=== PATIENT | male | born 1970 | race Caucasian/White ===

== ENCOUNTER 2023-12-23 14:07 | Inpatient (IN) | payer MEDICAID, SELFPAY ==
--- NOTE | ~2023-12-23 | XR_ITS ---
EXAMINATION: XR CHEST CLINICAL INFORMATION: hypothermic COMPARISON: None available. TECHNIQUE: Frontal portable view of the chest was obtained. 2:52 PM FINDINGS: No significant abnormality is noted involving the heart, lungs, mediastinum, bony thorax or soft tissues. XR/XR chest 1V IMPRESSION: Unremarkable examination. Electronically signed by: Esequiel Feng MD 12/23/2023 04:06 PM EDT RP
--- NOTE | ~2023-12-23 | MR_ITS ---
EXAMINATION: MR BRAIN WITHOUT CONTRAST CLINICAL INFORMATION: ? CVA COMPARISON: CTA head and neck on [id number] TECHNIQUE: MRI of the brain was obtained using routine sequences without contrast. FINDINGS: No acute intracranial hemorrhage or infarct. Encephalomalacic changes in the right frontoparietal lobes. Mild confluent periventricular and deep white matter T2/FLAIR hyperintensities, nonspecific however commonly seen with small vessel ischemic disease. Diffuse prominence of the ventricles out of proportion to sulci widening. No midline shift or hydrocephalus. No acute extra-axial fluid collections. The osseous structures are unremarkable. Hyperostosis frontalis internus. The pituitary gland, pineal gland and remaining midline structures are unremarkable. No orbital pathology. The paranasal sinuses are clear. Bilateral mastoid effusions.. MR/MR head/brain wo con IMPRESSION: 1. No acute intracranial intracranial abnormality. 2. Diffuse prominence of the ventricles out of portion to sulci widening, nonspecific however can be seen with normal pressure hydrocephalus in the appropriate clinical setting. 3. Chronic microangiopathy. 4. Bilateral mastoid effusions. Electronically signed by: Kingsley Kilgore MD 12/24/2023 04:39 PM EDT
--- NOTE | ~2023-12-23 | CT_ITS ---
EXAMINATION: CTA head and neck with and without contrast CLINICAL INFORMATION: Altered mental status, slurred speech COMPARISON: None available. TECHNIQUE: Test bolus sequences followed by intravenous administration of 70 mL of Omnipaque 350 contrast. Helical imaging was performed in the axial plane from the skull vertex to the thoracic inlet. Delayed postcontrast imaging of the head was also performed. The data was processed at the electroencephalographic technologist workstation for generation of MIP sequences. Angled MIPs and volume rendered reformatted images were also generated at an offline 3D workstation. Stenoses are assessed in accordance with NASCET criteria unless otherwise indicated. This CT examination was performed using dose optimization techniques as appropriate, variously including the following: *Automated exposure control *Adjustment of mA and/or kV according to patient size (this includes techniques or standardized protocols for targeted exams where dose is matched to indication/reason for exam; i.e. extremities or head) *Use of iterative reconstruction technique DLP: 2757 mGy-cm FINDINGS: Motion artifact is present. BRAIN: No acute intracranial hemorrhage or infarct. Encephalomalacic changes in the right frontal lobe. The morales-white matter differentiation is otherwise preserved. Prominence of the ventricles out of proportion to sulci widening. No midline shift or hydrocephalus. No acute process or fluid collection. The osseous structures are unremarkable. No orbital pathology. The paranasal sinuses and mastoid air cells are clear. Atherosclerotic ossifications of the bilateral carotid siphons. CTA NECK: Three-vessel aortic arch. The innominate and bilateral subclavian arteries are patent. The origins and cervical segments of the common carotid arteries as well as the common carotid artery bifurcations are patent. The cervical segments of the internal carotid arteries are also patent bilaterally. Nondominant left vertebral artery. The origins of the vertebral arteries are patent bilaterally. Suboptimal evaluation of the left cervical vertebral artery secondary to hypoplasia and scanning technique. The cervical segments of the right vertebral artery are patent. No definite evidence of hemodynamically significant stenosis, dissection, or aneurysm. The visualized branches of the external carotid arteries are unremarkable. CTA HEAD: Anterior circulation: The petrous, cavernous, and supraclinoid segments of the internal carotid arteries are present bilaterally. The major branches of the anterior and middle cerebral arteries as well as anterior communicating artery complex are patent. No large vessel occlusion, saccular aneurysm, or dissection. Posterior circulation: There is severe focal stenosis of the mid left V3. The right intracranial vertebral artery is patent. The basilar artery is normal in course and caliber. The posterior cerebral and superior cerebellar arteries arise normally from the basilar summit. Left posterior cerebral artery. No aneurysm. On delayed imaging, the venous structures demonstrate normal contrast opacification. No filling defect. No abnormal intraparenchymal enhancement. Soft tissues: No suspicious neck mass or cervical adenopathy. Lungs: Mosaic attenuation bilaterally. Bones: No acute osseous abnormality. No lytic or blastic osseous lesions. Multilevel degenerative changes of the visualized spine. CT/CT angio head neck IMPRESSION: Within the limitations of this study, -CT head demonstrates no acute intracranial hemorrhage or edematous infarct. Ventricular prominence out of proportion to sulci widening may represent normal pressure hydrocephalus in the appropriate clinical setting. Encephalomalacic changes in the right frontal lobe. -CTA head demonstrates no large vessel occlusion, saccular aneurysm, or dissection. There is severe focal stenosis of the mid left V3. -CTA neck demonstrates no hemodynamically significant stenosis, dissection, or aneurysm. Electronically signed by: Kingsley Kilgore MD 12/23/2023 06:01 PM EDT
[2023-12-23 14:13] VITALS: BP 107/85; BP 110/72; PULSE 50; PULSE 59; RESP 12; O2SAT 97; O2SAT 98; BMI 38.9
--- NOTE | 2023-12-23 14:23 | ECG_ITS ---
Test Reason : WEAKNESS Blood Pressure : / mmHG Vent. Rate : 050 BPM Atrial Rate : 050 BPM P-R Int : 202 ms QRS Dur : 082 ms QT Int : 468 ms P-R-T Axes : 100 008 034 degrees QTc Int : 426 ms Sinus bradycardia Nonspecific T wave abnormality Abnormal ECG No previous ECGs available Referred By: Rebecca Carpenter Electronically Signed By:FAUSTINO BERMAN
--- NOTE | 2023-12-23 14:34 | ED_ITS ---
HPI - General Adult General Chief complaint: Altered Mental Status Stated complaint: AMS LETHARGIC Source: EMS Mode of arrival: EMS Limitations: altered mental status History of Present Illness ED Provider: Dr. Rebecca Carpenter HPI narrative: Patient comes to the emergency room via ambulance from a halfway facility, [facility]. According to patient's health caretakers, at 08:30, they noticed that the patient was in his usual health, alert, at baseline, talking to the staff. just prior to arrival, approximately 14:00, patient was found by his caretakers with altered mental status, not answering questions, slurring his words. They took his temperature rectally and it was 94 F. patient is very confused and unable to answer any questions. Related Data Allergies Allergy/AdvReac Type Severity Reaction Status Date / Time chlorpromazine Allergy Unknown Verified 12/23/23 14:16 [From Thorazine] haloperidol [From Haldol] Allergy Unknown Verified 12/23/23 14:16 Review of Systems 2 Review of Systems: Yes Unobtainable due to mental status PMFSH Past Medical History Medical History (Updated 12/23/23 @ 21:44 by Rebecca Carpenter MD) Malignant neuroleptic syndrome Cocaine abuse Bipolar disorder Traumatic brain injury Left hemiplegia CVA (cerebral vascular accident) Hepatitis C Anxiety COPD (chronic obstructive pulmonary disease) Social History Social History Smoked in Last 30 Days: No Use of substances other than those prescribed or required for medical reasons: No Advance Directives: No Advance Directives Information Provided: No Do you have a plan to hurt others: No Plan Physical Exam ED Vital Signs: Vital Signs - 24 hr 12/23/23 14:13 12/23/23 15:58 12/23/23 18:31 Temperature 93.7 F L 94.1 F L Pulse Rate 59 52 54 Respiratory Rate 12 10 L 19 Blood Pressure 107/85 98/57 L 120/86 Pulse Oximetry 97 94 95 Oxygen Delivery Method Room Air Room Air Room Air BMI result Body Mass Index 38.9 Const Other: Appearance: Alert. No acute distress. hypothermic 94.3 Eyes: Pupils equal, round and reactive to light. ENT: Pharynx normal. heavy slurred speech Neck: Normal inspection. Neck supple. No lymph nodes noted. No crepitus CVS: Normal heart rate and rhythm. Pulses normal. Normal S1 and S2 Respiratory: No respiratory distress. Breath sounds normal. No Wheezing. No rales Abdomen: Soft and nontender. No rigidity. No distention. Skin: Skin warm and dry. Normal skin color. Normal skin turgor. Extremities: No lower extremity edema. No Lacerations. No Rash Neuro: chronic left hemiparesis, very slurred heavy speech Psych: calm, cooperative Course Course Course Narrative: - patient is hypothermic, normal blood pressure, not answering questions appropriately, Last known well time 08:30, more than 6 hours ago - per patient's nurse, his rectal temperature is 93.4. Medications Administered Discontinued Medications Generic Name Dose Route Start Last Admin Trade Name Freq PRN Reason Stop Dose Admin Sodium Chloride 2,000 mls @ 999 mls/hr 12/23/23 17:02 12/23/23 17:24 Ns IVCONT 12/23/23 19:02 999 mls/hr .Q2H1M ONE Administration Iohexol 100 ml 12/23/23 17:03 12/23/23 17:03 Iohexol 350 Mg/Ml 100 Ml Infus..Btl IV 12/23/23 17:04 70 ml ONCE ONE Administration Medical Decision Making Medical Decision Making [facility] Narrative: My interpretation of labs: Patient's white blood cell count 4.0, no significant abnormality in the hematology, coagulation or chemistry, negative troponin, negative BNP, normal lipase, normal TSH, urine negative for UTI, serology negative for COVID, influenza - There is no obvious source of infection, chest x-ray normal, serology negative, urine cleaned. Unclear why patient is hypothermic. - No episodes of hypotension, no tachycardic, lactic acid 1.9, sepsis is not suspected. - I discussed the patient with our hospitalist Dr. Edwards. this time, there is no obvious source of infection, unclear why patient is hypothermic. At this time we will not start antibiotics. - CT scans of the head and CTA of the head and neck does not show any obvious abnormality, unclear if patient had a stroke? - We keep getting different reports from the assisted whether the patient has slurred speech is new versus not. Seems that patient has a chronic left- sided deficits from previous stroke - patient being admitted Differential Diagnosis Differential Diagnoses: The differential diagnosis associated with the presentation includes ( UTI, pneumonia, encephalopathy, viral illness, TIA, CVA) Admission/Observation Consideration of admission/observation: Escalation of care including admission/observation considered Consult Healthcare Provider Management of the patient was discussed with: Hospitalist Lab Data MDM Lab Attestation statement: I reviewed the patient's lab results. 12/23/23 14:41 12/23/23 14:41 Labs: Lab Results 12/23/23 12/23/23 Range/Units 14:41 14:45 WBC 4.0 L (4.8-10.8) X10*3/uL RBC 4.68 (4.60-5.80) X10*6/uL Hgb 14.4 (14.0-18.0) g/dl Hct 42.3 (42.0-52.0) % MCV 90.4 (80.0-98.0) fL MCH 30.8 (27.0-33.0) pg MCHC 34.0 (31.0-36.0) g/dl RDW 14.0 (11.0-16.0) % Plt Count 150 L (160-400) X10*3/uL MPV 12.1 (9.4-12.4) fL Immature Gran % (Auto) 0.3 (0.0-0.4) % Neut % (Auto) 37.4 L (45-73) % Lymph % (Auto) 53.0 H (20-40) % [place] % (Auto) 6.3 (2-11) % Eos % (Auto) 2.5 (0-4) % Baso % (Auto) 0.5 (0-2) % Lymph # (Auto) 2.1 (1.2-4.9) X10*3/uL [place] # (Auto) 0.3 (0.1-1.2) X10*3/uL Eos # (Auto) 0.1 (0.0-0.4) X10*3/uL Baso # (Auto) 0.0 (0.0-0.2) X10*3/uL Abs Immat Gran (auto) 0.01 (0.00-0.03) X10*3/uL Absolute Neuts (auto) 1.5 L (2.0-8.3) x10*3/uL Absolute Nucleated RBC 0.000 (0.0-0.012) X10*3/uL Nucleated RBC % (auto) 0.0 (0.0-0.2) /100WBC PT 10.2 L (11.1-13.3) SEC INR 0.8 L (0.9-1.1) Sodium 144 (135-145) mmol/L Potassium 3.6 (3.3-5.1) mmol/L Chloride 105 (96-108) mmol/L Carbon Dioxide 31 H (22-29) mmol/L Anion Gap 12 (12-20) BUN 20 H (9-16) mg/dL Creatinine 0.81 (0.5-1.4) mg/dL Estim Creat Clear Calc 136.0 Estimated GFR > 60 Random Glucose 100 (60-115) mg/dL Lactic Acid 1.9 (0.5-2.0) mmol/L Calcium 9.7 (8.4-10.2) mg/dL Magnesium 2.4 (1.6-2.6) mg/dL Total Bilirubin 0.4 (0.0-1.0) mg/dL Direct Bilirubin 0.1 (0.0-0.5) mg/dL AST 9 (5-37) U/L ALT 13 (0-40) U/L Alkaline Phosphatase 67 (39-117) U/L Troponin I High Sens < 2.7 (<3.5-35.0) ng/L B-Natriuretic Peptide 14 (<100) pg/mL Total Protein 7.6 (6.5-8.0) g/dL Albumin 4.4 (3.5-5.0) g/dL Lipase 19 (8-78) U/L TSH 2.00 (0.32-4.0) uIU/mL Urine Color Yellow Urine Appearance Clear Urine pH 6.0 (5.0-9.0) Ur Specific [place] 1.025 (1.005-1.025) Urine Protein Negative (Neg-Trace) mg/dL Urine Glucose (UA) Negative (Negative) mg/dL Urine Ketones Trace (Negative) mg/dL Urine Blood Negative (Negative) Urine Nitrite Negative (Negative) Ur Leukocyte Esterase Negative (Negative) COVID-19 (CASSY) Negative (Negative) COVID-19 Clin Com See Note Influenza Type A (KIRAN) Negative (Negative) Influenza Type B (KIRAN) Negative (Negative) Influenza A & B Note See Note Independent Interpretation I performed an independent interpretation of an: CT Scan Radiology Impression Discussion of test interpretation with radiology: I have reviewed the radiologist's reading. Radiologist Impression: BRAIN: No acute intracranial hemorrhage or infarct. Encephalomalacic changes in the right frontal lobe. The morales-white matter differentiation is otherwise preserved. Prominence of the ventricles out of proportion to sulci widening. No midline shift or hydrocephalus. No acute process or fluid collection. The osseous structures are unremarkable. No orbital pathology. The paranasal sinuses and mastoid air cells are clear. Atherosclerotic ossifications of the bilateral carotid siphons. CTA NECK: Three-vessel aortic arch. The innominate and bilateral subclavian arteries are patent. The origins and cervical segments of the common carotid arteries as well as the common carotid artery bifurcations are patent. The cervical segments of the internal carotid arteries are also patent bilaterally. Nondominant left vertebral artery. The origins of the vertebral arteries are patent bilaterally. Suboptimal evaluation of the left cervical vertebral artery secondary to hypoplasia and scanning technique. The cervical segments of the right vertebral artery are patent. No definite evidence of hemodynamically significant stenosis, dissection, or aneurysm. The visualized branches of the external carotid arteries are unremarkable. CTA HEAD: Anterior circulation: The petrous, cavernous, and supraclinoid segments of the internal carotid arteries are present bilaterally. The major branches of the anterior and middle cerebral arteries as well as anterior communicating artery complex are patent. No large vessel occlusion, saccular aneurysm, or dissection. Posterior circulation: There is severe focal stenosis of the mid left V3. The right intracranial vertebral artery is patent. The basilar artery is normal in course and caliber. The posterior cerebral and superior cerebellar arteries arise normally from the basilar summit. Left posterior cerebral artery. No aneurysm. On delayed imaging, the venous structures demonstrate normal contrast opacification. No filling defect. No abnormal intraparenchymal enhancement. Soft tissues: No suspicious neck mass or cervical adenopathy. Lungs: Mosaic attenuation bilaterally. Bones: No acute osseous abnormality. No lytic or blastic osseous lesions. Multilevel degenerative changes of the visualized spine. CT/CT angio head neck IMPRESSION: Within the limitations of this study, -CT head demonstrates no acute intracranial hemorrhage or edematous infarct. Ventricular prominence out of proportion to sulci widening may represent normal pressure hydrocephalus in the appropriate clinical setting. Encephalomalacic changes in the right frontal lobe. -CTA head demonstrates no large vessel occlusion, saccular aneurysm, or dissection. There is severe focal stenosis of the mid left V3. -CTA neck demonstrates no hemodynamically significant stenosis, dissection, or aneurysm. Independent Historian Clinical information obtained from an independent historian. History obtained from or confirmed by: EMS Critical Care Time Critical Care Time Critical Care Time: Yes Total Critical Care Time: 75 Attestation: I have personally provided critical care time. Time includes review of lab data, radiology results, discussion with consultants, and monitoring for potential decompensation. Intervention performed as documented. Discharge Plan Discharge Clinical Impression: Altered mental status, Hypothermia Patient Disposition: Admitted As Inpatient Print Language: Comoran
[2023-12-23 14:46] LABS: MANUAL DIFF FLAG NO
[2023-12-23 14:49] LABS: Basophils Percent Auto 0.5 % (0-2); Eosinophils Absolute Auto 0.1 X10*3/uL (0.0-0.4); Eosinophils Percent Auto 2.5 % (0-4); Hematocrit 42.3 % (42.0-52.0); Hemoglobin 14.4 g/dl (14.0-18.0); Imm Gran Abs Auto 0.01 X10*3/uL (0.00-0.03); Imm Gran Pct Auto 0.3 % (0.0-0.4); Lymphocytes Absolute Auto 2.1 X10*3/uL (1.2-4.9); Mean Corpuscular Hemoglobin 30.8 pg (27.0-33.0); Mean Corpuscular Volume 90.4 fL (80.0-98.0); Mean Platelet Volume 12.1 fL (9.4-12.4); Monocytes Absolute Auto 0.3 X10*3/uL (0.1-1.2); Monocytes Percent Auto 6.3 % (2-11); Neutrophils Absolute Auto 1.5 x10*3/uL (2.0-8.3); Neutrophils Percent Auto 37.4 % (45-73); Platelet Count 150 X10*3/uL (160-400); Red Blood Count 4.68 X10*6/uL (4.60-5.80)
[2023-12-23 14:54] LABS: INTERNATIONAL NORM RATIO 0.8 (0.9-1.1); Prothrombin Time 10.2 SEC (11.1-13.3)
[2023-12-23 14:56] LABS: Appearance Urine Clear; Color Urine Yellow; Glucose Urine UA Negative (Negative); Leukocyte Esterase Urine Negative (Negative); Nitrite Urine Negative (Negative); Specific Gravity - Urine 1.025 (1.005-1.025); Urine Blood Negative (Negative); Urine Ketones Trace mg/dL (Negative); Urine Protein Negative (Neg-Trace)
[2023-12-23 14:58] LABS: Lactic Acid 1.9 mmol/L (0.5-2.0)
[2023-12-23 15:04] LABS: Alanine Aminotransferase 13 U/L (0-40); Albumin Level 4.4 g/dL (3.5-5.0); Alkaline Phosphatase 67 U/L (39-117); Anion Gap 12 (12-20); Aspartate Amino Transferase 9 U/L (5-37); Bilirubin Direct 0.1 mg/dL (0.0-0.5); Bilirubin Total 0.4 mg/dL (0.0-1.0); Blood Urea Nitrogen 20 mg/dL (9-16); Calcium 9.7 mg/dL (8.4-10.2); Carbon Dioxide 31 mmol/L (22-29); Chloride 105 mmol/L (96-108); Estimated Glomerular Filt Rate > 60; Glucose Random 100 mg/dL (60-115); Lipase 19 U/L (8-78); Magnesium 2.4 mg/dL (1.6-2.6); Potassium 3.6 mmol/L (3.3-5.1); Sodium 144 mmol/L (135-145); Total Protein 7.6 g/dL (6.5-8.0)
--- NOTE | 2023-12-23 15:06 | PC.NURSE ---
Patient DAMIAN from [facility], staff concerned for increased lethargy/AMS, last known well time 0830 confirmed by staff there, hypothermic at facility. Upon arrival to the ED patient able to verbalize that he needed to urinate, able to w/ assistance in urinal. Rectal temp 93.2, rectal temp probe placed to monitor temp more closely. Labs drawn and sent per orders. Patient placed on warming blanket. VS stable SB 50's on monitor.
[2023-12-23 15:08] LABS: B Type Natriuretic Peptide 14 pg/mL (<100); COVID-19 Test Negative (Negative); IDNOW Serial# 152EDE1D
[2023-12-23 15:13] LABS: Troponin-I High Sensitivity < 2.7 ng/L (<3.5-35.0)
[2023-12-23 15:20] LABS: IDNOW Serial# 58CA691E; Influenza A Negative (Negative); Influenza B2 Negative (Negative)
[2023-12-23 15:58] VITALS: BP 98/57; PULSE 52; RESP 10; TEMP 34.3; O2SAT 94
[2023-12-23] MEDS: iohexoL 350 MG/ML 100 ML INFUS..BTL IV (17:03)
[2023-12-23] MEDS: 0.9 % Sodium Chloride 2,000 ML 999 ML IVCONT (17:24)
--- NOTE | 2023-12-23 17:44 | PC.NURSE ---
Spoke to patient's mom, Tiffanie, , updated on plan of care, all questions answered, request from Tiffanie to get phone call once work up is complete.
[2023-12-23 18:31] VITALS: BP 120/86; PULSE 54; RESP 19; TEMP 34.5; O2SAT 95
--- NOTE | 2023-12-23 19:07 | PC.NURSE ---
Patient self removed IV. IV replaced, 2L of fluids hung. Patient requesting food.
--- NOTE | 2023-12-23 21:22 | P.HPHOSP_ITS ---
History of Present Illness Date of Service: 12/23/23 Attending physician on admission: Racheal Edwards Chief Complaint: AMS, hypothermia Pt is a 53-year-old male with a PMH significant for?CVA with residual left hemiparesis and dysarthria, TBI, HTN, malignant neuroleptic syndrome, polysubstance use disorder, COPD, GERD, nonambulatory and full Aman lift at facility, anxiety, and bipolar disorder who presents to the ED from [facility] for evaluation of altered mental status and hypothermia. Patient is alert and oriented x2, unaware of his situation or what brought him to the hospital, and with slurred speech unclear if at baseline but very difficult to understand. HPI is thus obtained from chart and provider review, and call placed to SNF. According to staff, patient was in his normal state of health at 08:30 this morning: Alert, interacting, speaking to staff. At approximately 14:00 patient was found at facility to be altered, lethargic, not answering questions appropriately, and slurring his words above baseline. Vital signs were taken then and temperature was noted to be 94.0 F rectally. Upon arrival at the ED patient's temperature was noted to be 93.7 and he was placed in a Julianne Hugger where his temperature was slowly raised to 95 F. In the ED pt was hypothermic as low as 93.7, bradypneic as low as 10, and hypotensive at 98/57. Labs were significant for leukopenia 4.0, otherwise grossly unremarkable. Stable H& H. No significant electrolyte abnormalities. Renal function baseline. Lactic acid WNL at 1.9. Hepatic function WNL. Troponin negative. BNP WNL. UA negative for UTI. Tested negative for COVID, and flu. CXR showed no acute cardiopulmonary disease. CT?of head negative for acute intracranial hemorrhage or edematous territorial infarct. Question of normal pressure hydrocephalus. Encephalomalacic changes in right frontal lobe. CTA of head showed no large vessel occlusion, saccular aneurysm, or dissection. CTA of neck negative for hemodynamically significant stenosis, dissection, or aneurysm. EKG demonstrated sinus bradycardia of 50 with no evidence of significant ST elevations or depressions. Pt was placed on a Julianne Hugger and treated with 2L IVF. Pt will be admitted to the hospital for treatment and further evaluation of acute metabolic encephalopathy and hypothermia of unclear etiology. Review of Systems 2 Review of Systems: Unable to obtain due to patient's mentation [facility] Medical History Malignant neuroleptic syndrome Cocaine abuse Bipolar disorder Traumatic brain injury Left hemiplegia CVA (cerebral vascular accident) Hepatitis C Anxiety COPD (chronic obstructive pulmonary disease) Social History Smoked in Last 30 Days: No Use of substances other than those prescribed or required for medical reasons: No Advance Directives: No Advance Directives Information Provided: No Do you have a plan to hurt others: No Plan Meds Allergies Allergy/AdvReac Type Severity Reaction Status Date / Time chlorpromazine Allergy Unknown Verified 12/23/23 14:16 [From Thorazine] haloperidol [From Haldol] Allergy Unknown Verified 12/23/23 14:16 Active Medications: Current Medications Acetaminophen (Acetaminophen 325 Mg Tablet) 650 mg PO Q6H PRN PRN Reason: Pain, Mild (Pain Scale 1-3), fever or headache Calcium Carbonate (Calcium Carbonate 750 Mg Tab.Chew) 750 mg PO Q4H PRN PRN Reason: Heartburn Magnesium Hydroxide (Milk Of Magnesia 30 Ml Oral.Susp) 30 ml PO DAILY PRN PRN Reason: Constipation Melatonin (Melatonin 3 Mg Tablet) 6 mg PO BEDTIME PRN PRN Reason: Insomnia Ondansetron HCl (Ondansetron Hcl 4 Mg/2 Ml Vial) 4 mg IVPUSH Q8H PRN PRN Reason: Nausea and Vomiting Sodium Chloride (0.9 % Sodium Chloride Flush 3 Ml Syringe) 3 ml IVFLUSH QSHIFT [facility] Physical Exam 2 Vital Signs and Narrative: Vital Signs: Last Vital Signs Temp 94.1 F L 12/23/23 18:31 Pulse 54 12/23/23 18:31 Resp 19 12/23/23 18:31 BP 120/86 12/23/23 18:31 Pulse Ox 95 12/23/23 18:31 O2 Del Method Room Air 12/23/23 18:31 BMI result Body Mass Index 38.9 Constitutional: Somnolent but arousable, in no acute distress. Mental Status: Oriented to person and time, but not to place or situation. Eyes: Pupils are equal, round, and reactive to light. Ear, Nose, and Throat: Oropharynx clear, mucous membranes moist. Ears and nose without deformities. Trachea midline. Respiratory: Clear to auscultation bilaterally. No wheezing, rales, or rhonchi. Cardiovascular: S1, S2 regular. No murmurs, rubs, or gallops. Gastrointestinal: Abdomen soft, non-tender, non-distended. Normal bowel sounds. Neurologic: Following commands, but EOM unable to fully track. Significant dysarthria. Left-sided hemiparesis with 1/5 strength of LUE and 0/5 strength of LLE. Cellophane Wrapping Examiner intact bilaterally. Skin: Warm, dry. Extremities: No edema. Results Labs 12/23/23 14:41 12/23/23 14:41 Labs: Laboratory Results - last 24 hr 12/23/23 12/23/23 14:41 14:45 MCV 90.4 MCH 30.8 MCHC 34.0 RDW 14.0 Plt Count 150 L MPV 12.1 Immature Gran % (Auto) 0.3 Neut % (Auto) 37.4 L Lymph % (Auto) 53.0 H [place] % (Auto) 6.3 Eos % (Auto) 2.5 Baso % (Auto) 0.5 Lymph # (Auto) 2.1 [place] # (Auto) 0.3 Eos # (Auto) 0.1 Baso # (Auto) 0.0 Abs Immat Gran (auto) 0.01 Absolute Neuts (auto) 1.5 L Absolute Nucleated RBC 0.000 Nucleated RBC % (auto) 0.0 PT 10.2 L INR 0.8 L Anion Gap 12 Estim Creat Clear Calc 136.0 Estimated GFR > 60 Random Glucose 100 Lactic Acid 1.9 Calcium 9.7 Magnesium 2.4 Total Bilirubin 0.4 Direct Bilirubin 0.1 AST 9 ALT 13 Alkaline Phosphatase 67 Troponin I High Sens < 2.7 B-Natriuretic Peptide 14 Total Protein 7.6 Albumin 4.4 Lipase 19 TSH 2.00 Urine Color Yellow Urine Appearance Clear Urine pH 6.0 Ur Specific [place] 1.025 Urine Protein Negative Urine Glucose (UA) Negative Urine Ketones Trace Urine Blood Negative Urine Nitrite Negative Ur Leukocyte Esterase Negative COVID-19 (CASSY) Negative COVID-19 Clin Com See Note Influenza Type A (KIRAN) Negative Influenza Type B (KIRAN) Negative Influenza A & B Note See Note Imaging Radiologist's Impressions: Impressions Chest X-Ray 12/23/23 14:48 IMPRESSION: Unremarkable examination. Electronically signed by: Esequiel Feng MD 12/23/2023 04:06 PM EDT RP Head CT 12/23/23 16:35 IMPRESSION: Within the limitations of this study, -CT head demonstrates no acute intracranial hemorrhage or edematous infarct. Ventricular prominence out of proportion to sulci widening may represent normal pressure hydrocephalus in the appropriate clinical setting. Encephalomalacic changes in the right frontal lobe. -CTA head demonstrates no large vessel occlusion, saccular aneurysm, or dissection. There is severe focal stenosis of the mid left V3. -CTA neck demonstrates no hemodynamically significant stenosis, dissection, or aneurysm. Electronically signed by: Kingsley Kilgore MD 12/23/2023 06:01 PM EDT RP Head/Neck CTA 12/23/23 16:35 IMPRESSION: Within the limitations of this study, -CT head demonstrates no acute intracranial hemorrhage or edematous infarct. Ventricular prominence out of proportion to sulci widening may represent normal pressure hydrocephalus in the appropriate clinical setting. Encephalomalacic changes in the right frontal lobe. -CTA head demonstrates no large vessel occlusion, saccular aneurysm, or dissection. There is severe focal stenosis of the mid left V3. -CTA neck demonstrates no hemodynamically significant stenosis, dissection, or aneurysm. Electronically signed by: Kingsley Kilgore MD 12/23/2023 06:01 PM EDT RP Assessment and Plan (1) Hypothermia: Status: Acute (2) Acute metabolic encephalopathy: Status: Acute Plan Pt is a 53-year-old male with a PMH significant for?CVA with residual left hemiparesis and dysarthria, TBI, HTN, malignant neuroleptic syndrome, polysubstance use disorder, COPD, GERD, nonambulatory and full Aman lift at facility, anxiety, and bipolar disorder who presents to the ED from [facility] for evaluation of altered mental status and hypothermia. Pt will be admitted to the hospital for treatment and further evaluation of acute metabolic encephalopathy and hypothermia of unclear etiology. Acute metabolic encephalopathy with hypothermia Patient with AMS, slurred speech with question above baseline, 93.7 F Last known well time 08:30, found altered at 1400 Unclear etiology: CVA versus meningitis/encephalitis UA negative, CXR negative Patient does not meet sepsis criteria: Hypothermia, but no tachycardia, tachypnea, or leukocytosis/leukopenia Will empirically treat with dexamethasone 10mg q6h, ceftriaxone 2g q12h, vancomycin, ampicillin 2g q4h, and acyclovir 10 mg/kg q8h Will get MRI of brain Will get LP with CSF analysis Neurology consult Hx of CVA Continue aspirin, statin COPD Not in acute exacerbation Continue home inhalers HTN Hold antihypertensives for now due to soft BP GERD Continue PPI Mood disorder Continue home meds Bowel regimen Continue home meds Full Code Attending:?Dr. Edwards DVT Prophylaxis: Pneumatic compression Pt will require a hospitalization of at least two nights for treatment and further evaluation of acute metabolic encephalopathy with hypothermia of unclear etiology with treatment that will include additional workup including LP and MRI, as well as empiric antibiotic, antiviral, and steroid administration. Quality Stroke Does the patient have a stroke diagnosis?: No Reason for No Anti-thrombotic by Day Two: Contraindicated (Outside of tNK therapeutic window) VTE Prior VTE?: No VTE Risk Level:: Medical - moderate - high VTE Device Contraindication: N/A - Device Ordered VTE Drug Contraindication: Treatment Not Indicated
[2023-12-24] VITALS (10 sets, daily range): BP systolic 122–154; BP diastolic 65–94; PULSE 61–114; RESP 16–22; TEMP 36.3–37.4; O2SAT 95–98
[2023-12-24] MEDS: dexAMETHasone sod phosphate 10 MG/ML VIAL IVPUSH ×5 (00:03→20:46)
[2023-12-24] MEDS: cefTRIAXone sodium 2 GM in 0.9 % Sodium Chloride 50 ML IV ×2 (00:03→12:09)
[2023-12-24] MEDS: vancomycin/NS 2,000 MG/500 ML PLAST..BAG 250 MG IV (00:49)
[2023-12-24] MEDS: Ampicillin Sodium 2 GM in 0.9 % Sodium Chloride 100 ML IV ×3 (01:27→12:59)
[2023-12-24 05:11] LABS: MANUAL DIFF FLAG NO
--- NOTE | 2023-12-24 05:13 | MHC.EDTECH ---
pt repeatedly trying to get out of bed, Charge Nurse aware and Pt RN aware.
[2023-12-24 05:19] LABS: Basophils Percent Auto 0.2 % (0-2); Eosinophils Percent Auto 0.2 % (0-4); Hematocrit 40.3 % (42.0-52.0); Hemoglobin 13.1 g/dl (14.0-18.0); Imm Gran Abs Auto 0.03 X10*3/uL (0.00-0.03); Imm Gran Pct Auto 0.5 % (0.0-0.4); Lymphocytes Absolute Auto 0.7 X10*3/uL (1.2-4.9); Lymphocytes Percent Auto 11.4 % (20-40); Mean Corpuscular HGB Conc 32.5 g/dl (31.0-36.0); Mean Corpuscular Hemoglobin 29.9 pg (27.0-33.0); Mean Platelet Volume 12.1 fL (9.4-12.4); Monocytes Absolute Auto 0.1 X10*3/uL (0.1-1.2); Neutrophils Absolute Auto 5.2 x10*3/uL (2.0-8.3); Neutrophils Percent Auto 86.7 % (45-73); Platelet Count 148 X10*3/uL (160-400); Red Blood Count 4.38 X10*6/uL (4.60-5.80); Red Cell Distribution Width 14.1 % (11.0-16.0)
[2023-12-24 05:37] LABS: Anion Gap 13 (12-20); Blood Urea Nitrogen 17 mg/dL (9-16); Calcium 9.3 mg/dL (8.4-10.2); Carbon Dioxide 30 mmol/L (22-29); Chloride 107 mmol/L (96-108); Creatinine Clr Calc Pharmacy 141.3; Estimated Glomerular Filt Rate > 60; Glucose Random 108 mg/dL (60-115); Potassium 3.6 mmol/L (3.3-5.1); Sodium 146 mmol/L (135-145)
--- NOTE | 2023-12-24 06:04 | PC.NURSE ---
pt ripped out both of his IVs; when this RN went to place another one he refused. attempting to swing at this RN. states get off my fucking ass. aware that pt is refusing another IV. unable to administer abx at this time.
--- NOTE | 2023-12-24 08:12 | PHA.MEDREC ---
Pharmacy Consult ? Medication Reconciliation Pharmacy has completed the medication reconciliation. List received from [facility].
[2023-12-24] MEDS: LORazepam 2 MG/ML VIAL 1 MG IVPUSH ×2 (08:25→14:47)
[2023-12-24] MEDS: OLANZapine 10 MG VIAL IM (08:30)
[2023-12-24] MEDS: 0.9 % Sodium Chloride Flush 3 ML SYRINGE IVFLUSH ×3 (08:33→20:48)
--- NOTE | 2023-12-24 08:33 | PC.NURSE ---
Care of Pt assumed at beginning of shift. Pt presents with yelling and use of foul language, sitter present. 22g placed in L hand, VSS. Pt behavior progresses to combative with attempting to kick and spit at staff, as well as throwing urinal at staff. Soft restraints placed to bilat upper extremities and Pt medicated per MAR. VS remain stable.
[2023-12-24 08:35] LABS: C Reactive Protein 0.23 mg/dL (< or = 0.50)
[2023-12-24 08:48] LABS: Procalcitonin 0.02 ng/mL
--- NOTE | 2023-12-24 09:00 | PC.NURSE ---
Pharmacy aware of med rec needed
[2023-12-24] MEDS: DULoxetine HCl 30 MG CAPSULE.DR 90 MG PO (10:01)
[2023-12-24] MEDS: Propranolol HCL 20 MG TABLET PO ×3 (10:01→20:44)
[2023-12-24] MEDS: Furosemide 20 MG TABLET 10 MG PO (10:02)
[2023-12-24] MEDS: Gabapentin 300 MG CAPSULE 900 MG PO ×3 (10:02→20:46)
[2023-12-24] MEDS: Potassium Chloride ER 10 MEQ TABLET.ER PO (10:03)
[2023-12-24] MEDS: Omeprazole 20 MG CAPSULE.DR PO (10:03)
[2023-12-24] MEDS: clonazePAM 1 MG TABLET PO ×2 (10:03→20:45)
[2023-12-24] MEDS: Docusate Sodium 100 MG CAPSULE PO ×2 (10:03→20:45)
--- NOTE | 2023-12-24 10:15 | PC.NURSE ---
Soft limb restraints removed, pt awake but agreeable to safety, AM meds given, refused some as reflected in EMAR
[2023-12-24] MEDS: vancomycin HCL 1,000 MG in 0.9 % Sodium Chloride 250 ML 270 MG IV (10:19)
--- NOTE | 2023-12-24 10:20 | PC.NURSE ---
Mother and family friend at bedside, pt in better spirits, occasionally laughing and smiling
[2023-12-24 10:37] LABS: Amphetamine Screen Urine Not Detected (Not Detect); Barbiturates, Urine Not Detected (Not Detect); Benzodiazepines Screen Urine Not Detected (Not Detect); Buprenorphine Scr Not Detected (Not Detect); Cannabinoid Screen Urine Not Detected (Not Detect); Cocaine Screen Urine Not Detected (Not Detect); Fentanyl, urine Not Detected (Not Detect); Methadone Screen, Urine Not Detected (Not Detect); Opiate Screen Urine Not Detected (Not Detect); Oxycodone Screen Urine Not Detected (Not Detect); Phencyclidine Screen Urine Not Detected (Not Detect)
[2023-12-24] MEDS: ARIPiprazole 5 MG TABLET PO ×2 (13:05→13:06)
[2023-12-24] MEDS: ARIPiprazole 2 MG TABLET PO (13:06)
--- NOTE | 2023-12-24 13:46 | P.CNNE_ITS ---
History of Present Illness Data of Consult Service Date: 12/24/23 Primary Care Provider: [facility] Reason for consult: Change in mental status 53 years old man with underlying left hemiparesis from a stroke and history of drug abuse resident of a longterm was brought to hospital after change in mental status and dysarthria. He was evaluated in emergency room and my impression was that it was difficult to confirm that he was having a stroke and treatment like TNK was not considered. He was hypothermic and was evaluated for infection but so far no definite infection has been found. Review of Systems 2 Review of Systems: No recent cold or flu-like illness fever or chills or trauma or headache PMFSH Past Medical History Medical History Malignant neuroleptic syndrome Cocaine abuse Bipolar disorder Traumatic brain injury Left hemiplegia CVA (cerebral vascular accident) Hepatitis C Anxiety COPD (chronic obstructive pulmonary disease) Social History Social History Household Members: Other Housing: Other Housing Other:: [facility] Patient Tobacco Use Status: Former Tobacco user Cigarette Packs Per Day: 1 Cigarettes Per Day: 20.0 Meds Allergies Allergy/AdvReac Type Severity Reaction Status Date / Time chlorpromazine Allergy Unknown Verified 12/23/23 14:16 [From Thorazine] haloperidol [From Haldol] Allergy Unknown Verified 12/23/23 14:16 Active Medications: Current Medications Acetaminophen (Acetaminophen 325 Mg Tablet) 650 mg PO Q6H PRN PRN Reason: Pain, Mild (Pain Scale 1-3), fever or headache Albuterol Sulfate (Albuterol Sulfate (0.083%) 2.5 Mg/3 Ml Vial.Neb) 2.5 mg INHALE Q4H PRN PRN Reason: Wheezing Aripiprazole (Aripiprazole 5 Mg Tablet) 5 mg PO DAILY [facility] Last Admin: 12/24/23 13:06 Dose: 5 mg Aripiprazole (Aripiprazole 2 Mg Tablet) 2 mg PO DAILY [facility] Last Admin: 12/24/23 13:06 Dose: 2 mg Bisacodyl (Bisacodyl 10 Mg Supp.Rect) 10 mg [place] DAILY PRN PRN Reason: Constipation Calcium Carbonate (Calcium Carbonate 750 Mg Tab.Chew) 750 mg PO Q4H PRN PRN Reason: Heartburn Clonazepam (Clonazepam 1 Mg Tablet) 1 mg PO Q8H PRN PRN Reason: Anxiety Clonazepam (Clonazepam 1 Mg Tablet) 1 mg PO BID [facility] Last Admin: 12/24/23 10:03 Dose: 1 mg Dexamethasone Sodium Phosphate (Dexamethasone Sod Phosphate 10 Mg/Ml Vial) 10 mg IVPUSH Q6H [facility] Last Admin: 12/24/23 11:33 Dose: 10 mg Docusate Sodium (Docusate Sodium 100 Mg Capsule) 100 mg PO BID [facility] Last Admin: 12/24/23 10:03 Dose: 100 mg Duloxetine HCl (Duloxetine Hcl 30 Mg Capsule.Dr) 90 mg PO DAILY [facility] Last Admin: 12/24/23 10:01 Dose: 90 mg Furosemide (Furosemide 20 Mg Tablet) 10 mg PO DAILY [facility]; Protocol Last Admin: 12/24/23 10:02 Dose: 10 mg Gabapentin (Gabapentin 300 Mg Capsule) 900 mg PO TID [facility] Last Admin: 12/24/23 10:02 Dose: 900 mg Guaifenesin (Guaifenesin 100 Mg/5 Ml Liquid) 10 ml PO Q4H PRN PRN Reason: Cough Guaifenesin (Guaifenesin 200 Mg/10 Ml 10 Ml Liquid) 20 ml PO BID@0900,1800 [facility] Last Admin: 12/24/23 10:30 Dose: Not Given Vancomycin HCl 1,000 mg/ (Sodium Chloride) 270 mls @ 270 mls/hr IV Q8H [facility] Last Infusion: 12/24/23 11:35 Dose: Infused Acyclovir Sodium 900 mg/ (Sodium Chloride) 268 mls @ 268 mls/hr IV Q8H [facility] Last Infusion: 12/24/23 10:14 Dose: Infused Ceftriaxone Sodium 2 gm/ (Sodium Chloride) 50 mls @ 100 mls/hr IV Q12H [facility] Last Infusion: 12/24/23 12:42 Dose: Infused Ampicillin Sodium 2 gm/ Sodium (Chloride) 100 mls @ 200 mls/hr IV Q4H [facility] Last Infusion: 12/24/23 13:31 Dose: Infused Lactulose (Lactulose 20 Gm/30 Ml Solution) 30 gm PO TID [facility] Last Admin: 12/24/23 10:30 Dose: Not Given Magnesium Hydroxide (Milk Of Magnesia 30 Ml Oral.Susp) 30 ml PO DAILY PRN PRN Reason: Constipation Melatonin (Melatonin 3 Mg Tablet) 9 mg PO BEDTIME [facility] Olanzapine (Olanzapine 7.5 Mg Tablet) 15 mg PO BEDTIME [facility] Omeprazole (Omeprazole 20 Mg Capsule.Dr) 20 mg PO DAILY@0630 [facility] Last Admin: 12/24/23 10:03 Dose: 20 mg Ondansetron HCl (Ondansetron Hcl 4 Mg/2 Ml Vial) 4 mg IVPUSH Q8H PRN PRN Reason: Nausea and Vomiting Oxycodone HCl (Oxycodone Hcl Immed Release 5 Mg Tablet) 5 mg PO Q8H PRN PRN Reason: Pain (Scale Score 4-6) Pharmacy Consult (Consult Rx Vancomycin Dosing) 1 each MISCELLANE DAILY PRN PRN Reason: Consult order Potassium Chloride (Potassium Chloride Er 10 Meq Tablet.Er) 10 meq PO DAILY [facility] Last Admin: 12/24/23 10:03 Dose: 10 meq Propranolol HCl (Propranolol Hcl 20 Mg Tablet) 20 mg PO TID [facility]; Protocol Last Admin: 12/24/23 10:01 Dose: 20 mg Sodium Chloride (0.9 % Sodium Chloride Flush 3 Ml Syringe) 3 ml IVFLUSH QSHIFT [facility] Last Admin: 12/24/23 08:33 Dose: 3 ml Home Medications ?Medication ?Instructions ?Recorded ?Confirmed ?Last Taken ?Type acetaminophen 325 mg tablet 975 mg PO Q8H PRN HEADACHE/PAIN 12/24/23 12/24/23 12/23/23 History albuterol sulfate 2.5 mg/3 mL 2.5 mg inhalation Q4H PRN Wheezing 12/24/23 12/24/23 Unknown History (0.083 %) solution for nebulization aripiprazole 2 mg tablet (Abilify) 2 mg PO DAILY 12/24/23 12/24/23 12/23/23 History aripiprazole 5 mg tablet (Abilify) 5 mg PO DAILY 12/24/23 12/24/23 12/23/23 History aspirin 81 mg tablet,delayed 81 mg PO DAILY 12/24/23 12/24/23 12/23/23 History release bisacodyl 10 mg rectal suppository 10 mg WA DAILY PRN Constipation 12/24/23 12/24/23 Unknown History clonazepam 1 mg tablet 1 mg PO BID 12/24/23 12/24/23 12/23/23 History clonazepam 1 mg tablet 1 mg PO Q8H PRN Anxiety 12/24/23 12/24/23 12/09/23 History docusate sodium 100 mg capsule 100 mg PO BID 12/24/23 12/24/23 12/23/23 History (Colace) duloxetine 30 mg capsule,delayed 90 mg PO DAILY 12/24/23 12/24/23 12/23/23 History release sprinkle furosemide 20 mg tablet 10 mg PO DAILY 12/24/23 12/24/23 12/23/23 History gabapentin 300 mg capsule 900 mg PO TID 12/24/23 12/24/23 12/23/23 History guaifenesin 100 mg/5 mL oral liquid 200 mg PO Q4H PRN Cough 12/24/23 12/24/23 Unknown History guaifenesin 200 mg tablet 400 mg PO BID@0900,1800 12/24/23 12/24/23 12/23/23 History lactulose 10 gram/15 mL oral 45 ml PO TID 12/24/23 12/24/23 12/23/23 History solution magnesium hydroxide 400 mg/5 mL 30 ml PO DAILY PRN Constipation 12/24/23 12/24/23 Unknown History oral suspension (Milk of Magnesia) melatonin 3 mg tablet 9 mg PO BEDTIME 12/24/23 12/24/23 12/22/23 History olanzapine 15 mg tablet 15 mg PO BEDTIME 12/24/23 12/24/23 12/22/23 History oxycodone 5 mg tablet 5 mg PO Q8H PRN Pain (Scale Score 12/24/23 12/24/23 12/23/23 History 4-6) pantoprazole 40 mg tablet,delayed 40 mg PO DAILY@0630 12/24/23 12/24/23 12/23/23 History release potassium chloride 10 mEq 10 meq PO DAILY 12/24/23 12/24/23 12/23/23 History capsule,extended release propranolol 20 mg tablet 20 mg PO TID 12/24/23 12/24/23 12/23/23 History Physical Exam 2 Vital Signs: Vital Signs: Last Vital Signs Temp 97.9 F 12/24/23 12:22 Pulse 78 12/24/23 12:22 Resp 18 12/24/23 12:22 BP 142/77 H 12/24/23 12:22 Pulse Ox 97 12/24/23 12:22 O2 Del Method Room Air 12/24/23 12:22 BMI result Body Mass Index 38.9 Neuro: Other: He is alert and awake with normal spontaneity and fluency of speech. Speech is slightly dysarthric. He did not move his left arm or left leg. He was moving his right side. Visual jesus are full. Results Labs 12/24/23 04:42 12/24/23 04:42 Labs: Short CBC 12/23/23 12/24/23 Range/Units 14:41 04:42 WBC 4.0 L 6.0 (4.8-10.8) X10*3/uL Hgb 14.4 13.1 L (14.0-18.0) g/dl Hct 42.3 40.3 L (42.0-52.0) % Plt Count 150 L 148 L (160-400) X10*3/uL BMP 12/23/23 12/24/23 14:41 04:42 Sodium 144 146 H Potassium 3.6 3.6 Chloride 105 107 Carbon Dioxide 31 H 30 H BUN 20 H 17 H Creatinine 0.81 0.78 Calcium 9.7 9.3 Liver Function 12/23/23 Range/Units 14:41 Total Bilirubin 0.4 (0.0-1.0) mg/dL Direct Bilirubin 0.1 (0.0-0.5) mg/dL AST 9 (5-37) U/L ALT 13 (0-40) U/L Alkaline Phosphatase 67 (39-117) U/L Albumin 4.4 (3.5-5.0) g/dL Urine 12/23/23 Range/Units 14:45 Urine Color Yellow Urine Appearance Clear Urine pH 6.0 (5.0-9.0) Ur Specific [place] 1.025 (1.005-1.025) Urine Protein Negative (Neg-Trace) mg/dL Urine Glucose (UA) Negative (Negative) mg/dL Head CT revealed moderately severe diffuse cerebral atrophy and a chronic right motor strip area infarct. CTA did not reveal any large vessel disease. Assessment and Plan (1) Altered mental status: Qualifiers: Altered mental status type: unspecified Qualified Code(s): R41.82 - Altered mental status, unspecified Status: Acute 53 years old man with complicated underlying history including left hemiparesis from a right frontal infarct came to hospital with change in mental status was etiology has not been yet found. There was no sign of significant metabolic abnormality or infection to explain his situation. Because of hypothermia, blood infection is a possibility. I would also recommend obtaining an EEG if possible to rule out seizure disorder, which is a common complication of this type of stroke Procedures Date of Service Date of Service: 12/24/23
--- NOTE | 2023-12-24 14:20 | P.PNIM_ITS ---
Subjective Subjective Date of Service: 12/24/23 Interval History: agitated this AM requiring IV Ativan/IM Zyprexa now cooperative, per mother at baseline denies TODD, cough, or abd pain chronic L hemiparesis from TBI admitted to [facility] for hypothermia in October Review of Systems Review of Systems: Yes all other systems are reviewed and are negative Physical Exam 2 Vital Signs: Vital Signs: Last Vital Signs Temp 97.9 F 12/24/23 12:22 Pulse 78 12/24/23 12:22 Resp 18 12/24/23 12:22 BP 142/77 H 12/24/23 12:22 Pulse Ox 97 12/24/23 12:22 O2 Del Method Room Air 12/24/23 12:22 BMI result Body Mass Index 38.9 Gen: in no acute distress HEENT: sclera anicteric, moist mucus membranes Neck: supple, full ROM with no nuchal ridigity Lungs: clear to auscultation bilaterally Heart: regular rate and rhythm, no murmurs Abd: soft, non-tender, non-distended Ext: no edema Skin: warm/well-perfused Neuro: alert, L hemiparesis Psych: appropriate affect Objective Data Active Medications Acetaminophen (Acetaminophen 325 Mg Tablet) 650 mg PO Q6H PRN PRN Reason: Pain, Mild (Pain Scale 1-3), fever or headache Albuterol Sulfate (Albuterol Sulfate (0.083%) 2.5 Mg/3 Ml Vial.Neb) 2.5 mg INHALE Q4H PRN PRN Reason: Wheezing Aripiprazole (Aripiprazole 5 Mg Tablet) 5 mg PO DAILY REPLACED BY [facility] Last Admin: 12/24/23 13:05 Dose: 5 mg Documented By: SHANNAN Aripiprazole (Aripiprazole 2 Mg Tablet) 2 mg PO DAILY REPLACED BY [facility] Last Admin: 12/24/23 13:06 Dose: 2 mg Documented By: SHANNAN Bisacodyl (Bisacodyl 10 Mg Supp.Rect) 10 mg [place] DAILY PRN PRN Reason: Constipation Calcium Carbonate (Calcium Carbonate 750 Mg Tab.Chew) 750 mg PO Q4H PRN PRN Reason: Heartburn Clonazepam (Clonazepam 1 Mg Tablet) 1 mg PO Q8H PRN PRN Reason: Anxiety Clonazepam (Clonazepam 1 Mg Tablet) 1 mg PO BID REPLACED BY [facility] Last Admin: 12/24/23 10:03 Dose: 1 mg Documented By: AIME Dexamethasone Sodium Phosphate (Dexamethasone Sod Phosphate 10 Mg/Ml Vial) 10 mg IVPUSH Q6H REPLACED BY [facility] Last Admin: 12/24/23 11:33 Dose: 10 mg Documented By: AIME Docusate Sodium (Docusate Sodium 100 Mg Capsule) 100 mg PO BID REPLACED BY [facility] Last Admin: 12/24/23 10:03 Dose: 100 mg Documented By: AIME Duloxetine HCl (Duloxetine Hcl 30 Mg Capsule.Dr) 90 mg PO DAILY REPLACED BY [facility] Last Admin: 12/24/23 10:01 Dose: 90 mg Documented By: AIME Furosemide (Furosemide 20 Mg Tablet) 10 mg PO DAILY REPLACED BY [facility]; Protocol Last Admin: 12/24/23 10:02 Dose: 10 mg Documented By: AIME Gabapentin (Gabapentin 300 Mg Capsule) 900 mg PO TID REPLACED BY [facility] Last Admin: 12/24/23 10:02 Dose: 900 mg Documented By: AIME Guaifenesin (Guaifenesin 100 Mg/5 Ml Liquid) 10 ml PO Q4H PRN PRN Reason: Cough Guaifenesin (Guaifenesin 200 Mg/10 Ml 10 Ml Liquid) 20 ml PO BID@0900,1800 REPLACED BY [facility] Last Admin: 12/24/23 10:30 Dose: Not Given Documented By: MARIELY Non-Admin Reason: Patient Refused Vancomycin HCl 1,000 mg/ (Sodium Chloride) 270 mls @ 270 mls/hr IV Q8H REPLACED BY [facility] Last Infusion: 12/24/23 11:35 Dose: Infused Documented By: AIME Ceftriaxone Sodium 2 gm/ (Sodium Chloride) 50 mls @ 100 mls/hr IV Q12H REPLACED BY [facility] Last Infusion: 12/24/23 12:42 Dose: Infused Documented By: SHANNAN Ampicillin Sodium 2 gm/ Sodium (Chloride) 100 mls @ 200 mls/hr IV Q4H REPLACED BY [facility] Last Infusion: 12/24/23 13:31 Dose: Infused Documented By: SHANNAN Lactulose (Lactulose 20 Gm/30 Ml Solution) 30 gm PO TID REPLACED BY [facility] Last Admin: 12/24/23 10:30 Dose: Not Given Documented By: MARIELY Non-Admin Reason: Patient Refused Magnesium Hydroxide (Milk Of Magnesia 30 Ml Oral.Susp) 30 ml PO DAILY PRN PRN Reason: Constipation Melatonin (Melatonin 3 Mg Tablet) 9 mg PO BEDTIME REPLACED BY [facility] Olanzapine (Olanzapine 7.5 Mg Tablet) 15 mg PO BEDTIME REPLACED BY [facility] Omeprazole (Omeprazole 20 Mg Capsule.Dr) 20 mg PO DAILY@0630 REPLACED BY [facility] Last Admin: 12/24/23 10:03 Dose: 20 mg Documented By: AIME Ondansetron HCl (Ondansetron Hcl 4 Mg/2 Ml Vial) 4 mg IVPUSH Q8H PRN PRN Reason: Nausea and Vomiting Oxycodone HCl (Oxycodone Hcl Immed Release 5 Mg Tablet) 5 mg PO Q8H PRN PRN Reason: Pain (Scale Score 4-6) Pharmacy Consult (Consult Rx Vancomycin Dosing) 1 each MISCELLANE DAILY PRN PRN Reason: Consult order Potassium Chloride (Potassium Chloride Er 10 Meq Tablet.Er) 10 meq PO DAILY REPLACED BY [facility] Last Admin: 12/24/23 10:03 Dose: 10 meq Documented By: AIME Propranolol HCl (Propranolol Hcl 20 Mg Tablet) 20 mg PO TID REPLACED BY [facility]; Protocol Last Admin: 12/24/23 10:01 Dose: 20 mg Documented By: AIME Sodium Chloride (0.9 % Sodium Chloride Flush 3 Ml Syringe) 3 ml IVFLUSH QSHIFT REPLACED BY [facility] Last Admin: 12/24/23 08:33 Dose: 3 ml Documented By: MARIELY Comments: IV left hand Labs 12/24/23 04:42 12/24/23 04:42 Labs: Laboratory Results - last 24 hr 12/23/23 12/23/23 12/24/23 14:41 14:45 04:42 MCV 90.4 92.0 MCH 30.8 29.9 MCHC 34.0 32.5 RDW 14.0 14.1 Plt Count 150 L 148 L MPV 12.1 12.1 Immature Gran % (Auto) 0.3 0.5 H Neut % (Auto) 37.4 L 86.7 H Lymph % (Auto) 53.0 H 11.4 L [place] % (Auto) 6.3 1.0 L Eos % (Auto) 2.5 0.2 Baso % (Auto) 0.5 0.2 Lymph # (Auto) 2.1 0.7 L [place] # (Auto) 0.3 0.1 Eos # (Auto) 0.1 0.0 Baso # (Auto) 0.0 0.0 Abs Immat Gran (auto) 0.01 0.03 Absolute Neuts (auto) 1.5 L 5.2 Absolute Nucleated RBC 0.000 0.000 Nucleated RBC % (auto) 0.0 0.0 PT 10.2 L INR 0.8 L Anion Gap 12 13 Estim Creat Clear Calc 136.0 141.3 Estimated GFR > 60 > 60 Random Glucose 100 108 Lactic Acid 1.9 Calcium 9.7 9.3 Magnesium 2.4 Total Bilirubin 0.4 Direct Bilirubin 0.1 AST 9 ALT 13 Alkaline Phosphatase 67 Troponin I High Sens < 2.7 C-Reactive Protein 0.23 B-Natriuretic Peptide 14 Total Protein 7.6 Albumin 4.4 Lipase 19 Procalcitonin 0.02 TSH 2.00 Urine Color Yellow Urine Appearance Clear Urine pH 6.0 Ur Specific [place] 1.025 Urine Protein Negative Urine Glucose (UA) Negative Urine Ketones Trace Urine Blood Negative Urine Nitrite Negative Ur Leukocyte Esterase Negative Urine Opiates Screen Ur Buprenorphine Scrn Ur Oxycodone Screen Urine Methadone Screen Urine Fentanyl Screen Ur Barbiturates Screen Ur Phencyclidine Scrn Ur Amphetamines Screen U Benzodiazepines Scrn Urine Cocaine Screen U Marijuana (THC) Screen COVID-19 (CASSY) Negative COVID-19 Clin Com See Note Influenza Type A (KIRAN) Negative Influenza Type B (KIRAN) Negative Influenza A & B Note See Note 12/24/23 10:18 MCV MCH MCHC RDW Plt Count MPV Immature Gran % (Auto) Neut % (Auto) Lymph % (Auto) [place] % (Auto) Eos % (Auto) Baso % (Auto) Lymph # (Auto) [place] # (Auto) Eos # (Auto) Baso # (Auto) Abs Immat Gran (auto) Absolute Neuts (auto) Absolute Nucleated RBC Nucleated RBC % (auto) PT INR Anion Gap Estim Creat Clear Calc Estimated GFR Random Glucose Lactic Acid Calcium Magnesium Total Bilirubin Direct Bilirubin AST ALT Alkaline Phosphatase Troponin I High Sens C-Reactive Protein B-Natriuretic Peptide Total Protein Albumin Lipase Procalcitonin TSH Urine Color Urine Appearance Urine pH Ur Specific [place] Urine Protein Urine Glucose (UA) Urine Ketones Urine Blood Urine Nitrite Ur Leukocyte Esterase Urine Opiates Screen Not Detected Ur Buprenorphine Scrn Not Detected Ur Oxycodone Screen Not Detected Urine Methadone Screen Not Detected Urine Fentanyl Screen Not Detected Ur Barbiturates Screen Not Detected Ur Phencyclidine Scrn Not Detected Ur Amphetamines Screen Not Detected U Benzodiazepines Scrn Not Detected Urine Cocaine Screen Not Detected U Marijuana (THC) Screen Not Detected COVID-19 (CASSY) COVID-19 Clin Com Influenza Type A (KIRAN) Influenza Type B (KIRAN) Influenza A & B Note Assessment and Plan (1) Acute metabolic encephalopathy: Status: Acute (2) Hypothermia: Status: Acute Plan d2 53yo M LTC resident at [facility] with hx TBI, CVA with residual L hemiparesis + dysarthria, hx NMS, HTN, polysubstance abuse, COPD, GERD, anxiety, bipolar. Nonambulatory, full Aman lift at facility. Sent in for AMS/hypothermia acute encephalopathy hypothermia - Resolved. Infection unlikely- will d/c dexamethasone + ceftriaxone + vancomycin + acyclovir and hold off on LP - Neuro consulted, EEG + MRI pending - Reviewed records from [facility]- no specific etiology of hypothermia found but pt was noted to have hyperammonemia without evidence of cirrhosis. Will recheck ammonia level. Notably pt has been taken off Depakote in the interim. hx CVA - ASA, statin COPD not in acute exac - continue home inhalers HTN - continue furosemide, propranolol mood disorder - aripiprazole, clonazepam, duloxetine, olanzapine GERD - PPI constipation - continue home bowel regimen VTE ppx - LMWH dispo - eventual return to LTC In my clinical judgment, the patient requires continued inpatient hospitalization for the following reasons: hypothermia workup Total time managing care of this patient today: 50 minutes. Quality Stroke Does the patient have a stroke diagnosis?: No Reason for No Anti-thrombotic by Day Two: Contraindicated (Outside of tNK therapeutic window) VTE Prior VTE?: No VTE Risk Level:: Medical - moderate - high VTE Device Contraindication: N/A - Device Ordered VTE Drug Contraindication: Treatment Not Indicated
[2023-12-24] MEDS: Enoxaparin Sodium 40 MG/0.4 ML SYRINGE SUBCUT (14:42)
[2023-12-24] MEDS: Lactulose 20 GM/30 ML SOLUTION 30 GM PO ×2 (14:44→20:46)
[2023-12-24 15:20] LABS: Ammonia 34 umol/L (13-55)
[2023-12-24] MEDS: guaiFENesin 200 MG/10 ML 10 ML LIQUID 20 ML PO (16:06)
--- NOTE | 2023-12-24 17:25 | PC.NURSE ---
Patient pulled out IV ,RN notified by KHOA Reynoso,area cleansed and drsg applied ,Sitter placed in patient room for safety
--- NOTE | 2023-12-24 17:55 | PC.NURSE ---
Ativan IV one dose was administered before MRI to help patient with anxiety related to MRI,patient tolerated MRI well
[2023-12-24] MEDS: OLANZapine 7.5 MG TABLET 15 MG PO (20:45)
[2023-12-24] MEDS: Melatonin 3 MG TABLET 9 MG PO (20:46)
--- OUTSIDE RECORDS SUMMARY | 2023-12-25 00:27 | XMS_ITS | Continuity of Care Document ---
Author Organization [facility] ter Address [address] [place] [id number]- Care Team Providers Care Pump Servicer Helper Name Role Phone Demetrius Carbajal MD Primary Care Phys[place] [facility] [place] - 12/10/[address] [id number]- Encounter Diagnosis Unwitnessed fall(Final) - 12/10/23 Discharge Disposition: A-D/C Home Attending Physician: Arlin Clark MD Admitting Physician: Arlin Clark MD Referring Physician: Not on Staff, Referring MD Allergies, Adverse Reactions, Alerts Substance Reaction Severity Status Thorazine Active Haldol Active Immunizations Given and Recorded Vaccine Date Status Refusal Reason pneumococcal 23-valent vaccine 02/13/15 Given influenza virus vaccine, inactivated 02/13/15 Give n Medications clonazePAM 1 mg oral tablet = 2 mg, By Mouth, 3 times a day, PRN Anxiety, 0 Refills, Maintenance, 11/07/23 13:14:00 EDT, Tablet, Partial fill upon patient request if the prescription is for a schedule II opioid drug. Start Date: 11/07/23 Status: Ordered Colace sodium 100 mg oral capsule 100 mg, 1, capsule, By Mouth, 2 times a day, # 20 capsule, Refills 0, Maintenance, 11/06/23 4:11:00EDT, Partial fill upon patient request if the prescription is for a schedule II opioid drug. Start Date: 11/06/23 Status: Ordered Depakote ER 250 mg oral tablet, extended release See Instructions, 6 tablet By Mouth Daily, 5 Refills, Maintenance, 11/06/23 4:12:00 EDT, ER Tablet,Partial fill upon patient request if the prescription is for a schedule II opioid drug. Start Date: 11/06/23 Status: Ordered Depakote Sprinkles 125 mg oral enteric coated capsule 2 capsule = 250 mg, By Mouth, Daily in AM, # 270 capsule, 0 Refills, Maintenance, 11/06/23 4:13:00 EDT, EC Capsule, Partial fill upon patient request if the prescription is for a schedule II opioid drug. Start Date: 11/06/23 Status: Ordered duloxetine 30 mg oral enteric coated capsule 3 capsule = 90 mg, By Mouth, Daily, do not crush or chew, # 90 capsule, 0 Refills, Maintenance, 11/06/23 4:14:00 EDT, CR Capsule, Partial fill upon patient request if the prescription is for a schedule II opioid drug. Start Date: 11/06/23 Status: Ordered gabapentin 300 mg oral capsule See Instructions, 3 capsule By Mouth 3 times a day, Refills 0, Maintenance, 11/06/23 4:11:00 EDT, Instructions Replace Required Details, Partial fill upon patient request if the prescription is for aschedule II opioid drug. Start Date: 11/06/23 Status: Ordered lactulose 10 gm/15 ml oral syrup 30 mL = 20 Gm, By Mouth, 3 times a day, # 480 mL, 0 Refills, Maintenance, 11/06/23 4:16:00 EDT, Syrup, Partial fill upon patient request if the prescription is for a schedule II opioid drug. Start Date: 11/06/23 Status: Ordered Lasix 20 mg oral tablet 10 mg, 0.5, tablet, By Mouth, Daily, # 30 tablet, Refills 0, Maintenance, 11/06/23 4:14:00 EDT, Partial fill upon patient request if the prescription is for a schedule II opioid drug. Start Date: 11/06/23 Status: Ordered olanzapine 15 mg oral tablet 1 tablet = 15 mg, By Mouth, Daily at bedtime, # 30 tablet, 0 Refills, Maintenance, 11/06/23 4:10:00EDT, Tablet, Partial fill upon patient request if the prescription is for a schedule II opioid drug. Start Date: 11/06/23 Status: Ordered olanzapine 2.5 mg oral tablet 2.5 mg, 1, tablet, By Mouth, Every 8 hours, PRN, Refills 0, Maintenance, Agitation, 11/06/23 4:09:00 EDT, Partial fill upon patient request if the prescription is for a schedule II opioid drug. Start Date: 11/06/23 Status: Ordered oxyCODONE 5 mg oral tablet 5 mg, 1, tablet, By Mouth, Every 6 hours, PRN, Refills 0, Tot. Refills 0, Maintenance, as needed for pain, 11/06/23 4:12:00 EDT, Partial fill upon patient request if the prescription is for a schedule II opioid drug. Start Date: 11/06/23 Status: Ordered pantoprazole 40 mg oral delayed release tablet 1 tablet = 40 mg, By Mouth, Daily, # 30 tablet, 0 Refills, Maintenance, 11/06/23 4:14:00 EDT, EC Tablet Start Date: 11/06/23 Status: Ordered propranolol 20 mg oral tablet 20 mg, 1, tablet, By Mouth, 3 times a day, # 90 tablet, Refills 0, Maintenance, 11/06/23 4:16:00 EDT, Partial fill upon patient request if the prescription is for a schedule II opioid drug. Start Date: 11/06/23 Status: Ordered Tylenol 325 mg oral tablet See Instructions, PRN, 3 tablet By Mouth Every 8 hours, Refills 0, Maintenance, for fever, 244:15:00 EDT, Instructions Replace Required Details, Partial fill upon patient request if the prescription is for a schedule II opioid drug. Start Date: 11/06/23 Status: Ordered Problem List Condition Confirmation Course Effective Dates Status H ealth Status Informant Asthma Confirmed Active Bipolar disorder Confirmed Active Chronic viral hepatitis C Confirmed Active Chronic obstructive pulmonary disease Confirmed Active Chronic pain syndrome Confirmed Active Delirium of mixed origin Confirmed Active Transaminitis Confirmed Active GERD without esophagitis Confirmed Active History of neuroleptic malignant syndrome Confirmed Active Personal history of suicidal behavior Confirmed Active History of stroke Confirmed Active Hypertension Confirmed Active Major depressive disorder Confirmed Active Muscle weakness Confirmed Active Cocaine abuse in remission Confirmed Active Opioid abuse Confirmed Active Reduced mobility Confirmed Active Rhabdomyolysis Confirmed Active Severe obesity (BMI 35.0-39.9) with comorbidity Confirmed Active Slurred speech Confirmed Active Traumatic brain injury Confirmed Active Hepatitis C Confirmed Active Results Radiology Reports * Exam Date Time Procedure Performing Provider Status 12/10/23 1:23 AM US Doppler Ext Lower Venous Left Farhana Persaud; Auth (Verified) Notes: (US Doppler Ext Lower Venous Left) Reason For Exam: Pain in limb;Other: RESULT: US Doppler Ext Lower Venous Left US Doppler Ext Lower Venous Left HX OF PRESENT ILLNESS: Unwitnessed fall at the [facility] this evening. HX TBI.; Reason: Other:; Pain in limb; Clinical Question(s): Thrombus COMPARISON: 10/03/2019 IMAGING TECHNIQUE: Ultrasound of the veins from the groin through the calf was performed using grayscale, color, and spectral Doppler ultrasound assessing for complete compressibility and normal flowcharacteristics. FINDINGS: Common femoral vein: Patent. No thrombosis. Femoral vein: Patent. No thrombosis. Popliteal vein: Patent. No thrombosis. Gastrocnemius veins: Not visualized. Peroneal veins: Not visualized. Posterior tibial veins: The visualized portions are patent without evidence of thrombosis. Contralateral common femoral vein: Patent. No thrombosis. OTHER FINDINGS: There is diffuse calf edema. IMPRESSION: Limited evaluation of the calf veins due to overlying edema. No evidence of deep venous thrombosis. I have personally reviewed the images and I agree with this report. WSN: [id number] Ordering Physician: Gómez Nichols Dictated By: Jakob Tapia MD Dictated Date/Time: 12/10/23 6:16 am Reviewed By: Wilfredo Higgins MD Signed By: Wilfredo Higgins MD Signed Date/Time: 12/10/23 6:21 am Transcribed By: NINO Transcribed Date/Time: 12/10/23 1:26 am * Exam Date Time Procedure Performing Provider Status 12/10/23 12:[address] Abd/Pelvis W/ IV Contrast Only Christel Jaramillo; Auth (Verified) Notes: (CT Abd/Pelvis W/ IV Contrast Only) Reason For Exam: Abdominal trauma, blunt;Other: RESULT: CT Abd/Pelvis W/ IV Contrast Only CT Chest W/ Contrast, CT Abd/Pelvis W/ IV Contrast Only INDICATION: Unwitnessed fall at the [facility] this evening. HX TBI.; Reason: Trauma; Clinical Question(s): Rib Fracture TECHNIQUE: Helical CT scan of the chest, abdomen, and pelvis with IV contrast, formatted in 3 planes. 100 cc of Omnipaque 300 was administered intravenously. This study was performed without oral contrast. Weight-based protocol was performed using automatic exposure control. CTDIvol Body: 18.80 mGy, DLP Body: 1450 mGy*cm. COMPARISON: None. FINDINGS: LIMITATIONS: Study is significantly limited due to patient motion. Litigation Attorney view findings, lines and tubes: None. Trachea and airways: Patent without evidence of tracheal or endobronchial lesion. Lungs and pleura: Mild atelectasis and scarring in the left lung base. No suspicious abnormality within the confines of a motion limited examination. No effusion or pneumothorax. Mediastinum and luther: No mass or hematoma. No mediastinal or hilar lymphadenopathy. Esophagus is patulous. Normal thyroid. Heart: Heart is normal in size. No pericardial effusion. Aorta: No aortic aneurysm. Pulmonary arteries: Normal caliber. No evidence of pulmonary embolism on this study performed without angiographic technique. Chest wall soft tissues: Bilateral relatively symmetric moderate gynecomastia. Circumscribed low attenuation focus in the right upper chest wall, likely an epidermal inclusion cyst (series 2 image 27). Diaphragm: Intact. Liver: Normal in attenuation and morphology. Small hypodensity in the right hepatic lobe inferiorlymeasuring 1 cm, too small to fully characterize but likely a simple cyst. No suspicious lesion. Gallbladder: Contracted, limiting evaluation. Bile ducts: No biliary ductal dilation. Spleen: Mild splenomegaly measuring up to 13.3 cm (series 201 image 96). Pancreas: No suspicious lesion or ductal dilatation. Adrenal glands: No nodule. Kidneys and ureters: No hydronephrosis, or suspicious lesion. Small 4 mm nonobstructing right renalcalculus (series 201 image 114). Bladder: No wall thickening or surrounding stranding. Reproductive organs: Unremarkable. Stomach, small bowel, and large bowel: Normal caliber stomach and bowel loops. No surrounding inflammatory changes. Appendix: No evidence of acute appendicitis. Peritoneum and retroperitoneum: No ascites or pneumoperitoneum. No omental or mesenteric lesions. Lymph nodes: No enlarged lymph nodes. Blood vessels: No vascular calcifications or aneurysm. No evidence of venous thrombosis. Abdominal and pelvic wall soft tissues: Small fat-containing right inguinal hernias. Stranding in the anterior low abdomen, likely related to injections. Asymmetric stranding overlying the left hip, likely sequela of prior trauma. No acute appearing hematoma. Bones: No acute abnormality. Evaluation for acute rib fractures is limited due to patient motion. Chronic left posterior sixth rib fracture with bony bridging to the posterior left seventh rib. Superior endplate scalloping along the L2 vertebral body. Degenerative changes of the shoulders, severe on the left with intra-articular bodies. Small nonspecific circumscribed sclerotic focus in the left ischial tuberosity IMPRESSION: Study significantly limited due to patient motion. Within these conference, there is no evidence of acute traumatic abnormality. Small nonobstructing right renal calculus. Mild splenomegaly. I have personally reviewed the images and I agree with this report. WSN: [id number] Ordering Physician: Gómez Nichols Dictated By: Jakob Tapia MD Dictated Date/Time: 12/10/23 6:06 am Reviewed By: Wilfredo Higgins MD Signed By: Wilfredo Higgins MD Signed Date/Time: 12/10/23 6:11 am Transcribed By: NINO Transcribed Date/Time: 12/10/23 1:24 am * Exam Date Time Procedure Performing Provider Status 12/10/23 12:[address] Chest W/ Contrast Christel Jaramillo; th (Verified) Notes: (CT Chest W/ Contrast) Reason For Exam: Trauma RESULT: CT Chest W/ Contrast CT Chest W/ Contrast, CT Abd/Pelvis W/ IV Contrast Only INDICATION: [facility]. HX TBI.; Reason: Trauma; Clinical Question(s): Rib Fracture TECHNIQUE: Helical CT scan of the chest, abdomen, and pelvis with IV contrast, formatted in 3 planes. 100 cc of Omnipaque 300 was administered intravenously. This study was performed without oral contrast. Weight-based protocol was performed using automatic exposure control. CTDIvol Body: 18.80 mGy, DLP Body: 1450 mGy*cm. COMPARISON: None. FINDINGS: LIMITATIONS: Study is significantly limited due to patient motion. Litigation Attorney view findings, lines and tubes: None. Trachea and airways: Patent without evidence of tracheal or endobronchial lesion. Lungs and pleura: Mild atelectasis and scarring in the left lung base. No suspicious abnormality within the confines of a motion limited examination. No effusion or pneumothorax. Mediastinum and luther: No mass or hematoma. No mediastinal or hilar lymphadenopathy. Esophagus is patulous. Normal thyroid. Heart: Heart is normal in size. No pericardial effusion. Aorta: No aortic aneurysm. Pulmonary arteries: Normal caliber. No evidence of pulmonary embolism on this study performed without angiographic technique. Chest wall soft tissues: Bilateral relatively symmetric moderate gynecomastia. Circumscribed low attenuation focus in the right upper chest wall, likely an epidermal inclusion cyst (series 2 image 27). Diaphragm: Intact. Liver: Normal in attenuation and morphology. Small hypodensity in the right hepatic lobe inferiorlymeasuring 1 cm, too small to fully characterize but likely a simple cyst. No suspicious lesion. Gallbladder: Contracted, limiting evaluation. Bile ducts: No biliary ductal dilation. Spleen: Mild splenomegaly measuring up to 13.3 cm (series 201 image 96). Pancreas: No suspicious lesion or ductal dilatation. Adrenal glands: No nodule. Kidneys and ureters: No hydronephrosis, or suspicious lesion. Small 4 mm nonobstructing right renalcalculus (series 201 image 114). Bladder: No wall thickening or surrounding stranding. Reproductive organs: Unremarkable. Stomach, small bowel, and large bowel: Normal caliber stomach and bowel loops. No surrounding inflammatory changes. Appendix: No evidence of acute appendicitis. Peritoneum and retroperitoneum: No ascites or pneumoperitoneum. No omental or mesenteric lesions. Lymph nodes: No enlarged lymph nodes. Blood vessels: No vascular calcifications or aneurysm. No evidence of venous thrombosis. Abdominal and pelvic wall soft tissues: Small fat-containing right inguinal hernias. Stranding in the anterior low abdomen, likely related to injections. Asymmetric stranding overlying the left hip, likely sequela of prior trauma. No acute appearing hematoma. Bones: No acute abnormality. Evaluation for acute rib fractures is limited due to patient motion. Chronic left posterior sixth rib fracture with bony bridging to the posterior left seventh rib. Superior endplate scalloping along the L2 vertebral body. Degenerative changes of the shoulders, severe on the left with intra-articular bodies. Small nonspecific circumscribed sclerotic focus in the left ischial tuberosity IMPRESSION: Study significantly limited due to patient motion. Within these conference, there is no evidence of acute traumatic abnormality. Small nonobstructing right renal calculus. Mild splenomegaly. I have personally reviewed the images and I agree with this report. WSN: [id number] Ordering Physician: Gómez Nichols Dictated By: Jakob Tapia MD Dictated Date/Time: 12/10/23 6:06 am Reviewed By: Wilfredo Higgins MD Signed By: Wilfredo Higgins MD Signed Date/Time: 12/10/23 6:11 am Transcribed By: NINO Transcribed Date/Time: 12/10/23 1:24 am * Exam Date Time Procedure Performing Provider Status 12/10/23 12:[address] Cervical Spine W/O Contrast Christel Jaramillo; Auth (Verified) Notes: (CT Cervical Spine W/O Contrast) Reason For Exam: Neck trauma, dangerous injury mechanism;Other: RESULT: CT Cervical Spine W/O Contrast CT Head/Brain W/O Contrast, CT Cervical Spine W/O Contrast INDICATION: [facility] at [facility] this [facility]. HX TBI.; Reason: Trauma; fall, paraplegia; Clinical Question(s): Hematoma TECHNIQUE: Noncontrast head CT using axial technique was reconstructed in axial and coronal planes.Noncontrast spiral CT through the cervical spine was formatted in 3 planes. Automatic tube modulation was used for the cervical spine and iterative dose reconstruction was used for both the head and cervical spine to optimize scan parameters and image quality. CTDIvol Body: 23.00 mGy, DLP Body: 542 mGy*cm. CTDIvol Head: 39.90 mGy, DLP Head: 839 mGy*cm. COMPARISON: Multiple priors, most recent from 11/05/2023; CT head and neck angiogram from 11/05/2023. FINDINGS: LIMITATIONS: Study is limited due to patient motion artifact. Litigation Attorney View Findings, Lines and Tubes: None. BRAIN AND EXTRA-AXIAL SPACES: No parenchymal hemorrhage, midline shift, or mass effect. Chronic encephalomalacia in the right parietal lobe. No acute infarct. Negative insular ribbon and hyperdense vessel signs. Moderate prominence of the ventricles and sulci consistent with parenchymal volume loss. Mild low-density white matter changes. No subarachnoid hemorrhage. No subdural or epidural collection. CALVARIUM, SKULL BASE, AND SOFT TISSUES: No fractures or suspicious bony lesions. Hyperostosis frontalis interna. The paranasal sinuses and mastoid air cells are clear. Visualized orbits and globes are intact. The extracranial soft tissues are unremarkable. CERVICAL SPINE: No fracture. No acute osseous abnormalities. Normal alignment. No locked or perched facet. Mild multilevel degenerative disc space narrowing andend plate irregularity. OTHER BONES: No acute abnormality. CERVICAL SOFT TISSUES AND LUNG APICES: Normal soft tissues. Visualized lung apices are clear. Normal thyroid. IMPRESSION: No acute abnormality of the head or cervical spine. I have personally reviewed the images and I agree with this report. WSN: [id number] Ordering Physician: Gómez Nichols Dictated By: Jakob Tapia MD Dictated Date/Time: 12/10/23 5:55 am Reviewed By: Wilfredo Higgins MD Signed By: Wilfredo Higgins MD Signed Date/Time: 12/10/23 6:00 am Transcribed By: NINO Transcribed Date/Time: 12/10/23 1:05 am * Exam Date Time Procedure Performing Provider Status 12/10/23 12:[address] Head/Brain W/O Contrast Ephraim Jaramillo; Auth (Verified) Notes: (CT Head/Brain W/O Contrast) Reason For Exam: fall, paraplegia;Trauma RESULT: CT Head/Brain W/O Contrast CT Head/Brain W/O Contrast, CT Cervical Spine W/O Contrast INDICATION: [facility] this [facility]. HX TBI.; Reason: Trauma; fall, paraplegia; Clinical Question(s): Hematoma TECHNIQUE: Noncontrast head CT using axial technique was reconstructed in axial and coronal planes.Noncontrast spiral CT through the cervical spine was formatted in 3 planes. Automatic tube modulation was used for the cervical spine and iterative dose reconstruction was used for both the head and cervical spine to optimize scan parameters and image quality. CTDIvol Body: 23.00 mGy, DLP Body: 542 mGy*cm. CTDIvol Head: 39.90 mGy, DLP Head: 839 mGy*cm. COMPARISON: Multiple priors, most recent from 11/05/2023; CT head and neck angiogram from 11/05/2023. FINDINGS: LIMITATIONS: Study is limited due to patient motion artifact. Litigation Attorney View Findings, Lines and Tubes: None. BRAIN AND EXTRA-AXIAL SPACES: No parenchymal hemorrhage, midline shift, or mass effect. Chronic encephalomalacia in the right parietal lobe. No acute infarct. Negative insular ribbon and hyperdense vessel signs. Moderate prominence of the ventricles and sulci consistent with parenchymal volume loss. Mild low-density white matter changes. No subarachnoid hemorrhage. No subdural or epidural collection. CALVARIUM, SKULL BASE, AND SOFT TISSUES: No fractures or suspicious bony lesions. Hyperostosis frontalis interna. The paranasal sinuses and mastoid air cells are clear. Visualized orbits and globes are intact. The extracranial soft tissues are unremarkable. CERVICAL SPINE: No fracture. No acute osseous abnormalities. Normal alignment. No locked or perched facet. Mild multilevel degenerative disc space narrowing andend plate irregularity. OTHER BONES: No acute abnormality. CERVICAL SOFT TISSUES AND LUNG APICES: Normal soft tissues. Visualized lung apices are clear. Normal thyroid. IMPRESSION: No acute abnormality of the head or cervical spine. I have personally reviewed the images and I agree with this report. WSN: [id number] Ordering Physician: Gómez Nichols Dictated By: Jakob Tapia MD Dictated Date/Time: 12/10/23 5:55 am Reviewed By: Wilfredo Higgins MD Signed By: Wilfredo Higgins MD Signed Date/Time: 12/10/23 6:00 am Transcribed By: NINO Transcribed Date/Time: 12/10/23 1:05 am Vital Signs Most recent to oldest [Reference Range]: 1 2 3 Oxygen Saturation [94-100 %] 96 % (12/10/23 8:15 AM) 94 % (12/10/23 2:40 AM) 94 % (12/09/23 11:23 PM) Pulse Rate [55-90 bpm] 66 bpm (12/10/23 8:15 AM) 68 bpm (12/10/23 2:40 AM) 62 bpm (12/09/23 11:23 PM) Blood Pressure [90-138/55-84 mm Hg] 130/81mm Hg (12/10/23 8:15 AM) 121/89mm Hg (12/10/23 2:40 AM) 155/79mm Hg *H* (12/09/23 11:23 PM) Respiratory Rate [16-30 br/min] 18 br/min (12/10/23 8:15 AM) 16 br/min (12/10/23 2:40 AM) Temperature [96.8-100.4 DegF] 97.8 DegF (12/09/23 11:23 PM) Mode of Delivery (Oxygen) Room air (12/10/23 8:15 AM) Room air (12/10/23 2:40 AM) Room air (12/09/23 11:23 PM) Blood pressure sites Arm, left (12/10/23 8:15 AM) Arm, left (12/10/23 2:40 AM) Arm, right (12/09/23 11:23 PM) Temperature Route Axillary (12/09/23 11:23 PM) Social History Social History Type Response Smoking Status Former smoker entered on: 02/11/15 Sex Patient Care team information Care Team Personnel Name: Wolf Jenkins RN Position: [facility] RN Member Role: Primary Care Nurse Name: Thuy Barrientos RN Position: [facility] AMB Nurse Member Role: Primary Care Nurse Name: Kirsty Ramos RN Position: [facility] HBO Wound Member Role: Primary Care Nurse Name: Cristel Aguilera RN Position: [facility] RN Member Role: Primary Care Nurse Name: Martha Hauser RN Position: [facility] RN Member Role: Primary Care Nurse Name: Raul Christensen RN Position: [facility] RN Member Role: Primary Care Nurse Name: Christian Byrnes RN Position: [facility] RN Member Role: Primary Care Nurse Name: Rosalinda Singh RN Position: [facility] OB RN Member Role: Primary Care Nurse Name: Andie Mack RN Position: [facility] RN Member Role: Primary Care Nurse Name: Tony James RN Position: [facility] Outreach Member Role: Primary Care Nurse Name: Karena Horn Position: [facility] RN Member Role: Primary Care Nurse Name: Juana Catherine RN Position: [facility] RN Member Role: Primary Care Nurse Name: Luis Elizalde RN Position: [facility] SN RN Member Role: Primary Care Nurse Name: Dori Butler RN Position: [facility] RN Member Role: Primary Care Nurse Name: Christine Vera RN Position: [facility] RN Member Role: Primary Care Nurse Name: Geeta Barrientos RN Position: [facility] RN Member Role: Primary Care Nurse Name: Bhavani Benaivdez RN Position: [facility] RN Member Role: Primary Care Nurse Name: Geeta Smith RN Position: [facility] RN Member Role: Primary Care Nurse Name: Samara Tidwell RN Position: [facility] RN Member Role: Primary Care Nurse Name: Demetrius Carbajal MD Position: [facility] Outreach Member Role: PCP Address: Address: [address] [place] [id number]- Name: Gretta Esquivel RN Position: [facility] RN Member Role: Primary Care Nurse Name: Ashley Ornelas RN Position: [facility] RN Member Role: Primary Care Nurse Name: Sandra Camp RN Position: [facility] RN Member Role: Primary Care Nurse Name: Markus Allison RN Position: [facility] RN Member Role: Primary Care Nurse Name: Martha Pryor RN Position: [facility] Head Of Sales Member Role: Primary Care Nurse Name: Edgardo Donnelly RN Position: [facility] RN Member Role: Primary Care Nurse Name: Jem Gomez RN Position: [facility] RN Member Role: Primary Care Nurse Name: Sandra Thomason RN Position: [facility] RN Member Role: Primary Care Nurse Name: Etta Matias RN Position: [facility] RN Member Role: Primary Care Nurse Name: Mary Grace Giron RN Position: [facility] RN Member Role: Primary Care Nurse Name: Nita Silva Position: [facility] RN Member Role: Primary Care Nurse Name: Jeane Fya RN Position: [facility] RN Member Role: Primary Care Nurse Name: Andreea Morgan RN Position: [facility] Head Of Sales Member Role: Primary Care Nurse Care Team Related Persons Name: MARTINEZ WALDRON Address: home [address] [place] [id number]
--- OUTSIDE RECORDS SUMMARY | 2023-12-25 00:27 | XMS_ITS | Continuity of Care Document ---
Author Organization [facility] ter Address [address] [place] [id number]- Care Team Providers Care Accounts Receivable Specialist Name Role Phone Gavin Montano MD Primary Care Physician [phone] [place] [facility] [place]): [place] 12/07/[address] [address]- [facility] Encounter Diagnosis Delirium(Final) - 07/31/19 Discharge Disposition: A-Transfer SNF Attending Physician: Rancho Alvarado MD Admitting Physician: Satish Khoury MD Referring Physician: Not on Staff, Referring MD Allergies, Adverse Reactions, Alerts Substance Reaction Severity Status NKA Active Immunizations Given and Recorded Vaccine Date Status Refusal Reason pneumococcal 23-valent vaccine 02/13/15 Given influenza virus vaccine, inactivated 02/13/15 Give n Medications acetaminophen 325 mg oral tablet 650 mg, 2, tablet, By Mouth, 4 times a day, PRN, Refills 0, Maintenance, Pain , Mild, 12/06/19 15:52:00 EDT Start Date: 12/06/19 Status: Ordered acetaminophen-oxyCODONE 325 mg-5 mg oral tablet 1, tablet, By Mouth, Every 8 hours, PRN, for 3 days, # 10 tablet, Refills 0, Tot. Refills 0, Acute,Pain , Severe, 12/10/19 8:35:00 EDT, 12/07/19 8:35:00 EDT, Print Requisition, Tablet, Partial fill upon patient request Start Date: 12/07/19 Stop Date: 12/10/19 Status: Ordered Albuterol 0.083% inhalation rhianna 2.5 mg, 3, mL, Neb, Every 4 hours, PRN, Refills 0, Maintenance, Wheezing/Shortness of Breath, 12/06/19 15:52:00 EDT, Inhalation Solution Start Date: 12/06/19 Status: Ordered bisacodyl 10 mg rectal suppository 1 supp = 10 mg, Rectally, Daily, PRN for constipation, # 10 supp, 0 Refills, Maintenance, Suppository Start Date: 03/03/13 Status: Ordered Chloraseptic Dighton 1 sprays, By Mouth, Every 4 hours, PRN Inflammation, 0 Refills, Maintenance, 12/06/19 15:52:00 EDT,Dighton Start Date: 12/06/19 Status: Ordered docusate sodium 100 mg oral capsule 100 mg, 1, capsule, By Mouth, 2 times a day, Refills 0, Maintenance, 12/06/19 15:52:00 EDT Start Date: 12/06/19 Status: Ordered folic acid 1 mg oral tablet 1 mg, 1, tablet, By Mouth, Daily, Refills 0, Maintenance, 08/07/19 12:05:00 EDT Start Date: 08/07/19 Status: Ordered KlonoPIN 1 mg oral tablet 2 tablet = 2 mg, By Mouth, 2 times a day, # 12 tablet, 0 Refills, Maintenance, 12/07/19 8:36:00 EDT, Tablet Start Date: 12/07/19 Stop Date: 12/10/19 Status: Ordered lidocaine 5% topical film Topically, Daily, 0 Refills, Maintenance, 12/06/19 15:53:00 EDT, Patch Start Date: 12/06/19 Status: Ordered loratadine 10 mg oral tablet 10 mg, 1, tablet, By Mouth, Daily, # 30 tablet, Refills 0, Maintenance, 08/07/19 12:08:00 EDT Start Date: 08/07/19 Status: Ordered Melatonin 5 mg oral tablet 1 tablet = 5 mg, By Mouth, Daily at bedtime, PRN as needed for insomnia, 0 Refills, Maintenance, 08/07/19 12:08:00 EDT Start Date: 08/07/19 Status: Ordered Milk of Magnesia Liquid 30 mL, By Mouth, Daily at bedtime, PRN as needed for constipation, 0 Refills, Maintenance, 03/03/1312:35:18 Start Date: 03/03/13 Status: Ordered Olanzapine 5 mg tablet 10 mg, By Mouth, Daily, Maintenance, 05/08/15 11:42:27 EST Start Date: 05/08/15 Status: Ordered Remove Patch Start Date: 12/06/19 Status: Ordered Senna 8.6 mg oral tablet 17.2 mg, 2, tablet, By Mouth, Daily, Refills 0, Maintenance, 12/06/19 15:53:00 EDT, Tablet Start Date: 12/06/19 Status: Ordered tiZANidine 4 mg oral tablet 2 mg, 0.5, tablet, By Mouth, 3 times a day, PRN, Refills 0, Maintenance, Spasm, 12/06/19 15:53:00 EDT Start Date: 12/06/19 Status: Ordered Tums 500 mg oral tablet, chewable 500 mg, 1, tablet, Chew, Every 4 hours, PRN, Refills 0, Maintenance, Dyspepsia, 12/06/19 15:52:00 EDT Start Date: 12/06/19 Status: Ordered Problem List Condition Effective Dates Status Health Status Inform ant Delirium of mixed origin(Confirmed) Active Transaminitis(Confirmed) Active Rhabdomyolysis(Confirmed) Active Traumatic brain injury(Confirmed) Active Results Orders for Microbiology Reports Name Date Blood Culture 12/04/19 Blood Culture #2 12/04/19 Blood Culture 08/09/19 Blood Culture #2 08/09/19 Blood Culture 08/05/19 Blood Culture #2 08/05/19 Sputum Culture w/ Gram Smear (SPUTUM CUL TURE) 08/02/19 Microbiology Reports TEST:Blood Culture STATUS:Unauthenticated BODY SITE: SOURCE:Blood COLLECTED DATE/TIME:12/04/19 10:17 AM Blood Culture SPECIMEN DESCRIPTION : BLOOD R SPECIAL REQUESTS : NONE CULTURE : NO GROWTH 3 DAYS REPORT STATUS : PRELIMINARY REPORT TEST:Blood Culture, Second Order STATUS:Unauthenticated BODY SITE: SOURCE:Blood COLLECTED DATE/TIME:12/04/19 10:17 AM Blood Culture, Second Order SPECIMEN DESCRIPTION : BLOOD NO SITE SPECIAL REQUESTS : NONE CULTURE : NO GROWTH 3 DAYS REPORT STATUS : PRELIMINARY REPORT TEST:Blood Culture STATUS:Auth (Verified) BODY SITE: SOURCE:Blood COLLECTED DATE/TIME:08/09/19 11:02 AM Blood Culture SPECIMEN DESCRIPTION : BLOOD L SPECIAL REQUESTS : NONE CULTURE : NO GROWTH 5 DAYS. REPORT STATUS : FINAL 08/14/2019 TEST:Blood Culture, Second Order STATUS:Auth (Verified) BODY SITE: SOURCE:Blood COLLECTED DATE/TIME:08/09/19 11:02 AM Blood Culture, Second Order SPECIMEN DESCRIPTION : BLOOD R SPECIAL REQUESTS : NONE CULTURE : NO GROWTH 5 DAYS. REPORT STATUS : FINAL 08/14/2019 TEST:Blood Culture STATUS:Auth (Verified) BODY SITE: SOURCE:Blood COLLECTED DATE/TIME:08/05/19 1:21 PM Blood Culture SPECIMEN DESCRIPTION : BLOOD LA SPECIAL REQUESTS : NONE CULTURE : NO GROWTH 5 DAYS. REPORT STATUS : FINAL 08/10/2019 TEST:Blood Culture, Second Order STATUS:Auth (Verified) BODY SITE: SOURCE:Blood COLLECTED DATE/TIME:08/05/19 1:21 PM Blood Culture, Second Order SPECIMEN DESCRIPTION : BLOOD RA SPECIAL REQUESTS : NONE CULTURE : NO GROWTH 5 DAYS. REPORT STATUS : FINAL 08/10/2019 TEST:Sputum Culture STATUS:Auth (Verified) BODY SITE: SOURCE:SPUTUM COLLECTED DATE/TIME:08/02/19 10:34 AM Sputum Culture SPECIMEN DESCRIPTION : SPUTUM SPECIAL REQUESTS : NONE GRAM STAIN : 2+ POLYMORPHONUCLEAR LEUKOCYTES 1+ SQ.EPITHELIAL CELLS 3+ GRAM NEGATIVE RODS 1+ GRAM POSITIVE COCCI 1+ GRAM POSITIVE RODS CULTURE : 4+ HAEMOPHILUS INFLUENZAE . THIS HAEMOPHILUS INFLUENZAE PRODUCES BETA-LACTAMASE AND SHOULD BE CONSIDERED RESISTANT TO AMPICILLIN 2+ NORMAL SAVANAH REPORT STATUS : FINAL 08/04/2019 Radiology Reports (Most Recent Ten) * Exam Date Time Procedure Performing Provider Status 12/04/19 3:12 PM Chest Portable Tova Hammer; Auth (Verified) Notes: (Chest Portable) Reason For Exam: Hypothermia;Shortness of Breath RESULT: Chest Portable Chest Portable AP upright Reason: Shortness of Breath; Hypothermia; Clinical Question(s): Pneumonia COMPARISON: Multiple prior exams last dated 11/28/2019. FINDINGS: LINES AND TUBES: None. LUNGS AND PLEURA: Lungs are clear. Normal pulmonary vascularity. No significant change compared to prior exam. No pleural effusion. No pneumothorax. HEART, MEDIASTINUM AND RAMON: Heart is normal in size. Normal mediastinal and hilar contour. BONES AND SOFT TISSUES: No acute abnormality. IMPRESSION: No acute abnormality. I have personally reviewed the images and I agree with this report. WSN: [id number] Ordering Physician: Leeroy Carreon Dictated By: Eva Woodall MD Dictated Date/Time: 12/04/19 4:34 pm Reviewed By: Oz Frias MD Signed By: Oz Frias MD Signed Date/Time: 12/04/19 4:39 pm Transcribed By: NINO Transcribed Date/Time: 12/04/19 4:22 pm * Exam Date Time Procedure Performing Provider Status 11/28/19 10:31 AM Chest 2 Views Frontal and Lat Lazara Leon; Marcelina (Verified) Notes: (Chest 2 Views Frontal and Lat) Reason For Exam: Persistent Cough RESULT: Chest 2 Views Frontal and Lat Chest 2 Views Frontal and Lat Reason: Persistent Cough; Clinical Question(s): Pneumonia COMPARISON: 11/27/2019 FINDINGS: LINES AND TUBES: None. LUNGS AND PLEURA: Clear lungs. Normal pulmonary vascularity. No pleural effusion. No pneumothorax. HEART, MEDIASTINUM AND RAMON: Heart is normal in size. Normal mediastinal and hilar contour. BONES AND SOFT TISSUES: No acute abnormality. IMPRESSION: No acute abnormality or significant change. WSN: [id number] Ordering Physician: Calista Bañuelos Dictated By: Anthony Mcdonald MD Dictated Date/Time: 11/28/19 12:26 p Reviewed By: Anthony Mcdonald MD Signed By: Anthony Mcdonald MD Signed Date/Time: 11/28/19 12:26 pm Transcribed By: NINO Transcribed Date/Time: 11/28/19 12:24 pm * Exam Date Time Procedure Performing Provider Status 11/27/19 9:47 PM Chest Portable Geeta Padilla; Marcelina ( Verified) Notes: (Chest Portable) Reason For Exam: Cough RESULT: Chest Portable Chest Portable Reason: Cough; Clinical Question(s): Aspiration COMPARISON: 11/27/2019. FINDINGS: LINES AND TUBES: None. LUNGS AND PLEURA: Chronic right diaphragm elevation with minimal atelectasis at right lung base unchanged. Left lung volume is improved with decrease in atelectasis at left lung base. Both hemidiaphragms are well visualized. There is no confluent airspace opacity or volume loss. No pleural effusion. No pneumothorax. HEART, MEDIASTINUM AND RAMON: Heart is normal in size. Normal mediastinal and hilar contour. BONES AND SOFT TISSUES: No acute abnormality. IMPRESSION: Improved aeration of left lung base consistent with resolving atelectasis. WSN: [id number] Ordering Physician: Tayla Gray Dictated By: Jose Arellano MD Dictated Date/Time: 11/27/19 10:16 p Reviewed By: Jose Arellano MD Signed By: Jose Arelalno MD Signed Date/Time: 11/27/19 10:16 pm Transcribed By: NINO Transcribed Date/Time: 11/27/19 10:14 pm * Exam Date Time Procedure Performing Provider Status 11/27/19 10:45 AM Chest Portable Angela Charles; Aut h (Verified) Notes: (Chest Portable) Reason For Exam: Shortness of Breath RESULT: Chest Portable Chest Portable INDICATION: Reason: Shortness of Breath; Clinical Question(s): Pneumonia COMPARISON: 11/08/2019. FINDINGS: LINES AND TUBES: None. LUNGS AND PLEURA: There is mild elevation of the right hemidiaphragm. There is mild increased haziness in the left base which may be progressed atelectasis. No effusion or pneumothorax. HEART, MEDIASTINUM AND RAMON: Normal. BONES AND SOFT TISSUES: No acute abnormality. IMPRESSION: Left basilar haziness which may represent progressed atelectasis, however in light of patient's history of shortness of breath, early pneumonia cannot be excluded. WSN: [id number] Ordering Physician: Omari Bloom Dictated By: Radha Rojas MD Dictated Date/Time: 11/27/19 11:07 a Reviewed By: Radha Rojas MD Signed By: Radha Rojas MD Signed Date/Time: 11/27/19 11:07 am Transcribed By: NINO Transcribed Date/Time: 11/27/19 11:05 am * Exam Date Time Procedure Performing Provider Status 11/08/19 3:20 PM Chest Portable Román Ortega (Lorenzo ified) Notes: (Chest Portable) Reason For Exam: Chest pain after being put on restraint, to rule out rib fractureand pnuemothorax;Occupational Exposure RESULT: Chest Portable Chest Portable performed upright at 3:05 PM Reason: Chest pain after being put on restraint, to rule out rib fracture and pneumothorax Clinical Question(s): Pneumothorax COMPARISON: Multiple priors, most recently 09/26/2019 FINDINGS: LINES AND TUBES: None. LUNGS AND PLEURA: Clear lungs. Normal pulmonary vascularity. No pleural effusion. No pneumothorax. HEART, MEDIASTINUM AND RAMON: Heart is normal in size. Normal mediastinal and hilar contour. BONES AND SOFT TISSUES: No acute abnormality. Ossification is seen superior to the left humeral head and there is ossification/osteophyte formation inferiorly along the medial aspect of the left humeral head. IMPRESSION: No acute pulmonary process. I have personally reviewed the images and I agree with this report. WSN: [id number] Ordering Physician: Sarah Beth Manley Dictated By: Benja Miller DO Dictated Date/Time: 11/08/19 4:20 pm Reviewed By: Lexi Blum MD Signed By: Lexi Blum MD Signed Date/Time: 11/08/19 4:25 pm Transcribed By: NINO Transcribed Date/Time: 11/08/19 4:00 pm * Exam Date Time Procedure Performing Provider Status 10/24/19 3:59 PM Shoulder Min 2 Views Left Olive Dawson; Marcelina (Verified) Notes: (Shoulder Min 2 Views Left) Reason For Exam: Decreased ROM RESULT: Shoulder Min 2 Views Left Shoulder Min 2 Views Left, views Reason: Decreased ROM COMPARISON: 05/21/2014 FINDINGS: Limited internal and external rotation views. No fracture or dislocation appreciated on limited imaging. Diffuse glenohumeral chondrocalcinosis. IMPRESSION: Limited exam Diffuse glenohumeral chondrocalcinosis. 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 WSN: [id number] Ordering Physician: Karine Carr Dictated By: Anthony Kenney MD Dictated Date/Time: 10/24/19 4:10 pm Reviewed By: Anthony Kenney MD Signed By: Anthony Kenney MD Signed Date/Time: 10/24/19 4:10 pm Transcribed By: NINO Transcribed Date/Time: 10/24/19 4:06 pm * Exam Date Time Procedure Performing Provider Status 09/26/19 4:50 PM Chest Portable Miquel Kan (Verified) Notes: (Chest Portable) Reason For Exam: Persistent Cough RESULT: Chest Portable Chest Portable Reason: Persistent Cough; Clinical Question(s): Pneumonia COMPARISON: 09/06/2019 FINDINGS: LINES AND TUBES: None. LUNGS AND PLEURA: Lung volumes are low. There are ill-defined opacities in the left lower lung field. No focal opacity in the right lung. No pleural effusion. No pneumothorax. HEART, MEDIASTINUM AND RAMON: Heart is normal in size. Normal mediastinal and hilar contour. BONES AND SOFT TISSUES: No acute abnormality. IMPRESSION: Left lower lung field opacities may represent pneumonia in the appropriate clinical setting. A Love message has been communicated via the [employer] system on 09/26/2019 4:53 PM, Message ID [id number]. WSN: [id number] Ordering Physician: Soila White Dictated By: Tamika Ramirez MD Dictated Date/Time: 09/26/19 4:54 pm Reviewed By: Tamika Ramirez MD Signed By: Tamika Ramirez MD Signed Date/Time: 09/26/19 4:54 pm Transcribed By: NINO Transcribed Date/Time: 09/26/19 4:51 pm * Exam Date Time Procedure Performing Provider Status 09/09/19 3:04 PM Shoulder Min 2 Views Right Danika Puga (Verified) Notes: (Shoulder Min 2 Views Right) Reason For Exam: Pain RESULT: Shoulder Min 2 Views Right Shoulder Min 2 Views Right INDICATION: Reason: Pain; Clinical Question(s): Fracture COMPARISON: None. FINDINGS: Unremarkable soft tissue. There is no fracture or dislocation. Joint space is maintained. IMPRESSION: No acute finding. WSN: [id number] Ordering Physician: Lou Hatch Dictated By: Kenia Pratt MD Dictated Date/Time: 09/09/19 3:21 pm Reviewed By: Kenia Pratt MD Signed By: Kenia Pratt MD Signed Date/Time: 09/09/19 3:21 pm Transcribed By: NINO Transcribed Date/Time: 09/09/19 3:20 pm * Exam Date Time Procedure Performing Provider Status 09/06/19 9:28 PM Chest Portable Shelley Grewal (Verified) Notes: (Chest Portable) Reason For Exam: Pleuritic Pain RESULT: Chest Portable Chest Portable Reason: Pleuritic Pain; Clinical Question(s): Pneumonia COMPARISON: 09/01/2019. FINDINGS: LINES AND TUBES: None. LUNGS AND PLEURA: No focal opacity or volume loss. No pleural effusion. No pneumothorax. HEART, MEDIASTINUM AND RAMON: Heart is normal in size. Normal mediastinal and hilar contour. BONES AND SOFT TISSUES: No acute abnormality. IMPRESSION: No acute abnormality. Previously seen left basilar infiltrate has resolved. WSN: [id number] Ordering Physician: Alan Luna Dictated By: Jose Arellano MD Dictated Date/Time: 09/06/19 9:48 pm Reviewed By: Jose Arellano MD Signed By: Jose Arellano MD Signed Date/Time: 09/06/19 9:48 pm Transcribed By: NINO Transcribed Date/Time: 09/06/19 9:48 pm * Exam Date Time Procedure Performing Provider Status 09/01/19 3:48 AM Chest 2 Views Frontal and Lat Shira Higginbotham; Marcelina (Verified) Notes: (Chest 2 Views Frontal and Lat) Reason For Exam: Cough RESULT: Chest 2 Views Frontal and Lat Chest 2 Views Frontal and Lat INDICATION: Cough. Clinical concern for pneumonia. Reason: Cough; Clinical Question(s): Pneumonia COMPARISON: Multiple priors most recent is 08/10/2019. FINDINGS: LINES AND TUBES: None. LUNGS AND PLEURA: Diminished lung volumes, patchy left basilar opacity not as well seen on the lateral view No pleural effusion. No pneumothorax. HEART, MEDIASTINUM AND RAMON: Heart is normal in size. Normal mediastinal and hilar contour. BONES AND SOFT TISSUES: No acute abnormality. There is extensive hydroxyapatite deposition in the left shoulder. IMPRESSION: Mild left basilar atelectasis versus developing infiltrate. WSN: [id number] Ordering Physician: Geoff Stover Dictated By: Cedric Post MD Dictated Date/Time: 09/01/19 10:01 a Reviewed By: Cedric Post MD Signed By: Cedric Post MD Signed Date/Time: 09/01/19 10:01 am Transcribed By: NINO Transcribed Date/Time: 09/01/19 9:58 am Vital Signs Most recent to oldest [Reference Range]: 1 2 3 Height 175 cm (12/06/19 11:38 PM) 175 cm (12/06/19 4:52 PM) 175 cm (12/06/19 11:54 AM) Weight 108.3 kg (11/27/19 7:46 AM) 105.4 kg (11/23/19 5:40 AM) 107 kg (11/13/19 5:05 AM) Oxygen Saturation [94-100 %] 98 % (12/07/19 4:00 AM) 97 % (12/06/19 11:38 PM) 97 % (12/06/19 4:52 PM) Pulse Rate [55-90 bpm] 80 bpm (12/07/19 4:00 AM) 75 bpm (12/06/19 11:38 PM) 82 bpm (12/06/19 4:52 PM) Body Mass Index [18.5-24.99] 35.36 *>HHI* (11/27/19 7:46 AM) 34.42 *>HHI* (11/23/19 5:40 AM) 34.94 *>HHI* (11/13/19 5:05 AM) Blood Pressure [90-138/55-84 mm Hg] 133/87mm Hg (12/07/19 4:00 AM) 118/88mm Hg (12/06/19 11:38 PM) 139/84mm Hg *H* (12/06/19 4:52 PM) Respiratory Rate [16-30 br/min] 16 br/min (12/07/19 9:22 AM) 16 br/min (12/07/19 8:30 AM) 20 br/min (12/07/19 4:00 AM) Temperature [96.8-100.4 DegF] 97.7 DegF (12/07/19 4:00 AM) 97.4 DegF (12/06/19 11:38 PM) 97.3 DegF (12/06/19:52 PM) Liters per Minute 2 L/min (11/29/19 6:47 PM) 1 L/min (11/28/19 5:58 AM) 1 L/min (08/11/19 9:03 PM) Mode of Delivery (Oxygen) Room air (12/07/19 4:00 AM) Room air (12/06/19 11:38 PM) Room air (12/06/19 4:52 PM) Blood pressure sites Arm, right (12/07/19 4:00 AM) Arm, right (12/06/19 11:38 PM) Arm, right (12/06/19 4:52 PM) Temperature Route Axillary (12/07/19 4:00 AM) Oral (12/06/19 11:38 PM) Oral (12/06/19 4:52 PM) Dry Weight 105.8 kg (10/30/19 9:21 PM) 112.6 kg (07/31/19 1:45 PM) 112.6 kg (07/31/19 12:15 PM) Weight Obtained Via Bed scale (11/27/19 7:46 AM) Bed scale (11/23/19 5:40 AM) Bed scale (11/13/19 5:05 AM) Dry Weight Obtained Via Bed scale (10/30/19 9:21 PM) Bed scale (07/31/19 1:45 PM) Sensory deficits None (08/04/19 8:45 AM) Mobility assistance Total assistance (08/07/19 4:00 AM) Total assistance (08/07/19 2:00 AM) Total assistance (08/07/19 12:00 AM) Social History Social History Type Response Smoking Status Former smoker entered on: 02/11/15 Sex
--- OUTSIDE RECORDS SUMMARY | 2023-12-25 00:27 | XMS_ITS | Continuity of Care Document ---
Author Organization [facility] ter Address [address] [place] [id number]- Care Team Providers Care Tariff Publishing Agent Name Role Phone Solomon PENNY, Demetrius Primary Care Physician [phone] Encounter [facility] [place] Date(s): 12/19/23 - 12/19/[address] [address]- Encounter Diagnosis Abdominal pain(Final) - 12/19/23 Discharge Disposition: A-D/C Home Attending Physician: Giuseppe Landaverde MD Admitting Physician: Giuseppe Landaverde MD Referring Physician: Not on Staff, Referring [...] opioid drug. Start Date: 11/06/23 Status: Ordered OxyCODONE IR Tablet 5 mg, Tablet, By Mouth, Once, STAT, 12/19/23 15:14:00 EDT, Stop date 12/19/23 15:14:00 EDT Start Date: 12/19/23 Stop Date: 12/19/23 Status: Completed pantoprazole 40 mg oral delayed release tablet [...] Exam Date Time Procedure Performing Provider Status 12/19/23 6:[address] Abd/Pelvis W/ IV Contrast Only [facility] hes , Jessica; Auth (Verified) Notes: (CT Abd/Pelvis W/ IV Contrast Only) Reason For Exam: LLQ abdominal pain;Pain RESULT: CT Abd/Pelvis W/ IV Contrast Only CT Abd/Pelvis W/ IV Contrast Only Hx of Present Illness: Nausea and vomiting coming from SNF; Reason: Pain; LLQ abdominal pain; Clinical Question(s): Abscess; Order Comment: TECHNIQUE: Spiral CT through the abdomen and pelvis with IV contrast formatted in 3 planes. 100 cc of Omnipaque 300 was administered intravenously. This study was performed without oral contrast. Weight-based protocol using automatic tube modulation was used to optimize exposure parameters. CTDIvol Body: 19.20 mGy, DLP Body: 1247 mGy*cm. COMPARISON: 12/10/2023. FINDINGS: Network Security Analyst View Findings, Lines and Tubes: None. Visualized Chest: Bilateral large gynecomastia, partially imaged. Lung linear atelectasis or scarring at the lung bases. The lungs are otherwise clear. No pleural effusion. The heart is normal in size. No pericardial effusion. Diaphragm: Elevated right hemidiaphragm. Liver: A subcentimeter hypodensity in the right lobe remains too small to characterize by CT. Gallbladder: No CT evidence of acute gallbladder pathology. Bile ducts: No biliary ductal dilation. Spleen: Normal. Pancreas: Normal. Adrenal glands: Normal. Kidneys and ureters: Nonobstructing punctate stones bilaterally. No hydronephrosis or suspicious masses. Bladder: Normal. Reproductive organs: Unremarkable. Stomach, small bowel, and large bowel: Normal. Appendix: Normal. Peritoneum and retroperitoneum: No ascites or pneumoperitoneum. No omental or mesenteric lesions. Lymph nodes: No enlarged lymph nodes. Blood vessels: Mild vascular calcifications but no aneurysm. No evidence of venous thrombosis. Abdominal and pelvic wall: Fat-containing right inguinal hernia. There is scarring in the subcutaneous tissues of the left hip. Partially imaged right hydrocele. Bones: No acute abnormality. Unchanged mild superior endplate compression deformity in L2. IMPRESSION: No acute abnormality in the abdomen or pelvis. Partially imaged right hydrocele. Additional chronic findings as detailed above. WSN: [id number] Ordering Physician: Vanessa Spicer Dictated By: James PENNYTamika Dictated Date/Time: 12/19/23 8:14 pm Reviewed By: Tamika Ramirez MD Signed By: Tamika Ramirez MD Signed Date/Time: 12/19/23 8:14 pm Transcribed By: NINO Transcribed Date/Time: 12/19/23 8:09 pm * Exam Date Time Procedure Performing Provider Status 12/19/23 6:[address] Head/Brain W/O Contrast Cooper , V brandi; Auth (Verified) Notes: (CT Head/Brain W/O Contrast) Reason For Exam: Trauma RESULT: CT Head/Brain W/O Contrast CT Head/Brain W/O Contrast INDICATION: Hx of Present Illness: Nausea and vomiting coming from SNF; Reason: Trauma; Clinical Question(s): Hematoma TECHNIQUE: Noncontrast head CT using axial technique and reconstructed in axial and coronal planes.Iterative reconstruction techniques are used to optimize dose and image quality. CTDIvol Head: 45.90 mGy, DLP Head: 772 mGy*cm. COMPARISON: None. FINDINGS: Network Security Analyst view findings, lines and tubes: None. BRAIN AND EXTRA-AXIAL SPACES: No parenchymal hemorrhage, midline shift, or mass effect. Reyez-white matter differentiation is wellpreserved. No acute infarct. Ventricles, sulci, and basilar cisterns are normal. Mild low-density white matter changes. No subarachnoid hemorrhage. No subdural or epidural collection. CALVARIUM, SKULL BASE, AND SOFT TISSUES: No fractures or suspicious bony lesions. The paranasal sinuses and mastoid air cells are clear. Visualized orbits and globes are intact. The extracranial soft tissues are unremarkable. IMPRESSION: No acute intracranial pathology. WSN: [id number] Ordering Physician: Vanessa Spicer Dictated By: Tirso Borrero MD Dictated Date/Time: 12/19/23 7:21 pm Reviewed By: Tirso Borrero MD Signed By: Tirso Borrero MD Signed Date/Time: 12/19/23 7:21 pm Transcribed By: NINO Transcribed Date/Time: 12/19/23 7:16 pm Vital Signs Most recent to oldest [Reference Range]: 1 2 3 Oxygen Saturation [94-100 %] 100 % (12/19/23 6:22 PM) 96 % (12/19/23 2:32 PM) Pulse Rate [55-90 bpm] 98 bpm *H* (12/19/23 6:22 PM) 76 bpm (12/19/23 2:32 PM) Blood Pressure [90-138/55-84 mm Hg] 157/89mm Hg *H* (12/19/23 6:22 PM) 163/101mm Hg *H* (12/19/23 2:32 PM) Respiratory Rate [16-30 br/min] 19 br/min (12/19/23 6:22 PM) 19 br/min (12/19/23 3:42 PM) 19 br/min (12/19/23 2:32 PM) Temperature [96.8-100.4 DegF] 98.0 DegF (12/19/23 2:32 PM) Mode of Delivery (Oxygen) Room air (12/19/23 6:22 PM) Room air (12/19/23 2:32 PM) Blood pressure sites Arm, right (12/19/23 6:22 PM) Arm, right (12/19/23 2:32 PM) Temperature Route Oral (12/19/23 2:32 PM) Social History Social History Type Response Smoking Status Former smoker entered on: 02/11/15 Sex Note * Vanessa Spicer DO: PERFORM Event Display: Patient Education Leaflets Authored Date: [id number] Gastritis (Adult) ?? [id number] Gastritis (Adult) Gastritis is??inflammation and??irritation of the stomach lining. You can have it for a short time (acute) or it can be long lasting (chronic). Infection with bacteria called??H. pylori most often causes gastritis.??More than 1 out of 3 people in the [place] have these bacteria in their bodies. In many cases,??H. pylori??causes no problems or symptoms. But in some people, the infection irritates thestomach lining and causes gastritis. H. pylori may be diagnosed through blood, stool, or breath tests, or by a biopsy during an endoscopy. Other causes of stomach irritation include drinking alcohol,smoking or chewing tobacco, or taking pain-relieving medicines called nonsteroidal anti-inflammatory drugs (NSAIDs), such as aspirin or ibuprofen. Some illegal drugs (such as cocaine) and immune conditions can also cause gastritis. Symptoms of gastritis can include: ??? Belly pain or bloating ??? Feeling full quickly ??? Loss of appetite ??? Weight loss ??? Nauseaor vomiting ??? Vomiting blood or having black stools ??? Feeling more tired than normal An inflamed and irritated stomach lining is more likely to develop a sore called an ulcer. To help prevent this, gastritis should be evaluated and treated as soon as symptoms occur. Home care If needed, your healthcare provider may prescribe medicines. If you have??H. pylori??infection, treating it will likely ease your symptoms. Other changes can help reduce stomach irritation and help it heal. ??? Take prescription medicines as directed. If you have been prescribed medicines for??H. pylori??infection, take them as directed. Take all of the medicine until it's finished or until your provider tells you to stop taking it, even if you start to feel better. ??? Follow your healthcare provider's advice on NSAIDs. Your provider may advise you not to take NSAIDs such as ibuprofen. If you take daily aspirin for your heart or other health reasons, don't stop without talking with your provider first. ??? Don't drink alcohol. If you need help stopping your use of alcohol, ask your provider for treatment resources. ??? Stop smoking. Smoking can irritate the stomach and delay healing. As much as possible, stay away from secondhand smoke. If you smoke and have trouble stopping, ask your provider for help. ?? Follow-up care Follow up with your healthcare provider, or as advised. You may need testing to check for inflammation or an ulcer. ?? When to get medical advice Call your healthcare provider if any of the following occur: ??? Stomach pain that gets worse or moves to the lower right belly (appendix area) ??? Chest pain that suddenly appears or gets worse, or spreads to the back, neck, shoulder, or arm ??? Frequent vomiting (can???t keep down liquids) ??? Blood in the stool or vomit (red or black in color) ??? Feeling weak or dizzy ??? Shortness of breath ??? Unexplained weight loss ??? Fever of 100.4??F (38??C) or higher, or as directed by your healthcare provider ??? Symptoms that get worse, or new symptoms ?? Last Reviewed Date: 2022 ?? [employer]. All rights reserved. This information is not intended as a substitute for professional medical care. Always follow your healthcare professional's instructions. ?? * Vanessa Spicer DO: PERFORM Event Display: Patient Education Leaflets Authored Date: [id number] Unknown Causes of Abdominal Pain(Adult) ?? [id number] Unknown Causes of Abdominal Pain(Adult) The exact cause of your belly (abdominal) pain is not clear. Your exam and tests don't suggest a dangerous cause at this time. This does not mean that this is something to worry about. Everyone likesto know the exact cause of the problem. But sometimes with belly pain, there is no clear-cut cause,and this could be a good thing. Your symptoms can be treated, and you should feel better.?? Your condition does not seem serious now. But sometimes the signs of a serious problem may take more time to appear. For this reason,??it's important for you to watch for any new symptoms, problems,??or worsening of your condition. Over the next few days, the abdominal pain may come and go. Or it may be constant. Other common symptoms can include nausea and vomiting. Sometimes it can be difficult to tell if you feel nauseous. You may just feel bad and not connect that feeling to nausea. Constipation, diarrhea, and a fever maygo along with the pain. The pain may continue even if treated correctly over the following days. Depending on how things go, sometimes the cause can become clear and you may need more??or different treatment. You may also need other evaluations, medicines, or tests. Home care Your healthcare provider may prescribe medicine for pain, symptoms, or an infection. ??Follow the healthcare provider's instructions for taking these medicines. General care ??? Rest as much as you can until your next exam. No strenuous activities. ??? Try to not do anything that may have caused your symptoms. This might be not taking any medicines unless otherwise directed by your healthcare provider. It might be not eating certain foods or doing certain activities. ??? Find positions that ease discomfort. A small pillow placed on your belly may help relieve pain. ??? Something warm on your belly such as a heating pad may help, but be careful not to burn yourself. Diet ??? Don???t??force yourself to eat, especially if having cramps, vomiting, or diarrhea. ??? Water is important so you don't get dehydrated. Soup may also be good. Sports drinks may also help, especially if they are not too acidic. Don't drink sugary drinks as this can make things worse. Take liquids in small amounts. Don???t??guzzle them. ??? Caffeine sometimes makes the pain and cramping worse. ??? Don???t take??dairy products if you have vomiting or diarrhea. ??? Don't eat large amounts at a time. Eat several small meals during the day instead of 2 or 3 larger meals. Wait a few minutesbetween bites. ??? Eat a diet low in fiber (called a low-residue diet). Foods allowed include refined breads, white rice, fruit and vegetable juices without pulp, tender meats. These foods will pass more easily through the intestine. ??? Don???t have??whole-grain foods, whole fruits and vegetables,meats, seeds and nuts, fried or fatty foods, dairy, alcohol and spicy foods until your symptoms go away. ?? Follow-up care Follow up with your healthcare provider, or as advised, if your pain does not begin to improve in the next 24 hours. ?? Call 911 Call?? 911 if any of these occur: ??? Trouble breathing ??? Confusion ??? Fainting or loss of consciousness ??? Rapid heart rate ??? Seizure ?? When to seek medical advice Call your healthcare provider right away if any of these occur: ??? Pain gets worse or moves to theright lower abdomen ??? New or worsening vomiting or diarrhea ??? Swelling of the abdomen ??? Unable to pass stool for more than??3 days ??? Fever of 100.4??F (38??C) or higher, or as directed by your healthcare provider ??? Blood in vomit or bowel movements (dark red or black color) ??? Yellow color of eyes and skin (jaundice) ??? Weakness, dizziness ??? Chest, arm, back, neck, or jaw pain ??? Can't keep down medicines, liquids, or water because of too much vomiting ??? If you have a vagina: unexpected vaginal bleeding or missed period ?? Last Reviewed Date: 2021 ?? [employer]. All rights reserved. This information is not intended as a substitute for professional medical care. Always follow your healthcare professional's instructions. ?? Patient Care team information Care Team Personnel Name: Wolf Jenkins RN Position: [facility] RN Member Role: Primary Care Nurse Name: Thuy Barrientos RN Position: [facility] SN RN Member Role: Primary Care Nurse Name: Kirsty Ramos RN Position: [facility] HBO Wound Member Role: Primary Care Nurse Name: Cristel Aguilera RN Position: [facility] RN Member Role: Primary Care Nurse Name: Martha Hauser RN Position: [facility] RN Member Role: Primary Care Nurse Name: Raul Christensen RN Position: [facility] RN Member Role: Primary Care Nurse Name: Christian Byrnes RN Position: [facility] RN Member Role: Primary Care Nurse Name: Rosalinda Singh RN Position: [facility] OB RN Member Role: Primary Care Nurse Name: Andie Mack RN Position: [facility] RN Member Role: Primary Care Nurse Name: Tony James RN Position: [facility] Outreach Member Role: Primary Care Nurse Name: Karena Horn Position: [facility] RN Member Role: Primary Care Nurse Name: Juana Catherine RN Position: [facility] RN Member Role: Primary Care Nurse Name: Luis Elizalde RN Position: [facility] SN RN Member Role: Primary Care Nurse Name: Dori Butler RN Position: [facility] RN Member Role: Primary Care Nurse Name: Christine Vera RN Position: [facility] RN Member Role: Primary Care Nurse Name: Geeta Barrientos RN Position: [facility] RN Member Role: Primary Care Nurse Name: Bhavani Benavidez RN Position: [facility] RN Member Role: Primary Care Nurse Name: Geeta Smith RN Position: [facility] RN Member Role: Primary Care Nurse Name: Samara Tidwell RN Position: [facility] RN Member Role: Primary Care Nurse Name: Demetrius Carbajal MD Position: [facility] Outreach Member Role: PCP Address: Address: [address] [place] [address] Emergency Medicine [place], [place] [address] Name: Gretta Esquivel RN Position: [facility] RN Member Role: Primary Care Nurse Name: Ashley Ornelas RN Position: [facility] RN Member Role: Primary Care Nurse Name: Sandra Camp RN Position: [facility] RN Member Role: Primary Care Nurse Name: Markus Allison RN Position: [facility] RN Member Role: Primary Care Nurse Name: Martha Pryor RN Position: [facility] [employer] Specialist Member Role: Primary Care Nurse Name: Edgardo Donnelly RN Position: [facility] RN Member Role: Primary Care Nurse Name: Jem Gomez RN Position: [facility] RN Member Role: Primary Care Nurse Name: Sandra Thomason RN Position: [facility] RN Member Role: Primary Care Nurse Name: Etta Matias RN Position: [facility] RN Member Role: Primary Care Nurse Name: Mary Grace Giron RN Position: [facility] RN Member Role: Primary Care Nurse Name: Nita Silva Position: [facility] RN Member Role: Primary Care Nurse Name: Jeane Fay RN Position: [facility] RN Member Role: Primary Care Nurse Name: Andreea Morgan RN Position: [facility] [employer] Specialist Member Role: Primary Care Nurse Care Team Related Persons Name: MARTINEZ WALDRON Address: [address] [place] [address]
--- OUTSIDE RECORDS SUMMARY | 2023-12-25 00:27 | XMS_ITS | Continuity of Care Document ---
Author Organization [facility] ter Address [address] [place] [id number]- Care Team Providers Care Side Seam Tender Name Role Phone Solomon PENNY, Demetrius Primary Care Physician [phone] Encounter [facility] Date(s): 11/05/23 - 11/07/[address] [id number] Encounter Diagnosis Hypothermia(Final) - 11/05/23 Hyperammonemia(Final) - 11/05/23 Encephalopathy(Final) - 11/05/23 Discharge Disposition: A-Transfer SNF Attending Physician: Mavis Lee MD Admitting Physician: Vero Villalobos DO Referring Physician: Not on Staff, Referring MD [...] oxyCODONE 5 mg oral tablet 5 mg, Tablet, By Mouth, Every 6 hours, PRN for Pain , Severe, Routine, 11/05/23 22:47:00 EDT Start Date: 11/05/23 Stop Date: 11/08/23 Status: Discontinued oxyCODONE 5 mg oral tablet 5 mg, [...] opioid drug. Start Date: 11/06/23 Status: Ordered propranolol 20 mg oral tablet 20 mg, Tablet, By Mouth, 11/07/23 9:00:00 EDT Start Date: 11/07/23 Stop Date: 11/07/23 Status: Completed Tylenol 325 mg oral tablet See Instructions, [...] Exam Date Time Procedure Performing Provider Status 11/05/23 2:[address] Angio Neck Paulino Blum; Marcelina (Verif ied) Notes: (CT Angio Neck) Reason For Exam: stroke evaluation;Other: RESULT: CT Angio Neck CT Angio Head, CT Angio Neck Hx of Present Illness: lethargy; Reason: TIA; Clinical Question(s): Infarction; Order Comment: / Infarction TECHNIQUE: CT angiogram of the head and neck was performed after bolus administration of intravenous contrast. 100 mL of Omnipaque 300 was administered intravenously. Coronal and sagittal MIP reformatted images were obtained. Additional 3-D images were created on a separate workstation under concurrent supervision by the attending radiologist. All stenoses are measured using NASCET criteria. Weight-based protocol using automatic tube modulation was used to optimize exposure parameters. RADIATION DOSE PARAMETERS: CTDIvol Body: 16.23 mGy, DLP Body: 794 mGy*cm. CTDIvol Head: 45.80 mGy, DLP Head: 966 mGy*cm. COMPARISON: Noncontrast CT head performed concurrently. FINDINGS: CTA OF THE NECK: Arch: There is a three vessel aortic arch. The origins of the supra aortic vessels are patent. Right carotid system: The common carotid and cervical internal carotid arteries are patent. There is calcified atherosclerotic plaque at the carotid bifurcation, but no ICA stenosis (0%) by NASCET criteria. Left carotid system: The common carotid and cervical internal carotid arteries are patent. There iscalcified atherosclerotic plaque at the carotid bifurcation, but no ICA stenosis (0%) by NASCET criteria. There is a right-dominant vertebral artery system. Right vertebral: No significant stenosis. No evidence of dissection or aneurysm. Left vertebral: No significant stenosis. No evidence of dissection or aneurysm. Other: Soft tissues and bones: No evidence of lymphadenopathy or mass. The thyroid is unremarkable. Visualized lungs are blurred by motion artifact, without significant superimposed airspace opacity. Multilevel degenerative changes of the spine are noted, without acute osseous abnormality. CTA OF THE HEAD: Anterior circulation: Bilateral intracranial ICAs demonstrate atherosclerotic calcification, without stenosis. Bilateral ASHANTI and MCA branches are patent. There is no significant stenosis, proximal cutoff, aneurysm, or vascular malformation. Posterior circulation: Bilateral intracranial vertebral arteries, the basilar artery, and bilateralsuperior cerebellar and posterior cerebral branches are patent. There is no significant stenosis, proximal cutoff, aneurysm, or vascular malformation. Veins: Major dural venous sinuses are patent. Other: Soft tissues and bones: No midline shift or effacement of the basal cisterns. No space-occupying hemorrhage. No territorial loss of reyez-white matter differentiation. Orbits are unremarkable. No significant opacification in the paranasal sinuses or mastoid air cells. IMPRESSION: No proximal occlusion or high grade stenosis in the major arteries of the head and neck. WSN: [id number] Ordering Physician: Dori Jean Baptiste Dictated By: Radha Rojas MD Dictated Date/Time: 11/05/23 3:04 pm Reviewed By: Radha Rojas MD Signed By: Radha Rojas MD Signed Date/Time: 11/05/23 3:04 pm Transcribed By: NINO Transcribed Date/Time: 11/05/23 2:44 pm * Exam Date Time Procedure Performing Provider Status 11/05/23 2:[address] Angio Head Paulino Blum; Marcelina (Verif ied) Notes: (CT Angio Head) Reason For Exam: TIA RESULT: CT Angio Head CT Angio Head, CT Angio Neck Hx of Present Illness: lethargy; Reason: TIA; Clinical Question(s): Infarction; Order Comment: / Infarction TECHNIQUE: CT angiogram of the head and neck was performed after bolus administration of intravenous contrast. 100 mL of Omnipaque 300 was administered intravenously. Coronal and sagittal MIP reformatted images were obtained. Additional 3-D images were created on a separate workstation under concurrent supervision by the attending radiologist. All stenoses are measured using NASCET criteria. Weight-based protocol using automatic tube modulation was used to optimize exposure parameters. RADIATION DOSE PARAMETERS: CTDIvol Body: 16.23 mGy, DLP Body: 794 mGy*cm. CTDIvol Head: 45.80 mGy, DLP Head: 966 mGy*cm. COMPARISON: Noncontrast CT head performed concurrently. FINDINGS: CTA OF THE NECK: Arch: There is a three vessel aortic arch. The origins of the supra aortic vessels are patent. Right carotid system: The common carotid and cervical internal carotid arteries are patent. There is calcified atherosclerotic plaque at the carotid bifurcation, but no ICA stenosis (0%) by NASCET criteria. Left carotid system: The common carotid and cervical internal carotid arteries are patent. There iscalcified atherosclerotic plaque at the carotid bifurcation, but no ICA stenosis (0%) by NASCET criteria. There is a right-dominant vertebral artery system. Right vertebral: No significant stenosis. No evidence of dissection or aneurysm. Left vertebral: No significant stenosis. No evidence of dissection or aneurysm. Other: Soft tissues and bones: No evidence of lymphadenopathy or mass. The thyroid is unremarkable. Visualized lungs are blurred by motion artifact, without significant superimposed airspace opacity. Multilevel degenerative changes of the spine are noted, without acute osseous abnormality. CTA OF THE HEAD: Anterior circulation: Bilateral intracranial ICAs demonstrate atherosclerotic calcification, without stenosis. Bilateral ASHANTI and MCA branches are patent. There is no significant stenosis, proximal cutoff, aneurysm, or vascular malformation. Posterior circulation: Bilateral intracranial vertebral arteries, the basilar artery, and bilateralsuperior cerebellar and posterior cerebral branches are patent. There is no significant stenosis, proximal cutoff, aneurysm, or vascular malformation. Veins: Major dural venous sinuses are patent. Other: Soft tissues and bones: No midline shift or effacement of the basal cisterns. No space-occupying hemorrhage. No territorial loss of reyez-white matter differentiation. Orbits are unremarkable. No significant opacification in the paranasal sinuses or mastoid air cells. IMPRESSION: No proximal occlusion or high grade stenosis in the major arteries of the head and neck. WSN: [id number] Ordering Physician: Dori Jean Baptiste Dictated By: Radha Rojas MD Dictated Date/Time: 11/05/23 3:04 pm Reviewed By: Radha Rojas MD Signed By: Radha Rojas MD Signed Date/Time: 11/05/23 3:04 pm Transcribed By: NINO Transcribed Date/Time: 11/05/23 2:44 pm * Exam Date Time Procedure Performing Provider Status 11/05/23 2:[address] Head/Brain W/O Contrast Paulino Blum ; Auth (Verified) Notes: (CT Head/Brain W/O Contrast) Reason For Exam: AMS;Other: RESULT: CT Head/Brain W/O Contrast CT Head/Brain W/O Contrast INDICATION: Hx of Present Illness: lethargy; Reason: Other:; AMS; Clinical Question(s): Other:; hemorrhage ischemia TECHNIQUE: Noncontrast head CT using axial technique and reconstructed in axial and coronal planes.Iterative reconstruction techniques are used to optimize dose and image quality. COMPARISON: None. FINDINGS: Product Demonstrator view findings, lines and tubes: None. BRAIN AND EXTRA-AXIAL SPACES: No parenchymal hemorrhage, midline shift, or mass effect. Reyez-white matter differentiation is wellpreserved. No acute infarct. Ventricles, sulci, and basilar cisterns are normal. Right parietal encephalomalacia. No subarachnoid hemorrhage. No subdural or epidural collection. CALVARIUM, SKULL BASE, AND SOFT TISSUES: No fractures or suspicious bony lesions. The paranasal sinuses and mastoid air cells are clear. Visualized orbits and globes are intact. The extracranial soft tissues are unremarkable. IMPRESSION: No acute intracranial pathology. WSN: [id number] Ordering Physician: Simona Wilkes Dictated By: Eduin Juarez MD Dictated Date/Time: 11/05/23 2:33 pm Reviewed By: Eduin Juarez MD Signed By: Eduin Juarez MD Signed Date/Time: 11/05/23 2:33 pm Transcribed By: NINO Transcribed Date/Time: 11/05/23 2:28 pm * Exam Date Time Procedure Performing Provider Status 11/05/23 1:10 PM Chest Portable Xavier Warner (Verif ied) Notes: (Chest Portable) Reason For Exam: Shortness of Breath RESULT: Chest Portable Chest Portable Hx of Present Illness: lethargy; Reason: Shortness of Breath; Clinical Question(s): Pneumonia COMPARISON: 12/04/2019. FINDINGS: LINES AND TUBES: None. LUNGS AND PLEURA: There is elevation of the right hemidiaphragm with decreased right lung volume. There is no evidence of focal airspace disease. There is no evidence of a pneumothorax or pleural effusion. HEART, MEDIASTINUM AND RAMON: Heart is normal in size. Normal mediastinal and hilar contour. BONES AND SOFT TISSUES: No acute abnormality. IMPRESSION: There is elevation of the right hemidiaphragm with decreased right lung volume. There is no evidence of focal airspace disease. WSN: [id number] Ordering Physician: Simona Wilkes Dictated By: Diane Moya MD Dictated Date/Time: 11/05/23 1:21 pm Reviewed By: Diane Moya MD Signed By: Diane Moya MD Signed Date/Time: 11/05/23 1:21 pm Transcribed By: NINO Transcribed Date/Time: 11/05/23 1:20 pm Vital Signs Most recent to oldest [Reference Range]: 1 2 3 Height 180 cm (11/07/23 1:17 PM) 180 cm (11/07/23 1:14 PM) 180 cm (11/07/23 10:53 AM) Weight 117.0 kg (11/07/23 4:36 AM) 116.2 kg (11/05/23 7:29 PM) 112.4 kg (11/05/23 7:00 PM) Oxygen Saturation [94-100 %] 100 % (11/07/23 1:14 PM) 95 % (11/07/23 10:53 AM) 98 % (11/07/23 7:00 AM) Pulse Rate [55-90 bpm] 55 bpm (11/07/23 1:14 PM) 62 bpm (11/07/23 10:53 AM) 63 bpm (11/07/23 10:25 AM) Body Mass Index [18.5-24.99 kg/m2] 35.86 kg/m2 *>HHI* (11/05/23 7:29 PM) Blood Pressure [90-138/55-84 mm Hg] 106/78mm Hg (11/07/23 1:14 PM) 122/80mm Hg (11/07/23 10:53 AM) 115/75mm Hg (11/07/23 10:25 AM) Respiratory Rate [16-30 br/min] 18 br/min (11/07/23 1:14 PM) 16 br/min (11/07/23 10:53 AM) 16 br/min (11/07/23 10:26 AM) Temperature [96.8-100.4 DegF] 97.2 DegF (11/07/23 1:17 PM) 97.2 DegF (11/07/23 1:14 PM) 97.4 DegF (11/07/23 10:53 AM) Liters per Minute 2 L/min (11/05/23 1:43 PM) 2 L/min (11/05/23 1:22 PM) Mode of Delivery (Oxygen) Room air (11/07/23 1:14 PM) Room air (11/07/23 10:53 AM) Room air (11/07/23 7:00 AM) Blood pressure sites Arm, right (11/07/23 1:14 PM) Arm, right (11/07/23 10:53 AM) Arm, right (11/07/23 7:00 AM) Temperature Route Oral (11/07/23 1:17 PM) Axillary (11/07/23 1:14 PM) Axillary (11/07/23 10:53 AM) Dry Weight 116.2 kg (11/05/23 7:29 PM) Weight Obtained Via Bed scale (11/07/23 4:36 AM) Bed scale (11/05/23 7:00 PM) Social History Social History Type Response Smoking Status Former smoker entered on: 02/11/15 Sex History and physical note * Vero Villalobos DO S: PERFORM, MODIFY, MODIFY, MODIFY, MODIFY Event Display: History and Physical Hospital Authored Date: Patient: ??ZAYRA MORRIS ? Age:??53 Years?Sex:??Male?:??1970?? Chief Complaint/Reason for Consultation Pt SNF for increasing lethargic since this AM. Pt hx TBI. Sinus angélica in 50s. A+Ox2 GCS 12. History of Present Illness This is a 53-year-old male with past medical history including??mild traumatic brain injury, history of stroke with residual hemiparesis, hepatitis C, hypertension, asthma, bipolar disorder, and history of neuroleptic malignant syndrome after being given antipsychotics, who currently presents to the hospital from his long-term facility after he was noted to be lethargic with altered mental status.?? He was also found to be hypothermic and bradycardic as well.?? The patient at present is??able to provide??some medical information??and history, but he is difficult to understand??based on??known aphasia,??so some of this??information is obtained from review of facility notes and old records.?His mother was also contacted by phone and??she helps to provide??some additional information. ??According to her, the patient??has been hospitalized at [facility]??for the past couple years awaiting placement??at a facility. ??He finally??did get [facility] at [place]and was transferred there??sometime in the last 2 to 3 weeks. ??Per records from the facility,??he was noted thereto be lethargic, pale,??with a resting heart rate of 50 and a temperature of 93.8. ??He was noted to have a temperature of 92.4 when he arrived here, with a pulse of 49.?? Blood pressure was stable and noted to be in the 110s to 120s systolic.?? The patient's lab work showed arterial blood gas witha pH of 7.34, pCO2 of 60, pO2 of 68, and bicarb of 31 on room air. ??White blood cell count was slightly low at 3.4 with a hemoglobin of 13.8 and platelet count of 94.?? Other labs showed an unremarkable chemistry panel except for an elevated glucose of 125.?? BUN was 19 with a creatinine of 0.64.?? LFTs were noted to be normal and lactate was 2.2.?? High-sensitivity troponin was 12 and proBNP was less than 36 with a TSH of 1.29.?? Ammonia level was elevated at 136 and urine tox screen was positive for benzos, but negative for cocaine, opiates, and amphetamine.?? UA showed trace albumin with 1+ ketones and 2 WBCs with 2 RBCs.?? The patient did undergo portable chest x-ray in the ED that show ed elevation of the right hemidiaphragm with decreased right lung volume and no focal airspace disease.?? CT scan of the head was done that showed no acute abnormality.?? CTA of the head and neck showed no proximal occlusion or high- grade stenosis in the major arteries of the head or neck.?? The patient is noted to be on lactulose from his facility.?? He was provided a rectal dose of lactulose and is now admitted for further management.?? Of note, he did receive 1 dose of Narcan in the ED without significant change in his mentation.?? Blood cultures were also obtained and are currently pending. Review of Systems Unable to obtain from patient??due to his altered mental status. Objective ? Vital Signs?? Temperature:??96.2 DegF??Low (11/05/23 17:10:00) Temperature Route: Core Bladder (11/05/23 17:10:00) Pulse Rate: 77 bpm (11/05/23 17:10:00) Respiratory Rate: 17 br/min (11/05/23 17:10:00) Systolic Blood Pressure: 115 mm Hg (11/05/23 17:10:00) Diastolic Blood Pressure: 80 mm Hg (11/05/23 17:10:00) Blood pressure sites: Arm, left (11/05/23 17:10:00) Mean Arterial Pressure: 97 mm Hg (11/05/23 12:50:00) Pulse Pressure: 35 mm Hg (11/05/23 17:10:00) Oxygen Saturation: 96 % (11/05/23 17:10:00) Liters per Minute: 2 L/min (11/05/23 13:43:00) Mode of Delivery (Oxygen): Room air (11/05/23 17:10:00) FiO2: 24 % (11/05/23 14:19:00) End Tidal CO2: 47 mm Hg (11/05/23 16:37:00) Early Warning Score: 8 (11/05/23 17:13:35) ? Physical Exam General: Somnolent, arouses to voice??falling back asleep,, in no acute cardiopulmonary distress. Mental Status: Somnolent. Head: Normocephalic. Eyes: Pupils are equal, round and reactive to light. Extraocular muscles intact. Ear, Nose and Throat: Oropharynx clear, mucous membranes moist. Ears and nose without masses, lesions or deformities. Trachea midline. Neck: Supple, Full range of motion. Respiratory: Clear to auscultation and percussion. No wheezing, rales or rhonchi. Cardiovascular: Heart sounds normal. Regular rate and rhythm, no murmurs, rubs or gallops. Gastrointestinal: Abdomen soft, non-tender, non-distended. Normal bowel sounds. No pulsatile mass. No hepatosplenomegaly. Neurologic: Cranial nerves II-XII grossly intact. No focal neurological deficits. Moves all extremities spontaneously. Sensation intact bilaterally. Skin: No rashes or lesions. No petechiae or purpura. No edema. Musculoskeletal: No cyanosis or clubbing. No gross deformities. Normal range of motion. Assessment/Plan Assessment:??This is a 53-year-old male with past medical history as noted above,??who currently presents to the hospital from his long-term facility with??altered mental status.??He is noted here to be hypothermic??and bradycardic, along with??an elevated ammonia level.??He is now admitted for further management. ?? Encephalopathy (G93.40) ?Grouped with??Hyperammonemia (E72.20),??Hypothermia (T68.XXXA),??Bradycardia (R00.1),??Respiratory failure with hypercapnia (J96.92) ? This patient will be admitted to an inpatient??intermediate care bed.??He presents with??increased somnolence and??is noted??on lab work to have an elevated ammonia level.??He does have a history of hepatitis C and unclear if he has??liver disease or liver cirrhosis related to this (LFTsare noted to be normal, but platelet count is low).??He is also noted to be on Depakote, and on review of prior records, it appears that??he has had hyperammonemia??in the past which was attributed to??Depakote.??His altered mental status may be due to??hepatic encephalopathy.??He was also noted on??urine??tox screen to be??positive for benzodiazepines, which could also be??contributing to his alt ered mental status.?? According to his facility,??he has had no recent medication changes,??but he was just recently admitted to the the long-term care facility??approximately 2 to 3 weeks ago. ??Will need to obtain??med list??when patient was discharged from [facility]??and compare to current med list from his facility??to see if any??new medicines were added to his regimen that might??have contributed to his lethargy. ??He has received a dose of rectal lactulose, and we will continue him on lactulose.??We will monitor his??respiratory status closely.?ABG did show evidence of increased pCO2 of60 with a pH of 7.34.?The patient was initially more lethargic in the ED, but is currently easily arousable??and able to provide??some medical information and history. ??The patient did have a head CT and CTA of the head and neck that were unremarkable.?He has no evidence of active infection based on??chest x-ray and UA,??and no??clinical signs or symptoms??of infection, but??blood cultures have been ordered and are pending.??We will hold off on antibiotics presently, but??his hypothermia??could be related to underlying sepsis/infection. ?? Thrombocytopenia (D69.6) Patient noted to be thrombocytopenic, which??he has been in the past as well.?On review of old records, it appears that the thrombocytopenia was previously attributed to valproate which he takes chronically. ?? Bipolar disorder (F31.9) ?Grouped with??History of traumatic brain injury (Z87.820) ?We will continue this patient for now on??as needed olanzapine??and his home Depakote.?? We will hold his??scheduled olanzapine 15 mg at bedtime tonight,??but can hopefully resume this tomorrow??assuming his mentation is stable.?? We will also change his clonazepam from??2 mg 3 times daily scheduled to 2 mg 3 times daily as needed. ?? VTE Prophylaxis Will use subcu Lovenox and encourage early mobilization. ?? Code Status Patient has a MOLST form from his facility confirming that he is a full code. ?? Patient seen on November 05, 2023.?? Total time spent with patient and in coordination of care: including reviewing the chart/medical records, speaking with the patient, formulating and discussing the treatment plan, and documenting the findings and encounter: ??70 + min Histories Allergies Allergies ?(Active and Proposed Allergies Only) Thorazine? (Severity: Unknown severity, Onset: Unknown) Haldol? (Severity: Unknown severity, Onset: Unknown) ? Past Medical History/Problem List Active Problems(22) Asthma Bipolar disorder Chronic obstructive pulmonary disease Chronic pain syndrome Chronic viral hepatitis C Cocaine abuse in remission Delirium of mixed origin GERD without esophagitis Hepatitis C History of neuroleptic malignant syndrome History of stroke Hypertension Major depressive disorder Muscle weakness Opioid abuse Personal history of suicidal behavior Reduced mobility Rhabdomyolysis Severe obesity (BMI 35.0-39.9) with comorbidity Slurred speech Transaminitis Traumatic brain injury ?? Past Surgical History Patient reports tonsillectomy and adenoidectomy ? Social History Patient currently in??a [facility] facility, [facility] Tobacco Details:??Former smoker Alcohol use None Drug use Patient denies??records indicate prior history of cocaine??and opioid abuse ?? Family Medical History Patient's mother living??and father . Medications Home Medications??(per med list provided by patient's facility) Acetaminophen (Tylenol 325 mg oral tablet)?See Instructions?as needed?3 tablet By Mouth Every 8 hours?for fever Clonazepam (clonazePAM 2 mg oral tablet)?1?tab(s)?2?Milligram?By Mouth?3 times a day Divalproex Sodium (Depakote ER 250 mg oral tablet, extended release)?See Instructions?6 tablet By Mouth Daily Divalproex Sodium (Depakote Sprinkles 125 mg oral enteric coated capsule)?2?capsule?250?Milligram?By Mouth?Daily in AM Docusate (Colace sodium 100 mg oral capsule)?100?Milligram?1?capsule?By Mouth?2 times a day Duloxetine (duloxetine 30 mg oral enteric coated capsule)?3?capsule?90?Milligram?By Mouth?Daily?do not crush or chew Furosemide (Lasix 20 mg oral tablet)?10?Milligram?0.5?tablet?By Mouth?Daily Gabapentin (gabapentin 300 mg oral capsule)?See Instructions?3 capsule By Mouth 3 times a day Lactulose (lactulose 10 gm/15 ml oral syrup)?30?Milliliter?20?gram?By Mouth?3 times a day Olanzapine (olanzapine 2.5 mg oral tablet)?2.5?Milligram?1?tablet?By Mouth?Every 8 hours?as needed?Agitation Olanzapine (olanzapine 15 mg oral tablet)?1?tab(s)?15?Milligram?By Mouth?Daily atbedtime Oxycodone (oxyCODONE 5 mg oral tablet)?5?Milligram?1?tablet?By Mouth?Every 6 hours?as needed?as needed for pain Pantoprazole (pantoprazole 40 mg oral delayed release tablet)?1?tab(s)?40?Milligram?By Mouth?Daily Propranolol (propranolol 20 mg oral tablet)?20?Milligram?1?tablet?By Mouth?3 times a day ? Results Recent Labs BLOOD COUNT & DIFF WBC 3.4 k/mm3 (Low)?? 11/05/2023 12:38 RBC 4.69 m/mm3 (Low)?? 11/05/2023 12:38 Hgb 13.8 Gm/dL ()?? 11/05/2023 12:38 Hct 43.4 % ()?? 11/05/2023 12:38 MCV 92.5 femtoliters ()?? 11/05/2023 12:38 MCH 29.4 pg ()?? 11/05/2023 12:38 MCHC 31.8 g/dL (Low)?? 11/05/2023 12:38 Platelet Count 94 k/mm3 (Low)?? 11/05/2023 12:38 RDW-SD 46.6 femtoliters ()?? 11/05/2023 12:38 MPV 11.8 femtoliters ()?? 11/05/2023 12:38 Nucleated RBC (Automated) 0.0 #/100 WBC'S ()?? 11/05/2023 12:38 Abs. NRBC 0.0 k/mm3 ()?? 11/05/2023 12:38 Abs. Neut 1.1 k/mm3 (Low)?? 11/05/2023 12:38 Abs. Lymph 1.7 k/mm3 ()?? 11/05/2023 12:38 Abs. Hockley 0.4 k/mm3 ()?? 11/05/2023 12:38 Abs. Eo 0.1 k/mm3 ()?? 11/05/2023 12:38 Abs. Baso 0.0 k/mm3 ()?? 11/05/2023 12:38 Neut % 33.4 % (Low)?? 11/05/2023 12:38 Lymph % 51.5 % (High)?? 11/05/2023 12:38 Hockley % 11.5 % (High)?? 11/05/2023 12:38 Eos % 2.4 % ()?? 11/05/2023 12:38 Baso % 0.6 % ()?? 11/05/2023 12:38 Hemoglobin (POC) POC Cartridge 13.9 Gm/dL ()?? 11/05/2023 12:45 Hematocrit (POC) POC Cartridge 41 % ()?? 11/05/2023 12:45 Imm Gran 0.6 % ()?? 11/05/2023 12:38 Abs. Imm Gran 0.0 k/mm3 ()?? 11/05/2023 12:38 ?? BLOOD GAS pH Venous (POC) POC Cartridge 7.38 ()?? 11/05/2023 12:45 pCO2 Venous (POC) POC Cartridge 59.8 mm Hg (High)?? 11/05/2023 12:45 pO2 Venous (POC) POC Cartridge 48 mm Hg (High)?? 11/05/2023 12:45 Est Bicarbonate (POC) POC Cartridge 35.7 mmol/L (High)?? 11/05/2023 12:45 % O2 Sat Venous (POC) POC Cartridge 82 ()?? 11/05/2023 12:45 Base Excess (POC) POC Cartridge 11 ()?? 11/05/2023 12:45 pH 7.34 (Low)?? 11/05/2023 14:10 pCO2 60 mm Hg (High)?? 11/05/2023 14:10 pO2 68 mm Hg (Low)?? 11/05/2023 14:10 Bicarbonate, Estimated 31 mmol/L (High)?? 11/05/2023 14:10 Specimen Type - Blood Gas ARTERIAL ()?? 11/05/2023 14:10 pH, Venous 7.37 ()?? 11/05/2023 14:05 Percent O2 (FIO2) 24 ()?? 11/05/2023 14:10 ?? CARDIAC Nt-Probnp <36 pg/mL ()?? 11/05/2023 12:35 High Sensitivity Troponin (HSTnT) 12 ng/L ()?? 11/05/2023 12:35 ?? CHEM GENERAL Sodium 145 mmol/L ()?? 11/05/2023 12:35 Potassium 3.9 mmol/L ()?? 11/05/2023 12:35 Chloride 105 mmol/L ()?? 11/05/2023 12:35 Bicarbonate Level 26 mmol/L ()?? 11/05/2023 12:35 Anion Gap 14 ()?? 11/05/2023 12:35 Sodium (POC) POC Cartridge 143 mmol/L ()?? 11/05/2023 12:45 Potassium (POC) POC Cartridge 3.6 mmol/L ()?? 11/05/2023 12:45 Glucose Level 125 mg/dL (High)?? 11/05/2023 12:35 Glucose (POC) POC Cartridge 116 (High)?? 11/05/2023 12:45 Glucose, POC 117 mg/dL (High)?? 11/05/2023 12:34 BUN 19 mg/dL ()?? 11/05/2023 12:35 Creatinine-Blood 0.64 mg/dL (Low)?? 11/05/2023 12:35 Estimated GFR Creatinine 114 ML/MIN/1.73 M2 ()?? 11/05/2023 12:35 Calcium 9.4 mg/dL ()?? 11/05/2023 12:35 Ionized Calcium (POC) POC Cartridge 1.22 mmol/L ()?? 11/05/2023 12:45 Protein, Total 6.4 Gm/dL ()?? 11/05/2023 12:35 Albumin 4.1 Gm/dL ()?? 11/05/2023 12:35 AG Ratio 1.8 ()?? 11/05/2023 12:35 Alkaline Phosphatase 54 units/L ()?? 11/05/2023 12:35 AST (SGOT) 20 units/L ()?? 11/05/2023 12:35 ALT (SGPT) 18 units/L ()?? 11/05/2023 12:35 Bilirubin, Total 0.4 mg/dL ()?? 11/05/2023 12:35 Lactate 2.2 mmol/L ()?? 11/05/2023 12:35 ?? ENDOCRINE/TUMOR MARKER TSH 1.29 uIU/mL ()?? 11/05/2023 12:35 ?? MISC. CHEMISTRY Ammonia, Venous 136 ??mole/L (High)?? 11/05/2023 12:38 ?? TOXICOLOGY/TDM Barbiturate Screen, Urine NONE DETECTED ()?? 11/05/2023 14:37 Cannabinoid Screen, Urine NONE DETECTED ()?? 11/05/2023 14:37 Cocaine Metabolite Screen, Urine NONE DETECTED ()?? 11/05/2023 14:37 Benzodiazepine Screen, Urine POSITIVE (Abnormal)?? 11/05/2023 14:37 Amphetamine Screen, Urine NONE DETECTED ()?? 11/05/2023 14:37 Opiate Screen, Urine NONE DETECTED ()?? 11/05/2023 14:37 ?? UA/URINALYSIS Appear/Color, Urine YELLOW ()?? 11/05/2023 14:37 Specific Schurz, Urine 1.024 ()?? 11/05/2023 14:37 pH, Urine 6.5 ()?? 11/05/2023 14:37 Albumin, Urine TRACE (Abnormal)?? 11/05/2023 14:37 Glucose, Urine NEGATIVE ()?? 11/05/2023 14:37 Ketones, Urine 1+ (Abnormal)?? 11/05/2023 14:37 Bilirubin, Urine NEGATIVE ()?? 11/05/2023 14:37 Hemoglobin, Urine NEGATIVE ()?? 11/05/2023 14:37 Nitrite, Urine NEGATIVE ()?? 11/05/2023 14:37 Leukocyte, Urine NEGATIVE ()?? 11/05/2023 14:37 Urobilinogen 8 mg/dL (Abnormal)?? 11/05/2023 14:37 WBC's, Urine 2 /HPF ()?? 11/05/2023 14:37 RBC's, Urine 2 /HPF ()?? 11/05/2023 14:37 Mucus SLIGHT /LPF ()?? 11/05/2023 14:37 Hold Urine Culture Testing available 48 hours from time of collection. ()?? 11/05/2023 14:37 ?? VIROLOGY COVID-19 by RT-PCR NEGATIVE ()?? 11/05/2023 16:02 ? Image ?Other Image ?EKG showing sinus bradycardia with a heart rate of 53 and slightly low voltage QRS.??Q wave noted in lead III.??Some nonspecific ST and T wave changes. ?? (11/05/2023 13:10 EDT Chest Portable) IMPRESSION: ?? There is elevation of the right hemidiaphragm with decreased right lung volume. There is no evidence of focal airspace disease. [1] ?? (11/05/2023 14:[address] Head/Brain W/O Contrast) IMPRESSION: ?? No acute intracranial pathology. [2] ?? (11/05/2023 14:[address] Angio Head) IMPRESSION: ? No proximal occlusion or high grade stenosis in the major arteries of the head and neck. [3] [1]??Chest Portable; Griffin PENNY, Diane Alvarenga 11/05/2023 13:10 EDT [2]??CT Head/Brain W/O Contrast; Ann PENNY, Eduin Pathak 11/05/2023 14:28 EDT [3]??CT Angio Head; Radha Rojas MD 11/05/2023 14:28 EDT EKG study * Event Display: ECG 12-Lead Authored Date: Please click on pdf link to open report * Event Display: ECG 12-Lead Authored Date: Ventricular Rate: 53 BPM Atrial Rate: 53 BPM P-R Interval: 198 ms QRS Duration: 86 ms Q-T Interval: 440 ms QTC Calculation(Bazett): 412 ms P [place]: 56 degrees R [place]: 15 degrees T [place]: 52 degrees Sinus bradycardia Low voltage QRS Cannot rule out Anterior infarct , age undetermined Abnormal ECG When compared with ECG of 22-NOV-2019 18:26, Vent. rate has decreased BY 49 BPM Left posterior fascicular block is no longer Present Borderline criteria for Inferior infarct are no longer Present Confirmed by DAVID CHI ([id number]) on 11/05/2023 2:19:39 PM [place]: [facility] Cardiology * Event Display: Cardiac Rhythm Strips Authored Date: Hospital Progress note * Noemy Lazo RN: PERFORM, SIGN, VERIFY Event Display: Progress Note Hospital Authored Date: Patient: ZAYRA MORRIS Age: 53 years Sex: Male : 1970 Associated Diagnoses: None Author: Noemy Lazo RN Findings Problem Related to Alteration in Neurological : Alteration in Neurological Function/new 11/06/2023 22:00 EDT Alteration in Neuro status Related to Other: AMS Goals & Outcomes, Neurological Pt will be hemodynamically stable, Pt will be Neurologically stable, Pt will maintain intact skin integrity Interventions, Neurological Assess/monitor neurologic status, Assess/monitor VS per unit standards & prn, Call/Report variances in assessments to provider, Physical assessment per unit standards BH Goals/Interventions, Neurological Yes Neurological, Problem Start 11/06/2023 4:40 Reviewed plan with, Neurological Patient Patient Progression, Neurological Pt progressing according to plan . Nursing Data Vital Signs : VITAL SIGNS SECTION 11/06/2023 20:00 EDT Temperature 97.6 DegF Temperature Route Oral Pulse Rate 60 bpm Respiratory Rate 20 br/min Systolic Blood Pressure 137 mm Hg Diastolic Blood Pressure 86 mm Hg H Blood pressure sites Arm, right Pulse Pressure 51 mm Hg Oxygen Saturation 99 % Mode of Delivery (Oxygen) Room air . Evaluation Pt A&Ox4 can be difficult to understand, has hx of aphasia. Able to make needs knows. Does c/o pain, medicated with Tylenol and oxycodone. Remains on room air, did have expiratory wheeze on assessment but seems to have resolved itself with repositioning. SR on monitor. Pt did pull out IV, whichwas replaced and did pull apart Giang cath. Pts Giang was replaced overnight due to this. Call metcalfjose armando clemons, safety precautions in place. See [facility] for full assessment details.. * Yolanda PENNY, Mawra: PERFORM Event Display: Progress Note Hospital Authored Date: Patient: ??ZAYRA MORRIS ? Age:??53 Years?Sex:??Male?:??1970?? Subjective Overnight:??No acute events Today:??Patient was responsive. ??Although his speech is difficult to understand.?? Mother talked to him over the phone and reports that this is his baseline.?? Patient asked to??get out of bed.?? [facility] of [facility]. Started Tylenol 975 3 times a day for??shoulder and back pain.?? Review of Systems A full review of system was obtained and is negative except for as mentioned above Objective Vital Signs?? Temperature: 97.7 DegF (11/06/23 17:00:00) Temperature Route: Oral (11/06/23 17:00:00) Normothermic Measures: Julianne hugger off (11/05/23 19:00:00) Pulse Rate: 61 bpm (11/06/23 17:00:00) Heart Rate Monitored: 71 bpm (11/06/23 16:00:00) Respiratory Rate: 16 br/min (11/06/23 17:00:00) Vented: No (11/06/23 16:00:00) Systolic Blood Pressure: 132 mm Hg (11/06/23 17:00:00) Diastolic Blood Pressure: 82 mm Hg (11/06/23 17:00:00) Blood pressure sites: Arm, right (11/06/23 17:00:00) Mean Arterial Pressure: 94 mm Hg (11/05/23 19:29:00) Pulse Pressure: 50 mm Hg (11/06/23 17:00:00) Oxygen Saturation: 97 % (11/06/23 17:00:00) Mode of Delivery (Oxygen): Room air (11/06/23 17:00:00) Early Warning Score: 5 (11/06/23 17:47:39) ?? Physical Exam Constitutional: Alert, comfortable, no acute distress Head EENT: Extraocular muscle movement intact.??Moist mucous membranes.?? Respiratory: Normal lung sounds bilaterally Cardiovascular: S1 S2 regular. Gastrointestinal: Abdomen soft, non-tender, non-distended. Normal bowel sounds. Extremities:??No pitting??edema. No cyanosis or clubbing. Neurologic: Speech normal. No focal neurological deficits. Results Recent Labs BACTERIOLOGY Blood Culture Results Preliminary report ()?? 11/05/2023 12:38 Blood Culture Isolate 1 Comment ()?? 11/05/2023 12:38 Blood Cult 2 Results Preliminary report ()?? 11/05/2023 12:38 Blood Culture 2 Isolate 1 Comment ()?? 11/05/2023 12:38 ?? BLOOD COUNT & DIFF WBC 5.0 k/mm3 ()?? 11/06/2023 05:25 RBC 4.22 m/mm3 (Low)?? 11/06/2023 05:25 Hgb 13.1 Gm/dL (Low)?? 11/06/2023 05:25 Hct 39.9 % (Low)?? 11/06/2023 05:25 MCV 94.5 femtoliters (High)?? 11/06/2023 05:25 MCH 31.0 pg ()?? 11/06/2023 05:25 MCHC 32.8 g/dL (Low)?? 11/06/2023 05:25 Platelet Count 97 k/mm3 (Low)?? 11/06/2023 05:25 RDW-SD 49.0 femtoliters (High)?? 11/06/2023 05:25 MPV 10.9 femtoliters ()?? 11/06/2023 05:25 Nucleated RBC (Automated) 0.0 #/100 WBC'S ()?? 11/06/2023 05:25 Abs. NRBC 0.0 k/mm3 ()?? 11/06/2023 05:25 Abs. Neut 2.5 k/mm3 ()?? 11/06/2023 05:25 Abs. Lymph 1.8 k/mm3 ()?? 11/06/2023 05:25 Abs. Hockley 0.6 k/mm3 ()?? 11/06/2023 05:25 Abs. Eo 0.1 k/mm3 ()?? 11/06/2023 05:25 Abs. Baso 0.0 k/mm3 ()?? 11/06/2023 05:25 Neut % 50.2 % ()?? 11/06/2023 05:25 Lymph % 35.3 % ()?? 11/06/2023 05:25 [place]ley % 11.5 % (High)?? 11/06/2023 05:25 Eos % 2.2 % ()?? 11/06/2023 05:25 Baso % 0.4 % ()?? 11/06/2023 05:25 Hemoglobin (POC) POC Cartridge 13.9 Gm/dL ()?? 11/05/2023 12:45 Hematocrit (POC) POC Cartridge 41 % ()?? 11/05/2023 12:45 Imm Gran 0.4 % ()?? 11/06/2023 05:25 Abs. Imm Gran 0.0 k/mm3 ()?? 11/06/2023 05:25 ?? BLOOD GAS pH Venous (POC) POC Cartridge 7.38 ()?? 11/05/2023 12:45 pCO2 Venous (POC) POC Cartridge 59.8 mm Hg (High)?? 11/05/2023 12:45 pO2 Venous (POC) POC Cartridge 48 mm Hg (High)?? 11/05/2023 12:45 Est Bicarbonate (POC) POC Cartridge 35.7 mmol/L (High)?? 11/05/2023 12:45 % O2 Sat Venous (POC) POC Cartridge 82 ()?? 11/05/2023 12:45 Base Excess (POC) POC Cartridge 11 ()?? 11/05/2023 12:45 pH 7.34 (Low)?? 11/05/2023 14:10 pCO2 60 mm Hg (High)?? 11/05/2023 14:10 pO2 68 mm Hg (Low)?? 11/05/2023 14:10 Bicarbonate, Estimated 31 mmol/L (High)?? 11/05/2023 14:10 Specimen Type - Blood Gas ARTERIAL ()?? 11/05/2023 14:10 pH, Venous 7.37 ()?? 11/05/2023 14:05 Percent O2 (FIO2) 24 ()?? 11/05/2023 14:10 ?? CARDIAC Nt-Probnp <36 pg/mL ()?? 11/05/2023 12:35 High Sensitivity Troponin (HSTnT) 12 ng/L ()?? 11/05/2023 12:35 ?? CHEM GENERAL Sodium 145 mmol/L ()?? 11/06/2023 05:25 Potassium 3.8 mmol/L ()?? 11/06/2023 05:25 Chloride 104 mmol/L ()?? 11/06/2023 05:25 Bicarbonate Level 30 mmol/L (High)?? 11/06/2023 05:25 Anion Gap 11 ()?? 11/06/2023 05:25 Sodium (POC) POC Cartridge 143 mmol/L ()?? 11/05/2023 12:45 Potassium (POC) POC Cartridge 3.6 mmol/L ()?? 11/05/2023 12:45 Glucose Level 88 mg/dL ()?? 11/06/2023 05:25 Glucose (POC) POC Cartridge 116 (High)?? 11/05/2023 12:45 Glucose, POC 84 mg/dL ()?? 11/06/2023 00:08 BUN 20 mg/dL ()?? 11/06/2023 05:25 Creatinine-Blood 0.76 mg/dL ()?? 11/06/2023 05:25 Estimated GFR Creatinine 108 ML/MIN/1.73 M2 ()?? 11/06/2023 05:25 Calcium 9.3 mg/dL ()?? 11/06/2023 05:25 Ionized Calcium (POC) POC Cartridge 1.22 mmol/L ()?? 11/05/2023 12:45 Protein, Total 6.4 Gm/dL ()?? 11/05/2023 12:35 Albumin 4.1 Gm/dL ()?? 11/05/2023 12:35 AG Ratio 1.8 ()?? 11/05/2023 12:35 Alkaline Phosphatase 54 units/L ()?? 11/05/2023 12:35 AST (SGOT) 20 units/L ()?? 11/05/2023 12:35 ALT (SGPT) 18 units/L ()?? 11/05/2023 12:35 Bilirubin, Total 0.4 mg/dL ()?? 11/05/2023 12:35 Lactate 2.2 mmol/L ()?? 11/05/2023 12:35 ?? ENDOCRINE/TUMOR MARKER TSH 1.29 uIU/mL ()?? 11/05/2023 12:35 ?? MISC. CHEMISTRY Ammonia, Venous 136 ??mole/L (High)?? 11/05/2023 12:38 ?? TOXICOLOGY/TDM Barbiturate Screen, Urine NONE DETECTED ()?? 11/05/2023 14:37 Cannabinoid Screen, Urine NONE DETECTED ()?? 11/05/2023 14:37 Cocaine Metabolite Screen, Urine NONE DETECTED ()?? 11/05/2023 14:37 Benzodiazepine Screen, Urine POSITIVE (Abnormal)?? 11/05/2023 14:37 Amphetamine Screen, Urine NONE DETECTED ()?? 11/05/2023 14:37 Opiate Screen, Urine NONE DETECTED ()?? 11/05/2023 14:37 ?? UA/URINALYSIS Appear/Color, Urine YELLOW ()?? 11/05/2023 14:37 Specific Schurz, Urine 1.024 ()?? 11/05/2023 14:37 pH, Urine 6.5 ()?? 11/05/2023 14:37 Albumin, Urine TRACE (Abnormal)?? 11/05/2023 14:37 Glucose, Urine NEGATIVE ()?? 11/05/2023 14:37 Ketones, Urine 1+ (Abnormal)?? 11/05/2023 14:37 Bilirubin, Urine NEGATIVE ()?? 11/05/2023 14:37 Hemoglobin, Urine NEGATIVE ()?? 11/05/2023 14:37 Nitrite, Urine NEGATIVE ()?? 11/05/2023 14:37 Leukocyte, Urine NEGATIVE ()?? 11/05/2023 14:37 Urobilinogen 8 mg/dL (Abnormal)?? 11/05/2023 14:37 WBC's, Urine 2 /HPF ()?? 11/05/2023 14:37 RBC's, Urine 2 /HPF ()?? 11/05/2023 14:37 Mucus SLIGHT /LPF ()?? 11/05/2023 14:37 Hold Urine Culture Testing available 48 hours from time of collection. ()?? 11/05/2023 14:37 ?? URINE OTHER Est Creatinine Clearance 120.60 mL/min ()?? 11/06/2023 06:27 ?? VIROLOGY COVID-19 by RT-PCR NEGATIVE ()?? 11/05/2023 16:02 ?? 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 Admitted to [facility] for [facility] management.?? Today patient was more alert and is back to his baseline as per hismother. ??Transferred??out of [facility] ?? Encephalopathy (G93.40) ?Grouped with??Hyperammonemia (E72.20),??Hypothermia (T68.XXXA),??Bradycardia (R00.1),??Respiratory failure with hypercapnia (J96.92) Presented with increased somnolence Labs for??showed elevated ammonia level??that was thought to be due to ?liver cirrhosis or??Depakote use Talked to his mother today??who reported that??he does not have a history of liver cirrhosis??and uses lactulose for constipation DC'd lactulose??and will get a repeat ammonia level??in the morning??without him being on lactulose If there are any concerns of??liver cirrhosis, or??he becomes altered again can get??ultrasound??RUQ Try to obtain??documents from [facility] or his facility ?? Plan: -DC lactulose -Follow-up ammonia levels in the morning -Monitor patient's condition closely ?? Thrombocytopenia (D69.6) Patient noted to be thrombocytopenic, which??he has been in the past as well.?On review of old records, it appears that the thrombocytopenia was previously attributed to valproate which he takes chronically. ?? Bipolar disorder (F31.9) ?Grouped with??History of traumatic brain injury (Z87.820) ?continue??as needed olanzapine??and Depakote.?Continue olanzapine 15mg at bedtime, clonazepam 2 mg 3 times daily as needed. ?? Quality metrics: CODE STATUS:??Full code VTE Prophylaxis: Lovenox Diet:??Regular Dispo:??Can be discharged tomorrow if??mental status remains stable ? Patient's care and plan discussed with attending, Dr. Lee ?? Daniel Guerrero MD Internal Medicine PGY-2 Available on??[employer] ?? * Jesus PENNY, Mavis Navarro: PERFORM Event Display: Progress Note Hospital Authored Date: Patient seen and discussed with Dr. Guerrero. Agree with findings, assessment and plan in this progress note. * Edgardo Donnelly RN: PERFORM, SIGN, VERIFY Event Display: Progress Note Hospital Authored Date: Patient: ZAYRA MORRIS Age: 53 years Sex: Male : 1970 Associated Diagnoses: None Author: Edgardo Donnelly RN Findings Problem Related to Alteration in Neurological : Alteration in Neurological Function/new 11/06/2023 4:00 EDT Alteration in Neuro status Related to Other: AMS Goals & Outcomes, Neurological Pt will be hemodynamically stable, Pt will be Neurologically stable, Pt will maintain intact skin integrity Interventions, Neurological Assess/monitor neurologic status, Assess/monitor VS per unit standards & prn, Document & Monitor O2 Sats; Administer O2 as ordered, Monitor Fluid & Electrolytes, Serum Osmolarity BH Goals/Interventions, Neurological Yes Neurological, Problem Start 11/06/2023 4:40 Reviewed plan with, Neurological Patient Patient Progression, Neurological Pt progressing according to plan . Evaluation P - See interactive flowsheets I - See interactive flowsheets / plan of care E - A&Ox3, aphasic w/ l-sided wkns from previous stroke. Lactulose given overnight d/t increased ammonia levels. On RA no s/s resp distress. NSR on tele. No c/o pain overnight. Able to make needsknown. Call haddad within reach. Hourly rounding continues. . Note * Karena Josue RN: PERFORM Event Display: Discharge/Transfer Note Hospital Authored Date: Nursing Discharge Note Entered On: 11/07/2023 14:35 EDT Performed On: 11/07/2023 14:34 EDT by Karena Josue RN Nursing Discharge Note 2 Discharge Time : 11/07/2023 14:18 EDT Discharge Level of Care at Discharge : [facility] Discharge Nursing Homes/Rehab Facilities : [facility] [phone] Patient Left Unit Via : Ambulance Patient Accompanied Off Unit with : Ambulance/[facility] Van Personnel Handover Given to Transport Personnel : Yes DC Instructions Provided & Signed by Pt : No Patient Understands D/C Instructions : Yes Verbalized Understanding of D/C Plan By : Patient Patient Instructions Discharge Signed : No Instructions for Discharge Comments : not required for rehab, patient aware of return to SNF Discharge Comments : F/C intact, [facility] transported patient Did Pt have Specialty Bed or Wound Vac : No Karena Josue RN - 11/07/2023 14:34 EDT * Martine Valentino MD: PERFORM Event Display: Discharge/Transfer Note Hospital Authored Date: Patient: ??ZAYRA MORRIS ? Age:??53 Years?Sex:??Male?:??1970?? Patient Information Discharge Location: [facility] Primary Care Physician: Demetrius Carbajal MD Admit Date/Time: 11/05/23 16:56 Discharge Disposition Discharge Disposition: Residential Facility/Rehab Discharge Diagnosis Hypothermia (T68.XXXA) Hyperammonemia (E72.20) Encephalopathy (G93.40) Bradycardia (R00.1) Respiratory failure with hypercapnia (J96.92) Thrombocytopenia (D69.6) History of traumatic brain injury (Z87.820) Bipolar disorder (F31.9) _ Discharge Medications Acetaminophen (Tylenol 325 mg oral tablet)?See Instructions?as needed?3 tablet By Mouth Every 8 hours?for fever Clonazepam (clonazePAM 1 mg oral tablet)?2?Milligram?By Mouth?3 times a day?as needed?Anxiety Divalproex Sodium (Depakote ER 250 mg oral tablet, extended release)?See Instructions?6 tablet By Mouth Daily Divalproex Sodium (Depakote Sprinkles 125 mg oral enteric coated capsule)?2?capsule?250?Milligram?By Mouth?Daily in AM Docusate (Colace sodium 100 mg oral capsule)?100?Milligram?1?capsule?By Mouth?2 times a day Duloxetine (duloxetine 30 mg oral enteric coated capsule)?3?capsule?90?Milligram?By Mouth?Daily?do not crush or chew Furosemide (Lasix 20 mg oral tablet)?10?Milligram?0.5?tablet?By Mouth?Daily Gabapentin (gabapentin 300 mg oral capsule)?See Instructions?3 capsule By Mouth 3 times a day Lactulose (lactulose 10 gm/15 ml oral syrup)?30?Milliliter?20?gram?By Mouth?3 times a day Olanzapine (olanzapine 2.5 mg oral tablet)?2.5?Milligram?1?tablet?By Mouth?Every 8 hours?as needed?Agitation Olanzapine (olanzapine 15 mg oral tablet)?1?tab(s)?15?Milligram?By Mouth?Daily atbedtime Oxycodone (oxyCODONE 5 mg oral tablet)?5?Milligram?1?tablet?By Mouth?Every 6 hours?as needed?as needed for pain Pantoprazole (pantoprazole 40 mg oral delayed release tablet)?1?tab(s)?40?Milligram?By Mouth?Daily Propranolol (propranolol 20 mg oral tablet)?20?Milligram?1?tablet?By Mouth?3 times a day ? Inpatient Medications Medications (22) Active SCHEDULED: (11) Acetaminophen 325 mg Tablet (Acetaminophen Tablet) ??975 mg, By Mouth, 3 times a day Divalproex 125 mg Sprinkle Capsule (Depakote Sprinkles) ??250 mg, By Mouth, Daily in AM Divalproex Sodium 500mg ER Tablet (Depakote ER Tablet) ??1,500 mg, By Mouth, Daily at bedtime Docusate Sodium 100 mg Capsule (Colace sodium 100 mg oral capsule) ??100 mg 1 capsule, By Mouth, 2 times a day Duloxetine 30 mg Capsule (DULoxetine Capsule) ??90 mg, By Mouth, Daily Enoxaparin 40 mg Inj (Enoxaparin Inj) ??40 mg 0.4 mL, Subcutaneous Injection, 2 times a day Gabapentin 300 mg Capsule (gabapentin 300 mg oral capsule) ??900 mg, By Mouth, 3 times a day NaCl 0.9% Flush 3ml (NaCL 0.9% Flush) ??3 mL, IV Push, Every 8 hours Olanzapine 7.5mg Tablet (olanzapine 10 mg oral tablet) ??15 mg, By Mouth, Daily at bedtime Pantoprazole 40 mg EC Tablet (pantoprazole 40 mg oral delayed release tablet) ??40 mg, By Mouth, Daily Propranolol 20 mg Tablet (propranolol 20 mg oral tablet) ??20 mg, By Mouth, 3 times a day CONTINUOUS: (0) PRN: (11) Acetaminophen 325 mg Tablet (Acetaminophen Tablet) ??650 mg, By Mouth, Every 4 hours Clonazepam 1 mg Tablet (clonazePAM 1 mg oral tablet) ??2 mg, By Mouth, 3 times a day Dextromethorphan-Guaifenesin 20 mg-200 mg/10 mL Liqu UD (Robitussin DM Liquid) ??10 mL, By Mouth, Every 4 hours Docusate Sodium 100 mg Capsule (Docusate Sodium Capsule) ??100 mg 1 capsule, By Mouth, 2 times a day Melatonin 3 mg Tablet (Melatonin Tablet) ??3 mg, By Mouth, Daily at bedtime NaCl 0.9% Flush 3ml (NaCL 0.9% Flush) ??3 mL, IV Push, Every 8 hours Olanzapine 2.5 mg Tablet (olanzapine 10 mg oral tablet) ??2.5 mg, By Mouth, Every 8 hours OxyCODONE 5 mg IR Tablet (oxyCODONE 5 mg oral tablet) ??5 mg, By Mouth, Every 6 hours Polyethylene Glycol 17 Gm Powder (MiraLax Powder) ??17 Gm 1 pack/packet, By Mouth, Daily Senna Tablet ??8.6 mg 1 tablet, By Mouth, 2 times a day Simethicone 80 mg Chewable Tablet (Simethicone Tablet) ??80 mg, Chew, 3 times a day ? Medications Started None Medications Discontinued None Doses Changed Clonazepam 1 mg Tablet (clonazePAM 1 mg oral tablet) ??2 mg, By Mouth, 3 times a day PCP Follow-Up/Heads-Up Seen for lethargy/AMS. Noted high ammonia level on admission, concern for hepatic encephalopathy due to Depakote but normal LFTs and therapeutic depakote level. Benzo changed to PRN from scheduled and return of baseline neuro status and normalization of ammonia level with monitoring. Hospital Course And aphasia, HTN, asthma, bipolar disorder, and MS after antipsychotics, [facility] facility due to being lethargic and altered. On admission was found to be hypothermic and bradycardic. Initial ABG showed pH of 7.34, pCO2 of 60, pO2 of 68, and bicarb of 31. Leukopenia of 3.4 and platelet count of 94, other labs unremarkable within normal limits, especially notable for normal LFTs. Ammonia level was elevated to 136 and urine tox screen was positive for benzos (patient takes lorazepam). CT head showed no acute abnormality, CTA of the head/neck showed no proximal occlusion or high-grade stenosis of the major arteries. Patient was noted to be on lactulose, confirmed that this was used for constipation rather than 4 treatment of any hepatic encephalopathy. There was concern around possibly hepatic encephalopathy leading to high ammonia levels contributing to his AMS, patient is known to be on valproic acid which can affect the liver. However LFTs were normal. Lactulose was held for 1 day and repeat ammonia levels was just above normal at61. The day after admission patient was alert and back at baseline. Valproic acid came back at therapeutic level. During admission patient notable for increased snoring and requiring more stimulationto wake up from sleep however alert after awoken. ?? Encephalopathy (G93.40) Hyperammonemia (E72.20) Hypothermia (T68.XXXA) Bradycardia (R00.1) Respiratory failure with hypercapnia (J96.92) ?? At time of discharge patient was alert and answering questions appropriately, although noted baseline aphasia with at times difficult to understand speech. He was normothermic??with??regular heart rate??and respiratory rate. Last ammonia level was??just above normal at 61. ?? Recommendations: ??? Can resume home valproic acid and lactulose ??? Follow-up with PCP/neurologist outpatient, consider adjustment of valproic acid dose as appropriate ??? PCP consider outpatient sleep study to evaluate for central/obstructive sleep apnea given patient's history of TBI as well as body habitus and noted snoring ???Continue clonazepam as needed rather than scheduled as benzodiazepines can further contribute toAMS, patient has not required at this while hospitalized can consider discontinuing outpatient ?? Objective Vital Signs?? Temperature: 97.2 DegF (11/07/23 13:14:00) Temperature Route: Axillary (11/07/23 13:14:00) Pulse Rate: 55 bpm (11/07/23 13:14:00) Heart Rate Monitored: 71 bpm (11/06/23 16:00:00) Respiratory Rate: 18 br/min (11/07/23 13:14:00) Vented: No (11/06/23 16:00:00) Systolic Blood Pressure: 106 mm Hg (11/07/23 13:14:00) Diastolic Blood Pressure: 78 mm Hg (11/07/23 13:14:00) Blood pressure sites: Arm, right (11/07/23 13:14:00) Mean Arterial Pressure: 87 mm Hg (11/07/23 13:14:00) Pulse Pressure: 28 mm Hg (11/07/23 13:14:00) Oxygen Saturation: 100 % (11/07/23 13:14:00) Mode of Delivery (Oxygen): Room air (11/07/23 13:14:00) Early Warning Score: 5 (11/07/23 13:15:10) ? . Physical Exam Constitutional: Aphasic, slow and at times hard to comprehend speech.??AAO X3.??In no acute distress. Head:??Normocephalic.?Atraumatic. ENT: Snoring heavily with sleep.??Mucous membranes moist.?? Neck:??Supple.?Full range of motion. Respiratory:??Clear to auscultation bilaterally.?No wheezing,??crackles, or rales.? Cardiovascular:??Normal S1-S2.?No murmurs, rubs, gallops.? Gastrointestinal:??Abdomen??soft, nontender, nondistended.?? Neurologic: Left sided deficit, unable to move right arm/leg.?? Musculoskeletal:??No gross deformities Psychiatric:??Appropriate mood and affect Follow-Up Appointments Added Follow Up ?Time Frame ?Comments Demetrius Carbajal MD?1 to 2 weeks Patient Instructions You were seen at [facility] for concern of??altered mental status, you were found to have??a??low heart rate and low temperature,??these were monitored and??resolved.? Your??presentation could be related to??some of your home medications.?Depakote can??lead to??liver injury and high ammonia levels, you are found to have high ammonia levels however, your liver function was normal and your Depakote level was within the therapeutic range, your ammonia level??wentback down to normal on its own??so your Depakote dose was not adjusted.?? Your clonazepam??was changed from a scheduled regimen to an as needed regimen, you did not require this medication while you are in the hospital. ??Benzodiazepines such as clonazepam can lead to??lethargy, we would advise youto continue this on an as needed rather than a scheduled??basis. ?? You were also noticed to have??high CO2 levels when you first came in, this can sometimes be related to??breathing,??and could have been related to??your altered mental status causing changes in yourbreathing patterns. ??However it was also noted that you have??snoring and are slightly difficult to wake up from sleep, you have some risk factors??for??sleep apnea including your prior??traumatic brain injury,??please follow-up with your PCP and consider being tested for sleep apnea. ?? Follow-up with your PCP??within the coming weeks after discharge. ?? If you develop??repeat symptoms??of altered mental status and being lethargic or other symptoms that are concerning to you??please seek medical evaluation. Results Discharge Labs BACTERIOLOGY Blood Culture Results Preliminary report ()?? 11/05/2023 12:38 Blood Culture Specimen Source BLOOD ()?? 11/05/2023 12:38 Blood Culture Isolate 1 Comment ()?? 11/05/2023 12:38 Blood Cult 2 Results Preliminary report ()?? 11/05/2023 12:38 Blood Culture 2 Specimen Source BLOOD ()?? 11/05/2023 12:38 Blood Culture 2 Isolate 1 Comment ()?? 11/05/2023 12:38 ?? BLOOD COUNT & DIFF WBC 6.0 k/mm3 ()?? 11/07/2023 01:13 RBC 4.27 m/mm3 (Low)?? 11/07/2023 01:13 Hgb 12.9 Gm/dL (Low)?? 11/07/2023 01:13 Hct 39.9 % (Low)?? 11/07/2023 01:13 MCV 93.4 femtoliters ()?? 11/07/2023 01:13 MCH 30.2 pg ()?? 11/07/2023 01:13 MCHC 32.3 g/dL (Low)?? 11/07/2023 01:13 Platelet Count 105 k/mm3 (Low)?? 11/07/2023 01:13 RDW-SD 47.0 femtoliters (High)?? 11/07/2023 01:13 MPV 11.5 femtoliters ()?? 11/07/2023 01:13 Nucleated RBC (Automated) 0.3 #/100 WBC'S ()?? 11/07/2023 01:13 Abs. NRBC 0.0 k/mm3 ()?? 11/07/2023 01:13 Abs. Neut 2.5 k/mm3 ()?? 11/06/2023 05:25 Abs. Lymph 1.8 k/mm3 ()?? 11/06/2023 05:25 Abs. Hockley 0.6 k/mm3 ()?? 11/06/2023 05:25 Abs. Eo 0.1 k/mm3 ()?? 11/06/2023 05:25 Abs. Baso 0.0 k/mm3 ()?? 11/06/2023 05:25 Neut % 50.2 % ()?? 11/06/2023 05:25 Lymph % 35.3 % ()?? 11/06/2023 05:25 Hockley % 11.5 % (High)?? 11/06/2023 05:25 Eos % 2.2 % ()?? 11/06/2023 05:25 Baso % 0.4 % ()?? 11/06/2023 05:25 Hemoglobin (POC) POC Cartridge 13.9 Gm/dL ()?? 11/05/2023 12:45 Hematocrit (POC) POC Cartridge 41 % ()?? 11/05/2023 12:45 Imm Gran 0.4 % ()?? 11/06/2023 05:25 Abs. Imm Gran 0.0 k/mm3 ()?? 11/06/2023 05:25 ?? BLOOD GAS pH Venous (POC) POC Cartridge 7.38 ()?? 11/05/2023 12:45 pCO2 Venous (POC) POC Cartridge 59.8 mm Hg (High)?? 11/05/2023 12:45 pO2 Venous (POC) POC Cartridge 48 mm Hg (High)?? 11/05/2023 12:45 Est Bicarbonate (POC) POC Cartridge 35.7 mmol/L (High)?? 11/05/2023 12:45 % O2 Sat Venous (POC) POC Cartridge 82 ()?? 11/05/2023 12:45 Base Excess (POC) POC Cartridge 11 ()?? 11/05/2023 12:45 pH 7.34 (Low)?? 11/05/2023 14:10 pCO2 60 mm Hg (High)?? 11/05/2023 14:10 pO2 68 mm Hg (Low)?? 11/05/2023 14:10 Bicarbonate, Estimated 31 mmol/L (High)?? 11/05/2023 14:10 Specimen Type - Blood Gas ARTERIAL ()?? 11/05/2023 14:10 pH, Venous 7.37 ()?? 11/05/2023 14:05 Percent O2 (FIO2) 24 ()?? 11/05/2023 14:10 ? CARDIAC Nt-Probnp <36 pg/mL ()?? 11/05/2023 12:35 High Sensitivity Troponin (HSTnT) 12 ng/L ()?? 11/05/2023 12:35 ?? CHEM GENERAL Sodium 144 mmol/L ()?? 11/07/2023 01:15 Potassium 4.0 mmol/L ()?? 11/07/2023 01:15 Chloride 106 mmol/L ()?? 11/07/2023 01:15 Bicarbonate Level 28 mmol/L ()?? 11/07/2023 01:15 Anion Gap 10 ()?? 11/07/2023 01:15 Sodium (POC) POC Cartridge 143 mmol/L ()?? 11/05/2023 12:45 Potassium (POC) POC Cartridge 3.6 mmol/L ()?? 11/05/2023 12:45 Glucose Level 89 mg/dL ()?? 11/07/2023 01:15 Glucose (POC) POC Cartridge 116 (High)?? 11/05/2023 12:45 Glucose, POC 81 mg/dL ()?? 11/07/2023 10:50 BUN 20 mg/dL ()?? 11/07/2023 01:15 Creatinine-Blood 0.75 mg/dL ()?? 11/07/2023 01:15 Estimated GFR Creatinine 109 ML/MIN/1.73 M2 ()?? 11/07/2023 01:15 Calcium 8.9 mg/dL ()?? 11/07/2023 01:15 Ionized Calcium (POC) POC Cartridge 1.22 mmol/L ()?? 11/05/2023 12:45 Protein, Total 6.4 Gm/dL ()?? 11/05/2023 12:35 Albumin 4.1 Gm/dL ()?? 11/05/2023 12:35 AG Ratio 1.8 ()?? 11/05/2023 12:35 Alkaline Phosphatase 54 units/L ()?? 11/05/2023 12:35 AST (SGOT) 20 units/L ()?? 11/05/2023 12:35 ALT (SGPT) 18 units/L ()?? 11/05/2023 12:35 Bilirubin, Total 0.4 mg/dL ()?? 11/05/2023 12:35 Lactate 2.2 mmol/L ()?? 11/05/2023 12:35 ? ENDOCRINE/TUMOR MARKER TSH 1.29 uIU/mL ()?? 11/05/2023 12:35 ? MISC. CHEMISTRY Ammonia, Venous 61 ??mole/L (High)?? 11/07/2023 01:15 ? TOXICOLOGY/TDM Valproic Level 59.5 mg/L ()?? 11/07/2023 01:15 Barbiturate Screen, Urine NONE DETECTED ()?? 11/05/2023 14:37 Cannabinoid Screen, Urine NONE DETECTED ()?? 11/05/2023 14:37 Cocaine Metabolite Screen, Urine NONE DETECTED ()?? 11/05/2023 14:37 Benzodiazepine Screen, Urine POSITIVE (Abnormal)?? 11/05/2023 14:37 Amphetamine Screen, Urine NONE DETECTED ()?? 11/05/2023 14:37 Opiate Screen, Urine NONE DETECTED ()?? 11/05/2023 14:37 ? UA/URINALYSIS Appear/Color, Urine YELLOW ()?? 11/05/2023 14:37 Specific Schurz, Urine 1.024 ()?? 11/05/2023 14:37 pH, Urine 6.5 ()?? 11/05/2023 14:37 Albumin, Urine TRACE (Abnormal)?? 11/05/2023 14:37 Glucose, Urine NEGATIVE ()?? 11/05/2023 14:37 Ketones, Urine 1+ (Abnormal)?? 11/05/2023 14:37 Bilirubin, Urine NEGATIVE ()?? 11/05/2023 14:37 Hemoglobin, Urine NEGATIVE ()?? 11/05/2023 14:37 Nitrite, Urine NEGATIVE ()?? 11/05/2023 14:37 Leukocyte, Urine NEGATIVE ()?? 11/05/2023 14:37 Urobilinogen 8 mg/dL (Abnormal)?? 11/05/2023 14:37 WBC's, Urine 2 /HPF ()?? 11/05/2023 14:37 RBC's, Urine 2 /HPF ()?? 11/05/2023 14:37 Mucus SLIGHT /LPF ()?? 11/05/2023 14:37 Hold Urine Culture Testing available 48 hours from time of collection. ()?? 11/05/2023 14:37 ? URINE OTHER Est Creatinine Clearance 122.21 mL/min ()?? 11/07/2023 02:16 ? VIROLOGY COVID-19 by RT-PCR NEGATIVE ()?? 11/05/2023 16:02 ?Martine Valentino MD Medicine-Pediatrics PGY-2 Available on [employer] or pager [phone] 11/07/23 ?? Please excuse any errors in wording or grammatical mistakes in the note as this was transcribed using dictation. ?? This note is not final until signed by the attending physician. The patient was seen and discussed with Dr. Aponte. ?? _ minutes spent on discharge * Sandy Choi: PERFORM, SIGN, VERIFY Event Display: Case Management Discharge Plan Authored Date: [id number] Patient: ZAYRA MORRIS Age: 53 years Sex: Male : 1970 Associated Diagnoses: None Author: Sandy Choi Discharge Plan Case Management Discharge Plan : Case Management Discharge Plan Data 11/07/2023 10:34 EDT Discharge Level of Care at Discharge penitentiary facility Discharge Nursing Homes/Rehab Facilities [facility] [phone] Discharge Transportation Arranged Am Med Response [address] [place] [id number] [phone] Name of Agency #1 [facility] Categories #1 Physical Therapy, Residential * Joselo GONZALES, Karena Navarro: PERFORM Event Display: Patient Education/Instruction Authored Date: Inpatient Adult Discharge Instructions. [address] [address] Name: ZAYRA MORRIS : 1970?? Visit: 11/05/2023 16:56?? Current Date: 11/07/2023 13:41 ?? Account: [id number]?? Inpatient Adult Discharge Instructions We would like to thank you for allowing us to assist you with your healthcare needs. The following includes patient education materials and information regarding your injury/illness. Our entire staffstrives to provide an excellent experience for our patients and their families. PLEASE ENSURE YOU FOLLOW-UP PER THE INSTRUCTIONS BELOW! ?? YOUR OPINION IS IMPORTANT TO US! Please complete the survey you may receive by mail or email. Your feedback will be used to make improvements to the healthcare experiences of our patients and their families. Surveys are administered by [employer] ?? If further treatment with your primary care physician or another doctor is recommended, it is important for you to keep the appointment. Call your primary care physician or return to the Emergency Department immediately if your condition worsens, fails to improve, or new symptoms develop. If you need to find a doctor, you can call [facility] for a referral at [phone] or toll free at [phone] ([phone]) or log in to [email or web address].. ?? [facility], in keeping with [facility] guidance, no longer requires face masks for staff, patientsor visitors in most situations. Similiar to time spent indoors at other locations, there is the chance that you were exposed to repiratory viruses during your time with us (such as flu or COVID-19). If you develop symptoms concerning for a viral respiratory infection, please seek testing (and treatment if indicated) from your medical provider or home test kit. ?? You can view and manage your care through the patient portal or by using a health care kary of your choosing. [employer] is a website that allows you to securely view your medical information including your hospital discharge summary, office visit summaries, medications and follow-up visits. You can also request appointments, renew medications, and request access to your medical information using a health care kray of your choosing, or just ask a question. You can enroll at [email or web address] or register during your next office visit. You have been discharged from [facility], Patient Care Unit: S3??. If you have any questions regarding these instructions, including results of studies pending, afteryou leave, please call us and we will be happy to assist you 22/11. [facility] Your Care Team Attending Physician Mavis Lee MD?? Consulting Providers Mavis Lee MD?? Discharging Providers aMrtine Valentino MD Reason for Your Visit Pt SNF for increasing lethargic since this AM. Pt hx TBI. Sinus angélica in 50s. A+Ox2 GCS 12.?? Your Diagnosis Altered mental status Bipolar disorder Bradycardia History of traumatic brain injury Respiratory failure with hypercapnia Thrombocytopenia Tests Performed Below is a partial list of the tests performed during your hospitalization. You may have had other tests and procedures not included in this list. Please discuss all test results with your provider. ABG Ammonia Venous Amphetamine Urine Screen Barbiturate Urine Screen BASE EXCESS POC CARTRIDGE Basic Metabolic Panel Benzodiazepine Urine Screen Blood Culture Blood Culture #2 Blood Culture 2 Results Blood Culture Result CALCIUM IONIZED POC CART Cannabinoid Urine Screen CBC CBC w/ Differential Cocaine Urine Screen Comprehensive Metabolic Panel COVID-19 (Novel Coronavirus), Rapid PCR Depakote Level GLUCOSE POC GLUCOSE POC CARTRIDGE HEMATOCRIT POC CARTRIDGE HEMOGLOBIN POC CARTRIDGE High??Sensitivity??Troponin T Lactate Level Opiate Screen Urine pH Venous POTASSIUM POC CARTRIDGE ProBNP SODIUM POC CARTRIDGE TSH with T4 Reflex (Adults Only) Urinalysis w/hold for Urine Culture VBG POC CARTRIDGE CT Angio Head CT Angio Neck CT Head/Brain W/O Contrast CXR Portable No tests performed during this visit.?? Primary Care Provider Demetrius Carbajal MD? Advance Directive Health Care Proxy on File Yes - Health Care Proxy Yes - MOLST Discharge Vitals Temperature: 97.2 DegF Height: 180 cm Pulse Rate: 55 bpm Weight: 117 kg Respiratory Rate: 18 br/min Body Mass Index:??35.86 kg/m2??Critical Systolic Blood Pressure: 106 mm Hg Body surface area: 2.41 Diastolic Blood Pressure: 78 mm Hg ?? Oxygen Saturation: 100 % ?? Studies Pending All studies ordered during this hospital stay have been completed unless listed below. Please discuss all pending results with your provider listed above in these instructions. ?? No incomplete studies found?? What to do next Instructions From Your Doctor You were seen at [facility] for concern of??altered mental status, you were found to have??a??low heart rate and low temperature,??these were monitored and??resolved.? Your??presentation could be related to??some of your home medications.?Depakote can??lead to??liver injury and high ammonia levels, you are found to have high ammonia levels however, your liver function was normal and your Depakote level was within the therapeutic range, your ammonia level??wentback down to normal on its own??so your Depakote dose was not adjusted.?? Your clonazepam??was changed from a scheduled regimen to an as needed regimen, you did not require this medication while you are in the hospital. ??Benzodiazepines such as clonazepam can lead to??lethargy, we would advise youto continue this on an as needed rather than a scheduled??basis. ?? You were also noticed to have??high CO2 levels when you first came in, this can sometimes be related to??breathing,??and could have been related to??your altered mental status causing changes in yourbreathing patterns. ??However it was also noted that you have??snoring and are slightly difficult to wake up from sleep, you have some risk factors??for??sleep apnea including your prior??traumatic brain injury,??please follow-up with your PCP and consider being tested for sleep apnea. ?? Follow-up with your PCP??within the coming weeks after discharge. ?? If you develop??repeat symptoms??of altered mental status and being lethargic or other symptoms that are concerning to you??please seek medical evaluation. ?? Orders? 11/07/23 13:22:00 EDT?? You Need to Schedule the Following Appointments Follow Up with??Solomon PENNY, Demetrius When:??Within 1 to 2 weeks Where: [address] [facility] [place] [address]- Discharge Medications ZAYRA MORRIS :1970 Visit Date:11/05/2023 Medications: Please continue your medications until treatment is completed or stopped by your provider. Medications not listed below should be discontinued. Discuss any questions related to medications with your provider. What How Much When Instructions Next Dose Changed Acetaminophen (Tylenol 325 mg oral tablet) See instructions 3 tablet By Mouth Every 8 hours, As needed for for fever ?? as directed Changed Clonazepam (clonazePAM 1 mg oral tablet) 2 Milligram Oral 3 times a day as needed for Anxiety as directed Changed Docusate (Colace sodium 100 mg oral capsule) 1 capsule Oral Twice a day due 11/06 at 9pm Changed Olanzapine (olanzapine 15 mg oral tablet) 1 tab(s) Oral Daily at Bedtime due 11/06 at 9pm Changed Olanzapine (olanzapine 2.5 mg oral tablet) 1 tab(s) Oral Every 8 hours as needed for Agitation as directed Unchanged Divalproex Sodium (Depakote ER 250 mg oral tablet, extended release) See instructions 6 tablet By Mouth Daily ?? due 11/07 at 9am Unchanged Divalproex Sodium (Depakote Sprinkles 125 mg oral enteric coated capsule) 2 capsule Oral Daily in the morning due 11/07 at 9am Unchanged Duloxetine (duloxetine 30 mg oral enteric coated capsule) 3 capsule Oral Daily do not crush or chew ?? due 11/07 at 9am Unchanged Furosemide (Lasix 20 mg oral tablet) 0.5 tab(s) Oral Daily due 11/07 at 9am Unchanged Gabapentin (gabapentin 300 mg oral capsule) See instructions 3 capsule By Mouth 3 times a day ?? due 11/06 at 3pm Unchanged Lactulose (lactulose 10 gm/ 15 ml oral syrup) 30 Milliliter Oral 3 times a day due 11/06 at 3pm Unchanged Oxycodone (oxyCODONE 5 mg oral tablet) 1 tab(s) Oral Every 6 hours as needed for as needed for pain as directed Unchanged Pantoprazole (pantoprazole 40 mg oral delayed release tablet) 1 tab(s) Oral Daily due 11/07 at 9am Unchanged Propranolol (propranolol 20 mg oral tablet) 1 tab(s) Oral 3 times a day due 11/06 at 3pm ?? What How Much When Comments Stop Taking Albuterol (Albuterol 0.083% inhalation rhianna) 2.5 Milligram Nebulized inhalation Every 4 hours as needed for Wheezing/Shortness of Breath Stop Taking Bisacodyl (bisacodyl 10 mg rectal suppository) 1 suppository(ies) Per rectum Daily as needed for for constipation Stop Taking Calcium Carbonate (Tums 500 mg oral tablet, chewable) 1 tab(s) Chew Every 4 hours as needed for Dyspepsia Stop Taking Folic Acid (folic acid 1 mg oral tablet) 1 tab(s) Oral Daily Stop Taking Lidocaine Topical (lidocaine 5% topical film) Topically Daily Stop Taking Loratadine (loratadine 10 mg oral tablet) 1 tab(s) Oral Daily Stop Taking Melatonin (Melatonin 5 mg oral tablet) 1 tab(s) Oral Daily at Bedtime as needed for as needed for insomnia Stop Taking Milk of Magnesia (Milk of Magnesia Liquid) 30 Milliliter Oral Daily at Bedtime as needed for as needed for constipation Stop Taking Phenol Topical (Chloraseptic [place]ville) 1 spray(s) Oral Every 4 hours as needed for Inflammation Stop Taking Remove Patch Stop Taking Senna (Senna 8.6 mg oral tablet) 2 tab(s) Oral Daily Stop Taking Tizanidine (tiZANidine 4 mg oral tablet) 0.5 tab(s) Oral 3 times a day as needed for Spasm Prescription Given During Visit No new medications prescribed at time of discharge.?? Laboratory Results Below is a partial list of the most recent Laboratory test results done prior to this discharge. You may have had other tests and procedures not included in this list. Please discuss all test resultswith your provider. Est Creatinine Clearance - 122.21 mL/min (11/07/2023) ABG (11/05/2023) ???pH - 7.34???pCO2 - 60 mm Hg???pO2 - 68 mm Hg???Bicarbonate, Estimated - 31 mmol/L???Specimen Type - Blood Gas - ARTERIAL???Percent O2 (FIO2) - 24 Ammonia Venous (11/07/2023) ???Ammonia, Venous - 61 ??mole/L Amphetamine Urine Screen (11/05/2023) ???Amphetamine Screen, Urine - NONE DETECTED Barbiturate Urine Screen (11/05/2023) ???Barbiturate Screen, Urine - NONE DETECTED BASE EXCESS POC CARTRIDGE (11/05/2023) ???Base Excess (POC) POC Cartridge - 11 Basic Metabolic Panel (11/07/2023) ???Sodium - 144 mmol/L???Potassium - 4.0 mmol/L???Chloride - 106 mmol/L???Bicarbonate Level - 28 mmol/L???Anion Gap - 10???Glucose Level - 89 mg/dL???BUN - 20 mg/dL???Creatinine-Blood - 0.75 mg/dL???Estimated GFR Creatinine - 109 ML/MIN/1.73 M2???Calcium - 8.9 mg/dL Benzodiazepine Urine Screen (11/05/2023) ???Benzodiazepine Screen, Urine - POSITIVE Blood Culture (11/05/2023) ???Blood Culture Results - Preliminary report???Blood Culture Specimen Source - BLOOD Blood Culture #2 (11/05/2023) ???Blood Cult 2 Results - Preliminary report???Blood Culture 2 Specimen Source - BLOOD Blood Culture 2 Results (11/05/2023) ???Blood Culture 2 Isolate 1 - Comment Blood Culture Result (11/05/2023) ???Blood Culture Isolate 1 - Comment CALCIUM IONIZED POC CART (11/05/2023) ???Ionized Calcium (POC) POC Cartridge - 1.22 mmol/L Cannabinoid Urine Screen (11/05/2023) ???Cannabinoid Screen, Urine - NONE DETECTED CBC (11/07/2023) ???WBC - 6.0 k/mm3???RBC - 4.27 m/mm3???Hgb - 12.9 Gm/dL???Hct - 39.9 %???MCV - 93.4 femtoliters???MCH - 30.2 pg???MCHC - 32.3 g/dL???Platelet Count - 105 k/mm3???RDW-SD - 47.0 femtoliters???MPV - 11.5 femtoliters???Nucleated RBC (Automated) - 0.3 #/100 WBC'S???Abs. NRBC - 0.0 k/mm3 CBC w/ Differential (11/06/2023) ???WBC - 5.0 k/mm3???RBC - 4.22 m/mm3???Hgb - 13.1 Gm/dL???Hct - 39.9 %???MCV - 94.5 femtoliters???MCH - 31.0 pg???MCHC - 32.8 g/dL???Platelet Count - 97 k/mm3???RDW-SD - 49.0 femtoliters???MPV - 10.9 femtoliters???Nucleated RBC (Automated) - 0.0 #/100 WBC'S???Abs. NRBC - 0.0 k/mm3???Abs. Neut - 2.5 k/mm3???Abs. Lymph - 1.8 k/mm3???Abs. Hockley - 0.6 k/mm3???Abs. Eo - 0.1 k/mm3???Abs. Baso - 0.0 k/mm3???Neut % - 50.2 %???Lymph % - 35.3 %???Hockley % - 11.5 %???Eos % - 2.2 %???Baso % - 0.4 %???Imm Gran - 0.4 %???Abs. Imm Gran - 0.0 k/mm3 Cocaine Urine Screen (11/05/2023) ???Cocaine Metabolite Screen, Urine - NONE DETECTED Comprehensive Metabolic Panel (11/05/2023) ???Sodium - 145 mmol/L???Potassium - 3.9 mmol/L???Chloride - 105 mmol/L???Bicarbonate Level - 26 mmol/L???Anion Gap - 14???Glucose Level - 125 mg/dL???BUN - 19 mg/dL???Creatinine-Blood - 0.64 mg/dL???Estimated GFR Creatinine - 114 ML/MIN/1.73 M2???Calcium - 9.4 mg/dL???Protein, Total - 6.4 Gm/dL???Albumin - 4.1 Gm/dL???AG Ratio - 1.8???Alkaline Phosphatase - 54 units/L???AST (SGOT) - 20 units/L???ALT (SGPT) - 18 units/L???Bilirubin, Total - 0.4 mg/dL COVID-19 (Novel Coronavirus), Rapid PCR (11/05/2023) ???COVID-19 by RT-PCR - NEGATIVE Depakote Level (11/07/2023) ???Valproic Level - 59.5 mg/L GLUCOSE POC (11/07/2023) ???Glucose, POC - 81 mg/dL GLUCOSE POC CARTRIDGE (11/05/2023) ???Glucose (POC) POC Cartridge - 116 HEMATOCRIT POC CARTRIDGE (11/05/2023) ???Hematocrit (POC) POC Cartridge - 41 % HEMOGLOBIN POC CARTRIDGE (11/05/2023) ???Hemoglobin (POC) POC Cartridge - 13.9 Gm/dL High??Sensitivity??Troponin T (11/05/2023) ???High Sensitivity Troponin (HSTnT) - 12 ng/L Lactate Level (11/05/2023) ???Lactate - 2.2 mmol/L Opiate Screen Urine (11/05/2023) ???Opiate Screen, Urine - NONE DETECTED pH Venous (11/05/2023) ???pH, Venous - 7.37 POTASSIUM POC CARTRIDGE (11/05/2023) ???Potassium (POC) POC Cartridge - 3.6 mmol/L ProBNP (11/05/2023) ? ?Nt-Probnp - <36 pg/mL SODIUM POC CARTRIDGE (11/05/2023) ???Sodium (POC) POC Cartridge - 143 mmol/L TSH with T4 Reflex (Adults Only) (11/05/2023) ???TSH - 1.29 uIU/mL Urinalysis w/hold for Urine Culture (11/05/2023) ???Appear/Color, Urine - YELLOW???Specific Schurz, Urine - 1.024???pH, Urine - 6.5???Albumin, Urine - TRACE???Glucose, Urine - NEGATIVE???Ketones, Urine - 1+???Bilirubin, Urine - NEGATIVE???Hemoglobin, Urine - NEGATIVE???Nitrite, Urine - NEGATIVE???Leukocyte, Urine - NEGATIVE???Urobilinogen - 8 mg/dL???WBC's, Urine - 2 /HPF???RBC's, Urine - 2 /HPF???Mucus - SLIGHT???Hold Urine Culture - Testing available 48 hours from time of collection. VBG POC CARTRIDGE (11/05/2023) ???pH Venous (POC) POC Cartridge - 7.38???pCO2 Venous (POC) POC Cartridge - 59.8 mm Hg???pO2 Venous(POC) POC Cartridge - 48 mm Hg???Est Bicarbonate (POC) POC Cartridge - 35.7 mmol/L???% O2 Sat Venous (POC) POC Cartridge - 82???Specimen Type - Blood Gas - VENOUS Allergies (NKA means No Known Allergies) Haldol Thorazine Problems Active Problems??(22) Asthma?? Bipolar disorder?? Chronic obstructive pulmonary disease?? Chronic pain syndrome?? Chronic viral hepatitis C?? Cocaine abuse in remission?? Delirium of mixed origin?? GERD without esophagitis?? Hepatitis C?? History of neuroleptic malignant syndrome?? History of stroke?? Hypertension?? Major depressive disorder?? Muscle weakness?? Opioid abuse?? Personal history of suicidal behavior?? Reduced mobility?? Rhabdomyolysis?? Severe obesity (BMI 35.0-39.9) with comorbidity?? Slurred speech?? Transaminitis?? Traumatic brain injury?? Education Materials Below is the list of Educational Leaflet Providered with your Discharge Instructions. Web[employer]ite Patient Education - Valproic Acid?? Web[employer]ite Patient Education - Clonazepam?? Valuables and Belongings I fully understand and agree that [facility] accepts no responsibility for all my personal property including clothing, toilet articles, radios, jewelry, dentures, hearing aids, rings, money, or any other property that is in my possession or is brought to me after admission. I understand certain valuables may be placed in a hospital safe for a short period of time. I understand that the hospital is not liable for loss or damage due to accident, fire, or other natural occurrence while said property is in the safe. I accept full responsibility for any personal property that I keep with me, and will not hold the hospital responsible in case of loss or disappearance. I acknowledge that i have been encouraged to send valuables and belongings home. ?? No Valuables/Belongings: No valuables/belongings present Review of Valuable and Belonging List: With patient Date for Pt to Sign Valuables/Belongings: 11/07/23 13:15:00 ?? Other Discharge Information ? Case Management Discharge Plan?? Discharge Plan?? Discharge Agency Information?? Discharge Level of Care at Discharge: [facility] Name of Agency #1: [facility] Discharge Transportation Arranged: [facility] [address] [facility] [id number] [phone] Service Categories #1: Physical Therapy, Residential Discharge Nursing Homes/Rehab Facilities: [facility] [place] ??[phone] ? Pulmonary Rehab Status?? Pulmonary Rehab Discharge Status?? Respiratory Rate: 18 br/min ? Common Emergency Awareness Tips IS IT A STROKE? Act FAST and Check for these signs: FACE Does the face look uneven? ARM Does one arm drift down? SPEECH Does their speech sound strange? TIME Call at any sign of stroke ?? Heart Attack Signs Chest discomfort: Most heart attacks involve discomfort in the center of the chest and lasts more than a few minutes, or goes away and comes back. It can feel like uncomfortable pressure, squeezing, fullness or pain. Discomfort in upper body: Symptoms can include pain or discomfort in one or both arms, back, neck, jaw or stomach. Shortness of breath: With or without discomfort. Other signs: Breaking out in a cold sweat, nausea, or lightheaded. Remember, MINUTES DO MATTER. If you experience any of these heart attack warning signs, call to get immediate medical attention! ?? Smoking can increase your chances of developing chronic health problems and can cause harmful effects to other family members in your house. If you smoke, you are strongly encouraged to quit. Please call [facility] at [phone] or [phone] ([phone]) or log in to [email or web address] for referrals to smoking cessation programs. ?? 764 Suicide & Crisis Lifeline is available 22/11 if you or someone you know needs to find a reason to keep living. By calling 686 you'll be connected to a skilled, trained counselor at a crisis center in your area. INPATIENT DISCHARGE INSTRUCTIONS SIGNATURE PAGE ZAYRA MORRIS Location:[facility] Registration Date and Time:11/05/2023 16:56 EDT Primary Care Physician: Solomon PENNY, Demetrius, Attending Physician: Jesus PENNY, Mavis Navarro, I ZAYRA MORRIS, have received the above patient education materials/instructions and have verbalized understanding. If ambulance or transport services are being used I further acknowledge being given a choice of service. ?? If you need to contact me, please call me at this number: . Patient/Account Service Associate Name: Patient/Account Service Associate Signature: Relationship to Patient: Witness Name/Signature: Date: * Martine Valentino MD: PERFORM Event Display: Patient Education Leaflets Authored Date: [id number] Valproic Acid ?? [id number] Valproic Acid Brand Name(s): Depakene??, Depakote??, Depakote?? ER, Depakote?? Sprinkle; also available generically IMPORTANT WARNING: Valproic acid may cause serious or life-threatening damage to the liver that is most likely to occur within the first 6 months of therapy. The risk of developing liver damage is greater in children who are younger than 2 years of age and are also taking more than one medication to prevent seizures,have certain inherited diseases that may prevent the body from changing food to energy normally, orany condition that affects the ability to think, learn, and understand. Tell your doctor if you have a certain inherited condition that affects the brain, muscles, nerves, and liver (Alpers Huttenlocher Syndrome), urea cycle disorder (an inherited condition that affects the ability to metabolize protein), or liver disease. Your doctor will probably tell you not to take valproic acid. If you notice that your seizures are more severe or happen more often or if you experience any of the following symptoms, call your doctor immediately: excessive tiredness, lack of energy, weakness, pain on the right side of your stomach, loss of appetite, nausea, vomiting,, dark urine, yellowing of your skin or the whites of your eyes, or swelling of the face. Valproic acid can cause serious defects (physical problems that are present at ), especially affecting the brain and spinal cord and can also cause lower intelligence and problems with movement and coordination, learning, communication, emotions, and behavior in babies exposed to valproic acid before . Tell your doctor if you are or plan to become . Women who are or who are able to become and are not using effective control must not take valproic acid to prevent migraine headaches. Women who are should only take valproic acid to treat seizures or bipolar disorder (manic-depressive disorder; a disease that causes episodes of de pression, episodes of juanito, and other abnormal moods) if other medications have not successfully controlled their symptoms or cannot be used. Talk to your doctor about the risks of using valproic acid during . If you are a woman of childbearing age, including girls from the start of puberty, talk to your doctor about using other possible treatments instead of valproic acid. If the decision is made to use valproic acid, you must use effective control during your treatment. Talk to your doctor about control methods that will work for you. If you become while taking valproic acid, call your doctor immediately. Valproic acid can harm the fetus. Valproic acid may cause serious or life-threatening damage to the pancreas. This may occur at any time during your treatment. If you experience any of the following symptoms, call your doctor immediately: ongoing pain that begins in the stomach area but may spread to the back nausea, vomiting, or loss of appetite. Keep all appointments with your doctor and the laboratory. Your doctor will order certain lab teststo check your response to valproic acid. Talk to your doctor about the risks of taking valproic acid or of giving valproic acid to your child. Your doctor or pharmacist will give you the residential real estate agent's patient information sheet (Medication Guide) when you begin treatment with valproic acid and each time you refill your prescription. Read the information carefully and ask your doctor or pharmacist if you have any questions. You can also visit the Food and Drug Administration (FDA) website (http://www.fda.gov/Drugs/DrugSafety/wux348716.htm) or the residential real estate agent's website to obtain the Medication Guide. WHY is this medicine prescribed? Valproic acid is used alone or with other medications to treat certain types of seizures. Valproic acid is also used to treat juanito (episodes of frenzied, abnormally excited mood) in people with bipolar disorder (manic-depressive disorder; a disease that causes episodes of depression, episodes of juanito, and other abnormal moods). It is also used to prevent migraine headaches but not to relieve headaches that have already begun. Valproic acid is in a class of medications called anticonvulsants. It works by increasing the amount of a certain natural substance in the brain. HOW should this medicine be used? Valproic acid comes as a capsule, an extended-release (long-acting) tablet, a delayed-release (releases the medication in the intestine to prevent damage to the stomach) tablet, a sprinkle capsule (capsule that contains small beads of medication that can be sprinkled on food), and a syrup (liquid) to take by mouth. The syrup, capsules, delayed-release tablets, and sprinkle capsules are usually taken two or more times daily. The extended-release tablets are usually taken once a day. Take valproic acid at around the same time(s) every day. Take valproic acid with food to help prevent the medication from upsetting your stomach. Follow the directions on your prescription label carefully, and ask your doctor or pharmacist to explain any part you do not understand. Take valproic acid exactly asdirected. Do not take more or less of it or take it more often than prescribed by your doctor. Swallow the regular capsules, delayed-release capsule, and extended-release tablets whole; do not split, chew, or crush them. You can swallow the sprinkle capsules whole, or you can open the capsules and sprinkle the beads they contain on a teaspoonful of soft food, such as applesauce or pudding. Swallow the mixture of foodand medication beads right after you prepare it. Be careful not to chew the beads. Do not store unused mixtures of food and medication. Do not mix the syrup into any carbonated drink. Divalproex sodium, valproate sodium, and valproic acid products are absorbed by the body in different ways and cannot be substituted for one another. If you need to switch from one product to another, your doctor may need to adjust your dose. Each time you receive your medication, check to be sure that you have received the product that was prescribed for you. Ask your pharmacist if you are not sure that you received the right medication. Your doctor may start you on a low dose of valproic acid and gradually increase your dose. Valproic acid may help to control your condition but will not cure it. Continue to take valproic acid even if you feel well. Do not stop taking valproic acid without talking to your doctor, even if you experience side effects such as unusual changes in behavior or mood or if you find out that you are . If you suddenly stop taking valproic acid, you may experience a severe, long- lasting and possibly life-threatening seizure. Your doctor will probably decrease your dose gradually. Are there OTHER USES for this medicine? Valproic acid is also sometimes used to treat outbursts of aggression in children with attention deficit hyperactivity disorder (ADHD; more difficulty focusing or remaining still or quiet than other people who are the same age). Talk to your doctor about the possible risks of using this medication for your condition. This medication is sometimes prescribed for other uses. Ask your doctor or pharmacist for more information. What SPECIAL PRECAUTIONS should I follow? Before taking valproic acid, ??? tell your doctor and pharmacist if you are allergic to valproic acid, any other medications, orany of the ingredients in the type of valproic acid that has been prescribed for you. Ask your pharmacist for a list of the ingredients. ??? tell your doctor and pharmacist what prescription and nonprescription medications, vitamins, nutritional supplements, and herbal products you are taking or plan to take. Be sure to mention any of the following: acyclovir (Zovirax), anticoagulants ('blood thinners') such as warfarin (Coumadin), amitriptyline, aspirin, carbamazepine (Tegretol), cholestyramine (Prevalite), clonazepam (Klonopin), diazepam (Valium), doripenem (Doribax), ertapenem (Invanz), ethosuximide (Zarontin), felbamate (Felbatol), certain hormonal contraceptives ( control pills, rings, patches, implants, injections, and intrauterine devices), imipenem and cilastatin (Primaxin), lamotrigine (Lamictal),medications for anxiety or mental illness, meropenem (Merrem), nortriptyline (Pamelor), phenobarbital, phenytoin (Dilantin), primidone (Mysoline), rifampin (Rifadin), rufinamide(Banzel), sedatives, sleeping pills, tolbutamide, topiramate (Topamax),tranquilizers,and zidovudine(Retrovir). Your doctor may need to change the doses of your medications or monitor you carefully for side effects. ??? tell your doctor if you have or have ever had episodes of confusion and loss ofability to think and understand, especially during or childbirth; coma (loss of consciousness for a period of time); difficulty coordinating your movements; human immunodeficiency virus (HIV); or cytomegalovirus (CMV; a virus that can cause symptoms in people who have weak immune systems). ??? tell your doctor if you are . ??? if you are having surgery, including dental surgery, tell the doctor or dentist that you are taking valproic acid. ??? you should know that valproic acid may make you drowsy. Do not drive a car or operate machinery until you know how this medication affects you. ??? remember that alcohol can add to the drowsiness caused by this medication. ??? you should know that valproic acid can cause extreme drowsiness that may cause you to eat or drink less than you normally would, especially if you are elderly. Tell your doctor if you are not able to ea t or drink as you normally do. ??? you should know that your mental health may change in unexpectedways and you may become suicidal (thinking about harming or killing yourself or planning or trying to do so) while you are taking valproic acid for the treatment of epilepsy, mental illness, or otherconditions. A small number of adults and children 5 years of age and older (about 1 in 500 people) w ho took anticonvulsants such as valproic acid to treat various conditions during clinical studies became suicidal during their treatment. Some of these people developed suicidal thoughts and behavioras early as one week after they started taking the medication. There is a risk that you may experience changes in your mental health if you take an anticonvulsant medication such as valproic acid, but there may also be a risk that you will experience changes in your mental health if your condition is not treated. You and your doctor will decide whether the risks of taking an anticonvulsant medication are greater than the risks of not taking the medication. You, your family, or your caregiver should call your doctor right away if you experience any of the following symptoms: panic attacks; agitation or restlessness; new or worsening irritability, anxiety, or depression; acting on dangerous impulses; difficulty falling or staying asleep; aggressive, angry, or violent behavior; juanito (frenzied, abnormally excited mood); talking or thinking about wanting to hurt yourself or end your life; wi thdrawing from friends and family; preoccupation with and dying; giving away prized possessions; or any other unusual changes in behavior or mood. Be sure that your family or caregiver knows which symptoms may be serious so they can call the doctor if you are unable to seek treatment on your own. What SPECIAL DIETARY instructions should I follow? Unless your doctor tells you otherwise, continue your normal diet. What should I do IF I FORGET to take a dose? Take the missed dose as soon as you remember it. However, if it is almost time for your next dose, skip the missed dose and continue your regular dosing schedule. Do not take a double dose to make upfor a missed one. What SIDE EFFECTS can this medicine cause? Valproic acid may cause side effects. Tell your doctor if any of these symptoms are severe or do not go away: ??? drowsiness ??? dizziness ??? headache ??? diarrhea ??? constipation ??? changes in appetite ???weight changes ??? back pain ??? agitation ??? mood swings ??? abnormal thinking ??? uncontrollableshaking of a part of the body ??? problems with walking or coordination ??? uncontrollable movements of the eyes ??? blurred or double vision ??? ringing in the ears ??? hair loss ??? o unusual bruising or bleeding o tiny purple or red spots on the skin o fever o rash o bruising o hives o difficulty breathing or swallowing o swollen glands o swelling of face, eyes, lips, tongue, or throat o peeling or blistering skin o confusion o tiredness o vomiting o drop in body temperature o weakness or swe lling in the joints Valproic acid may cause other side effects. Call your doctor if you have any unusual problems whiletaking this medication. If you experience a serious side effect, you or your doctor may send a report to the Food and Drug Administration's (FDA) MedWatch Adverse Event Reporting program online (http://www.fda.gov/Safety/MedWatch) or by phone ( ). What should I know about STORAGE and DISPOSAL of this medication? Keep this medication in the container it came in, tightly closed, and out of reach of children. Store it at room temperature, away from excess heat and moisture (not in the bathroom). Unneeded medications should be disposed of in special ways to ensure that pets, children, and otherpeople cannot consume them. However, you should not flush this medication down the toilet. Instead,the best way to dispose of your medication is through a medicine take-back program. Talk to your pharmacist or contact your local garbage/recycling department to learn about take-back programs in your community. See the FDA's Safe Disposal of Medicines website (http://goo.gl/c4Rm4p) for more information if you do not have access to a take- back program. It is important to keep all medication out of sight and reach of children as many containers (such as weekly pill minders and those for eye drops, creams, patches, and inhalers) are not child-resistant and young children can open them easily. To protect young children from poisoning, always lock safety caps and immediately place the medication in a safe location ??? one that is up and away and out of their sight and reach. http://www.upandaway.org What should I do in case of OVERDOSE? In case of overdose, call the poison control helpline at . Information is also available online at https://www.poisonhelp.org/help. If the victim has collapsed, had a seizure, has trouble breathing, or can't be awakened, immediately call emergency services at 951. Symptoms of overdose may include the following: ??? sleepiness ??? irregular heartbeat ??? coma (loss of consciousness for a period of time) What OTHER INFORMATION should I know? If you are taking the sprinkle capsules, you may notice the medication beads in your stool. This isnormal and does not mean that you did not get the full dose of medication. If you have diabetes and your doctor has told you to test your urine for ketones, tell the doctor that you are taking valproic acid. Valproic acid can cause false results on urine tests for ketones. Before having any laboratory test, tell your doctor and the laboratory personnel that you are taking valproic acid. Do not let anyone else take your medication. Ask your pharmacist any questions you have about refilling your prescription. It is important for you to keep a written list of all of the prescription and nonprescription ([id number]) medicines you are taking, as well as any products such as vitamins, minerals, or otherdietary supplements. You should bring this list with you each time you visit a doctor or if you areadmitted to a hospital. It is also important information to carry with you in case of emergencies. This report on medications is for your information only, and is not considered individual patient advice. Because of the changing nature of drug information, please consult your physician or pharmacist about specific clinical use. The [employer] represents that the information provided hereunder was formulated with a reasonable standard of care, and in conformity with professional standards in the field. The [employer] makes no representations or warranties, express or implied, including, but not limited to, any implied warranty of merchantability and/or fitness for a particular purpose, with respect to such information and specifically disclaims all such warranties. Users are advised that decisions regarding drug therapy are complex medical decisions requiring the independent, informed decision of an appropriate health customer care voice consultant, and the information is provided for informational purposes only. The entire monograph for a drug should be reviewed for a thorough understanding of the drug's actions, uses and side effects. The [employer] does not endorse or recommend the use of any drug.The information is not a substitute for medical care. AHFS?? Patient Medication Information???. ?? Copyright, 2023. [employer]??, [address], [address], [place], [place]. All Rights Reserved. Duplication for commercial use must be authorized by [facility]. Selected Revisions: August 14, 2018. AHFS?? Patient Medication Information???. ?? Copyright, 2023 ?? * Martine Valentino MD: PERFORM Event Display: Patient Education Leaflets Authored Date: [id number] Clonazepam ?? [id number] Clonazepam Brand Name(s): Klonopin??; also available generically IMPORTANT WARNING: Clonazepam may increase the risk of serious or life-threatening breathing problems, sedation, or coma if used along with certain medications. Tell your doctor if you are taking or plan to take certain opiate medications for cough such as codeine (in Triacin-C, in Tuzistra XR) or hydrocodone (in Anexsia, in Lynndyl, in Zyfrel) or for pain such as codeine (in Fiorinal), fentanyl (Actiq, Duragesic, Subsys, others), hydromorphone (Dilaudid, Exalgo), meperidine (Demerol), methadone (Dolophine, Methadose), morphine (Astramorph, Duramorph PF, Lindsey), oxycodone (in Oxycet, in Percocet, in Roxicet, others), and tramadol (Conzip, Ultram, in Ultracet). Your doctor may need to change the dosages of yourmedications and will monitor you carefully. If you take clonazepam with any of these medications and you develop any of the following symptoms, call your doctor immediately or seek emergency medical care immediately: unusual dizziness, lightheadedness, extreme sleepiness, slowed or difficult breathing, or unresponsiveness. Be sure that your caregiver or family members know which symptoms may be serious so they can call the doctor or emergency medical care if you are unable to seek treatment on your own. Clonazepam may be habit forming. Do not take a larger dose, take it more often, or for a longer time than your doctor tells you to. Tell your doctor if you have ever drunk large amounts of alcohol, if you use or have ever used street drugs, or have overused prescription medications. Do not drink alcohol or use street drugs during your treatment. Drinking alcohol or using street drugs during your treatment with clonazepam also increases the risk that you will experience these serious, life-threatening side effects. Also tell your doctor if you have or have ever had depression or another mentalillness. Clonazepam may cause a physical dependence (a condition in which unpleasant physical symptoms occurif a medication is suddenly stopped or taken in smaller doses), especially if you take it for several days to several weeks. Do not stop taking this medication or take fewer doses without talking to your doctor. Stopping clonazepam suddenly can worsen your condition and cause withdrawal symptoms that may last for several weeks to more than 12 months. Your doctor probably will decrease your clonazepam dose gradually. Call your doctor or get emergency medical treatment if you experience any of the following symptoms: unusual movements; ringing in your ears; anxiety; memory problems; difficulty c oncentrating; sleep problems; seizures; shaking; muscle twitching; changes in mental health; depression; burning or prickling feeling in your hands, arms, legs or feet; seeing or hearing things that others do not see or hear; thoughts of harming or killing yourself or others; overexcitement; or losing touch with reality. WHY is this medicine prescribed? Clonazepam is used alone or in combination with other medications to control certain types of seizures. It is also used to relieve panic attacks (sudden, unexpected attacks of extreme fear and worry about these attacks). Clonazepam is in a class of medications called benzodiazepines. It works by decreasing abnormal electrical activity in the brain. HOW should this medicine be used? Clonazepam comes as a tablet and an orally disintegrating tablet (tablet that dissolves quickly in the mouth) to take by mouth. It usually is taken one to three times a day with or without food. Takeclonazepam at around the same time(s) every day. Follow the directions on your prescription label carefully, and ask your doctor or pharmacist to explain any part you do not understand. Do not try to push the orally disintegrating tablet through the foil. Instead, use dry hands to peel back the foil packaging. Immediately take out the tablet and place it in your mouth. The tablet will quickly dissolve and can be swallowed with or without liquid. Your doctor will probably start you on a low dose of clonazepam and gradually increase your dose, not more often than once every 3 days. Clonazepam may help control your condition, but will not cure it. It may take a few weeks or longerbefore you feel the full benefit of clonazepam. Continue to take clonazepam even if you feel well. Do not stop taking clonazepam without talking to your doctor, even if you experience side effects such as unusual changes in behavior or mood, If you suddenly stop taking clonazepam, you may experience withdrawal symptoms such as new or worsening seizures, hallucinating (seeing things or hearing voices that do not exist), changes in behavior, sweating, uncontrollable shaking of a part of your body, stomach or muscle cramps, anxiety, or difficulty falling asleep or staying asleep. Your doctor will probably decrease your dose gradually. Are there OTHER USES for this medicine? Clonazepam is also used to treat symptoms of akathisia (restlessness and a need for constant movement) that may occur as a side effect of treatment with antipsychotic medications (medications for mental illness) and to treat acute catatonic reactions (state in which a person does not move or speak at all or moves or speaks abnormally). Talk to your doctor about the possible risks of using this medication for your condition. This medication is sometimes prescribed for other uses; ask your doctor or pharmacist for more information. What SPECIAL PRECAUTIONS should I follow? Before taking clonazepam, ??? tell your doctor and pharmacist if you are allergic to clonazepam, other benzodiazepines such as alprazolam (Xanax), chlordiazepoxide (Librium, in Librax), clorazepate (Gen-Xene, Tranxene), diazepam (Diastat, Valium), estazolam, flurazepam, lorazepam (Ativan), midazolam (Versed), oxazepam, temaz epam (Restoril), triazolam (Halcion), any other medications, or any of the ingredients in clonazepam tablets. Ask your pharmacist for a list of the ingredients. ??? tell your doctor and pharmacist what other prescription and nonprescription medications, vitamins, and nutritional supplements you aretaking or plan to take. Be sure to mention any of the following: amiodarone (Cordarone, Nexterone, Pacerone); certain antibiotics such as clarithromycin (Biaxin, in Prevpac), erythromycin (Erythrocin, E-mycin, others), and troleandomycin (JENARO) (not available in the [place]); antidepressants; certain anti fungal medications such as itraconazole (Onmel. Sporanox) and ketoconazole (Nizoral); antihistamines; certain calcium channel blockers such as diltiazem (Cardizem, Tiazac, others) and verapamil (Calan, Covera, Verelan, in Tarka); cimetidine (Tagamet); HIV protease inhibitors including indinavir (Crixivan), nelfinavir (Viracept), and ritonavir (Norvir, in Kaletra); medications for anxiety, colds or allergies, or mental illness; other medications for seizures such as carbamazepine (Epitol, Tegretol, Teril), phenobarbital, phenytoin (Dilantin, Phenytek), or valproic acid (Depakene); muscle relaxants; nefazodone; rifampin (Rifadin, Rimactane); sedatives; certain selective serotonin reuptake inhibitors (SSRIs) such as fluvoxamine (Luvox); other sleeping pills; and tranquilizers. Your doctor may need to change the doses of your medications or monitor you carefully for side effects. ??? tell your doctor what herbal products you are taking, especially Rebeca's wort. ??? tell your doctor if you have or have ever had glaucoma (increased pressure in the eye that may cause vision loss) or liver disease. Your doctor may tell you not to take clonazepam. ??? tell your doctor if you have or have ever had lung or kidney disease. ??? tell your doctor if you are , plan to become , or are . Clonazepam may harm the fetus. If you become while taking clonazepam, call your doctor. ??? talk to your doctor about the risks and benefits of taking this medication if you are 65 years of age or older. Older adults should receive low doses of clonazepam because higher doses may not work better and may cause serious side effects. ??? if you are having surgery, incl uding dental surgery, tell the doctor or dentist that you are taking clonazepam. ??? you should know that this medication may make you drowsy. Do not drive a car or operate machinery until you know how this medication affects you. ??? you should know that your mental health may change in unexpectedways, and you may become suicidal (thinking about harming or killing yourself or planning or tryingto do so) while you are taking clonazepam for the treatment of epilepsy, mental illness, or other conditions. A small number of adults and children 5 years of age and older (about 1 in 500 people) who took anticonvulsants such as clonazepam to treat various conditions during clinical studies becamesuicidal during their treatment. Some of these people developed suicidal thoughts and behavior as early as one week after they started taking the medication. There is a risk that you may experience changes in your mental health if you take an anticonvulsant medication such as clonazepam, but there may also be a risk that you will experience changes in your mental health if your condition is not tr eated. You and your doctor will decide whether the risks of taking an anticonvulsant medication aregreater than the risks of not taking the medication. You, your family, or your caregiver should call your doctor right away if you experience any of the following symptoms: panic attacks; agitation or restlessness; new or worsening irritability, anxiety, or depression; acting on dangerous impulses;difficulty falling or staying asleep; aggressive, angry, or violent behavior; juanito (frenzied, abnormally excited mood), talking or thinking about wanting to hurt yourself or end your life, withdrawing from friends and family; preoccupation with and dying, giving away prized possessions, or any other unusual changes in behavior or mood. Be sure that your family or caregiver knows which symptoms may be serious so they can call the doctor if you are unable to seek treatment on your own. What SPECIAL DIETARY instructions should I follow? Talk to your doctor about eating grapefruit and drinking grapefruit juice while taking this medicine. What should I do IF I FORGET to take a dose? Take the missed dose as soon as you remember it. However, if it is almost time for the next dose, skip the missed dose and continue your regular dosing schedule. Do not take a double dose to make up for a missed one. What SIDE EFFECTS can this medicine cause? Clonazepam may cause side effects. Tell your doctor if any of these symptoms are severe or do not go away: ??? drowsiness ??? dizziness ??? unsteadiness ??? problems with coordination ??? difficulty thinking or remembering ??? increased saliva ??? muscle or joint pain ??? frequent urination ??? blurred vision ??? changes in sex drive or ability ??? o rash o hives o swelling of the eyes, face, lips, tongue, or throat o difficulty breathing or swallowing o hoarseness o difficulty breathing If you experience a serious side effect, you or your doctor may send a report to the Food and Drug Administration's (FDA) MedWatch Adverse Event Reporting program online (http://www.fda.gov/Safety/MedWatch) or by phone ( ). What should I know about STORAGE and DISPOSAL of this medication? Keep this medication in the container it came in, tightly closed, and out of reach of children. Store it at room temperature and away from excess heat and moisture (not in the bathroom). It is important to keep all medication out of sight and reach of children as many containers (such as weekly pill minders and those for eye drops, creams, patches, and inhalers) are not child-resistant and young children can open them easily. To protect young children from poisoning, always lock safety caps and immediately place the medication in a safe location ??? one that is up and away and out of their sight and reach. http://www.upandaway.org Unneeded medications should be disposed of in special ways to ensure that pets, children, and otherpeople cannot consume them. However, you should not flush this medication down the toilet. Instead,the best way to dispose of your medication is through a medicine take-back program. Talk to your pharmacist or contact your local garbage/recycling department to learn about take-back programs in your community. See the FDA's Safe Disposal of Medicines website (http://goo.gl/c4Rm4p) for more information if you do not have access to a take- back program. What should I do in case of OVERDOSE? In case of overdose, call the poison control helpline at . Information is also available online at https://www.poisonhelp.org/help. If the victim has collapsed, had a seizure, has trouble breathing, or can't be awakened, immediately call emergency services at 711. Symptoms of overdose may include the following: ??? drowsiness ??? confusion ??? coma (loss of consciousness for a period of time) What OTHER INFORMATION should I know? Keep all appointments with your doctor and the laboratory. Your doctor will order certain lab teststo check your response to clonazepam. Do not let anyone else take your medication. Clonazepam is a controlled substance. Prescriptions may be refilled only a limited number of times; ask your pharmacist if you have any questions. It is important for you to keep a written list of all of the prescription and nonprescription ([id number]) medicines you are taking, as well as any products such as vitamins, minerals, or otherdietary supplements. You should bring this list with you each time you visit a doctor or if you areadmitted to a hospital. It is also important information to carry with you in case of emergencies. This report on medications is for your information only, and is not considered individual patient advice. Because of the changing nature of drug information, please consult your physician or pharmacist about specific clinical use. The [employer] represents that the information provided hereunder was formulated with a reasonable standard of care, and in conformity with professional standards in the field. The [employer] makes no representations or warranties, express or implied, including, but not limited to, any implied warranty of merchantability and/or fitness for a particular purpose, with respect to such information and specifically disclaims all such warranties. Users are advised that decisions regarding drug therapy are complex medical decisions requiring the independent, informed decision of an appropriate health customer care voice consultant, and the information is provided for informational purposes only. The entire monograph for a drug should be reviewed for a thorough understanding of the drug's actions, uses and side effects. The [employer] does not endorse or recommend the use of any drug.The information is not a substitute for medical care. AHFS?? Patient Medication Information???. ?? Copyright, 2023. The [employer]??, [address], [address], [place], [place]. All Rights Reserved. Duplication for commercial use must be authorized by [facility]. Selected Revisions: September 13, 2020. AHFS?? Patient Medication Information???. ?? Copyright, 2023 ?? Patient Care team information Care Team Personnel Name: Wolf Jenkins RN Position: [facility] RN Member Role: Primary Care Nurse Name: Thuy Barrientos RN Position: [facility] AMB Nurse Member Role: Primary Care Nurse Name: Kirsty Ramos RN Position: [facility] HBO Wound Member Role: Primary Care Nurse Name: Cristel Aguilera RN Position: [facility] RN Member Role: Primary Care Nurse Name: Martha Hauser RN Position: [facility] RN Member Role: Primary Care Nurse Name: Raul Christensen RN Position: [facility] RN Member Role: Primary Care Nurse Name: Christian Byrnes RN Position: [facility] RN Member Role: Primary Care Nurse Name: Rosalinda Singh RN Position: [facility] OB RN Member Role: Primary Care Nurse Name: Andie Mack RN Position: [facility] RN Member Role: Primary Care Nurse Name: Tony James RN Position: [facility] Outreach Member Role: Primary Care Nurse Name: Karena Horn Position: [facility] RN Member Role: Primary Care Nurse Name: Juana Catherine RN Position: [facility] RN Member Role: Primary Care Nurse Name: Luis Elizalde RN Position: [facility] SN RN Member Role: Primary Care Nurse Name: Dori Butler RN Position: [facility] RN Member Role: Primary Care Nurse Name: Christine Vera RN Position: [facility] RN Member Role: Primary Care Nurse Name: Getea Barrientos RN Position: [facility] RN Member Role: Primary Care Nurse Name: Bhavani Benavidez RN Position: [facility] RN Member Role: Primary Care Nurse Name: Geeta Smith RN Position: [facility] RN Member Role: Primary Care Nurse Name: Samara Tidwell RN Position: [facility] RN Member Role: Primary Care Nurse Name: Demetrius Carbajal MD Position: [facility] Outreach Member Role: PCP Address: Address: [address] [place] [id number] Name: Gretta Esquivel RN Position: [facility] RN Member Role: Primary Care Nurse Name: Ashley Ornelas RN Position: [facility] RN Member Role: Primary Care Nurse Name: Sandra Camp RN Position: [facility] RN Member Role: Primary Care Nurse Name: Markus Allison RN Position: [facility] RN Member Role: Primary Care Nurse Name: Martha Pryor RN Position: [facility] Analysis Manager Member Role: Primary Care Nurse Name: Edgardo Donnelly RN Position: [facility] RN Member Role: Primary Care Nurse Name: Jem Gomez RN Position: [facility] RN Member Role: Primary Care Nurse Name: Sandar Thomason RN Position: [facility] RN Member Role: Primary Care Nurse Name: Etta Matias RN Position: [facility] RN Member Role: Primary Care Nurse Name: Mary Grace Giron RN Position: [facility] RN Member Role: Primary Care Nurse Name: Nita Silva Position: [facility] RN Member Role: Primary Care Nurse Name: Jeane Fay RN Position: [facility] RN Member Role: Primary Care Nurse Name: Andreea Morgan RN Position: [facility] Analysis Manager Member Role: Primary Care Nurse Care Team Related Persons Name: MARTINEZ WALDRON Address: [address] [place] [address]
[2023-12-25] MEDS: dexAMETHasone sod phosphate 10 MG/ML VIAL IVPUSH ×4 (04:38→21:10)
[2023-12-25] MEDS: oxyCODONE HCl Immed Release 5 MG TABLET PO ×3 (04:50→21:10)
[2023-12-25] MEDS: clonazePAM 1 MG TABLET PO ×3 (05:12→19:33)
[2023-12-25] MEDS: Omeprazole 20 MG CAPSULE.DR PO (05:13)
[2023-12-25 06:30] LABS: Hematocrit 38.7 % (42.0-52.0); Hemoglobin 12.7 g/dl (14.0-18.0); Mean Corpuscular HGB Conc 32.8 g/dl (31.0-36.0); Mean Corpuscular Volume 91.3 fL (80.0-98.0); Mean Platelet Volume 12.7 fL (9.4-12.4); Platelet Count 159 X10*3/uL (160-400); Red Blood Count 4.24 X10*6/uL (4.60-5.80); Red Cell Distribution Width 14.5 % (11.0-16.0); White Blood Count 6.6 X10*3/uL (4.8-10.8)
[2023-12-25 06:50] LABS: Alanine Aminotransferase 12 U/L (0-40); Alkaline Phosphatase 54 U/L (39-117); Anion Gap 14 (12-20); Aspartate Amino Transferase 9 U/L (5-37); Bilirubin Total 0.4 mg/dL (0.0-1.0); Blood Urea Nitrogen 19 mg/dL (9-16); Calcium 9.5 mg/dL (8.4-10.2); Carbon Dioxide 25 mmol/L (22-29); Chloride 109 mmol/L (96-108); Estimated Glomerular Filt Rate > 60; Glucose Random 126 mg/dL (60-115); Potassium 3.3 mmol/L (3.3-5.1); Sodium 145 mmol/L (135-145); Total Protein 6.9 g/dL (6.5-8.0)
[2023-12-25 08:11] VITALS: BP 131/91; PULSE 83; RESP 18; TEMP 36.6; O2SAT 97
[2023-12-25 08:23] LABS: Ammonia 47 umol/L (13-55)
[2023-12-25] MEDS: DULoxetine HCl 30 MG CAPSULE.DR 90 MG PO (08:40)
[2023-12-25] MEDS: Furosemide 20 MG TABLET 10 MG PO (08:41)
[2023-12-25] MEDS: Propranolol HCL 20 MG TABLET PO ×3 (08:41→19:33)
[2023-12-25] MEDS: ARIPiprazole 2 MG TABLET PO (08:42)
[2023-12-25] MEDS: ARIPiprazole 5 MG TABLET PO (08:42)
[2023-12-25] MEDS: Potassium Chloride ER 10 MEQ TABLET.ER PO (08:42)
[2023-12-25] MEDS: Gabapentin 300 MG CAPSULE 900 MG PO ×3 (08:42→19:32)
[2023-12-25] MEDS: guaiFENesin 200 MG/10 ML 10 ML LIQUID 20 ML PO ×2 (08:43→17:22)
[2023-12-25] MEDS: 0.9 % Sodium Chloride Flush 3 ML SYRINGE IVFLUSH ×2 (08:43→15:43)
--- NOTE | 2023-12-25 09:46 | MHC.CM.PN ---
[facility]cd contacted facility re [facility] call [facility] with [facility]fo mother listed as primary contact [phone]
--- NOTE | 2023-12-25 10:47 | MHC.CM.PN ---
MOHSEN YOST FROM [facility] CALLED BACK AND CONFIRMED THAT MOTHER IS [facility] SHE WILL FAX PAPERWORK TO [facility] OFFICE
--- NOTE | 2023-12-25 10:58 | P.PNIM_ITS ---
Subjective Subjective Date of Service: 12/25/23 Interval History: normothermic denies headache, neck stiffness, dyspnea, cough, chest pain, abd pain, or diarrhea Review of Systems Review of Systems: Yes all other systems are reviewed and are negative Physical Exam 2 Vital Signs: Vital Signs: Last Vital Signs Temp 97.8 F 12/25/23 08:11 Pulse 83 12/25/23 08:11 Resp 18 12/25/23 08:11 BP 131/91 H 12/25/23 08:11 Pulse Ox 97 12/25/23 08:11 O2 Del Method Room Air 12/25/23 08:11 BMI result Body Mass Index 38.9 Gen: in no acute distress HEENT: sclera anicteric, moist mucus membranes Neck: supple, full ROM with no nuchal ridigity Lungs: clear to auscultation bilaterally Heart: regular rate and rhythm, no murmurs Abd: soft, non-tender, non-distended Ext: no edema Skin: warm/well-perfused Neuro: alert, chronic L-sided weakness Psych: appropriate affect Objective Data Active Medications Acetaminophen (Acetaminophen 325 Mg Tablet) 650 mg PO Q6H PRN PRN Reason: Pain, Mild (Pain Scale 1-3), fever or headache Albuterol Sulfate (Albuterol Sulfate (0.083%) 2.5 Mg/3 Ml Vial.Neb) 2.5 mg INHALE Q4H PRN PRN Reason: Wheezing Aripiprazole (Aripiprazole 5 Mg Tablet) 5 mg PO DAILY [facility] Last Admin: 12/25/23 08:42 Dose: 5 mg Documented By: SHANNAN Aripiprazole (Aripiprazole 2 Mg Tablet) 2 mg PO DAILY [facility] Last Admin: 12/25/23 08:42 Dose: 2 mg Documented By: SHANNAN Bisacodyl (Bisacodyl 10 Mg Supp.Rect) [address] DAILY PRN PRN Reason: Constipation Calcium Carbonate (Calcium Carbonate 750 Mg Tab.Chew) 750 mg PO Q4H PRN PRN Reason: Heartburn Clonazepam (Clonazepam 1 Mg Tablet) 1 mg PO Q8H PRN PRN Reason: Anxiety Last Admin: 12/25/23 05:12 Dose: 1 mg Documented By: JOSS Clonazepam (Clonazepam 1 Mg Tablet) 1 mg PO BID [facility] Last Admin: 12/25/23 08:42 Dose: 1 mg Documented By: SHANNAN Dexamethasone Sodium Phosphate (Dexamethasone Sod Phosphate 10 Mg/Ml Vial) 10 mg IVPUSH Q6H [facility] Last Admin: 12/25/23 04:38 Dose: 10 mg Documented By: JOSS Docusate Sodium (Docusate Sodium 100 Mg Capsule) 100 mg PO BID [facility] Last Admin: 12/25/23 08:44 Dose: Not Given Documented By: SHANNAN Non-Admin Reason: Patient Refused Duloxetine HCl (Duloxetine Hcl 30 Mg Capsule.) 90 mg PO DAILY [facility] Last Admin: 12/25/23 08:40 Dose: 90 mg Documented By: SHANNAN Enoxaparin Sodium (Enoxaparin Sodium 40 Mg/0.4 Ml Syringe) 40 mg SUBCUT Q24H [facility] Last Admin: 12/24/23 14:42 Dose: 40 mg Documented By: SHANNAN Furosemide (Furosemide 20 Mg Tablet) 10 mg PO DAILY [facility]; Protocol Last Admin: 12/25/23 08:41 Dose: 10 mg Documented By: SHANNAN Gabapentin (Gabapentin 300 Mg Capsule) 900 mg PO TID [facility] Last Admin: 12/25/23 08:42 Dose: 900 mg Documented By: SHANNAN Guaifenesin (Guaifenesin 100 Mg/5 Ml Liquid) 10 ml PO Q4H PRN PRN Reason: Cough Guaifenesin (Guaifenesin 200 Mg/10 Ml 10 Ml Liquid) 20 ml PO BID@0900,1800 [facility] Last Admin: 12/25/23 08:43 Dose: 20 ml Documented By: SHANNAN Lactulose (Lactulose 20 Gm/30 Ml Solution) 30 gm PO TID [facility] Last Admin: 12/25/23 08:44 Dose: Not Given Documented By: SHANNAN Non-Admin Reason: Patient Refused Magnesium Hydroxide (Milk Of Magnesia 30 Ml Oral.Susp) 30 ml PO DAILY PRN PRN Reason: Constipation Melatonin (Melatonin 3 Mg Tablet) 9 mg PO BEDTIME [facility] Last Admin: 12/24/23 20:46 Dose: 9 mg Documented By: JOSS Olanzapine (Olanzapine 7.5 Mg Tablet) 15 mg PO BEDTIME [facility] Last Admin: 12/24/23 20:45 Dose: 15 mg Documented By: JOSS Omeprazole (Omeprazole 20 Mg Capsule.) 20 mg PO DAILY@0630 [facility] Last Admin: 12/25/23 05:13 Dose: 20 mg Documented By: JOSS Ondansetron HCl (Ondansetron Hcl 4 Mg/2 Ml Vial) 4 mg IVPUSH Q8H PRN PRN Reason: Nausea and Vomiting Oxycodone HCl (Oxycodone Hcl Immed Release 5 Mg Tablet) 5 mg PO Q8H PRN PRN Reason: Pain (Scale Score 4-6) Last Admin: 12/25/23 04:50 Dose: 5 mg Documented By: JOSS Potassium Chloride (Potassium Chloride Er 10 Meq Tablet.Er) 10 meq PO DAILY [facility] Last Admin: 12/25/23 08:42 Dose: 10 meq Documented By: SHANNAN Propranolol HCl (Propranolol Hcl 20 Mg Tablet) 20 mg PO TID [facility]; Protocol Last Admin: 12/25/23 08:41 Dose: 20 mg Documented By: SHANNAN Sodium Chloride (0.9 % Sodium Chloride Flush 3 Ml Syringe) 3 ml IVFLUSH QSHIFT [facility] Last Admin: 12/25/23 08:43 Dose: 3 ml Documented By: SHANNAN Labs 12/25/23 05:19 12/25/23 05:19 Labs: Laboratory Results - last 24 hr 12/24/23 12/25/23 12/25/23 15:06 05:19 07:39 MCV 91.3 MCH 30.0 MCHC 32.8 RDW 14.5 Plt Count 159 L MPV 12.7 H Absolute Nucleated RBC 0.000 Nucleated RBC % (auto) 0.0 Anion Gap 14 Estim Creat Clear Calc 153.0 Estimated GFR > 60 Random Glucose 126 H Calcium 9.5 Total Bilirubin 0.4 AST 9 ALT 12 Alkaline Phosphatase 54 Ammonia 34 47 Total Protein 6.9 Albumin 4.0 Impressions Brain MRI 12/24/23 15:20 IMPRESSION: 1. No acute intracranial intracranial abnormality. 2. Diffuse prominence of the ventricles out of portion to sulci widening, nonspecific however can be seen with normal pressure hydrocephalus in the appropriate clinical setting. 3. Chronic microangiopathy. 4. Bilateral mastoid effusions. Electronically signed by: Kingsley Kilgore MD 12/24/2023 04:39 PM EDT RP Microbiology Microbiology Results: Microbiology 12/23/23 14:45 Blood Culture - Preliminary Blood - Venous No growth after 24 hours. 12/23/23 14:45 Blood Culture - Preliminary Blood - Venous No growth after 24 hours. Assessment and Plan (1) Acute metabolic encephalopathy: Status: Acute (2) Hypothermia: Status: Acute Plan d3 53yo M LTC resident at [facility] with hx TBI, CVA with residual L hemiparesis + dysarthria, hx NMS, HTN, polysubstance abuse, COPD, GERD, anxiety, bipolar. Nonambulatory, full Aman lift at facility. Sent in for AMS/hypothermia acute encephalopathy hypothermia - Resolved. Infection unlikely- D/c'ed dexamethasone + ceftriaxone + vancomycin + acyclovir 12/23 and cancelled LP. BCx no growth to date. - Neuro consulted, EEG ordered in case of seizure-mediated hypothermia - [place] [facility] [place] specific etiology of [place] found but pt was noted to have hyperammonemia without evidence of cirrhosis. Notably pt has been taken off Depakote in the interim and ammonia levels here are negative. hx CVA - ASA, statin COPD not in acute exac - continue home inhalers HTN - continue furosemide, propranolol mood disorder - aripiprazole, clonazepam, duloxetine, olanzapine GERD - PPI constipation - continue home bowel regimen VTE ppx - LMWH dispo - eventual return to LTC at [facility] In my clinical judgment, the patient requires continued inpatient hospitalization for the following reasons: hypothermia workup Total time managing care of this patient today: 35 minutes. Quality Stroke Does the patient have a stroke diagnosis?: No Reason for No Anti-thrombotic by Day Two: Contraindicated (Outside of tNK therapeutic window) VTE Prior VTE?: No VTE Risk Level:: Medical - moderate - high VTE Device Contraindication: N/A - Device Ordered VTE Drug Contraindication: Treatment Not Indicated
[2023-12-25 15:39] VITALS: BP 142/72; PULSE 94; RESP 18; TEMP 36.6; O2SAT 96
[2023-12-25] MEDS: Enoxaparin Sodium 40 MG/0.4 ML SYRINGE SUBCUT (15:41)
[2023-12-25] MEDS: Lactulose 20 GM/30 ML SOLUTION 30 GM PO (15:42)
[2023-12-25 15:43] VITALS: PULSE 94
[2023-12-25] MEDS: OLANZapine 7.5 MG TABLET 15 MG PO (19:32)
[2023-12-25] MEDS: Melatonin 3 MG TABLET 9 MG PO (19:33)
--- NOTE | 2023-12-25 21:04 | PC.NURSE ---
pt complained of excruciating LLE pain, oxycodone already given and not due, spoke with and maribel to give this dose early
[2023-12-26] VITALS: BP 126/62; PULSE 84; RESP 18; TEMP 36.3; O2SAT 96
--- NOTE | 2023-12-26 | EEG_ITS ---
This is a 16-channel EEG with an EKG lead. Background EEG rhythm is diffusely slow in theta in delta range with 1 bitemporal sharp wave. Photic stimulation does not produce any significant abnormality. Cardiac lead does not reveal any significant abnormality. IMPRESSION: Abnormal EEG suggestive of temporal irritability with risk for partial to complex partial seizure disorder. MD VANDANA Cesar/ARELI / [phone]
[2023-12-26 03:50] LABS: HIV AB/AG Nonreactive (Nonreactive); HIV Num 1 0.05 S/CO (0.00-0.99)
[2023-12-26] MEDS: dexAMETHasone sod phosphate 10 MG/ML VIAL IVPUSH (04:16)
[2023-12-26] MEDS: Omeprazole 20 MG CAPSULE.DR PO (05:32)
[2023-12-26 06:59] LABS: Alanine Aminotransferase 14 U/L (0-40); Albumin Level 3.8 g/dL (3.5-5.0); Alkaline Phosphatase 54 U/L (39-117); Anion Gap 13 (12-20); Aspartate Amino Transferase 10 U/L (5-37); Bilirubin Total 0.2 mg/dL (0.0-1.0); Blood Urea Nitrogen 27 mg/dL (9-16); C Reactive Protein 0.11 mg/dL (< or = 0.50); Calcium 9.2 mg/dL (8.4-10.2); Carbon Dioxide 29 mmol/L (22-29); Chloride 106 mmol/L (96-108); Creatinine Clr Calc Pharmacy 143.1; Estimated Glomerular Filt Rate > 60; Glucose Random 116 mg/dL (60-115); Potassium 3.5 mmol/L (3.3-5.1); Sodium 144 mmol/L (135-145); Total Protein 6.4 g/dL (6.5-8.0)
[2023-12-26 07:01] LABS: Hematocrit 36.2 % (42.0-52.0); Hemoglobin 11.8 g/dl (14.0-18.0); Mean Corpuscular HGB Conc 32.6 g/dl (31.0-36.0); Mean Corpuscular Hemoglobin 29.9 pg (27.0-33.0); Mean Corpuscular Volume 91.9 fL (80.0-98.0); Mean Platelet Volume 12.8 fL (9.4-12.4); NRBC Pct Auto 0.5 /100WBC (0.0-0.2); Platelet Count 146 X10*3/uL (160-400); Red Blood Count 3.94 X10*6/uL (4.60-5.80); Red Cell Distribution Width 14.4 % (11.0-16.0); White Blood Count 7.5 X10*3/uL (4.8-10.8)
[2023-12-26 07:14] LABS: Procalcitonin 0.02 ng/mL
[2023-12-26 07:50] VITALS: BP 149/86; PULSE 65; RESP 14; TEMP 36.2; O2SAT 95
[2023-12-26] MEDS: guaiFENesin 200 MG/10 ML 10 ML LIQUID 20 ML PO ×2 (08:19→18:44)
[2023-12-26] MEDS: 0.9 % Sodium Chloride Flush 3 ML SYRINGE IVFLUSH ×3 (08:19→22:17)
[2023-12-26] MEDS: Lactulose 20 GM/30 ML SOLUTION 30 GM PO (08:19)
[2023-12-26 08:20] VITALS: BP 149/86
[2023-12-26] MEDS: ARIPiprazole 2 MG TABLET PO (08:20)
[2023-12-26] MEDS: DULoxetine HCl 30 MG CAPSULE.DR 90 MG PO (08:20)
[2023-12-26] MEDS: Propranolol HCL 20 MG TABLET PO ×3 (08:20→19:55)
[2023-12-26] MEDS: Potassium Chloride ER 10 MEQ TABLET.ER PO (08:20)
[2023-12-26] MEDS: clonazePAM 1 MG TABLET PO ×2 (08:20→19:55)
[2023-12-26] MEDS: Gabapentin 300 MG CAPSULE 900 MG PO ×3 (08:20→19:55)
[2023-12-26 08:21] VITALS: BP 149/86
[2023-12-26] MEDS: Furosemide 20 MG TABLET 10 MG PO (08:21)
[2023-12-26] MEDS: Docusate Sodium 100 MG CAPSULE PO (08:21)
--- NOTE | 2023-12-26 12:09 | P.PNIM_ITS ---
Subjective Subjective Date of Service: 12/26/23 Interval History: seen and examined no new complaints Physical Exam 2 Vital Signs: Vital Signs: Last Vital Signs Temp 97.2 F 12/26/23 07:50 Pulse 65 12/26/23 07:50 Resp 14 12/26/23 07:50 BP 149/86 H 12/26/23 08:21 Pulse Ox 95 12/26/23 07:50 O2 Del Method Room Air 12/26/23 07:50 BMI result Body Mass Index 38.9 Const: Other: Gen: in no acute distress HEENT: sclera anicteric, moist mucus membranes Neck: supple, full ROM with no nuchal ridigity Lungs: clear to auscultation bilaterally Heart: regular rate and rhythm, no murmurs Abd: soft, non-tender, non-distended Ext: no edema Skin: warm/well-perfused Neuro: alert, chronic L-sided weakness Psych: appropriate affect Objective Data Active Medications Acetaminophen (Acetaminophen 325 Mg Tablet) 650 mg PO Q6H PRN PRN Reason: Pain, Mild (Pain Scale 1-3), fever or headache Albuterol Sulfate (Albuterol Sulfate (0.083%) 2.5 Mg/3 Ml Vial.Neb) 2.5 mg INHALE Q4H PRN PRN Reason: Wheezing Aripiprazole (Aripiprazole 5 Mg Tablet) 5 mg PO DAILY [facility] Last Admin: 12/25/23 08:42 Dose: 5 mg Documented By: SHANNAN Aripiprazole (Aripiprazole 2 Mg Tablet) 2 mg PO DAILY [facility] Last Admin: 12/26/23 08:20 Dose: 2 mg Documented By: ARCHANA Bisacodyl (Bisacodyl 10 Mg Supp.Rect) 10 mg [place] DAILY PRN PRN Reason: Constipation Calcium Carbonate (Calcium Carbonate 750 Mg Tab.Chew) 750 mg PO Q4H PRN PRN Reason: Heartburn Clonazepam (Clonazepam 1 Mg Tablet) 1 mg PO Q8H PRN PRN Reason: Anxiety Last Admin: 12/25/23 05:12 Dose: 1 mg Documented By: JOSS Clonazepam (Clonazepam 1 Mg Tablet) 1 mg PO BID [facility] Last Admin: 12/26/23 08:20 Dose: 1 mg Documented By: ARCHANA Docusate Sodium (Docusate Sodium 100 Mg Capsule) 100 mg PO BID [facility] Last Admin: 12/26/23 08:21 Dose: 100 mg Documented By: ARCHANA Duloxetine HCl (Duloxetine Hcl 30 Mg Capsule.) 90 mg PO DAILY [facility] Last Admin: 12/26/23 08:20 Dose: 90 mg Documented By: ARCHANA Enoxaparin Sodium (Enoxaparin Sodium 40 Mg/0.4 Ml Syringe) 40 mg SUBCUT Q24H [facility] Last Admin: 12/25/23 15:41 Dose: 40 mg Documented By: SHANNAN Furosemide (Furosemide 20 Mg Tablet) 10 mg PO DAILY [facility]; Protocol Last Admin: 12/26/23 08:21 Dose: 10 mg Documented By: ARCHANA Gabapentin (Gabapentin 300 Mg Capsule) 900 mg PO TID [facility] Last Admin: 12/26/23 08:20 Dose: 900 mg Documented By: ARCHANA Guaifenesin (Guaifenesin 100 Mg/5 Ml Liquid) 10 ml PO Q4H PRN PRN Reason: Cough Guaifenesin (Guaifenesin 200 Mg/10 Ml 10 Ml Liquid) 20 ml PO BID@0900,1800 [facility] Last Admin: 12/26/23 08:19 Dose: 20 ml Documented By: ARCHANA Lactulose (Lactulose 20 Gm/30 Ml Solution) 30 gm PO TID [facility] Last Admin: 12/26/23 08:19 Dose: 30 gm Documented By: ARCHANA Magnesium Hydroxide (Milk Of Magnesia 30 Ml Oral.Susp) 30 ml PO DAILY PRN PRN Reason: Constipation Melatonin (Melatonin 3 Mg Tablet) 9 mg PO BEDTIME [facility] Last Admin: 12/25/23 19:33 Dose: 9 mg Documented By: BEVERLY Olanzapine (Olanzapine 7.5 Mg Tablet) 15 mg PO BEDTIME [facility] Last Admin: 12/25/23 19:32 Dose: 15 mg Documented By: BEVERLY Omeprazole (Omeprazole 20 Mg Capsule.) 20 mg PO DAILY@0630 [facility] Last Admin: 12/26/23 05:32 Dose: 20 mg Documented By: LOGAN Ondansetron HCl (Ondansetron Hcl 4 Mg/2 Ml Vial) 4 mg IVPUSH Q8H PRN PRN Reason: Nausea and Vomiting Oxycodone HCl (Oxycodone Hcl Immed Release 5 Mg Tablet) 5 mg PO Q8H PRN PRN Reason: Pain (Scale Score 4-6) Last Admin: 12/25/23 21:10 Dose: 5 mg Documented By: BEVERLY Potassium Chloride (Potassium Chloride Er 10 Meq Tablet.Er) 10 meq PO DAILY [facility] Last Admin: 12/26/23 08:20 Dose: 10 meq Documented By: ARCHANA Propranolol HCl (Propranolol Hcl 20 Mg Tablet) 20 mg PO TID [facility]; Protocol Last Admin: 12/26/23 08:20 Dose: 20 mg Documented By: ARCHANA Sodium Chloride (0.9 % Sodium Chloride Flush 3 Ml Syringe) 3 ml IVFLUSH QSHIFT [facility] Last Admin: 12/26/23 08:19 Dose: 3 ml Documented By: ARCHANA Labs 12/26/23 05:25 12/26/23 05:25 Labs: Laboratory Results - last 24 hr 12/25/23 12/26/23 05:19 05:25 MCV 91.9 MCH 29.9 MCHC 32.6 RDW 14.4 Plt Count 146 L MPV 12.8 H Absolute Nucleated RBC 0.040 H Nucleated RBC % (auto) 0.5 H Anion Gap 13 Estim Creat Clear Calc 143.1 Estimated GFR > 60 Random Glucose 116 H Calcium 9.2 Total Bilirubin 0.2 AST 10 ALT 14 Alkaline Phosphatase 54 C-Reactive Protein 0.11 Total Protein 6.4 L Albumin 3.8 Procalcitonin 0.02 HIV 1&2 Ab/P24 Ag 4thGn Nonreactive Microbiology Microbiology Results: Microbiology 12/23/23 14:45 Blood Culture - Preliminary Blood - Venous No growth after 48 hours. 12/23/23 14:45 Blood Culture - Preliminary Blood - Venous No growth after 48 hours. 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 Nonambulatory, full Aman lift at facility. Sent in for AMS/hypothermia acute encephalopathy hypothermia - Resolved. Infection unlikely- D/c'ed dexamethasone + ceftriaxone + vancomycin + acyclovir 12/23 and cancelled LP. BCx no growth to date. - Neuro consulted, EEG ordered in case of seizure-mediated hypothermia -- pending - Reviewed records from [facility] [place]- no specific etiology of hypothermia found but pt was noted to have hyperammonemia without evidence of cirrhosis. Notably pt has been taken off Depakote in the interim and ammonia levels here are negative. hx CVA - ASA, statin COPD not in acute exac - continue home inhalers HTN - continue furosemide, propranolol mood disorder - aripiprazole, clonazepam, duloxetine, olanzapine GERD - PPI constipation - continue home bowel regimen VTE ppx - LMWH dispo - eventual return to LTC at [facility] In my clinical judgment, the patient requires continued inpatient hospitalization for the following reasons: hypothermia workup, EEG pending; possible d/c later today Total time managing care of this patient today: 35 minutes. Quality Stroke Does the patient have a stroke diagnosis?: No Reason for No Anti-thrombotic by Day Two: Contraindicated (Outside of tNK therapeutic window) VTE Prior VTE?: No VTE Risk Level:: Medical - moderate - high VTE Device Contraindication: N/A - Device Ordered VTE Drug Contraindication: Treatment Not Indicated
[2023-12-26] MEDS: Enoxaparin Sodium 40 MG/0.4 ML SYRINGE SUBCUT (13:14)
[2023-12-26] MEDS: oxyCODONE HCl Immed Release 5 MG TABLET PO ×2 (14:54→22:17)
[2023-12-26 15:34] VITALS: BP 129/67; PULSE 72; RESP 14; TEMP 36.1; O2SAT 96
[2023-12-26] MEDS: Melatonin 3 MG TABLET 9 MG PO (19:55)
[2023-12-26] MEDS: OLANZapine 7.5 MG TABLET 15 MG PO (20:00)
[2023-12-26 22:10] VITALS: BP 130/73; PULSE 71; RESP 20; TEMP 36.2; O2SAT 96
[2023-12-27] MEDS: Omeprazole 20 MG CAPSULE.DR PO (06:16)
[2023-12-27 07:16] VITALS: BP 131/81; PULSE 58; RESP 16; TEMP 36.1; O2SAT 95
[2023-12-27] MEDS: clonazePAM 1 MG TABLET PO (07:31)
[2023-12-27] MEDS: oxyCODONE HCl Immed Release 5 MG TABLET PO (07:31)
[2023-12-27] MEDS: DULoxetine HCl 30 MG CAPSULE.DR 90 MG PO (07:31)
[2023-12-27] MEDS: ARIPiprazole 2 MG TABLET PO (07:32)
[2023-12-27] MEDS: Propranolol HCL 20 MG TABLET PO ×2 (07:32→15:17)
[2023-12-27] MEDS: Potassium Chloride ER 10 MEQ TABLET.ER PO (07:33)
[2023-12-27] MEDS: ARIPiprazole 5 MG TABLET PO (07:33)
[2023-12-27] MEDS: Furosemide 20 MG TABLET 10 MG PO (07:34)
[2023-12-27] MEDS: Lactulose 20 GM/30 ML SOLUTION 30 GM PO (07:38)
[2023-12-27] MEDS: guaiFENesin 200 MG/10 ML 10 ML LIQUID 20 ML PO (07:40)
[2023-12-27] MEDS: Gabapentin 300 MG CAPSULE 900 MG PO ×2 (07:55→15:17)
[2023-12-27] MEDS: Acetaminophen 325 MG TABLET 650 MG PO (12:43)
[2023-12-27] MEDS: 0.9 % Sodium Chloride Flush 3 ML SYRINGE IVFLUSH (12:44)
[2023-12-27] MEDS: Albuterol Sulfate (0.083%) 2.5 MG/3 ML VIAL.NEB INHALE (13:03)
[2023-12-27 13:04] VITALS: PULSE 68; RESP 18; O2SAT 99
--- NOTE | 2023-12-27 14:56 | PM.DS ---
DS: Providers Provider Date of Service: 12/27/23 Date of admission: 12/23/23 20:58 Primary care physician: CLAUDIA DANG Consults: 12/23/23 22:47 Consult to Neurology Routine Consulting Provider: [facility] Reason for consultation: AMS, hypothermia: CVA vs meningitis/encephalitis DS: Diagnosis Discharge Diagnosis (1) Acute metabolic encephalopathy: Status: Acute (2) Hypothermia: Status: Acute DS: Summary Hospital Course Hospital Course: From the admission H&P: Pt is a 53-year-old male with a PMH significant for?CVA with residual left hemiparesis and dysarthria, TBI, HTN, malignant neuroleptic syndrome, polysubstance use disorder, COPD, GERD, nonambulatory and full Aman lift at facility, anxiety, and bipolar disorder who presents to the ED from [facility] for evaluation of altered mental status and hypothermia. Patient is alert and oriented x2, unaware of his situation or what brought him to the hospital, and with slurred speech unclear if at baseline but very difficult to understand. HPI is thus obtained from chart and provider review, and call placed to SNF. According to staff, patient was in his normal state of health at 08:30 this morning: Alert, interacting, speaking to staff. At approximately 14:00 patient was found at facility to be altered, lethargic, not answering questions appropriately, and slurring his words above baseline. Vital signs were taken then and temperature was noted to be 94.0 F rectally. Upon arrival at the ED patient's temperature was noted to be 93.7 and he was placed in a Julianne Hugger where his temperature was slowly raised to 95 F. In the ED pt was hypothermic as low as 93.7, bradypneic as low as 10, and hypotensive at 98/57. Labs were significant for leukopenia 4.0, otherwise grossly unremarkable. Stable H& H. No significant electrolyte abnormalities. Renal function baseline. Lactic acid WNL at 1.9. Hepatic function WNL. Troponin negative. BNP WNL. UA negative for UTI. Tested negative for COVID, and flu. CXR showed no acute cardiopulmonary disease. CT?of head negative for acute intracranial hemorrhage or edematous territorial infarct. Question of normal pressure hydrocephalus. Encephalomalacic changes in right frontal lobe. CTA of head showed no large vessel occlusion, saccular aneurysm, or dissection. CTA of neck negative for hemodynamically significant stenosis, dissection, or aneurysm. EKG demonstrated sinus bradycardia of 50 with no evidence of significant ST elevations or depressions. Pt was placed on a Julianne Hugger and treated with 2L IVF. Pt will be admitted to the hospital for treatment and further evaluation of acute metabolic encephalopathy and hypothermia of unclear etiology. Hospital Course: Patient presented to the hospital with altered mental status and hypothermia. Initially there was concern for meningitis and underwent workup and treatment for this. The patient is workup for meningitis was negative and subsequently his therapies were discontinued. A neurology consult was sought who recommended EEG as a potential cause for his presenting symptoms could have been seizures. EEG revealed generalized slowing and 1 bitemporal sharp wave which could be suggestive of complex partial seizures. Neurology recommended Keppra 250 mg twice daily, which he has been initiated on. He has had no further altered mental status nor hypothermia and remained stable. He will be discharged back to long-term care. Discharge Diagnosis: Acute toxic/metabolic encephalopathy Suspected complex seizures Meningitis, ruled out History of prior stroke History of COPD Hypertension Mood disorder GERD Time Attestation Discharge Coordination Time (in mins): 45 Quality: Safe Use of Opioids Does Pt have an Active Cancer Diagnosis on the Problem List?: No Quality: Stroke Does the patient have a stroke diagnosis?: No Physical Exam Vital Signs: Vital Signs: Last Vital Signs Temp 96.9 F 12/27/23 07:16 Pulse 68 12/27/23 13:04 Resp 18 12/27/23 13:04 BP 131/81 12/27/23 07:16 Pulse Ox 95 12/27/23 07:16 O2 Del Method Room Air 12/27/23 07:16 BMI result Body Mass Index 38.9 Const: Other: Gen: in no acute distress HEENT: sclera anicteric, moist mucus membranes Neck: supple, full ROM with no nuchal ridigity Lungs: clear to auscultation bilaterally Heart: regular rate and rhythm, no murmurs Abd: soft, non-tender, non-distended Ext: no edema Skin: warm/well-perfused Neuro: alert, chronic L-sided weakness Psych: appropriate affect DS: Data Data Completed and Pending Labs on day of discharge: Preliminary micro results at discharge 12/23/23 14:45 Blood Culture - Preliminary Blood - Venous No growth after 48 hours. 12/23/23 14:45 Blood Culture - Preliminary Blood - Venous No growth after 48 hours. Discharge Plan Discharge Patient Disposition: Xfer [facility] Discharge Diagnosis: acute encephalopathy, hypothermia Referrals: CLAUDIA DANG [Primary Care Provider] - 1 Week Discharge Medications: New levetiracetam [Keppra] 250 mg tablet 250 mg PO BID Qty: 60 0RF Continued potassium chloride 10 mEq Capsule, Extended Release 10 meq PO DAILY acetaminophen 325 mg Tablet 975 mg PO Q8H PRN (Reason: HEADACHE/PAIN) albuterol sulfate 2.5 mg /3 mL (0.083 %) Solution For Nebulization 2.5 mg INHALATION Q4H PRN (Reason: Wheezing) clonazepam 1 mg Tablet 1 mg PO BID clonazepam 1 mg Tablet 1 mg PO Q8H PRN (Reason: Anxiety) melatonin 3 mg Tablet 9 mg PO BEDTIME aspirin 81 mg Tablet,Delayed Release (Dr/Ec) 81 mg PO DAILY guaifenesin 100 mg/5 mL Liquid 200 mg PO Q4H PRN (Reason: Cough) guaifenesin 200 mg Tablet 400 mg PO BID@0900,1800 magnesium hydroxide [Milk of Magnesia] 400 mg/5 mL Suspension 30 ml PO DAILY PRN (Reason: Constipation) bisacodyl 10 mg Suppository 10 mg [place] DAILY PRN (Reason: Constipation) pantoprazole 40 mg Tablet,Delayed Release (Dr/Ec) 40 mg PO DAILY@0630 docusate sodium [Colace] 100 mg Capsule 100 mg PO BID gabapentin 300 mg Capsule 900 mg PO TID olanzapine 15 mg Tablet 15 mg PO BEDTIME furosemide 20 mg Tablet 10 mg PO DAILY propranolol 20 mg Tablet 20 mg PO TID oxycodone 5 mg Tablet 5 mg PO Q8H PRN (Reason: Pain (Scale Score 4-6)) aripiprazole [Abilify] 5 mg Tablet 5 mg PO DAILY Rx Instructions: GIVE WITH 2 MG TABLET FOR A TOTAL OF 7 MG lactulose 10 gram/15 mL Solution 45 ml PO TID aripiprazole [Abilify] 2 mg Tablet 2 mg PO DAILY Rx Instructions: GIVE WITH 5 MG TABLET FOR A TOTAL OF 7 MG duloxetine 30 mg Capsule, Delayed Rel Sprinkle 90 mg PO DAILY Discharge Orders: Discharge Order (Routine); Ordered 12/27/23 Ordered By: Roel Nunez Diet: Advance to usual diet Activity on Discharge: As tolerated Stand Alone Forms: Patient Portal Discharge page Print Language: Paraguayan Care Plan Goals: see d/c summary Health Concerns: see d/c summary Plan of Treatment: see d/c summary Assessment: see d/c summary
[2023-12-27] MEDS: Enoxaparin Sodium 40 MG/0.4 ML SYRINGE SUBCUT (15:16)
[2023-12-27] MEDS: levETIRAcetam 250 MG TABLET PO (15:17)
[2023-12-27 15:21] VITALS: BP 143/75; PULSE 61; RESP 18; TEMP 36.3; O2SAT 94
== END 2023-12-27 17:19 | DRG 53 ==
LOC: HO.ED 16:43 → HO.EDOVER 21:40 → HO.S3 12-24 10:51
PROVIDERS: Family Medicine; Admitting Provider Student in an Organized Health Care Education/Training Program; Emergency Provider Emergency Medicine; PCP Emergency Medicine; Visit Provider Family Medicine
DX: G40.209 Localization-related (focal) (partial) symptomatic epilepsy and epileptic syndromes with complex partial seizures, not intractable, without status epilepticus (principal); I69.354 Hemiplegia and hemiparesis following cerebral infarction affecting left non-dominant side; R68.0 Hypothermia, not associated with low environmental temperature; J44.9 Chronic obstructive pulmonary disease, unspecified; I10 Essential (primary) hypertension; K59.00 Constipation, unspecified; I69.322 Dysarthria following cerebral infarction; Z20.822 Contact with and (suspected) exposure to COVID-19; Z74.01 Bed confinement status; Z78.1 Physical restraint status; Z79.82 Long term (current) use of aspirin; Z87.891 Personal history of nicotine dependence; Z79.899 Other long term (current) drug therapy
CPT/HCPCS: 36415; 70450; 70496; 70498; 70551; 71045; 80048; 80053; 80076; 80307; 81003; 82140; 83605; 83690; 83735; 83880; 84145; 84443; 84484; 85025; 85027; 85610; 86140; 87040; 87389; 87502; 87635; 93005; 95816; 99285; J0133; J0290; J0696; J1100; J1650; J2060; J2359; J3370; Q9967

== ENCOUNTER → 2023-12-23 20:58 | Outpatient (BNV) | payer MEDICAID, SELFPAY | PROVIDERS: Admitting Provider Student in an Organized Health Care Education/Training Program; Emergency Provider Emergency Medicine; PCP Emergency Medicine; Visit Provider Student in an Organized Health Care Education/Training Program | DX: G93.41 Metabolic encephalopathy (principal); T68.XXXA Hypothermia, initial encounter | CPT/HCPCS: 99223; 99232; 99233; 99239 ==

== ENCOUNTER → 2023-12-23 20:58 | Outpatient (BNV) | payer MEDICAID, SELFPAY | PROVIDERS: Admitting Provider Student in an Organized Health Care Education/Training Program; Emergency Provider Emergency Medicine; PCP Emergency Medicine; Visit Provider Psychiatry & Neurology Neurology | DX: R41.82 Altered mental status, unspecified (principal) | CPT/HCPCS: 99222 ==

== ENCOUNTER 2024-01-01 12:37 | Inpatient (IN) | payer MEDICAID, SELFPAY ==
--- NOTE | 2024-01-01 | ECG_ITS ---
Test Reason : AMS Blood Pressure : / mmHG Vent. Rate : 054 BPM Atrial Rate : 054 BPM P-R Int : 186 ms QRS Dur : 090 ms QT Int : 450 ms P-R-T Axes : 070 029 041 degrees QTc Int : 426 ms Sinus bradycardia Otherwise normal ECG When compared with ECG of 23-DEC-2023 14:51, Nonspecific T wave abnormality is no longer Present Referred By: Generic ED Physician Electronically Signed By:FAUSTINO BERMAN
--- NOTE | ~2024-01-01 | XR_ITS ---
EXAMINATION: XR CHEST CLINICAL INFORMATION: Mental status change COMPARISON: Chest radiograph 12/23/2023 TECHNIQUE: Portable AP upright view of the chest was obtained. FINDINGS: The lungs are hypoexpanded limiting assessment. Increased markings are seen in the left retrocardiac region which could be overlap of soft tissues versus a subtle infiltrate. The heart size is unchanged. No acute osseous abnormality. XR/XR chest 1V IMPRESSION: Low lung volumes limiting assessment. No definite abnormalities identified. A retrocardiac process is not excluded. When feasible, recommend PA and lateral chest radiographs. Electronically signed by: Beau Kearney MD 01/01/2024 02:58 PM EDT
[2024-01-01 12:43] LABS: Glucose, Whole Blood 111 mg/dL (60-115)
[2024-01-01 12:51] VITALS: BP 102/84; BP 105/67; PULSE 48; PULSE 54; RESP 10; TEMP 34.6; O2SAT 95; O2SAT 96; BMI 36.5
[2024-01-01 12:54] LABS: MANUAL DIFF FLAG NO
[2024-01-01 12:57] LABS: Eosinophils Absolute Auto 0.2 X10*3/uL (0.0-0.4); Eosinophils Percent Auto 4.2 % (0-4); Hematocrit 37.4 % (42.0-52.0); Hemoglobin 12.1 g/dl (14.0-18.0); Imm Gran Abs Auto 0.03 X10*3/uL (0.00-0.03); Imm Gran Pct Auto 0.8 % (0.0-0.4); Lymphocytes Absolute Auto 1.6 X10*3/uL (1.2-4.9); Lymphocytes Percent Auto 42.1 % (20-40); Mean Corpuscular HGB Conc 32.4 g/dl (31.0-36.0); Mean Corpuscular Hemoglobin 29.7 pg (27.0-33.0); Mean Corpuscular Volume 91.9 fL (80.0-98.0); Mean Platelet Volume 11.6 fL (9.4-12.4); Monocytes Absolute Auto 0.3 X10*3/uL (0.1-1.2); Monocytes Percent Auto 7.8 % (2-11); Neutrophils Absolute Auto 1.7 x10*3/uL (2.0-8.3); Neutrophils Percent Auto 45.1 % (45-73); Platelet Count 135 X10*3/uL (160-400); Red Blood Count 4.07 X10*6/uL (4.60-5.80); White Blood Count 3.9 X10*3/uL (4.8-10.8)
[2024-01-01 13:00] LABS: INTERNATIONAL NORM RATIO 0.9 (0.9-1.1); Prothrombin Time 10.8 SEC (11.1-13.3)
[2024-01-01 13:07] LABS: Ammonia 52 umol/L (13-55)
--- NOTE | 2024-01-01 13:08 | ED.AMS ---
HPI - Altered Mental Status General Chief Complaint: Altered Mental Status Stated Complaint: LETHARGIC SLURRED SPEECH AMS Time Seen by Provider: 01/01/24 13:00 Source: patient and EMS Mode of arrival: EMS Limitations: no limitations History of Present Illness ED Provider: DR. 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 In the emergency department core temperature measurement was closely monitored with Giang, workup for sepsis was initiated. Related Data Home Medications ?Medication ?Instructions ?Recorded ?Confirmed acetaminophen 325 mg tablet 975 mg PO Q8H PRN HEADACHE/PAIN 12/24/23 12/24/23 albuterol sulfate 2.5 mg/3 mL 2.5 mg inhalation Q4H PRN Wheezing 12/24/23 12/24/23 (0.083 %) solution for nebulization aripiprazole 2 mg tablet (Abilify) 2 mg PO DAILY 12/24/23 12/24/23 aripiprazole 5 mg tablet (Abilify) 5 mg PO DAILY 12/24/23 12/24/23 aspirin 81 mg tablet,delayed 81 mg PO DAILY 12/24/23 12/24/23 release bisacodyl 10 mg rectal suppository 10 mg IN DAILY PRN Constipation 12/24/23 12/24/23 clonazepam 1 mg tablet 1 mg PO BID 12/24/23 12/24/23 clonazepam 1 mg tablet 1 mg PO Q8H PRN Anxiety 12/24/23 12/24/23 docusate sodium 100 mg capsule 100 mg PO BID 12/24/23 12/24/23 (Colace) duloxetine 30 mg capsule,delayed 90 mg PO DAILY 12/24/23 12/24/23 release sprinkle furosemide 20 mg tablet 10 mg PO DAILY 12/24/23 12/24/23 gabapentin 300 mg capsule 900 mg PO TID 12/24/23 12/24/23 guaifenesin 100 mg/5 mL oral liquid 200 mg PO Q4H PRN Cough 12/24/23 12/24/23 guaifenesin 200 mg tablet 400 mg PO BID@0900,1800 12/24/23 12/24/23 lactulose 10 gram/15 mL oral 45 ml PO TID 12/24/23 12/24/23 solution magnesium hydroxide 400 mg/5 mL 30 ml PO DAILY PRN Constipation 12/24/23 12/24/23 oral suspension (Milk of Magnesia) melatonin 3 mg tablet 9 mg PO BEDTIME 12/24/23 12/24/23 olanzapine 15 mg tablet 15 mg PO BEDTIME 12/24/23 12/24/23 oxycodone 5 mg tablet 5 mg PO Q8H PRN Pain (Scale Score 12/24/23 12/24/23 4-6) pantoprazole 40 mg tablet,delayed 40 mg PO DAILY@0630 12/24/23 12/24/23 release potassium chloride 10 mEq 10 meq PO DAILY 12/24/23 12/24/23 capsule,extended release propranolol 20 mg tablet 20 mg PO TID 12/24/23 12/24/23 Previous Rx's ?Medication ?Instructions ?Recorded levetiracetam 250 mg tablet 250 mg PO BID #60 tabs 12/27/23 (Keppra) Allergies Allergy/AdvReac Type Severity Reaction Status Date / Time chlorpromazine Allergy Unknown Verified 01/01/24 12:54 [From Thorazine] haloperidol [From Haldol] Allergy Unknown Verified 01/01/24 12:54 Review of Systems Review of Systems: All other systems are reviewed and are negative Constitutional: Reports as per HPI and Reports no additional constitutional complaints Eyes: Reports as per HPI and Reports no additional eye complaints Reports system reviewed and no additional complaints, except as documented Cardiovascular: Reports as per HPI and Reports no additional cardiovascular complaints Respiratory: Reports as per HPI and Reports no additional respiratory complaints Gastrointestinal: Reports as per HPI and Reports no additional gastrointestinal complaints Genitourinary: Reports no additional female genitourinary complaints Musculoskeletal: Reports no additional musculoskeletal complaints Skin/Breast: Reports system reviewed and no additional complaints, except as docu Psychiatric: Reports no additional psychiatric complaints Endocrine: Reports no additional endocrine complaints Hematologic/Lymphatic: Reports no additional hematologic/lymphatic complaints Allergic/Immunologic: Reports no additional allergic/immunologic complaints Reports system reviewed and no additional complaints, except as documented and Reports Abnormal speech present [facility] Past Medical History Medical History Malignant neuroleptic syndrome Cocaine abuse Bipolar disorder Traumatic brain injury Left hemiplegia CVA (cerebral vascular accident) Hepatitis C Anxiety COPD (chronic obstructive pulmonary disease) Social History Social History Household Members: Other Housing: Other Housing Other:: [facility] Comment: 1:1 sitter Patient Tobacco Use Status: Former Tobacco user Cigarette Packs Per Day: 1 Cigarettes Per Day: 20.0 Smoked in Last 30 Days: No Use of substances other than those prescribed or required for medical reasons: Unable to respond Advance Directives: No Advance Directives Information Provided: No service: No Physical Exam ED Vital Signs: Vital Signs - 24 hr 01/01/24 12:51 01/01/24 14:08 01/01/24 14:09 Temperature 94.3 F L 94.5 F L Pulse Rate 54 49 L Pulse Rate [Monitor] 42 L Respiratory Rate 10 L 12 Blood Pressure 105/67 118/80 Pulse Oximetry 96 99 Oxygen Delivery Method Room Air Room Air BMI result Body Mass Index 36.5 Vital signs have been reviewed and appear to be correct. Blood pressure elevated. Heart rate normal. Respiratory rate normal. Temperature hypothermic Oxygen saturation normal. Appearance: Alert. Oriented X2 not to time. No acute distress. Head: Normal external exam. Normocephalic. Atraumatic. No Bernard signs noted. No raccoon eyes noted Eyes: PERRLA. EOMI. Conjunctiva and sclera normal. Eyelids normal. ENT: TM's Normal. Pharynx normal. Uvula midline. Moist mucous membranes. No trismus noted. No drooling noted. No muffled voice noted. Neck: Normal inspection. Neck supple. FROM. No adenopathy. Thyroid Normal. No meningeal signs. No neck mass noted. CVS: Normal heart rate and rhythm. Heart sound normal. No murmurs noted. Pulses normal throughout. Respiratory: No respiratory distress. Painless inspiration. Breath sounds normal. No wheezes/rales/rhonchi noted. Chest nontender. No accessory muscle usage noted or decreased air movement noted. Abdomen: Soft and nontender. Bowel sounds normal in all 4 quadrants. No distention noted. No organomegaly noted. No visible injury noted. Back: No CVA tenderness. Full range of motion noted. Skin: Skin warm and dry. Normal skin color. Normal skin turgor. No rashes/lesions/lacerations noted. Extremities: No lower extremity edema. Extremities exhibit normal range of motion. Extremities nontender. Neuro: Oriented X 2 Cranial nerve exam: II-XII are grossly intact Pre-existing left side weakness.. No sensory deficit. Reflexes normal. Course Reevaluation(s) Reevaluation #1: Patient intermittently drowsy and lethargic in between he is awake and able to answer question and regard examiner, no acute findings to explain patient's symptoms today, possible delirium secondary to medication, or metabolic encephalopathy. 1. Rule out subclinical hypothyroidism, normal TSH, will start on hydrocortisone 100 mg IV, and levothyroxine 200 mcg IV. 2. External rewarming, rule out infection. 3. Mental status change secondary to metabolic encephalopathy. Time: 15:46 Medical Decision Making Differential Diagnosis Differential Diagnoses: The differential diagnosis associated with the presentation includes (Infection, sepsis, hypothyroidism, myxedema, electrolyte derangement, severe anemia.) Admission/Observation Consideration of admission/observation: Escalation of care including admission/observation considered Consult Healthcare Provider Management of the patient was discussed with: Hospitalist (Dr. Loaiza) Lab Data MDM Lab Attestation statement: I reviewed the patient's lab results. 01/01/24 12:47 01/01/24 12:47 Labs: Lab Results 01/01/24 01/01/24 01/01/24 Range/Units 12:40 12:47 13:13 WBC 3.9 L (4.8-10.8) X10*3/uL RBC 4.07 L (4.60-5.80) X10*6/uL Hgb 12.1 L (14.0-18.0) g/dl Hct 37.4 L (42.0-52.0) % MCV 91.9 (80.0-98.0) fL MCH 29.7 (27.0-33.0) pg MCHC 32.4 (31.0-36.0) g/dl RDW 14.0 (11.0-16.0) % Plt Count 135 L (160-400) X10*3/uL MPV 11.6 (9.4-12.4) fL Immature Gran % (Auto) 0.8 H (0.0-0.4) % Neut % (Auto) 45.1 (45-73) % Lymph % (Auto) 42.1 H (20-40) % Lucas % (Auto) 7.8 (2-11) % Eos % (Auto) 4.2 H (0-4) % Baso % (Auto) 0.0 (0-2) % Lymph # (Auto) 1.6 (1.2-4.9) X10*3/uL Lucas # (Auto) 0.3 (0.1-1.2) X10*3/uL Eos # (Auto) 0.2 (0.0-0.4) X10*3/uL Baso # (Auto) 0.0 (0.0-0.2) X10*3/uL Abs Immat Gran (auto) 0.03 (0.00-0.03) X10*3/uL Absolute Neuts (auto) 1.7 L (2.0-8.3) x10*3/uL Absolute Nucleated RBC 0.000 (0.0-0.012) X10*3/uL Nucleated RBC % (auto) 0.0 (0.0-0.2) /100WBC PT 10.8 L (11.1-13.3) SEC INR 0.9 (0.9-1.1) Sodium 143 (135-145) mmol/L Potassium 4.2 (3.3-5.1) mmol/L Chloride 108 (96-108) mmol/L Carbon Dioxide 27 (22-29) mmol/L Anion Gap 12 (12-20) BUN 13 (9-16) mg/dL Creatinine 0.79 (0.5-1.4) mg/dL Estim Creat Clear Calc 143.3 Estimated GFR > 60 POC Glucose 111 (60-115) mg/dL Random Glucose 102 (60-115) mg/dL Lactic Acid 1.8 (0.5-2.0) mmol/L Calcium 9.3 (8.4-10.2) mg/dL Total Bilirubin 0.3 (0.0-1.0) mg/dL AST 15 (5-37) U/L ALT 21 (0-40) U/L Alkaline Phosphatase 59 (39-117) U/L Ammonia 52 (13-55) umol/L Troponin I High Sens < 2.7 (<3.5-35.0) ng/L Total Protein 6.7 (6.5-8.0) g/dL Albumin 3.6 (3.5-5.0) g/dL Lipase 20 (8-78) U/L TSH 1.85 (0.32-4.0) uIU/mL Urine Color Yellow Urine Appearance Clear Urine pH 5.5 (5.0-9.0) Ur Specific [place] 1.020 (1.005-1.025) Urine Protein Negative (Neg-Trace) mg/dL Urine Glucose (UA) Negative (Negative) mg/dL Urine Ketones Trace (Negative) mg/dL Urine Blood Negative (Negative) Urine Nitrite Negative (Negative) Ur Leukocyte Esterase Negative (Negative) Independent Interpretation I performed an independent interpretation of an: Plain X-Ray (Chest: No acute intrathoracic pathology.) Radiology Impression Discussion of test interpretation with radiology: I have reviewed the radiologist's reading. Discharge Plan Discharge Clinical Impression: Altered mental status, Hypothermia, Acute metabolic encephalopathy, Hypothyroidism Patient Disposition: Admitted As Inpatient Prescriptions: No Action potassium chloride 10 mEq Capsule, Extended Release 10 meq PO DAILY acetaminophen 325 mg Tablet 975 mg PO Q8H PRN (Reason: HEADACHE/PAIN) albuterol sulfate 2.5 mg /3 mL (0.083 %) Solution For Nebulization 2.5 mg INHALATION Q4H PRN (Reason: Wheezing) clonazepam 1 mg Tablet 1 mg PO BID clonazepam 1 mg Tablet 1 mg PO Q8H PRN (Reason: Anxiety) melatonin 3 mg Tablet 9 mg PO BEDTIME aspirin 81 mg Tablet,Delayed Release (Dr/Ec) 81 mg PO DAILY guaifenesin 100 mg/5 mL Liquid 200 mg PO Q4H PRN (Reason: Cough) guaifenesin 200 mg Tablet 400 mg PO BID@0900,1800 magnesium hydroxide [Milk of Magnesia] 400 mg/5 mL Suspension 30 ml PO DAILY PRN (Reason: Constipation) bisacodyl 10 mg Suppository 10 mg IN DAILY PRN (Reason: Constipation) pantoprazole 40 mg Tablet,Delayed Release (Dr/Ec) 40 mg PO DAILY@0630 docusate sodium [Colace] 100 mg Capsule 100 mg PO BID gabapentin 300 mg Capsule 900 mg PO TID olanzapine 15 mg Tablet 15 mg PO BEDTIME furosemide 20 mg Tablet 10 mg PO DAILY propranolol 20 mg Tablet 20 mg PO TID oxycodone 5 mg Tablet 5 mg PO Q8H PRN (Reason: Pain (Scale Score 4-6)) aripiprazole [Abilify] 5 mg Tablet 5 mg PO DAILY Rx Instructions: GIVE WITH 2 MG TABLET FOR A TOTAL OF 7 MG lactulose 10 gram/15 mL Solution 45 ml PO TID aripiprazole [Abilify] 2 mg Tablet 2 mg PO DAILY Rx Instructions: GIVE WITH 5 MG TABLET FOR A TOTAL OF 7 MG duloxetine 30 mg Capsule, Delayed Rel Sprinkle 90 mg PO DAILY levetiracetam [Keppra] 250 mg tablet 250 mg PO BID Qty: 60 0RF Print Language: Latvian
[2024-01-01 13:11] LABS: Lactic Acid 1.8 mmol/L (0.5-2.0)
[2024-01-01 13:18] LABS: Alanine Aminotransferase 21 U/L (0-40); Albumin Level 3.6 g/dL (3.5-5.0); Alkaline Phosphatase 59 U/L (39-117); Anion Gap 12 (12-20); Aspartate Amino Transferase 15 U/L (5-37); Bilirubin Total 0.3 mg/dL (0.0-1.0); Blood Urea Nitrogen 13 mg/dL (9-16); Calcium 9.3 mg/dL (8.4-10.2); Carbon Dioxide 27 mmol/L (22-29); Chloride 108 mmol/L (96-108); Creatinine Clr Calc Pharmacy 143.3; Estimated Glomerular Filt Rate > 60; Glucose Random 102 mg/dL (60-115); Lipase 20 U/L (8-78); Potassium 4.2 mmol/L (3.3-5.1); Sodium 143 mmol/L (135-145); Total Protein 6.7 g/dL (6.5-8.0)
[2024-01-01 13:20] LABS: Appearance Urine Clear; Color Urine Yellow; Glucose Urine UA Negative (Negative); Leukocyte Esterase Urine Negative (Negative); Nitrite Urine Negative (Negative); PH 5.5 (5.0-9.0); Urine Blood Negative (Negative); Urine Ketones Trace mg/dL (Negative); Urine Protein Negative (Neg-Trace)
[2024-01-01 13:30] LABS: Troponin-I High Sensitivity < 2.7 ng/L (<3.5-35.0)
[2024-01-01 14:08] VITALS: BP 118/80; PULSE 49; RESP 12; TEMP 34.7; O2SAT 99
[2024-01-01 14:09] VITALS: PULSE 42
[2024-01-01 14:09] LABS: Thyroid Stimulating Hormone 1.85 uIU/mL (0.32-4.0)
--- NOTE | 2024-01-01 14:42 | PC.NURSE ---
patient intermittently agressive with this rn, RN into room to assess patient, patient noted to have taken off bear hugger, when asking patient why he took off bear hugger patient states to this RN I want to leave i dont want to be in the hospital, im going to get up eduated patient that he is in the hospital because he wasn't acting normal at his facility and they were worried about him, patient swings hands at this RN stating i feel fine now i dont want to be here . patient adjusted in bed by this RN, bear hugger placed back on. safety maintained at this time. upon leaving room patient noted to have taken off bear hugger again MD to be made aware
--- NOTE | 2024-01-01 15:41 | PC.NURSE ---
patient with multiple attempts to pull out santana catheter despite education, continues to state he wants to leave, made aware, santana catheter removed at this time, patient shows no evidence of learning
--- NOTE | 2024-01-01 16:22 | P.HPHOSP_ITS ---
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 He had a recent hospitalization for similar presentation had workup for meningitis that was negative and was concern of seizure patient had EEG which was suggestive of complex partial seizure patient is taking Keppra 250 mg twice daily. It is difficult to gain any history from him as his speech is garbled and he has a history of dysarthria. In the ER, patient was placed on warming blanket and Giang catheter temperature monitor was placed however patient much throughout the length in the Giang catheter, attempts will be made again to place Giang if not will check temporal temperature is and monitor closely. Review of Systems 2 Review of Systems: Denies any recent fever chills or decrease in appetite respiratory denies any shortness of breath coverage production cardiovascular is adjustment of any PND or edema gastrointestinal denies any dysphagia abdominal pain nausea vomiting or diarrhea genitourinary denies any dysuria frequency or hematuria musculoskeletal denies any joint pain or swelling neuropsych see HPI all other systems reviewed are negative [facility] Medical History Malignant neuroleptic syndrome Cocaine abuse Bipolar disorder Traumatic brain injury Left hemiplegia CVA (cerebral vascular accident) Hepatitis C Anxiety COPD (chronic obstructive pulmonary disease) Social History Household Members: None Housing: [facility] Housing Other:: [facility] Comment: 1:1 sitter Patient Tobacco Use Status: Former Tobacco user Cigarette Packs Per Day: 1 Cigarettes Per Day: 20.0 Smoked in Last 30 Days: No Use of substances other than those prescribed or required for medical reasons: Yes Substance Use Type: Marijuana Substance Use Frequency: Daily Last Used Substance: Unknown Currently Displaying Signs/Symptoms of Drug Intoxication Withdrawal: No Have you been hit, kicked, punched, or otherwise hurt by someone within the past year? If so, by whom?: No Do you feel safe in your current relationship?: No Current Relationship Is there a partner from a previous relationship who is making you feel unsafe now?: No Are you made to feel afraid or neglected: No Advance Directives: No Advance Directives Information Provided: No Do you have a plan to hurt others: No Plan Recently lost weight without trying: No Eating poorly because of decreased appetite: No Nutrition Risks: No Nutritional Risk service: No Meds Allergies Allergy/AdvReac Type Severity Reaction Status Date / Time chlorpromazine Allergy Unknown Verified 01/01/24 12:54 [From Thorazine] haloperidol [From Haldol] Allergy Unknown Verified 01/01/24 12:54 Home Medications ?Medication ?Instructions ?Recorded ?Confirmed ?Last Taken ?Type acetaminophen 325 mg tablet 975 mg PO Q8H PRN HEADACHE/PAIN 12/24/23 01/01/24 12/23/23 History albuterol sulfate 2.5 mg/3 mL 2.5 mg inhalation Q4H PRN Wheezing 12/24/23 01/01/24 Unknown History (0.083 %) solution for nebulization aripiprazole 2 mg tablet (Abilify) 2 mg PO DAILY 12/24/23 01/01/24 12/23/23 History aripiprazole 5 mg tablet (Abilify) 5 mg PO DAILY 12/24/23 01/01/24 12/23/23 History aspirin 81 mg tablet,delayed 81 mg PO DAILY 12/24/23 01/01/24 12/23/23 History release bisacodyl 10 mg rectal suppository 10 mg ME DAILY PRN Constipation 12/24/23 01/01/24 Unknown History clonazepam 1 mg tablet 1 mg PO BID 12/24/23 01/01/24 12/23/23 History clonazepam 1 mg tablet 1 mg PO Q8H PRN Anxiety 12/24/23 01/01/24 12/09/23 History docusate sodium 100 mg capsule 100 mg PO BID 12/24/23 01/01/24 12/23/23 History (Colace) furosemide 20 mg tablet 10 mg PO DAILY 12/24/23 01/01/24 12/23/23 History gabapentin 300 mg capsule 900 mg PO TID 12/24/23 01/01/24 12/23/23 History guaifenesin 100 mg/5 mL oral liquid 200 mg PO Q4H PRN Cough 12/24/23 01/01/24 Unknown History guaifenesin 200 mg tablet 400 mg PO BID@0900,1800 12/24/23 01/01/24 12/23/23 History lactulose 10 gram/15 mL oral 45 ml PO TID 12/24/23 01/01/24 12/23/23 History solution magnesium hydroxide 400 mg/5 mL 30 ml PO DAILY PRN Constipation 12/24/23 01/01/24 Unknown History oral suspension (Milk of Magnesia) melatonin 3 mg tablet 9 mg PO BEDTIME 12/24/23 01/01/24 12/22/23 History olanzapine 15 mg tablet 15 mg PO DAILY 12/24/23 01/01/24 12/22/23 History oxycodone 5 mg tablet 5 mg PO Q8H PRN Pain, Severe 12/24/23 01/01/24 12/23/23 History pantoprazole 40 mg tablet,delayed 40 mg PO DAILY@0630 12/24/23 01/01/24 12/23/23 History release propranolol 20 mg tablet 20 mg PO TID 12/24/23 01/01/24 12/23/23 History duloxetine 30 mg capsule,delayed 90 mg PO DAILY 01/01/24 01/01/24 Unknown History release potassium chloride 10 mEq 10 meq PO DAILY 01/01/24 01/01/24 Unknown History tablet,extended release sodium phosphates 19 gram-7 118 ml ME DAILY PRN Constipation 01/01/24 01/01/24 Unknown History gram/118 mL enema (Fleet Enema) Physical Exam 2 Vital Signs and Narrative: Vital Signs: Last Vital Signs Temp 94.5 F L 01/01/24 14:08 Pulse 42 L 01/01/24 14:09 Resp 12 01/01/24 14:08 BP 118/80 01/01/24 14:08 Pulse Ox 99 01/01/24 14:08 O2 Del Method Room Air 01/01/24 14:08 BMI result Body Mass Index 36.5 Appearing in no acute distress head is normocephalic atraumatic eyes pupils are PERRLA sclera is anicteric mouth throat mucous membranes are intact and moist neck is supple no lymphadenopathy, no JVD noted lung sounds are clear to auscultation heart regular rate rhythm, clear S1, S2 positive bowel sounds, abdomen is soft, nontender neuro patient is alert x3, no focal deficits Results Labs 01/02/24 06:41 01/02/24 06:41 Labs: Laboratory Results - last 24 hr 01/01/24 01/01/24 01/01/24 12:40 12:47 13:13 MCV 91.9 MCH 29.7 MCHC 32.4 RDW 14.0 Plt Count 135 L MPV 11.6 Immature Gran % (Auto) 0.8 H Neut % (Auto) 45.1 Lymph % (Auto) 42.1 H [place] % (Auto) 7.8 Eos % (Auto) 4.2 H Baso % (Auto) 0.0 Lymph # (Auto) 1.6 Angelina # (Auto) 0.3 Eos # (Auto) 0.2 Baso # (Auto) 0.0 Abs Immat Gran (auto) 0.03 Absolute Neuts (auto) 1.7 L Absolute Nucleated RBC 0.000 Nucleated RBC % (auto) 0.0 PT 10.8 L INR 0.9 Anion Gap 12 Estim Creat Clear Calc 143.3 Estimated GFR > 60 POC Glucose 111 Random Glucose 102 Lactic Acid 1.8 Calcium 9.3 Total Bilirubin 0.3 AST 15 ALT 21 Alkaline Phosphatase 59 Ammonia 52 Troponin I High Sens < 2.7 Total Protein 6.7 Albumin 3.6 Lipase 20 TSH 1.85 Urine Color Yellow Urine Appearance Clear Urine pH 5.5 Ur Specific [place] 1.020 Urine Protein Negative Urine Glucose (UA) Negative Urine Ketones Trace Urine Blood Negative Urine Nitrite Negative Ur Leukocyte Esterase Negative Imaging Radiologist's Impressions: Impressions Chest X-Ray 01/01/24 13:16 IMPRESSION: Low lung volumes limiting assessment. No definite abnormalities identified. A retrocardiac process is not excluded. When feasible, recommend PA and lateral chest radiographs. Electronically signed by: Beau Kearney MD 01/01/2024 02:58 PM EDT Assessment and Plan (1) Acute metabolic encephalopathy: Status: Inactive (2) Hypothermia: Qualifiers: Encounter type: initial encounter Qualified Code(s): T68.XXXA - Hypothermia, initial encounter Status: Inactive Plan 53-year-old man presented to the ER with hypothermia, confusion and slurred speech with history of TBI, CVA with residual deficits, substance abuse Hypothermia Recent hospitalization for similar symptoms, thought to be related to seizures Neurology consultation Seizure precautions Continue antiseizure medications Monitor mental status closely Re warm as per protocol Bradycardia Likely secondary to hypothermia Should improve as patient warms Monitor on telemetry Seizure disorder Continue Keppra Seizure precautions Mental health Continue home medications GERD Continue PPI DVT prophylaxis with heparin Full code Quality Stroke Does the patient have a stroke diagnosis?: No VTE Prior VTE?: No VTE Risk Level:: Medical - moderate - high VTE Device Contraindication: Treatment Not Indicated VTE Drug Contraindication: N/A - Med Ordered
[2024-01-01] MEDS: OLANZapine 10 MG TABLET PO (17:26)
[2024-01-01] MEDS: LORazepam 1 MG TABLET 2 MG PO (17:26)
--- NOTE | 2024-01-01 17:37 | PC.NURSE ---
late charting due to patient care, patient noted by this RN to be continuously pulling out medical equipment, patient pulled out IV from bicep, delay in IV medication administration MD made aware, patient continues to slide chcf off the bed, shows no evidence of learning. patient moved into ED 22, placed in hospital stretcher for comfort and bed alarm on to prevent falling out of bed. provider at bedside to update patient on plan. patient agreeable to taking PO anxiety medications so we can place another IV. patient medicated per JUN PO without issue. 18g IV placed in RAC by this RN and pharmacy called to request IV levothyroxine. admitting MARK[employer]ING [employer]ING MANAGER made aware of patient status and refusal to wear warming blanket.
--- NOTE | 2024-01-01 17:53 | PC.NURSE ---
patient called this RN into room, stating that he needs to get the phone to call his mom. patient educated that there are no phones in the rooms and he is unable to get up at this time, patient shows no signs of learning at this time, multiple attempts at redirection, patient reminded that he is in the hospital, patient does not remember coming to hospital and does not understand why he is here
--- NOTE | 2024-01-01 18:26 | PHA.MEDREC ---
Addendum entered by Jem Guerin RPh 01/01/24 19:29: MED REC CHECKED BY [facility] Original Note: Pharmacy Consult ? Medication Reconciliation Pharmacy has completed the medication reconciliation. Used list from [facility]
--- NOTE | 2024-01-01 19:13 | PC.NURSE ---
This RN assumed pt care @ 1900. Pt sitting in bed eating dinner, no signs of distress. Plan of care ongoing.
[2024-01-01] MEDS: Enoxaparin Sodium 40 MG/0.4 ML SYRINGE SUBCUT (20:04)
[2024-01-01] MEDS: Levothyroxine Sodium 100 MCG/5 ML VIAL IVPUSH (20:05)
[2024-01-01] MEDS: Hydrocortisone Sod Succ/PF 100 MG VIAL IVPUSH (20:05)
--- NOTE | 2024-01-01 20:10 | PC.NURSE ---
Pt ca&ox4, no signs of distress. bed change and elver care complete Pt medicated per mar on all meds due from 1st shift. Plan of care ongoing.
--- NOTE | 2024-01-01 20:36 | PC.NURSE ---
This RN spoke with pts mother. Plan of care ongoing.
--- NOTE | 2024-01-02 00:27 | PC.NURSE ---
Pt assisted with urinal. Plan of care ongoing.
[2024-01-02 01:22] VITALS: BMI 36.0
[2024-01-02 01:37] VITALS: BP 153/91; PULSE 80; RESP 18; TEMP 36.7; O2SAT 93
[2024-01-02 04:00] VITALS: BP 151/85; PULSE 93; RESP 18; TEMP 36.3; O2SAT 93
[2024-01-02] MEDS: Pantoprazole Sodium 20 MG TABLET.DR 40 MG PO (06:50)
[2024-01-02] MEDS: Acetaminophen 325 MG TABLET 650 MG PO (06:54)
[2024-01-02 07:10] LABS: MANUAL DIFF FLAG NO
[2024-01-02 07:12] LABS: Basophils Percent Auto 0.3 % (0-2); Eosinophils Percent Auto 0.3 % (0-4); Hematocrit 38.3 % (42.0-52.0); Hemoglobin 12.9 g/dl (14.0-18.0); Imm Gran Abs Auto 0.03 X10*3/uL (0.00-0.03); Imm Gran Pct Auto 0.4 % (0.0-0.4); Lymphocytes Percent Auto 29.2 % (20-40); Mean Corpuscular HGB Conc 33.7 g/dl (31.0-36.0); Mean Corpuscular Hemoglobin 30.1 pg (27.0-33.0); Mean Corpuscular Volume 89.3 fL (80.0-98.0); Mean Platelet Volume 12.1 fL (9.4-12.4); Monocytes Absolute Auto 0.3 X10*3/uL (0.1-1.2); Monocytes Percent Auto 4.8 % (2-11); Neutrophils Absolute Auto 4.5 x10*3/uL (2.0-8.3); Platelet Count 154 X10*3/uL (160-400); Red Blood Count 4.29 X10*6/uL (4.60-5.80); Red Cell Distribution Width 13.8 % (11.0-16.0); White Blood Count 6.9 X10*3/uL (4.8-10.8)
[2024-01-02 07:30] LABS: Alanine Aminotransferase 21 U/L (0-40); Alkaline Phosphatase 59 U/L (39-117); Anion Gap 11 (12-20); Aspartate Amino Transferase 11 U/L (5-37); Bilirubin Total 0.4 mg/dL (0.0-1.0); Blood Urea Nitrogen 13 mg/dL (9-16); Calcium 9.5 mg/dL (8.4-10.2); Carbon Dioxide 27 mmol/L (22-29); Chloride 107 mmol/L (96-108); Estimated Glomerular Filt Rate > 60; Glucose Random 108 mg/dL (60-115); Potassium 3.5 mmol/L (3.3-5.1); Sodium 141 mmol/L (135-145); Total Protein 6.9 g/dL (6.5-8.0)
[2024-01-02 07:40] VITALS: BP 150/86; PULSE 82; RESP 20; TEMP 36.7; O2SAT 96
[2024-01-02] MEDS: Docusate Sodium 100 MG CAPSULE PO (08:00)
[2024-01-02] MEDS: Gabapentin 300 MG CAPSULE 900 MG PO (08:00)
[2024-01-02] MEDS: Aspirin Enteric Coated 81 MG TABLET.DR PO (08:01)
[2024-01-02] MEDS: Propranolol HCL 20 MG TABLET PO (08:01)
[2024-01-02] MEDS: clonazePAM 1 MG TABLET PO ×2 (08:01→08:46)
[2024-01-02] MEDS: guaiFENesin 200 MG/10 ML 10 ML LIQUID 20 ML PO (08:01)
[2024-01-02] MEDS: Potassium Chloride ER 10 MEQ TABLET.ER PO (08:01)
[2024-01-02] MEDS: ARIPiprazole 5 MG TABLET PO (08:01)
[2024-01-02] MEDS: ARIPiprazole 2 MG TABLET PO (08:01)
[2024-01-02] MEDS: levETIRAcetam 250 MG TABLET PO (08:01)
[2024-01-02] MEDS: OLANZapine 7.5 MG TABLET 15 MG PO (08:01)
[2024-01-02] MEDS: DULoxetine HCl 30 MG CAPSULE.DR 90 MG PO (08:01)
[2024-01-02] MEDS: Furosemide 20 MG TABLET 10 MG PO (08:02)
[2024-01-02] MEDS: oxyCODONE HCl Immed Release 5 MG TABLET PO (08:10)
--- NOTE | 2024-01-02 08:49 | PC.NURSE ---
Addendum entered by Allen Kenny RN 01/02/24 10:28: pt refused lactulose this AM. report given to facility Original Note: informed SAFETY AND SKILL BASED PAY MANAGER of pt's agitation this AM. per SAFETY AND SKILL BASED PAY MANAGER ok to give PRN dose of anxiety med this AM. pt to be d/c'ed this afternoon
--- NOTE | 2024-01-02 08:56 | MHC.CM.PN ---
Pt is a readmission, was discharged from [facility] on [place]26 back to [facility] where he is a LTC resident. Per papers from [facility], pts mother Tiffanie Zaidi is pts guardian. This CM attempted to contact guardian at each contact number listed and was unable to, also unable to leave a voicemail. Per hospitalist, pt is medically cleared for discharge. Pt will return to [facility] today via BLS/[place] at 1pm. [facility] notified via careport.
--- NOTE | 2024-01-02 09:15 | P.DS_ITS ---
DS: Providers Provider Date of Service: 01/02/24 Date of admission: 01/01/24 17:22 Primary care physician: Unknown Physician DS: Diagnosis Discharge Diagnosis (1) Acute metabolic encephalopathy: Status: Acute (2) Hypothermia: Status: Acute DS: Summary Hospital Course Hospital Course: This is a 53-year-old male with history of CVA with residual left hemiparesis and dysarthria at baseline, TBI, HTN, malignant neuroleptic syndrome, polysubstance use disorder, COPD, GERD, anxiety, bipolar disorder, patient returned from [facility] after was noticed to have altered mental status and became lethargic patient found to be hypothermic in the emergency department 94.3. He had a recent hospitalization for similar presentation had workup for meningitis that was negative and was concern of seizure patient had EEG which was suggesti ve of complex partial seizure patient is taking Keppra 250 mg twice daily. It is difficult to gain any history from him as his speech is garbled and he has a history of dysarthria. In the ER, patient was placed on warming blanket and Giang catheter temperature monitor was placed however patient much throughout the length in the Giang catheter, attempts will be made again to place Giang if not will check temporal temperature is and monitor closely. 53-year-old man treated for hypothermia and bradycardia likely secondary to seizure disorder and other comorbidities that he has that would contribute to this. Patient was warmed with warming blanket in the ED. At this time patient is normal thermic and in normal sinus rhythm with occasional episodes of tachycardia. At this time plan is for patient to be discharged back to [facility] and he is in agreement with this as he seems to get more agitated while he is hospitalized. Discussed this with his mother who is in agreement with the plan. Seizure disorder. Continue Keppra Mental health. Continue home medications GERD. Continue PPI Time Attestation Discharge Coordination Time (in mins): 35 Quality: Safe Use of Opioids Does Pt have an Active Cancer Diagnosis on the Problem List?: No Quality: Stroke Does the patient have a stroke diagnosis?: No Physical Exam Vital Signs: Vital Signs: Last Vital Signs Temp 98.1 F 01/02/24 07:40 Pulse 82 01/02/24 07:40 Resp 20 01/02/24 07:40 BP 150/86 H 01/02/24 07:40 Pulse Ox 96 01/02/24 07:40 O2 Del Method Room Air 01/02/24 07:40 BMI result Body Mass Index 36.0 Appearing in no acute distress head is normocephalic atraumatic eyes pupils are PERRLA sclera is anicteric mouth throat mucous membranes are intact and moist neck is supple no lymphadenopathy, no JVD noted lung sounds are clear to auscultation heart regular rate rhythm, clear S1, S2 positive bowel sounds, abdomen is soft, nontender neuro patient is alert x3, no focal deficits DS: Data Data Completed and Pending Labs on day of discharge: Laboratory Results - last 24 hr 01/01/24 01/01/24 01/01/24 12:40 12:47 13:13 WBC 3.9 L RBC 4.07 L Hgb 12.1 L Hct 37.4 L MCV 91.9 MCH 29.7 MCHC 32.4 RDW 14.0 Plt Count 135 L MPV 11.6 Immature Gran % (Auto) 0.8 H Neut % (Auto) 45.1 Lymph % (Auto) 42.1 H [place] % (Auto) 7.8 Eos % (Auto) 4.2 H Baso % (Auto) 0.0 Lymph # (Auto) 1.6 [place] # (Auto) 0.3 Eos # (Auto) 0.2 Baso # (Auto) 0.0 Abs Immat Gran (auto) 0.03 Absolute Neuts (auto) 1.7 L Absolute Nucleated RBC 0.000 Nucleated RBC % (auto) 0.0 PT 10.8 L INR 0.9 Sodium 143 Potassium 4.2 Chloride 108 Carbon Dioxide 27 Anion Gap 12 BUN 13 Creatinine 0.79 Estim Creat Clear Calc 143.3 Estimated GFR > 60 POC Glucose 111 Random Glucose 102 Lactic Acid 1.8 Calcium 9.3 Total Bilirubin 0.3 AST 15 ALT 21 Alkaline Phosphatase 59 Ammonia 52 Troponin I High Sens < 2.7 Total Protein 6.7 Albumin 3.6 Lipase 20 TSH 1.85 Urine Color Yellow Urine Appearance Clear Urine pH 5.5 Ur Specific [place] 1.020 Urine Protein Negative Urine Glucose (UA) Negative Urine Ketones Trace Urine Blood Negative Urine Nitrite Negative Ur Leukocyte Esterase Negative 01/02/24 06:41 WBC 6.9 RBC 4.29 L Hgb 12.9 L Hct 38.3 L MCV 89.3 MCH 30.1 MCHC 33.7 RDW 13.8 Plt Count 154 L MPV 12.1 Immature Gran % (Auto) 0.4 Neut % (Auto) 65.0 Lymph % (Auto) 29.2 [place] % (Auto) 4.8 Eos % (Auto) 0.3 Baso % (Auto) 0.3 Lymph # (Auto) 2.0 [place] # (Auto) 0.3 Eos # (Auto) 0.0 Baso # (Auto) 0.0 Abs Immat Gran (auto) 0.03 Absolute Neuts (auto) 4.5 Absolute Nucleated RBC 0.000 Nucleated RBC % (auto) 0.0 PT INR Sodium 141 Potassium 3.5 Chloride 107 Carbon Dioxide 27 Anion Gap 11 L BUN 13 Creatinine 0.77 Estim Creat Clear Calc 146.0 Estimated GFR > 60 POC Glucose Random Glucose 108 Lactic Acid Calcium 9.5 Total Bilirubin 0.4 AST 11 ALT 21 Alkaline Phosphatase 59 Ammonia Troponin I High Sens Total Protein 6.9 Albumin 4.0 Lipase TSH Urine Color Urine Appearance Urine pH Ur Specific [place] Urine Protein Urine Glucose (UA) Urine Ketones Urine Blood Urine Nitrite Ur Leukocyte Esterase Discharge Plan Discharge Anticipated Discharge Date/Time: 01/02/24 09:13 Patient Disposition: Xfer [facility] Discharge Diagnosis: Hypothermia Bradycardia Discharge Medications: Continued acetaminophen 325 mg Tablet 975 mg PO Q8H PRN (Reason: HEADACHE/PAIN) albuterol sulfate 2.5 mg /3 mL (0.083 %) Solution For Nebulization 2.5 mg INHALATION Q4H PRN (Reason: Wheezing) clonazepam 1 mg Tablet 1 mg PO BID clonazepam 1 mg Tablet 1 mg PO Q8H PRN (Reason: Anxiety) melatonin 3 mg Tablet 9 mg PO BEDTIME aspirin 81 mg Tablet,Delayed Release (Dr/Ec) 81 mg PO DAILY guaifenesin 100 mg/5 mL Liquid 200 mg PO Q4H PRN (Reason: Cough) guaifenesin 200 mg Tablet 400 mg PO BID@0900,1800 magnesium hydroxide [Milk of Magnesia] 400 mg/5 mL Suspension 30 ml PO DAILY PRN (Reason: Constipation) bisacodyl 10 mg Suppository 10 mg NE DAILY PRN (Reason: Constipation) pantoprazole 40 mg Tablet,Delayed Release (Dr/Ec) 40 mg PO DAILY@0630 docusate sodium [Colace] 100 mg Capsule 100 mg PO BID gabapentin 300 mg Capsule 900 mg PO TID olanzapine 15 mg Tablet 15 mg PO DAILY furosemide 20 mg Tablet 10 mg PO DAILY propranolol 20 mg Tablet 20 mg PO TID oxycodone 5 mg Tablet 5 mg PO Q8H PRN (Reason: Pain, Severe) aripiprazole [Abilify] 5 mg Tablet 5 mg PO DAILY Rx Instructions: GIVE WITH 2 MG TABLET FOR A TOTAL OF 7 MG lactulose 10 gram/15 mL Solution 45 ml PO TID aripiprazole [Abilify] 2 mg Tablet 2 mg PO DAILY Rx Instructions: GIVE WITH 5 MG TABLET FOR A TOTAL OF 7 MG levetiracetam [Keppra] 250 mg tablet 250 mg PO BID Qty: 60 0RF Fleet Enema 19-7 gram/118 mL Enema 118 ml NE DAILY PRN (Reason: Constipation) duloxetine 30 mg Capsule,Delayed Release(Dr/Ec) 90 mg PO DAILY potassium chloride 10 mEq Tablet Extended Release 10 meq PO DAILY Discharge Orders: Discharge Order (Routine); Ordered 01/02/24 Ordered By: Zulma Craig Diet: Advance to usual diet Activity on Discharge: As tolerated Stand Alone Forms: Patient Portal Discharge page Print Language: Pashto Care Plan Goals: Monitor temperature daily, return to the ER for any symptoms of hypothermia Health Concerns: Hypothermia Bradycardia Plan of Treatment: Follow-up with primary care provider as needed Take all medications as prescribed Assessment: See discharge summary
[2024-01-02 11:01] VITALS: BP 125/86; PULSE 71; RESP 20; TEMP 36.4; O2SAT 97
== END 2024-01-02 12:58 | disposition skilled nursing facility (03) | DRG 861 ==
LOC: HO.ED 15:55 → HO.EDOVER 17:42 → HO.IMC 01-02 00:08
PROVIDERS: Admitting Provider Nurse Practitioner Acute Care; Emergency Provider Emergency Medicine; PCP Emergency Medicine; Visit Provider Nurse Practitioner Acute Care
DX: R68.0 Hypothermia, not associated with low environmental temperature (principal); G93.41 Metabolic encephalopathy; I69.354 Hemiplegia and hemiparesis following cerebral infarction affecting left non-dominant side; R00.1 Bradycardia, unspecified; G40.909 Epilepsy, unspecified, not intractable, without status epilepticus; I69.322 Dysarthria following cerebral infarction; F41.9 Anxiety disorder, unspecified; F31.9 Bipolar disorder, unspecified; Z87.891 Personal history of nicotine dependence; Z79.82 Long term (current) use of aspirin; Z79.899 Other long term (current) drug therapy
CPT/HCPCS: 36415; 71045; 80053; 81003; 82140; 82947; 83605; 83690; 84443; 84484; 85025; 85610; 93005; 99285; J0651; J1650; J1720

== ENCOUNTER → 2024-01-01 17:22 | Outpatient (BNV) | payer MEDICAID, SELFPAY | PROVIDERS: Admitting Provider Nurse Practitioner Acute Care; Emergency Provider Emergency Medicine; PCP Emergency Medicine; Visit Provider Nurse Practitioner Acute Care | DX: G93.41 Metabolic encephalopathy (principal); T68.XXXA Hypothermia, initial encounter; I69.354 Hemiplegia and hemiparesis following cerebral infarction affecting left non-dominant side | CPT/HCPCS: 99223; 99239 ==

== ENCOUNTER 2024-09-08 19:27 | Emergency (ER) | payer MEDICAID, SELFPAY ==
[2024-09-08 19:33] VITALS: BP 132/69; PULSE 125; PULSE 65; RESP 17; TEMP 36.9; O2SAT 98; BMI 37.5
--- NOTE | 2024-09-08 19:55 | PC.NURSE ---
pt [facility] from [facility], per ems, pt was combative with staff, hitting and biting as well as self abusive behaviors including hitting head on bed. pt states i do not want to live on this earth anymore . pt has hx of tbi, left sided deficits. pt chnaged by nuzhat ambrosio and this rn. pt is calm an cooperative with staff at this time. vss.
[2024-09-08 20:18] LABS: MANUAL DIFF FLAG NO
[2024-09-08 20:19] LABS: Eosinophils Absolute Auto 0.2 X10*3/uL (0.0-0.4); Eosinophils Percent Auto 2.8 % (0-4); Hematocrit 42.4 % (42.0-52.0); Imm Gran Abs Auto 0.01 X10*3/uL (0.00-0.03); Imm Gran Pct Auto 0.2 % (0.0-0.4); PLT CLUMP 1; SCAN SMEAR FLAG 1
[2024-09-08 20:21] LABS: Basophils Percent Auto 0.3 % (0-2); Hemoglobin 14.1 g/dl (14.0-18.0); Lymphocytes Absolute Auto 2.3 X10*3/uL (1.2-4.9); Lymphocytes Percent Auto 39.9 % (20-40); Mean Corpuscular HGB Conc 33.3 g/dl (31.0-36.0); Mean Corpuscular Hemoglobin 28.7 pg (27.0-33.0); Mean Corpuscular Volume 86.2 fL (80.0-98.0); Mean Platelet Volume 11.6 fL (9.4-12.4); Monocytes Absolute Auto 0.5 X10*3/uL (0.1-1.2); Monocytes Percent Auto 7.9 % (2-11); Neutrophils Absolute Auto 2.8 x10*3/uL (2.0-8.3); Neutrophils Percent Auto 48.9 % (45-73); Red Blood Count 4.92 X10*6/uL (4.60-5.80); Red Cell Distribution Width 14.6 % (11.0-16.0)
[2024-09-08 20:23] LABS: Platelet Count 125 X10*3/uL (160-400); White Blood Count 5.8 X10*3/uL (4.8-10.8)
[2024-09-08 20:28] LABS: Appearance Urine Clear; Color Urine Yellow; Glucose Urine UA Negative (Negative); Leukocyte Esterase Urine Negative (Negative); Nitrite Urine Negative (Negative); PH 5.5 (5.0-9.0); Urine Blood Negative (Negative); Urine Ketones Negative (Negative); Urine Protein Negative (Neg-Trace)
[2024-09-08 20:33] LABS: Bacteria Urine None Seen (None Seen); Hyaline Casts Urine 0-2 /LPF (0-2); RBC Urine 0-2 /HPF (0-2); Squamous Epithelial Cell Urine 0-2 /HPF (0-2); WBC Urine 0-5 /HPF (0-5)
[2024-09-08 20:35] LABS: Amphetamine Screen Urine Not Detected (Not Detect); Barbiturates, Urine Not Detected (Not Detect); Benzodiazepines Screen Urine Not Detected (Not Detect); Buprenorphine Scr Not Detected (Not Detect); Cannabinoid Screen Urine Not Detected (Not Detect); Cocaine Screen Urine Not Detected (Not Detect); Fentanyl, urine Not Detected (Not Detect); Methadone Screen, Urine Not Detected (Not Detect); Opiate Screen Urine Not Detected (Not Detect); Oxycodone Screen Urine Positive (Not Detect); Phencyclidine Screen Urine Not Detected (Not Detect)
[2024-09-08 20:39] LABS: Alanine Aminotransferase 17 U/L (0-40); Albumin Level 4.2 g/dL (3.5-5.0); Alkaline Phosphatase 70 U/L (39-117); Anion Gap 11 (12-20); Aspartate Amino Transferase 13 U/L (5-37); Bilirubin Total 0.3 mg/dL (0.0-1.0); Blood Urea Nitrogen 14 mg/dL (9-16); Calcium 9.7 mg/dL (8.4-10.2); Carbon Dioxide 31 mmol/L (22-29); Chloride 106 mmol/L (96-108); Creatinine Clr Calc Pharmacy 151.4; Estimated Glomerular Filt Rate > 60; Ethanol < 10 mg/dL; Glucose Random 84 mg/dL (60-115); Potassium 3.9 mmol/L (3.3-5.1); Sodium 144 mmol/L (135-145)
--- NOTE | 2024-09-08 21:23 | PC.NURSE ---
this rn spoke with care team at this time, care team unable to see pt dimitry, pt remains in main ed
--- NOTE | 2024-09-08 22:32 | PC.NURSE ---
pt given crayons and coloring book at this time.
[2024-09-09 02:57] VITALS: BP 162/81; PULSE 73; RESP 20; TEMP 36.7; O2SAT 98
--- NOTE | 2024-09-09 03:37 | ED_ITS ---
HPI - General Adult General Chief complaint: Psychiatric Symptoms Stated complaint: psych eval, SI, from snf Time Seen by Provider: 09/08/24 20:55 Source: patient, EMS and RN notes reviewed History of Present Illness ED Provider: Thuy Giang PA-C HPI narrative: 54-year-old male with a history of cocaine abuse, bipolar disorder, anxiety, prior TBI, hep C, COPD, CVA with left hemiplegia who presents from [facility] with combative behavior. Patient was aggressive, attempting to hit and bite staff. He was also hitting his own head against the bed. Patient was verbalizing thoughts of self-harm, stating ?I do not want to be on this earth?. Related Data Home Medications ?Medication ?Instructions ?Recorded ?Confirmed acetaminophen 325 mg tablet 975 mg PO Q8H PRN HEADACHE/PAIN 12/24/23 09/09/24 albuterol sulfate 2.5 mg/3 mL 2.5 mg inhalation Q4H PRN Wheezing 12/24/23 09/09/24 (0.083 %) solution for nebulization aripiprazole 5 mg tablet (Abilify) 10 mg PO DAILY 12/24/23 09/09/24 aspirin 81 mg tablet,delayed 81 mg PO DAILY 12/24/23 09/09/24 release bisacodyl 10 mg rectal suppository 10 mg NM DAILY PRN Constipation 12/24/23 09/09/24 docusate sodium 100 mg capsule 100 mg PO BID 12/24/23 09/09/24 (Colace) furosemide 20 mg tablet 20 mg PO DAILY 12/24/23 01/01/24 gabapentin 300 mg capsule 900 mg PO TID 12/24/23 09/09/24 guaifenesin 100 mg/5 mL oral liquid 200 mg PO Q4H PRN Cough 12/24/23 09/09/24 lactulose 10 gram/15 mL oral 45 ml PO TID 12/24/23 09/09/24 solution magnesium hydroxide 400 mg/5 mL 30 ml PO DAILY PRN Constipation 12/24/23 09/09/24 oral suspension (Milk of Magnesia) olanzapine 15 mg tablet 15 mg PO BEDTIME 12/24/23 09/09/24 oxycodone 5 mg tablet 5 mg PO Q8H PRN Pain, Severe 12/24/23 09/09/24 pantoprazole 40 mg tablet,delayed 40 mg PO DAILY@0630 12/24/23 09/09/24 release duloxetine 30 mg capsule,delayed 60 mg PO DAILY 01/01/24 09/09/24 release sodium phosphates 19 gram-7 118 ml NM DAILY PRN Constipation 01/01/24 09/09/24 gram/118 mL enema (Fleet Enema) albuterol sulfate 90 mcg/actuation 1 puff inhalation Q4H PRN SOB 09/09/24 09/09/24 aerosol inhaler clonazepam 0.5 mg tablet 0.5 mg PO TID 09/09/24 09/09/24 mirtazapine 15 mg tablet 15 mg PO BEDTIME 09/09/24 09/09/24 olanzapine 5 mg tablet 5 mg PO DAILY 09/09/24 09/09/24 potassium chloride 20 mEq 40 meq PO DAILY 09/09/24 09/09/24 tablet,extended release Previous Rx's ?Medication ?Instructions ?Recorded levetiracetam 250 mg tablet 250 mg PO BID #60 tabs 12/27/23 (Keppra) Allergies Allergy/AdvReac Type Severity Reaction Status Date / Time chlorpromazine Allergy Unknown Verified 09/08/24 19:48 [From Thorazine] haloperidol [From Haldol] Allergy Unknown Verified 09/08/24 19:48 Review of Systems 2 Review of Systems: History limited as patient not wanting to engage in conversation so as to obtain detailed history. Yes all other systems are reviewed and are negative Constitutional: Constitutional: Reports fatigue and Reports fever(s) Endocrine: Endocrine: Reports fatigue PMFSH Past Medical History Attestation statement: The following information was validated with the patient. Medical History Malignant neuroleptic syndrome Cocaine abuse Bipolar disorder Traumatic brain injury Left hemiplegia CVA (cerebral vascular accident) Hepatitis C Anxiety COPD (chronic obstructive pulmonary disease) Social History Social History Household Members: None Housing: Senior Living Housing Other:: [facility] Comment: 1:1 sitter Patient Tobacco Use Status: Former Tobacco user Cigarette Packs Per Day: 1 Cigarettes Per Day: 20.0 Smoked in Last 30 Days: No Use of substances other than those prescribed or required for medical reasons: No Substance Use Type: Marijuana Advance Directives: No Advance Directives Information Provided: No Do you have a plan to hurt others: No Plan service: No Physical Exam ED Vital Signs: Vital Signs - 24 hr 09/09/24 22:19 Temperature 97.4 F Pulse Rate 74 Respiratory Rate 17 Blood Pressure 111/82 Pulse Oximetry 95 Oxygen Delivery Method Room Air BMI result Body Mass Index 37.5 Const Other: Awake appears older than stated age Orientation/consciousness: oriented to person and oriented to place Resp Effort & Inspection: normal respiratory effort Cardio Other: Normal peripheral perfusion Skin Other: Warm dry no rash Neuro General: oriented to person, oriented to place, no focal motor deficits and CN's II-XI intact bilaterally Psych Other: Somewhat cooperative in the emergency room, he keeps repeating ?I need a phone I need a phone I need a phone?. Course Reevaluation(s) Reevaluation #1: Time: 03:43 Date: 09/09/24 Provider: TOSHIA Cifuentes Patient in physician observation for psychiatric evaluation.? No acute events reported overnight. No current complaints. VS stable.? Patient is in bed search status/pending CARE team evaluation. Will continue to monitor. Medications Administered Generic Name Dose Route Start Last Admin Trade Name Freq PRN Reason Stop Dose Admin Aripiprazole 10 mg 09/09/24 11:45 09/10/24 08:40 Aripiprazole 10 Mg Tablet PO 10 mg DAILY MARQUES Administration Aspirin 81 mg 09/09/24 11:45 09/10/24 08:40 Aspirin Enteric Coated 81 Mg Tablet. PO 81 mg DAILY MARQUES Administration Clonazepam 0.5 mg 09/09/24 15:00 09/10/24 08:41 Clonazepam 0.5 Mg Tablet PO 0.5 mg TID MARQUES Administration Docusate Sodium 100 mg 09/09/24 11:45 09/10/24 08:40 Docusate Sodium 100 Mg Capsule PO 100 mg BID MARQUES Administration Duloxetine HCl 60 mg 09/09/24 11:45 09/10/24 08:41 Duloxetine Hcl 60 Mg Capsule. PO 60 mg DAILY MARQUES Administration Gabapentin 900 mg 09/09/24 15:00 09/10/24 08:40 Gabapentin 300 Mg Capsule PO 900 mg TID MARQUES Administration Lactulose 30 gm 09/09/24 15:00 09/10/24 08:43 Lactulose 20 Gm/30 Ml Solution PO 30 gm TID MARQUES Administration Levetiracetam 250 mg 09/09/24 11:45 09/10/24 08:41 Levetiracetam 250 Mg Tablet PO 250 mg BID MARQUES Administration Mirtazapine 15 mg 09/09/24 21:00 09/09/24 21:41 Mirtazapine 15 Mg Tablet PO 15 mg BEDTIME MARQUES Administration Olanzapine 5 mg 09/09/24 11:45 09/10/24 08:41 Olanzapine 5 Mg Tablet PO 5 mg DAILY MARQUES Administration Olanzapine 15 mg 09/09/24 21:00 09/09/24 21:41 Olanzapine 7.5 Mg Tablet PO 15 mg BEDTIME MARQUES Administration Omeprazole 20 mg 09/09/24 11:45 09/10/24 08:41 Omeprazole 20 Mg Capsule.Dr PO 20 mg DAILY@0630 MARQUES Administration Oxycodone HCl 5 mg 09/09/24 11:37 09/09/24 12:28 Oxycodone Hcl Immed Release 5 Mg Tablet PO 5 mg Q8H PRN Administration Pain, Severe (Pain Scale 7-10) Potassium Chloride 40 meq 09/09/24 11:45 09/10/24 08:41 Potassium Chloride Er 20 Meq Tab.Er.Prt PO 40 meq DAILY MARQUES Administration Discontinued Medications Generic Name Dose Route Start Last Admin Trade Name Freq PRN Reason Stop Dose Admin Lorazepam 2 mg 09/10/24 01:06 09/10/24 01:23 Lorazepam 1 Mg Tablet PO 09/10/24 01:07 2 mg ONCE ONE Administration Medical Decision Making Medical Decision Making MDM Narrative: 54-year-old male with a history of cocaine abuse, bipolar disorder, anxiety, prior TBI, hep C, COPD, CVA with left hemiplegia who presents from [facility] with combative behavior. Patient was aggressive, attempting to hit and bite staff. He was also hitting his own head against the bed. Patient was verbalizing thoughts of self-harm, stating ?I do not want to be on this earth?. Problem: Psychiatric illness, TBI History: Per EMS in nursing report I have considered the following differential diagnoses: SI, HI, decompensated psychiatric illness, drug/alcohol intoxication Plan: Screening labs including serum ethanol and drug screen we will be obtained, the patient bone need to be assessed by the care team. Given his behaviors, I foresee him being a potential bed search. I have independently reviewed the following tests: Labs: No leukocytosis, not anemic, no electrolyte abnormality, urine not infected, U tox positive for oxycodone, ethanol negative Patient seen by care team. Feel comfortable with patient going back to [facility]. Care team discussed the case with admission care they will take patient back. Currently in stable condition patient's family was also contacted by care team. Stable condition Lab Data 09/08/24 20:13 09/08/24 20:13 Labs: Lab Results 09/08/24 Range/Units 20:13 WBC 5.8 (4.8-10.8) X10*3/uL RBC 4.92 (4.60-5.80) X10*6/uL Hgb 14.1 (14.0-18.0) g/dl Hct 42.4 (42.0-52.0) % MCV 86.2 (80.0-98.0) fL MCH 28.7 (27.0-33.0) pg MCHC 33.3 (31.0-36.0) g/dl RDW 14.6 (11.0-16.0) % Plt Count 125 L (160-400) X10*3/uL MPV 11.6 (9.4-12.4) fL Immature Gran % (Auto) 0.2 (0.0-0.4) % Neut % (Auto) 48.9 (45-73) % Lymph % (Auto) 39.9 (20-40) % [place] % (Auto) 7.9 (2-11) % Eos % (Auto) 2.8 (0-4) % Baso % (Auto) 0.3 (0-2) % Lymph # (Auto) 2.3 (1.2-4.9) X10*3/uL [place] # (Auto) 0.5 (0.1-1.2) X10*3/uL Eos # (Auto) 0.2 (0.0-0.4) X10*3/uL Baso # (Auto) 0.0 (0.0-0.2) X10*3/uL Abs Immat Gran (auto) 0.01 (0.00-0.03) X10*3/uL Absolute Neuts (auto) 2.8 (2.0-8.3) x10*3/uL Absolute Nucleated RBC 0.000 (0.0-0.012) X10*3/uL Nucleated RBC % (auto) 0.0 (0.0-0.2) /100WBC Sodium 144 (135-145) mmol/L Potassium 3.9 (3.3-5.1) mmol/L Chloride 106 (96-108) mmol/L Carbon Dioxide 31 H (22-29) mmol/L Anion Gap 11 L (12-20) BUN 14 (9-16) mg/dL Creatinine 0.75 (0.5-1.4) mg/dL Estim Creat Clear Calc 151.4 Estimated GFR > 60 Random Glucose 84 (60-115) mg/dL Calcium 9.7 (8.4-10.2) mg/dL Total Bilirubin 0.3 (0.0-1.0) mg/dL AST 13 (5-37) U/L ALT 17 (0-40) U/L Alkaline Phosphatase 70 (39-117) U/L Total Protein 7.0 (6.5-8.0) g/dL Albumin 4.2 (3.5-5.0) g/dL Urine Color Yellow Urine Appearance Clear Urine pH 5.5 (5.0-9.0) Ur Specific [place] 1.020 (1.005-1.025) Urine Protein Negative (Neg-Trace) mg/dL Urine Glucose (UA) Negative (Negative) mg/dL Urine Ketones Negative (Negative) mg/dL Urine Blood Negative (Negative) Urine Nitrite Negative (Negative) Ur Leukocyte Esterase Negative (Negative) Urine RBC 0-2 (0-2) /HPF Urine WBC 0-5 (0-5) /HPF Ur Squamous Epith Cells 0-2 (0-2) /HPF Urine Bacteria None Seen (None Seen) Hyaline Casts 0-2 (0-2) /LPF Urine Opiates Screen Not Detected (Not Detect) Ur Buprenorphine Scrn Not Detected (Not Detect) ng/mL Ur Oxycodone Screen Positive H (Not Detect) ng/mL Urine Methadone Screen Not Detected (Not Detect) ng/mL Urine Fentanyl Screen Not Detected (Not Detect) Ur Barbiturates Screen Not Detected (Not Detect) Ur Phencyclidine Scrn Not Detected (Not Detect) Ur Amphetamines Screen Not Detected (Not Detect) U Benzodiazepines Scrn Not Detected (Not Detect) Urine Cocaine Screen Not Detected (Not Detect) U Marijuana (THC) Screen Not Detected (Not Detect) Ethyl Alcohol < 10 mg/dL Discharge Plan Discharge Clinical Impression: Suicidal ideation, Aggression Patient Disposition: Home, Self-Care Instructions: Help Prevent Suicide (ED) Prescriptions: No Action acetaminophen 325 mg Tablet 975 mg PO Q8H PRN (Reason: HEADACHE/PAIN) albuterol sulfate 2.5 mg /3 mL (0.083 %) Solution For Nebulization 2.5 mg INHALATION Q4H PRN (Reason: Wheezing) aspirin 81 mg Tablet,Delayed Release (Dr/Ec) 81 mg PO DAILY guaifenesin 100 mg/5 mL Liquid 200 mg PO Q4H PRN (Reason: Cough) magnesium hydroxide [Milk of Magnesia] 400 mg/5 mL Suspension 30 ml PO DAILY PRN (Reason: Constipation) bisacodyl 10 mg Suppository 10 mg NM DAILY PRN (Reason: Constipation) pantoprazole 40 mg Tablet,Delayed Release (Dr/Ec) 40 mg PO DAILY@0630 docusate sodium [Colace] 100 mg Capsule 100 mg PO BID gabapentin 300 mg Capsule 900 mg PO TID olanzapine 15 mg Tablet 15 mg PO BEDTIME furosemide 20 mg Tablet 20 mg PO DAILY oxycodone 5 mg Tablet 5 mg PO Q8H PRN (Reason: Pain, Severe) aripiprazole [Abilify] 5 mg Tablet 10 mg PO DAILY lactulose 10 gram/15 mL Solution 45 ml PO TID levetiracetam [Keppra] 250 mg tablet 250 mg PO BID Qty: 60 0RF Fleet Enema 19-7 gram/118 mL Enema 118 ml NM DAILY PRN (Reason: Constipation) duloxetine 30 mg Capsule,Delayed Release(Dr/Ec) 60 mg PO DAILY clonazepam 0.5 mg Tablet 0.5 mg PO TID olanzapine 5 mg Tablet 5 mg PO DAILY mirtazapine 15 mg Tablet 15 mg PO BEDTIME albuterol sulfate 90 mcg/actuation Hfa Aerosol Inhaler 1 puff INHALATION Q4H PRN (Reason: SOB) potassium chloride 20 mEq Tablet Extended Release 40 meq PO DAILY Referrals: Physician,Unknown J [Primary Care Provider] - (Please follow-up with your psychiatrist on an outpatient basis) Interventions: [place]-Suicide Risk Severity Scale Last Done: 09/10/24 10:03 Print Language: Khmer
[2024-09-09 06:27] VITALS: BP 128/72; PULSE 76; RESP 18; TEMP 36.9; O2SAT 99
--- NOTE | 2024-09-09 10:43 | PHA.MEDREC ---
Pharmacy Consult ? Medication Reconciliation Pharmacy has completed the medication reconciliation, utilized list from [facility].
--- NOTE | 2024-09-09 11:42 | PC.NURSE ---
Pt resting quietly on stretcher; able to make his needs known; sitter in place for pt safety; pt's med reconciliation completed and meds ordered; awaiting PT zohreh
[2024-09-09] MEDS: Omeprazole 20 MG CAPSULE.DR PO (12:26)
[2024-09-09] MEDS: Aspirin Enteric Coated 81 MG TABLET.DR PO (12:27)
[2024-09-09] MEDS: DULoxetine HCl 60 MG CAPSULE.DR PO (12:27)
[2024-09-09] MEDS: Docusate Sodium 100 MG CAPSULE PO ×2 (12:28→21:34)
[2024-09-09] MEDS: OLANZapine 5 MG TABLET PO (12:28)
[2024-09-09] MEDS: oxyCODONE HCl Immed Release 5 MG TABLET PO (12:28)
[2024-09-09] MEDS: Potassium Chloride ER 20 MEQ TAB.ER.PRT 40 MEQ PO (12:29)
[2024-09-09] MEDS: ARIPiprazole 10 MG TABLET PO (12:29)
[2024-09-09] MEDS: levETIRAcetam 250 MG TABLET PO ×2 (12:29→21:34)
--- NOTE | 2024-09-09 12:44 | MHC.CARE ---
Pt will be a next day follow up
--- NOTE | 2024-09-09 14:00 | MHC.EDTECH ---
Patient refused the vitals sign.1:1sitter.
--- NOTE | 2024-09-09 14:02 | MHC.EDTECH ---
Patient would like to know where his mother is. Patient wants us to call his mother. Patient is increasingly getting agitated about the phones ringing.
[2024-09-09] MEDS: Lactulose 20 GM/30 ML SOLUTION 30 GM PO ×2 (17:42→21:34)
[2024-09-09] MEDS: Gabapentin 300 MG CAPSULE 900 MG PO ×2 (17:43→21:34)
[2024-09-09] MEDS: clonazePAM 0.5 MG TABLET PO ×2 (17:43→21:34)
--- NOTE | 2024-09-09 18:00 | MHC.EDTECH ---
Patient refused the vitals sign again, 1:1 sitter at bed side.
--- NOTE | 2024-09-09 18:36 | MHC.EDTECH ---
06:45-07:15 Breakfast was given, the patient ate all of the breakfast provided; Coffee and whole milk were consumed. Patient is calm and cooperative. -[facility], perinatal breastfeeding assistant 07:15 bedpan used for BM. Patient is calm and cooperative. -[facility], perinatal breastfeeding assistant 07:45 Medication was requested Lexi RN Notified. Patient is calm and cooperative. -[facility], perinatal breastfeeding assistant 08:00 Patient was with staff from the care team. Patient is calm and cooperative. -[facility], perinatal breastfeeding assistant 08:15 Urinal used 60ml voided. Patient is calm and cooperative. -[facility], perinatal breastfeeding assistant 08:45 ?Urinal used 100ml voided, Patient is calm and cooperative. -[facility], perinatal breastfeeding assistant 09:00 Patient is calm and cooperative. -[facility], perinatal breastfeeding assistant 09:15 ?Urinal used 100ml voided, Patient is calm and cooperative. -[facility], perinatal breastfeeding assistant 09:30 Patient asked if his mother was here. Asked CHRISTIAN Elliott Patient is calm and cooperative. -[facility], perinatal breastfeeding assistant 09:45 Patient is calm and cooperative. -[facility], perinatal breastfeeding assistant 10:00 Ice water provided. Patient is calm and cooperative. -[facility], perinatal breastfeeding assistant 10:15 Patient is calm and cooperative. -[facility], perinatal breastfeeding assistant 10:30 Urinal used output is 60ml.? Patient is calm and cooperative. -[facility], perinatal breastfeeding assistant 10:45 Patient is calm and cooperative. -[facility], perinatal breastfeeding assistant 11:00 Patient is calm and cooperative. -[facility], perinatal breastfeeding assistant 11:15? Patient is calm and cooperative. -[facility], perinatal breastfeeding assistant 11:30? Patient is calm and cooperative. -[facility], perinatal breastfeeding assistant 11:45? Patient is calm and cooperative. -[facility], perinatal breastfeeding assistant 12:00? Patient is calm and cooperative. -[facility], perinatal breastfeeding assistant 12:15 Patient is calm and cooperative. -[facility], perinatal breastfeeding assistant 12:30 Urinal used 150ml voided, Patient is calm and cooperative. -[facility], perinatal breastfeeding assistant 12:45 Gown Changed.? Patient is calm and cooperative. -[facility], perinatal breastfeeding assistant 13:00 Patient would like to know where his mother is. Patient is calm and cooperative. -[facility], perinatal breastfeeding assistant 13:15 Patient denied lunch. Patient is calm and cooperative. -[facility], perinatal breastfeeding assistant 13:30 Patient denied lunch. Patient is calm and cooperative. Patient wants his mother. -[facility], perinatal breastfeeding assistant 13:45 Patient wants his mother. Patient is calm and cooperative. -[facility], perinatal breastfeeding assistant 14:00 Patient denied wanting his vitals taken. Patient is calm and cooperative. -[facility], perinatal breastfeeding assistant 14:15 Patient denied lunch. Patient is calm and cooperative. Patient wants his mother. -[facility], perinatal breastfeeding assistant 14:30?Patient was repositioned in bed for comfort. Patient is calm and cooperative. -[facility], perinatal breastfeeding assistant 14:45 patient denies vitals.? Patient is calm and cooperative. -[facility], perinatal breastfeeding assistant 15:00? Urinal used 100ml voided, Patient is calm and cooperative. -[facility], perinatal breastfeeding assistant 15:15?? ?Patient is sleeping. Patient is calm and cooperative. -[facility], perinatal breastfeeding assistant 15:30? Patient is sleeping. Patient is calm and cooperative. -[facility], perinatal breastfeeding assistant 15:45? Patient is sleeping. Patient is calm and cooperative. -[facility], perinatal breastfeeding assistant 16:00? Patient is sleeping. Patient is calm and cooperative. -[facility], perinatal breastfeeding assistant 16:15? Patient is sleeping. Patient is calm and cooperative. -[facility], perinatal breastfeeding assistant 16:30? Patient is sleeping. Patient is calm and cooperative. -[facility], perinatal breastfeeding assistant 16:45? Patient is sleeping. Patient is calm and cooperative. -[facility], perinatal breastfeeding assistant 17:00? Patient is eating lunch. Patient is calm and cooperative. -[facility], perinatal breastfeeding assistant 17:15? Patient denied vitals. Patient is calm and cooperative. -[facility], perinatal breastfeeding assistant 17:30? Patient finished lunch. Patient is calm and cooperative. -[facility], perinatal breastfeeding assistant 17:45 Bed cazares used; BM 18:00 Patient denied wanting his vitals taken. Patient is calm and cooperative. -[facility], perinatal breastfeeding assistant 18:15?Patient denied wanting his dinner eating between 17:00 and?1730. Patient is calm and cooperative. -[facility], perinatal breastfeeding assistant 18:30?Patient denied wanting his vitals taken. Patient is calm and cooperative. -[facility], perinatal breastfeeding assistant
--- NOTE | 2024-09-09 19:04 | MHC.EDTECH ---
19:00?Patient is calm and cooperative. -[facility], retail associate manager bilingual 19:05?Patient denied wanting his vitals taken and his dinner since he ate at 1730. Patient is calm and cooperative. -[facility], retail associate manager bilingual
--- NOTE | 2024-09-09 19:43 | MHC.EDTECH ---
assumed care of pt @1900
[2024-09-09] MEDS: OLANZapine 7.5 MG TABLET 15 MG PO (21:41)
[2024-09-09] MEDS: Mirtazapine 15 MG TABLET PO (21:41)
[2024-09-09 22:19] VITALS: BP 111/82; PULSE 74; RESP 17; TEMP 36.3; O2SAT 95
[2024-09-10] MEDS: LORazepam 1 MG TABLET 2 MG PO (01:23)
--- NOTE | 2024-09-10 05:30 | PC.NURSE ---
pt was restless around midnight, trying to get out of bed, yelling out to staff. pt medicated per JUN per request. pt has been resting comfortably on the stretcher since, eye closed, breathing even and unlabored. no apparent distress noted at this time. sitter at bedside
[2024-09-10] MEDS: Aspirin Enteric Coated 81 MG TABLET.DR PO (08:40)
[2024-09-10] MEDS: ARIPiprazole 10 MG TABLET PO (08:40)
[2024-09-10] MEDS: Docusate Sodium 100 MG CAPSULE PO (08:40)
[2024-09-10] MEDS: Gabapentin 300 MG CAPSULE 900 MG PO (08:40)
[2024-09-10] MEDS: Omeprazole 20 MG CAPSULE.DR PO (08:41)
[2024-09-10] MEDS: clonazePAM 0.5 MG TABLET PO (08:41)
[2024-09-10] MEDS: DULoxetine HCl 60 MG CAPSULE.DR PO (08:41)
[2024-09-10] MEDS: levETIRAcetam 250 MG TABLET PO (08:41)
[2024-09-10] MEDS: OLANZapine 5 MG TABLET PO (08:41)
[2024-09-10] MEDS: Potassium Chloride ER 20 MEQ TAB.ER.PRT 40 MEQ PO (08:41)
[2024-09-10] MEDS: Lactulose 20 GM/30 ML SOLUTION 30 GM PO (08:43)
--- NOTE | 2024-09-10 10:48 | MHC.CARE ---
Multiple calls made to [facility] and their parent company [employer].? Most calls have not gone through, two have and there was no answer.? These calls were made from multiple office phones and personal cell phone.
--- NOTE | 2024-09-10 11:06 | MHC.CARE ---
Call placed to pt?s Mother Tiffanie advising her of the disposition for discharge and pt?s reluctance to return to [facility] as well as the challenges in contacting [facility].? She provides me with Benja?mellissa ([facility]) phone number [phone] stating she is having the same issues.
--- NOTE | 2024-09-10 11:06 | MHC.CARE ---
Call placed to Benja ([facility], phone number [phone]) message left requesting a return call.
[2024-09-10 14:33] VITALS: BP 132/89; PULSE 73; RESP 18; TEMP 36.6; O2SAT 95
== END 2024-09-10 14:35 ==
PROVIDERS: Emergency Provider Emergency Medicine Emergency Medical Services
DX: R45.6 Violent behavior (principal); R45.851 Suicidal ideations; F14.10 Cocaine abuse, uncomplicated; F31.9 Bipolar disorder, unspecified; Z87.891 Personal history of nicotine dependence; Z79.899 Other long term (current) drug therapy; Z51.81 Encounter for therapeutic drug level monitoring
CPT/HCPCS: 36415; 80053; 80307; 81001; 85025; 99285; S9485

== ENCOUNTER 2024-11-06 14:40 | Emergency (ER) | payer MEDICAID, SELFPAY ==
[2024-11-06] VITALS (7 sets, daily range): BP systolic 106–128; BP diastolic 36–86; PULSE 60–83; RESP 12–19; TEMP -17.7–36.8; O2SAT 95–98; BMI 34.6
--- NOTE | 2024-11-06 14:50 | ECG_ITS ---
Test Reason : SYNCOPY Blood Pressure : */* mmHG Vent. Rate : 72 BPM Atrial Rate : 72 BPM P-R Int : 188 ms QRS Dur : 82 ms QT Int : 360 ms P-R-T Axes : 57 10 50 degrees QTcB Int : 394 ms Normal sinus rhythm Normal ECG When compared with ECG of 01-Jan-2024 12:41, No significant change was found Referred By: Gómez Vann Electronically Signed By: Chema Hannon
--- NOTE | 2024-11-06 15:20 | ED.SYNCOPE ---
HPI - Syncope General Chief Complaint: Syncope Stated Complaint: STAFF STS UNRESP X5 MIN,FROM SNF PER EMS History of Present Illness ED Provider: Gómez Vann MD HPI narrative: 54-year-old male brought in from SNF staff reports possibly fall yesterday. Brief episode of unresponsiveness without cyanosis or pulselessness or resuscitation/CPR. Patient per staff has episodes similar to this in the past he has a history of stroke with hemiparesis bed-bound. Patient offers limited history due to his dysarthria denies pain and does not recall the event. Relevant past medical history CVA with left residual weakness, dysarthr, TBI, hypertension, polysubstance use disorder COPD GERD anxiety bipolar. Possible encephalopathy versus seizures worked up in the past with EEG that showed complex partial seizure. Patient on Keppra 250 b.i.d.. Related Data Home Medications ?Medication ?Instructions ?Recorded ?Confirmed acetaminophen 325 mg tablet 975 mg PO Q8H PRN HEADACHE/PAIN 12/24/23 09/09/24 albuterol sulfate 2.5 mg/3 mL 2.5 mg inhalation Q4H PRN Wheezing 12/24/23 09/09/24 (0.083 %) solution for nebulization aripiprazole 5 mg tablet (Abilify) 10 mg PO DAILY 12/24/23 09/09/24 aspirin 81 mg tablet,delayed 81 mg PO DAILY 12/24/23 09/09/24 release bisacodyl 10 mg rectal suppository 10 mg PA DAILY PRN Constipation 12/24/23 09/09/24 docusate sodium 100 mg capsule 100 mg PO BID 12/24/23 09/09/24 (Colace) furosemide 20 mg tablet 20 mg PO DAILY 12/24/23 01/01/24 gabapentin 300 mg capsule 900 mg PO TID 12/24/23 09/09/24 guaifenesin 100 mg/5 mL oral liquid 200 mg PO Q4H PRN Cough 12/24/23 09/09/24 lactulose 10 gram/15 mL oral 45 ml PO TID 12/24/23 09/09/24 solution magnesium hydroxide 400 mg/5 mL 30 ml PO DAILY PRN Constipation 12/24/23 09/09/24 oral suspension (Milk of Magnesia) olanzapine 15 mg tablet 15 mg PO BEDTIME 12/24/23 09/09/24 oxycodone 5 mg tablet 5 mg PO Q8H PRN Pain, Severe 12/24/23 09/09/24 pantoprazole 40 mg tablet,delayed 40 mg PO DAILY@0630 12/24/23 09/09/24 release duloxetine 30 mg capsule,delayed 60 mg PO DAILY 01/01/24 09/09/24 release sodium phosphates 19 gram-7 118 ml PA DAILY PRN Constipation 01/01/24 09/09/24 gram/118 mL enema (Fleet Enema) albuterol sulfate 90 mcg/actuation 1 puff inhalation Q4H PRN SOB 09/09/24 09/09/24 aerosol inhaler clonazepam 0.5 mg tablet 0.5 mg PO TID 09/09/24 09/09/24 mirtazapine 15 mg tablet 15 mg PO BEDTIME 09/09/24 09/09/24 olanzapine 5 mg tablet 5 mg PO DAILY 09/09/24 09/09/24 potassium chloride 20 mEq 40 meq PO DAILY 09/09/24 09/09/24 tablet,extended release Previous Rx's ?Medication ?Instructions ?Recorded levetiracetam 250 mg tablet 250 mg PO BID #60 tabs 12/27/23 (Keppra) Allergies Allergy/AdvReac Type Severity Reaction Status Date / Time chlorpromazine (From Allergy Unknown Verified 11/06/24 14:52 Thorazine) haloperidol (From Haldol) Allergy Unknown Verified 11/06/24 14:52 [facility] Past Medical History Medical History Malignant neuroleptic syndrome Cocaine abuse Bipolar disorder Traumatic brain injury Left hemiplegia CVA (cerebral vascular accident) Hepatitis C Anxiety COPD (chronic obstructive pulmonary disease) Social History Social History Household Members: None Housing: [facility] Other:: [facility] Comment: 1:1 sitter Patient Tobacco Use Status: Former Tobacco user Cigarette Packs Per Day: 1 Cigarettes Per Day: 20.0 Smoked in Last 30 Days: No Use of substances other than those prescribed or required for medical reasons: No Substance Use Type: Marijuana Advance Directives: No Advance Directives Information Provided: No Do you have a plan to hurt others: No Plan service: No Physical Exam Vital Signs: Vital Signs: Last Vital Signs Temp 0 F L 11/06/24 18:59 Pulse 80 11/06/24 18:59 Resp 18 11/06/24 18:59 BP 125/86 11/06/24 18:59 Pulse Ox 98 11/06/24 18:59 O2 Del Method Room Air 11/06/24 16:21 BMI result Body Mass Index 34.6 GENERAL: Well appearing. No apparent distress. Alert. Dysphagia. Similar to description previous notes HEAD/NECK: Normal to inspection. Neck supple. No cervical lymphadenopathy. EYES: Normal to inspection. Sclera non-icteric. ENMT: External nose normal. RESPIRATORY: Respiratory effort normal. Lungs clear to auscultation bilaterally. CARDIOVASCULAR: Regular rate. Normal rhythm. No murmur. No rubs. GI: Soft, non-tender, non-distended. No rebound or guarding. No masses palpable. No hepatosplenomegaly. SKIN: No jaundice. NEUROLOGICAL: Alert. PSYCHIATRIC: Alert. Appearance appropriate for situation. Attitude cooperative. OTHER: Comprehensive Neuro exam: Holds his head slightly of the right side. Dysphagia present., pupils symmetric and reactive to light, intact sensation to the face throughout, intact strong face deviation and shoulder shrug. Sensation intact to light touch throughout 2/5 supervisor mail carriers strength. No effort proximally left upper extremity. No effort left lower extremity proximal or distal. 5/5 strength right upper and right lower extremity motor exam Medications Administered Discontinued Medications Generic Name Dose Route Start Last Admin Trade Name Freq PRN Reason Stop Dose Admin Levetiracetam 500 mg in 100 mls @ 400 mls/hr 11/06/24 16:02 11/06/24 16:33 Keppra IV 11/06/24 16:16 Infused ONCE ONE Infusion Medical Decision Making Medical Decision Making [facility] Narrative: Medical Decision Makin-year-old male with TBI/CVA from retirement with questioned fall but no signs of traumatic injury. Question unresponsive episode without CPR or hypoxia/cyanosis. Patient is purportedly at his baseline per description the previous office visit notes and his own attestation. He has residual weakness in the left which appears unchanged. He has baseline dysphagia. He has no complaints at this time. There is a suggestion of partial complex seizures on a previous EEG perhaps he had this he has been on 250 of Keppra presumably adherent with this. I will load him with 500 for now. No convulsive or seizure activity here. Could be syncope versus atypical seizure. Cardiac exam he looks euvolemic and has no chest pain in his well-perfused peripherally. Preliminary Favored Differential Diagnosis: Behavioral/volitional episode, psychogenic nonepileptic seizure, seizure, syncope: Vasovagal, orthostasis, neurocardiogenic, less likely dysrhythmia ACS among additional considered etiologies Testing Interpreted Independently: Sinus rhythm rate 72 QTC 394, no ischemic changes Radiology or Lab testing Results Reviewed: Stable hemoglobin. No leukocytosis. Normal electrolytes kidney function Consults: Not Applicable Independent Historians/External Chart Reviews: Not Applicable Social Determinants of Health Impacting MDM/Planning: Not Applicable Lab Data MDM Lab Attestation statement: I reviewed the patient's lab results. 11/06/24 15:33 11/06/24 15:32 Labs: Lab Results 11/06/24 11/06/24 Range/Units 15:32 15:33 WBC 6.2 (4.8-10.8) X10*3/uL RBC 4.65 (4.60-5.80) X10*6/uL Hgb 13.1 L (14.0-18.0) g/dl Hct 40.2 L (42.0-52.0) % MCV 86.5 (80.0-98.0) fL MCH 28.2 (27.0-33.0) pg MCHC 32.6 (31.0-36.0) g/dl RDW 14.8 (11.0-16.0) % Plt Count 165 D (160-400) X10*3/uL MPV 11.2 (9.4-12.4) fL Immature Gran % (Auto) 0.2 (0.0-0.4) % Neut % (Auto) 56.5 (45-73) % Lymph % (Auto) 34.6 (20-40) % Holt % (Auto) 5.3 (2-11) % Eos % (Auto) 3.1 (0-4) % Baso % (Auto) 0.3 (0-2) % Lymph # (Auto) 2.2 (1.2-4.9) X10*3/uL Holt # (Auto) 0.3 (0.1-1.2) X10*3/uL Eos # (Auto) 0.2 (0.0-0.4) X10*3/uL Baso # (Auto) 0.0 (0.0-0.2) X10*3/uL Abs Immat Gran (auto) 0.01 (0.00-0.03) X10*3/uL Absolute Neuts (auto) 3.5 (2.0-8.3) x10*3/uL Absolute Nucleated RBC 0.000 (0.0-0.012) X10*3/uL Nucleated RBC % (auto) 0.0 (0.0-0.2) /100WBC Sodium 142 (135-145) mmol/L Potassium 3.8 (3.3-5.1) mmol/L Chloride 109 H (96-108) mmol/L Carbon Dioxide 27 (22-29) mmol/L Anion Gap 10 L (12-20) BUN 16 (9-16) mg/dL Creatinine 0.81 (0.5-1.4) mg/dL Estim Creat Clear Calc 126.7 Estimated GFR > 60 Random Glucose 104 (60-115) mg/dL Calcium 8.7 D (8.4-10.2) mg/dL Total Bilirubin 0.3 (0.0-1.0) mg/dL AST 16 (5-37) U/L ALT 14 (0-40) U/L Alkaline Phosphatase 63 (39-117) U/L Total Protein 6.9 (6.5-8.0) g/dL Albumin 4.1 (3.5-5.0) g/dL Discharge Plan Discharge Clinical Impression: Syncope Patient Disposition: [facility] Additional Instructions: DISCHARGE DIAGNOSES: For reported fall and/or syncopal episode no definitive diagnosis made in the emergency department reassuring workup HISTORY OF PRESENTATION: ?Fall and/or syncopal episode no CPR resuscitation or clinical signs suggestive of arrest. No convulsive activity described to us EMERGENCY DEPARTMENT COURSE,TESTS, TREATMENTS: While in the ED today you did not have any signs of injury. You had baseline neurologic examination compared to previously documented exams. We did load you with 500 mg IV Keppra in case this was related to TBI or CVA related seizure which in the past has been seen on EEG ?complex partial seizure?. No convulsive activity was seen here. You remained stable. You had reassuring lab work. You ate a meal of food and eventually were discharge DISCHARGE MEDICATIONS: ?[We have made no changes to your regular medication regimen] FOLLOW-UP: ?Call your primary or general physician soon as possible to discuss your symptoms, your ED visit and to discuss follow up plans Have the patient evaluated by neurology under PCP at the SNF soon as possible INSTRUCTIONS ?& RETURN PRECAUTIONS: If any symptoms change first call your primary physician, if it is after-hours your primary doctors office should have a provider deckhand sponge boat you can speak with. If the symptoms are severe or very concerning to you then call 911 or return to the ED. If the patient develops headache or complains of other signs of injury that we did not see any exam send the patient back for re-evaluation Gómez Vann MD Emergency Physician [facility] Prescriptions: No Action acetaminophen 325 mg Tablet 975 mg PO Q8H PRN (Reason: HEADACHE/PAIN) albuterol sulfate 2.5 mg /3 mL (0.083 %) Solution For Nebulization 2.5 mg INHALATION Q4H PRN (Reason: Wheezing) aspirin 81 mg Tablet,Delayed Release (Dr/Ec) 81 mg PO DAILY guaifenesin 100 mg/5 mL Liquid 200 mg PO Q4H PRN (Reason: Cough) magnesium hydroxide [Milk of Magnesia] 400 mg/5 mL Suspension 30 ml PO DAILY PRN (Reason: Constipation) bisacodyl 10 mg Suppository 10 mg PA DAILY PRN (Reason: Constipation) pantoprazole 40 mg Tablet,Delayed Release (Dr/Ec) 40 mg PO DAILY@0630 docusate sodium [Colace] 100 mg Capsule 100 mg PO BID gabapentin 300 mg Capsule 900 mg PO TID olanzapine 15 mg Tablet 15 mg PO BEDTIME furosemide 20 mg Tablet 20 mg PO DAILY oxycodone 5 mg Tablet 5 mg PO Q8H PRN (Reason: Pain, Severe) aripiprazole [Abilify] 5 mg Tablet 10 mg PO DAILY lactulose 10 gram/15 mL Solution 45 ml PO TID levetiracetam [Keppra] 250 mg tablet 250 mg PO BID Qty: 60 0RF Fleet Enema 19-7 gram/118 mL Enema 118 ml PA DAILY PRN (Reason: Constipation) duloxetine 30 mg Capsule,Delayed Release(Dr/Ec) 60 mg PO DAILY clonazepam 0.5 mg Tablet 0.5 mg PO TID olanzapine 5 mg Tablet 5 mg PO DAILY mirtazapine 15 mg Tablet 15 mg PO BEDTIME albuterol sulfate 90 mcg/actuation Hfa Aerosol Inhaler 1 puff INHALATION Q4H PRN (Reason: SOB) potassium chloride 20 mEq Tablet Extended Release 40 meq PO DAILY Interventions: ED Discharge Assessment Last Done: 11/06/24 18:59 Discharge Date/Time: 11/06/24 19:00 Print Language: Colombian
[2024-11-06 15:38] LABS: MANUAL DIFF FLAG NO
[2024-11-06 15:42] LABS: Hematocrit 40.2 % (42.0-52.0); Hemoglobin 13.1 g/dl (14.0-18.0); Imm Gran Abs Auto 0.01 X10*3/uL (0.00-0.03); Imm Gran Pct Auto 0.2 % (0.0-0.4); Lymphocytes Absolute Auto 2.2 X10*3/uL (1.2-4.9); Mean Corpuscular HGB Conc 32.6 g/dl (31.0-36.0); Mean Corpuscular Hemoglobin 28.2 pg (27.0-33.0); Mean Corpuscular Volume 86.5 fL (80.0-98.0); NRBC Abs Auto 0.000 X10*3/uL (0.0-0.012); NRBC Pct Auto 0.0 /100WBC (0.0-0.2); Platelet Count 165 X10*3/uL (160-400); Red Blood Count 4.65 X10*6/uL (4.60-5.80); White Blood Count 6.2 X10*3/uL (4.8-10.8)
[2024-11-06 15:56] LABS: Alanine Aminotransferase 14 U/L (0-40); Albumin Level 4.1 g/dL (3.5-5.0); Alkaline Phosphatase 63 U/L (39-117); Anion Gap 10 (12-20); Aspartate Amino Transferase 16 U/L (5-37); Blood Urea Nitrogen 16 mg/dL (9-16); Calcium 8.7 mg/dL (8.4-10.2); Carbon Dioxide 27 mmol/L (22-29); Chloride 109 mmol/L (96-108); Creatinine Clr Calc Pharmacy 126.7; Estimated Glomerular Filt Rate > 60; Potassium 3.8 mmol/L (3.3-5.1); Sodium 142 mmol/L (135-145); Total Protein 6.9 g/dL (6.5-8.0)
--- OUTSIDE RECORDS SUMMARY | 2024-11-06 16:07 | XMS_ITS ---
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 Name Role Phone Gisell Jovel Unavailable Unavailable Demetrius Carbajal Unavailable Unavailable Kandis Velez Unavailable Unavailable Yamila Knutson Unavailable Unavailable Dori Zimmerman Unavailable Unavailable Obdulia Alexander MASSANDOVAL-WAITA Unavailable Tomasa vailable Allergies and adverse reactions Code CodeSystem Substance Reaction Severity StartDate Concern Status Thorazine Unknown 10/10/2023 active Haldol Unknown 10/10/2023 active Care Team Name Role Address Phone Organization Dates Demetrius Carbajal PCP [address] [facility] [address], [place], [address], [place] (Office): : [facility] 01/02/2024 - present Gisell Jovel [address] [place] [address], [address], [place] (Office): : [facility] 01/02/2024 - present [facility] Vele[facility], [place], [address], [place] (Fax): [facility] 01/02/2024 - present Yamila Knutson [address] [facility] [address], [place], [address], [facility] (Office): : [facility] 01/02/2024 - present Dori Zimmerman [address] [facility] [address], [place], [address], [facility] (Office): : [facility] 01/02/2024 - present [facility] [address] [place], [place], [id number], [place] (Office): : [facility] 01/02/2024 - present Goals Section Goals Description Status Target Date I will accept care with no m ore than 3 attempts through the next review. Active 12/26/2024 I will be able to discuss op enly with the facility social insurance analyst any feelings or coping impairments I may be having related to my chronic medical condition, it's treatments and any impact on my psychosocial wellbeing through my next review. Active 025 I will be able to participat e in my daily life choices and care through next review Active 12/26/2024 I will be clean, well groome d, and will be dressed to maintain my dignity through next review. All my ADLs will be met on a daily bases, with resident doing as much as possible for self within limits of my medical condition. Active 12/26/2024 I will be free from self inf licted injury or harm through the next review. Active 12/26/2024 I will be maintained on the lowest, most effective dose of psychotropic medication through my next review. Active 2024 I will be redirected with mi nimal verbal cues if exhibiting socially inappropriate behavior towards others and will vent feeling in a non-confrontational manner through the next review. Active 12/26/2024 I will drink the fluids I en teresa and have no signs and symptoms of dehydration through next review Active 12/26/2024 I will experience a reductio n in anxiety symptoms and improved overall well-being as indicated by self-reported comfort and reduced stress levels within my next review date. Active 12/01 I will express my frustratio ns verbally with facility staff and my social insurance analyst for clarification of things I don't know or remember through the next review. Active 12/26/2024 I will feel safe in my home and enjoy/participate in activities of my choice through next review. Active 12/26/2024 I will have no adverse side effects of psychotropic medication use through my next review. Active 12/26/2024 I will have no ill effects r elated to my choices through my next review. Active 12/26/2024 I will have no injury if I have a seizure throug h next review. Active 12/26/2024 I will have no oral discomfo rt or difficulty eating related to my teeth through my next review. Active 12/26/2024 I will have no reported inju cristin or harm to myself or others as a result of altercations through my next review. Active 025 I will have no signs/symptom s of respiratory distress through my next review. Active 12/26/2024 I will have soft formed stools through the next review Active 12/26/2024 I will not be misidentified. Active I will not harm others when frustrated. I will not grab, punch, or hit staff. I will not harm them in any. Instead I will use copings skills that I have established with that will help me reframe from engaging in his behavior. Active 12/26/2024 I will not harm self or others through the revie w date. Active 12/26/2024 I will not have any falls with major injury thro ugh my next review Active 12/26/2024 I will not have any signific ant cardiac events related to my diagnosis through my next review. Active 12/26/2024 I will not leave my home unsupervised through ne xt review. Active 12/26/2024 I will not say inappropriate things to my peers through the next review. Active 12/26/2024 I will not use alcohol or [place] legal drugs or chemicals through the next review. Active 12/26/2024 I will pursue interests of my choice through nex t review Active 12/26/2024 I will remain safe in my env ironment and free from traumatic reaction (panic attacks, dissociation, withdrawal from daily routines) through the next review. Active 12/26/2024 I will remain safe in my environment through the next review. Active 12/26/2024 I will remain satisfied with my choice of long t erm residency Active 12/26/2024 I will report effective bertin gement of my pain through the next review Active 12/26/2024 I will verbalize concerns/ i ssues to staff of choice through the next review. Active 12/26/2024 I will verbalize understandi ng of need to control verbally abusive behavior through the review date. Active 12/26/2024 My comfort will be maintained through my next re view. Active 12/26/2024 My concerns will be listened to and explored thr ough next review. Active 12/26/2024 My needs will be met through staff assistance. A ctive 12/26/2024 My skin will remain intact through my next revie w. Active 12/26/2024 My skin will remain intact through my next revie w. Active 12/26/2024 My wishes will be honored and respected through the next review. Active 12/26/2024 Resident Intake of Nutrients Will Meet Metabolic Needs Active 12/26/2024 Resident will consume 50% of at least 3 meals q day x 90 days. Active 12/26/2024 The resident will be free fr om signs/symptoms of aspiration over the next review. Active 12/26/2024 Wound will remain free from signs and symptoms of infection through next review. Active 12/26/2024 Functional Status Code Name Recorded Time Value Entered By Chair/ymk-kw-swrvs transfer 11/05/2024 Dependent jgiguere Does the resident use a wheelchair and/or scooter? 11/05/2024 Yes (qualifier value) jgiguere Eating 11/05/2024 Supervision or t ouching assistance jgiguere Indicate the type of wheelchair or scooter used 11/05/2024 Independent cisham Indicate the type of wheelchair or scooter used 11/05/2024 Manual wheelchair (physical object) jgiguere Lower body dressing 11/05/2024 Dependent jgiguere Lying to sitting on side of bed 11/05/2024 Not assessed jgiguere Oral hygiene 11/05/2024 Supervision or t ouching assistance jgiguere Personal hygiene 11/05/2024 Dependent jgiguere Picking up object 11/05/2024 Not assessed jgiguere Putting on/taking off footwear 11/05/2024 Dependent jgiguere Roll left and right 11/05/2024 Substantial/maximal a ssistance jgiguere Shower/bathe self 11/03/2024 Not assessed pmiller Sit to lying 11/05/2024 Not assessed jgiguere Sit to stand 11/05/2024 Not assessed jgiguere Toilet transfer 11/05/2024 Not assessed jgiguere Toileting hygiene 11/05/2024 Dependent jgiguere Upper body dressing 11/05/2024 Dependent jgiguere Walk 10 feet 11/05/2024 Not assessed jgiguere Walk 150 feet 11/05/2024 Not assessed jgiguere Walking 10 feet on uneven surfaces 11/05/2024 Not assessed cisham Wheel 150 feet 11/05/2024 Dependent cisham Wheel 50 feet with two turns 11/05/2024 Dependent jgiguere Immunizations Immunization Status Vaccine Details Vaccine Code CodeSystem Date Notes Influenza completed Influenza, high-dose, split virus, quadrivalent, injectable, preservative free lotNumber: [id number] expiry: 10/29/2024 Mfg: Afluria Given 0.5 ml Left Deltoid intramuscularly 197 CVX created date: 12/27/2023 consent date: 12/27/2023 administer ed date: 01/30/2024 Educated by on 12/27/2023 FLU cancelled influenza virus vaccine, unspecified formulation 88 CVX created date: 11/24/2023 consent date: 01/27/2023 patient objection FLU completed influenza virus vaccine, unspecified formulation 88 CVX created date: 11/24/2023 administer ed date: 01/26/2022 FLU completed influenza virus vaccine, unspecified formulation 88 CVX created date: 11/24/2023 administer ed date: 12/31/2021 TDAP completed tetanus toxoid, reduced diphtheria toxoid, and acellular pertussis vaccine, adsorbed 115 CVX created date: 11/24/2023 administer ed date: 03/03/2023 PneumoPCV completed Pneumococcal conjugate vaccine 20-valent (PCV20), polysaccharide [id number] conjugate, adjuvant, preservative free 216 CVX created date: 12/05/2023 administer ed date: 11/25/2023 PneumoPCV cancelled Pneumococcal Conjugate, unspecified formulation 152 CVX created date: 11/24/2023 consent date: 10/12/2023 patient objection RSV aborted Respiratory syncytial virus (RSV), mRNA, injectable, preservative free 326 CVX created date: 03/23/2024 consent date: 03/23/2024 COVID-19 completed SARS-COV-2 (COVID-19) vaccine, mRNA, spike protein, LNP, preservative free, carmencita-sucrose, 30 mcg/0.3 mL dose lotNumber: [id number] expiry: 07/14/2024 Mfg: Comirnaty Given 0.3 ml Left Deltoid intramuscularly 309 CVX created date: 01/17/2024 consent date: 01/17/2024 administer ed date: 01/17/2024 Educated by Lexi Church LPN on 01/17/2024 Resident received Covid Comirnaty vaccination this shift. Lot #[id number] Exp. date 07/14/24 COVID-19 completed SARS-COV-2 (COVID-19) vaccine, mRNA, spike protein, LNP, preservative free, 50 mcg/0.5 mL dose 312 CVX created date: 12/05/2023 administer ed date: 11/28/2023 COVID-19 completed SARS-COV-2 (COVID-19) vaccine, UNSPECIFIED 213 CVX created date: 11/24/2023 administer ed date: 10/09/2021 Monovalent Vaccine, Moderna, mRNA COVID-19 completed SARS-COV-2 (COVID-19) vaccine, UNSPECIFIED 213 CVX created date: 11/24/2023 administer ed date: 05/29/2020 Pfizer, mRNA, Monovalent Medications Section Medication Name Status Code CodeSystem Dose Route Frequency Admin Type Sig Text Start Date End Date Guaifenesin Liquid 100 MG/5ML active 071378 RXNORM 10 millil iter Oral as needed PRN Give 10 millil iter by mouth every 4 hours as needed for For cough relate d to Nasal conges tion (R09.8 1) Total dose 200 mg 2023 - Milk of Magnesia Suspension 400 MG/5ML active 649116 RXNORM 30 ml Oral as needed PRN Give 30 ml by mouth every 24 hours as needed for Consti pation relate d to CONSTI PATION , UNSPEC IFIED (K59.0 0) PO DAILY NEEDED IF NO BM IN 3 DAYS Discon tinue if on Dialys is Route 2023 - Albuterol Sulfate Inhalation Nebulization Solution active 1 vial Inhalat ion as needed PRN 1 vial inhale orally via nebuli zer every 4 hours as needed for Wheezi ng relate d to Chroni c obstru ctive pulmon karen diseas e, unspec ified (J44.9 ) 2023 - Bisacodyl Suppos 10 MG active 746205 RXNORM 1 suppos itory Rectal as needed PRN Insert 1 suppos itory rectal ly every 24 hours as needed for Consti pation relate d to Consti pation , unspec ified (K59.0 0) 2023 - Naloxone HCl Inj 0.4 MG/ML active 926824 9 RXNORM 0.4 mg/ml Intramu scular as needed PRN Inject 0.4 mg/ml intram uscula rly as needed for Prophy laxis 0.4 mg/mL inject ion soluti on: inject ion every 2 minute s as needed . Review and record admini strati on site. naloxo ne 0.4 mg/mL inject ion soluti on /Narca n Admini ster IM in deltoi d for suspec garo opioid overdo se -repea t in 2-3 minute s if no revers al 2023 - Naloxone HCl Nasal [place] 4 MG/0.1ML active 472968 4 RXNORM 4 mg Nasal as needed PRN 4 mg in each nostri l as needed for Prophy laxis Narcan 4 mg/act uation nasal spray: nasal every 2 minute s as needed . Narcan 4 mg/act uation nasal spray Admini ster one spray into nostri l for suspec garo opioid overdo se - repeat within 2-3 minute s if no revers al effect . 2023 - Fleet Enema Rectal Enema 7-19 GM/118ML active 1 applic ation Rectal as needed PRN Insert 1 applic ation rectal ly every 24 hours as needed for Consti pation relate d to Consti pation , unspec ified (K59.0 0) 2023 - Acetaminophen Oral Tablet active 3 tablet Oral as needed PRN Give 3 tablet by mouth every 8 hours as needed for Headac he relate d to Chroni c pain syndro me (G89.4 ) (325mg tab) for TOTAL DOSE of (975 mg) 2023 - Furosemide Oral Tablet 20 MG active 225696 RXNORM 20 mg Oral in the morning Routine Give 20 mg by mouth in the mornin g relate d to ESSENT IAL (PRIMA RY) HYPERT ENSION (I10) 2023 - Aspirin Tab Delayed Release 81 MG active 818143 RXNORM 1 tablet Oral in the morning Routine Give 1 [facility] relate d to Hemipl ga follow ing cerebr al infrc aff left domina nt side (I69.3 52) 2023 - Lactulose Oral Solution 10 GM/15ML active 929128 RXNORM 45 ml Oral three times a day Routine Give 45 ml by mouth three times a day relate d to Chroni c viral hepati tis C (B18.2 ) Total dose of 30 grams 2023 - Olanzapine Tab 15 MG active 198385 RXNORM 1 tablet Oral in the evening Routine Give [facility] relate d to Bipola r disord er, unspec ified (F31.9 ) 2023 - Gabapentin Capsule 300 MG active 790307 RXNORM 3 capsul e Oral three times a day Routine Give 3 capsul e by mouth three times a day relate d to MUSCLE SPASM OF BACK (M62.8 30);LO W BACK PAIN, UNSPEC IFIED (M54.5 0);CHR ONIC PAIN SYNDRO ME (G89.4 ) Total dose 900 mg 2023 - Colace Capsule 100 MG active 839223 6 RXNORM 1 capsul e Oral two times a day Routine Give 1 capsul e by mouth two times a day for Consti pation relate d to CONSTI PATION , UNSPEC IFIED (K59.0 0) 2023 - Pantoprazole Sodium EC Tab 40 MG (Base Equiv) active 983263 RXNORM 1 tablet Oral one time a day Routine Give 1 tablet by mouth one time a day relate d to Gastro -esoph ageal reflux diseas e withou t esopha gitis (K21.9 ) 2023 - OLANZapine Oral Tablet 5 MG active 874938 RXNORM 5 mg Oral in the morning Routine Give 5 mg by mouth in the mornin g relate d to BIPOLA R DISORD ER, UNSPEC IFIED (F31.9 ) (No change to night dose) 2023 - Albuterol Sulfate HFA Inhalation Aerosol Solution 108 (90 Base) MCG/ACT active 337558 RXNORM 1 dose Inhalat ion as needed PRN 1 dose inhale orally every 4 hours as needed for SOB 2023 - levETIRAcetam Oral Tablet 250 MG active 630768 RXNORM 2 tablet Oral two times a day Routine Give 2 tablet by mouth two times a day relate d to UNSPEC IFIED CONVUL SIONS (R56.9 ) 2023 - DULoxetine HCl Oral Capsule Delayed Release Particles 60 MG active 112491 RXNORM 60 mg Oral one time a day Routine Give 60 mg by mouth one time a day relate d to MAJOR DEPRES SIVE DISORD ER, SINGLE EPISOD E, UNSPEC IFIED (F32.9 ) 2023 - Potassium Chloride Katelyn ER Oral Tablet Extended Release 20 MEQ active 742757 4 RXNORM 2 tablet Oral one time a day Routine Give 2 tablet by mouth one time a day for [place] lemia relate d to HYPOKA LEMIA (E87.6 ) 2024 - clonazePAM Oral Tablet 0.5 MG active 388551 RXNORM 1 tablet Oral three times a day Routine Give 1 tablet by mouth three times a day relate d to ANXIET Y DISORD ER, UNSPEC IFIED (F41.9 ) 2024 - Mirtazapine Oral Tablet 15 MG active 798613 RXNORM 15 mg Oral at bedtime Routine Give 15 mg orally at bedtim e for anxiet y relate d to ANXIET Y DISORD ER, UNSPEC IFIED (F41.9 ) 2024 - KlonoPIN Oral Tablet 0.5 MG complete d 721115 RXNORM 0.5 mg Oral as needed PRN Give 0.5 mg by mouth every 8 hours as needed for behavi ors until 2024 23:59 may give one hour before or after schedu led dose 10/16 Abilify Oral Tablet 15 MG aborted 999367 RXNORM 1 tablet Oral one time a day Routine Give 1 tablet by mouth one time a day relate d to BIPOLA R DISORD ER, UNSPEC IFIED (F31.9 ) 11/01 oxyCODONE HCl Oral Tablet 5 MG aborted 784498 1 RXNORM 1 tablet Oral as needed PRN Give 1 tablet by mouth every 8 hours as needed for back pain for 14 Days 10/17 Acetaminophen Oral Tablet 325 MG active 114207 RXNORM 975 mg Oral one time a day Routine Give 975 mg by mouth one time a day relate d to LOW BACK PAIN, UNSPEC IFIED (M54.5 0) 2024 - [place] Carbonate Oral Capsule 150 MG aborted 284651 RXNORM 1 capsul e Oral one time a day Routine Give 1 capsul e by mouth one time a day relate d to MAJOR DEPRES SIVE DISORD ER, SINGLE EPISOD E, UNSPEC IFIED (F32.9 ) 11/01 oxyCODONE HCl Oral Tablet 5 MG complete d 739909 1 RXNORM 1 tablet Oral as needed PRN Give 1 tablet by mouth every 6 hours as needed for back pain for 14 Days 10/31 Diclofenac Sodium External Gel 1 % active 992682 RXNORM n/a n/a Topical two times a day Routine Apply to L. upper/ lower extrem ity topica lly two times a day for Pain 2024 - oxyCODONE HCl Oral Capsule 5 MG active 951264 6 RXNORM 5 mg Oral as needed PRN Give 5 mg by mouth every 6 hours as needed for Pain 2024 - oxyCODONE HCl Oral Tablet 5 MG active 179194 1 RXNORM 1 tablet Oral as needed PRN Give 1 tablet by mouth every 6 hours as needed for For modera te to severe pain 2024 - [place] Carbonate Oral Tablet 300 MG active 200378 RXNORM 1 tablet Oral in the evening Routine Give 1 tablet by mouth in the evenin g relate d to BIPOLA R DISORD ER, UNSPEC IFIED (F31.9 ) 2024 - Abilify Oral Tablet 10 MG active 335719 RXNORM 1 tablet Oral one time a day Routine Give 1 tablet by mouth one time a day relate d to BIPOLA R DISORD ER, UNSPEC IFIED (F31.9 ) 2024 - Mental Status Section Date Assessment Total Score Description 09/16/2024 BIMS 13 cognitively int act CAM 2 Delirium indica garo PHQ-9 01 minimal depress ion 09/08/2024 CAM 4 Delirium indica garo Problems Problem # Description Date of onset Resolved Date Code CodeSystem Concern Status 1 ABNORMAL WEIGHT LOSS [address] active 2 BODY MASS INDEX [BMI] 29.0-29.9, ADULT [address] active 3 EDEMA, UNSPECIFIED [address] active 4 PERSONAL HISTORY OF OTHER SPECIFIED CONDITIONS [address] active 5 HEMIPLEGIA AND HEMIPARESIS FOLLOWING CEREBRAL INFARCTION AFFECTING LEFT NON-DOMINANT SIDE [address] active 6 DEMENTIA IN OTHER DISEASES CLASSIFIED ELSEWHERE, UNSPECIFIED SEVERITY, WITH AGITATION [address] active 7 OTHER SYMPTOMS AND SIGNS INVOLVING COGNITIVE FUNCTIONS AND AWARENESS [address] active 8 SUICIDAL IDEATIONS [address] active 9 OTHER SPECIFIED ABNORMAL FINDINGS OF BLOOD CHEMISTRY [address] active 10 OTHER SPECIFIED DISORDERS OF TEETH AND SUPPORTING STRUCTURES [address] active 11 UNSPECIFIED ACQUIRED DEFORMITY OF LEFT LOWER LEG [address] active 12 DEMENTIA IN OTHER DISEASES CLASSIFIED ELSEWHERE, UNSPECIFIED SEVERITY, WITH MOOD DISTURBANCE [address] active 13 EPILEPSY, UNSPECIFIED, NOT INTRACTABLE, WITHOUT STATUS EPILEPTICUS [address] active 14 DYSPHAGIA, UNSPECIFIED [address] active 15 GENERALIZED ANXIETY DISORDER [address] active 16 PERSONAL HISTORY OF URINARY (TRACT) INFECTIONS [address] active 17 DEMENTIA IN OTHER DISEASES CLASSIFIED ELSEWHERE, UNSPECIFIED SEVERITY, WITH ANXIETY [address] active 18 OTHER SPEECH AND LANGUAGE DEFICITS FOLLOWING CEREBRAL INFARCTION [address] active 19 UNSPECIFIED PROTEIN-CALORIE MALNUTRITION [address] active 20 SCHIZOAFFECTIVE DISORDER, BIPOLAR TYPE 024 01/03/[address] completed 21 HYPOKALEMIA [address] active 22 LOCALIZATION-RELAT ED (FOCAL) (PARTIAL) SYMPTOMATIC EPILEPSY AND EPILEPTIC SYNDROMES WITH COMPLEX PARTIAL SEIZURES, NOT INTRACTABLE, WITHOUT STATUS EPILEPTICUS [address] active 23 UNSPECIFIED CONVULSIONS [address] active 24 MUSCLE WEAKNESS (GENERALIZED) [address] active 25 PATIENT'S NONCOMPLIANCE WITH OTHER MEDICAL TREATMENT AND REGIMEN FOR OTHER REASON [address] active 26 PATIENT'S OTHER NONCOMPLIANCE WITH MEDICATION REGIMEN FOR OTHER REASON [address] active 27 ANXIETY DISORDER, UNSPECIFIED [address] active 28 BIPOLAR DISORDER, UNSPECIFIED [address] active 29 CHRONIC OBSTRUCTIVE PULMONARY DISEASE, UNSPECIFIED [address] active 30 CHRONIC PAIN SYNDROME [address] active 31 CHRONIC VIRAL HEPATITIS C [address] active 32 COCAINE ABUSE, IN REMISSION [address] active 33 CONSTIPATION, UNSPECIFIED [address] active 34 ESSENTIAL (PRIMARY) HYPERTENSION [address] active 35 FUNCTIONAL DYSPEPSIA [address] active 36 GASTRO-ESOPHAGEAL REFLUX DISEASE WITHOUT ESOPHAGITIS [address] active 37 HEMIPLEGIA AND HEMIPARESIS FOLLOWING CEREBRAL INFARCTION AFFECTING LEFT DOMINANT SIDE [address] active 38 HISTORY OF FALLING [address] active 39 INJURY OF CONJUNCTIVA AND CORNEAL ABRASION WITHOUT FOREIGN BODY, RIGHT EYE, SUBSEQUENT ENCOUNTER [address] active 40 INSOMNIA, UNSPECIFIED [address] active 41 LOCALIZED EDEMA 553777979 SNOMED CT active 42 LOCALIZED SWELLING, MASS AND LUMP, LOWER LIMB, BILATERAL 85443225360044602 SNOMED CT active 43 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 [address] active 44 LOW BACK PAIN, UNSPECIFIED [address] active 45 MAJOR DEPRESSIVE DISORDER, SINGLE EPISODE, UNSPECIFIED [address] active 46 MALIGNANT NEUROLEPTIC SYNDROME [address] active 47 MUSCLE SPASM OF BACK 0[address] active 48 NASAL CONGESTION [address] active 49 NEED FOR ASSISTANCE WITH PERSONAL CARE [address] active 50 NICOTINE DEPENDENCE, CIGARETTES, UNCOMPLICATED [address] active 51 OPIOID ABUSE, UNCOMPLICATED [address] active 52 OTHER CHEST PAIN [address] active 53 OTHER FRONTOTEMPORAL NEUROCOGNITIVE DISORDER [address] active 54 OTHER REDUCED MOBILITY [address] active 55 PERSONAL HISTORY OF PNEUMONIA (RECURRENT) [address] active 56 PERSONAL HISTORY OF SUICIDAL BEHAVIOR [address] active 57 PERSONAL HISTORY OF TRANSIENT ISCHEMIC ATTACK (TIA), AND CEREBRAL INFARCTION WITHOUT RESIDUAL DEFICITS [address] active 58 PERSONAL HISTORY OF TRAUMATIC BRAIN INJURY [address] active 59 RESTLESSNESS AND AGITATION [address] active 60 SLURRED SPEECH [address] active 61 UNSPECIFIED ASTHMA, UNCOMPLICATED [address] active 62 UNSPECIFIED OSTEOARTHRITIS, UNSPECIFIED SITE [address] active 63 UNSPECIFIED SEQUELAE OF CEREBRAL INFARCTION [address] active Reason for Referral No Reasons for Referral Entered Social History Social History Observation Description Start Date End Date Code Code System Current Smoking Status Tobacco smoking consumption unknown 118026707 SNOMED CT Sex Assigned At Male 1970 78251-9 [facility] Gender Identity Male [id number] [address] Vital Signs Code Code System Vitals Name Values and Units Timing Information 79777-5 [facility] Pain Level Value=0.0 11/06/2024 8310-5 [facility] Body Temperature Value=97.8 Units= F 11/06/2024 9279-1 [facility] Respiratory Rate Value=18.0 Units=/m in 11/06/2024 8462-4 [facility] Blood Pressure-Diastolic Value=74 Un its=mmHg 11/06/2024 8480-6 [facility] Blood Pressure-Systolic Jpqmk=089 Un its=mmHg 11/06/2024 8867-4 [facility] Heart rate Value=76.0 Units=/min 11/2024 36323-8 [facility] O2 % BldC Oximetry Value=96.0 Units= % 11/06/2024 35335-3 [facility] Weight Ibbqv=189.0 Units=Lbs 08/2024 8302-2 [facility] Height Value=71.0 Units=Inches 06/25/2024
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
[2024-11-06] MEDS: levETIRAcetam in NaCl (iso-os) 500 MG/100 ML PIGGYBACK 400 MG IV (16:18)
--- NOTE | 2024-11-06 18:52 | PC.NURSE ---
Report called to facility.
== END 2024-11-06 19:00 | disposition skilled nursing facility (03) ==
PROVIDERS: Emergency Provider Emergency Medicine
DX: R55 Syncope and collapse (principal); J44.9 Chronic obstructive pulmonary disease, unspecified; F31.9 Bipolar disorder, unspecified; B19.20 Unspecified viral hepatitis C without hepatic coma; F14.10 Cocaine abuse, uncomplicated; Z79.899 Other long term (current) drug therapy; Z87.891 Personal history of nicotine dependence; Z86.73 Personal history of transient ischemic attack (TIA), and cerebral infarction without residual deficits
CPT/HCPCS: 36415; 80053; 85025; 93005; 96374; 99284; 99285; J1953

== ENCOUNTER → 2024-11-06 14:50 | Outpatient (BNV) | payer MEDICAID, SELFPAY | PROVIDERS: Emergency Provider Emergency Medicine; Visit Provider Internal Medicine Cardiovascular Disease | DX: R55 Syncope and collapse (principal) | CPT/HCPCS: 93010 ==

== ENCOUNTER 2025-01-14 09:11 | Emergency (ER) | payer MEDICAID, SELFPAY ==
--- NOTE | ~2025-01-14 | CT_ITS ---
EXAMINATION: CT HEAD WITHOUT CONTRAST CLINICAL INFORMATION: Fall COMPARISON: None available. TECHNIQUE: Contiguous axial imaging was performed from the skull base to vertex without intravenous administration of contrast. This CT examination was performed using dose optimization techniques as appropriate, variously including the following: *Automated exposure control *Adjustment of mA and/or kV according to patient size (this includes techniques or standardized protocols for targeted exams where dose is matched to indication/reason for exam; i.e. extremities or head) *Use of iterative reconstruction technique DLP: 899 mGY*cm FINDINGS: There is no acute ischemic change. There is chronic white matter hypodensity in the posterior right frontal vertex and left basal ganglia. There is no intracranial hemorrhage. There is no mass-effect or midline shift. Basal cisterns and ventricles are within normal limits for age/cerebral volume. Orbits are symmetrical and unremarkable. There is near complete opacification of bilateral maxillary sinuses, right ethmoid air cells, right sphenoid sinus and mild mucosal thickening in left ethmoid air cells and left sphenoid sinus. Frontal sinuses are pneumatized. There is a small amount of fluid in the right mastoid air cells. There is sclerosis in the bilateral mastoid air cells. There are no bony abnormalities. CT/CT head/brain wo IV con IMPRESSION: No acute intracranial abnormality. Nonspecific chronic white matter changes. Chronic pansinusitis sparing the frontal sinuses. There are changes possibly related to chronic mastoiditis with partial sclerosis of the mastoid air cells and fluid partially opacifying the right. Electronically signed by: Robinson Chen MD 01/14/2025 11:21 AM EDT
--- NOTE | ~2025-01-14 | CT_ITS ---
EXAMINATION: CT CERVICAL SPINE WITHOUT CONTRAST CLINICAL INFORMATION: Fall COMPARISON: None available. TECHNIQUE: Axial imaging was performed from the base of the skull through T2 without IV contrast. Coronal and sagittal reformatted images were generated from the original axial data set. ALARA: The examination used one or more of the following radiation dose reduction techniques: Automated exposure control, iterative reconstruction, and/or adjustment of mA and/or KV. DLP: 658 mGY*cm FINDINGS: There are mild degenerative changes with osteophytes the anterior C1-C2 articulation. There are endplate osteophytes most pronounced at C2-3. There are uncovertebral and facet osteophytes at C2-3, C3-4, C4-5, and minimally at C5-6. No fracture lines are evident. There is trace fluid in the right mastoid air cells and sclerosis involving the lateral portion of the left. There is moderate mucosal thickening in the right sphenoid sinus and minimal thickening of the left. Soft tissues are unremarkable. CT/CT cervical spine wo IV con IMPRESSION: No acute fractures. Mild degenerative changes in the upper half of the cervical spine. Chronic sinusitis involving sphenoid sinuses and fluid in the right mastoid air cells Electronically signed by: Robinson Chen MD 01/14/2025 11:17 AM EDT RP
[2025-01-14 09:22] VITALS: BP 124/81; BP 153/87; PULSE 85; PULSE 88; RESP 18; TEMP 36.4; O2SAT 95; BMI 32.1
[2025-01-14 09:32] VITALS: BP 153/87; PULSE 85; RESP 18; TEMP 36.4; O2SAT 95
[2025-01-14 09:40] VITALS: BP 153/87; PULSE 85; RESP 18; TEMP 36.4; O2SAT 95
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
--- NOTE | 2025-01-14 10:03 | ED.FALL ---
HPI - Fall General Chief Complaint: Fall Stated Complaint: fall, headstrike,+ lacie Time Seen by Provider: 01/14/25 09:56 Source: EMS Mode of arrival: EMS Limitations: other (TBI,contacted Guardian, let her know that patient is in the ER) History of Present Illness ED Provider: HPI Narrative: 54-year-old male, presenting from [facility] fall with head strike, he states he slipped and fell, we did update his guardian that patient is in the ER. Patient has a small hematoma in the occipital parietal area, denies chest pain, weakness in upper or lower extremities. Related Data Home Medications ?Medication ?Instructions ?Recorded ?Confirmed acetaminophen 325 mg tablet 975 mg PO Q8H PRN HEADACHE/PAIN 12/24/23 09/09/24 albuterol sulfate 2.5 mg/3 mL 2.5 mg inhalation Q4H PRN Wheezing 12/24/23 09/09/24 (0.083 %) solution for nebulization aripiprazole 5 mg tablet (Abilify) 10 mg PO DAILY 12/24/23 09/09/24 aspirin 81 mg tablet,delayed 81 mg PO DAILY 12/24/23 09/09/24 release bisacodyl 10 mg rectal suppository 10 mg KY DAILY PRN Constipation 12/24/23 09/09/24 docusate sodium 100 mg capsule 100 mg PO BID 12/24/23 09/09/24 (Colace) furosemide 20 mg tablet 20 mg PO DAILY 12/24/23 01/01/24 gabapentin 300 mg capsule 900 mg PO TID 12/24/23 09/09/24 guaifenesin 100 mg/5 mL oral liquid 200 mg PO Q4H PRN Cough 12/24/23 09/09/24 lactulose 10 gram/15 mL oral 45 ml PO TID 12/24/23 09/09/24 solution magnesium hydroxide 400 mg/5 mL 30 ml PO DAILY PRN Constipation 12/24/23 09/09/24 oral suspension (Milk of Magnesia) olanzapine 15 mg tablet 15 mg PO BEDTIME 12/24/23 09/09/24 oxycodone 5 mg tablet 5 mg PO Q8H PRN Pain, Severe 12/24/23 09/09/24 pantoprazole 40 mg tablet,delayed 40 mg PO DAILY@0630 12/24/23 09/09/24 release duloxetine 30 mg capsule,delayed 60 mg PO DAILY 01/01/24 09/09/24 release sodium phosphates 19 gram-7 118 ml KY DAILY PRN Constipation 01/01/24 09/09/24 gram/118 mL enema (Fleet Enema) albuterol sulfate 90 mcg/actuation 1 puff inhalation Q4H PRN SOB 09/09/24 09/09/24 aerosol inhaler clonazepam 0.5 mg tablet 0.5 mg PO TID 09/09/24 09/09/24 mirtazapine 15 mg tablet 15 mg PO BEDTIME 09/09/24 09/09/24 olanzapine 5 mg tablet 5 mg PO DAILY 09/09/24 09/09/24 potassium chloride 20 mEq 40 meq PO DAILY 09/09/24 09/09/24 tablet,extended release Previous Rx's ?Medication ?Instructions ?Recorded levetiracetam 250 mg tablet 250 mg PO BID #60 tabs 12/27/23 (Keppra) Allergies Allergy/AdvReac Type Severity Reaction Status Date / Time chlorpromazine (From Allergy Unknown Verified 01/14/25 09:29 Thorazine) haloperidol (From Haldol) Allergy Unknown Verified 01/14/25 09:29 Review of Systems Constitutional: Constitutional: Reports as per [facility] Past Medical History Medical History Malignant neuroleptic syndrome Cocaine abuse Bipolar disorder Traumatic brain injury Left hemiplegia CVA (cerebral vascular accident) Hepatitis C Anxiety COPD (chronic obstructive pulmonary disease) Social History Social History Household Members: None Housing: Assisted Housing Other:: [facility] Comment: 1:1 sitter Patient Tobacco Use Status: Former Tobacco user Cigarette Packs Per Day: 1 Cigarettes Per Day: 20.0 Smoked in Last 30 Days: No Use of substances other than those prescribed or required for medical reasons: No Substance Use Type: Marijuana Do you have a plan to hurt others: No Plan service: No Physical Exam Vital Signs: Vital Signs: Last Vital Signs Temp 97.5 F 01/14/25 09:40 Pulse 85 01/14/25 09:40 Resp 18 01/14/25 09:40 BP 153/87 H 01/14/25 09:40 Pulse Ox 95 01/14/25 09:40 O2 Del Method Room Air 01/14/25 09:32 BMI result Body Mass Index 32.1 Const: Other: Gen: ?Overall well-appearing patient HEENT: No oral trauma Neck: Cervical collar cleared using nexus criteria CV: RRR, no obvious murmurs appreciated Resp: ?No wheezing rales rhonchi no stridor moving air well Abd: ?Bowel sounds are present, no tenderness no rebound no rigidity MSK: FROM, strength 5/5 all extremities Skin: Small occipital hematoma Neuro: ?Alert and oriented able to answer my questions,, moving upper and lower extremities symmetrically, no obvious facial asymmetry noted Discharge Plan Discharge Clinical Impression: Contusion of head Additional Instructions: Evaluated after a fall Has a small hematoma to the back of the head, you can use Tylenol ice the area if they areas hurting, otherwise had CT head and neck all of which has been reassuring, guardian has been updated of ER visit as well Prescriptions: No Action acetaminophen 325 mg Tablet 975 mg PO Q8H PRN (Reason: HEADACHE/PAIN) albuterol sulfate 2.5 mg /3 mL (0.083 %) Solution For Nebulization 2.5 mg INHALATION Q4H PRN (Reason: Wheezing) aspirin 81 mg Tablet,Delayed Release (Dr/Ec) 81 mg PO DAILY guaifenesin 100 mg/5 mL Liquid 200 mg PO Q4H PRN (Reason: Cough) magnesium hydroxide [Milk of Magnesia] 400 mg/5 mL Suspension 30 ml PO DAILY PRN (Reason: Constipation) bisacodyl 10 mg Suppository 10 mg KY DAILY PRN (Reason: Constipation) pantoprazole 40 mg Tablet,Delayed Release (Dr/Ec) 40 mg PO DAILY@0630 docusate sodium [Colace] 100 mg Capsule 100 mg PO BID gabapentin 300 mg Capsule 900 mg PO TID olanzapine 15 mg Tablet 15 mg PO BEDTIME furosemide 20 mg Tablet 20 mg PO DAILY oxycodone 5 mg Tablet 5 mg PO Q8H PRN (Reason: Pain, Severe) aripiprazole [Abilify] 5 mg Tablet 10 mg PO DAILY lactulose 10 gram/15 mL Solution 45 ml PO TID levetiracetam [Keppra] 250 mg tablet 250 mg PO BID Qty: 60 0RF Fleet Enema 19-7 gram/118 mL Enema 118 ml KY DAILY PRN (Reason: Constipation) duloxetine 30 mg Capsule,Delayed Release(Dr/Ec) 60 mg PO DAILY clonazepam 0.5 mg Tablet 0.5 mg PO TID olanzapine 5 mg Tablet 5 mg PO DAILY mirtazapine 15 mg Tablet 15 mg PO BEDTIME albuterol sulfate 90 mcg/actuation Hfa Aerosol Inhaler 1 puff INHALATION Q4H PRN (Reason: SOB) potassium chloride 20 mEq Tablet Extended Release 40 meq PO DAILY Print Language: Yi
--- NOTE | 2025-01-14 10:08 | PC.NURSE ---
Called Guardian Caren Puga, to let her know that Antonio is in the hospital. Caren (mother) requests a call back later with updates.)
[2025-01-14 12:34] VITALS: BP 130/84; PULSE 78; RESP 20; O2SAT 93
--- OUTSIDE RECORDS SUMMARY | 2025-01-14 13:03 | XMS_ITS ---
Author Organization [facility] Care Team Providers Care Plate Colorer Name Role Phone Gisell Jovel Unavailable Unavailable Demetrius Carbajal Unavailable Unavailable Demetrius Lawson Unavailable Unavailable Kandis Velez Unavailable Unavailable Yamila Knutson Unavailable Unavailable Dori Zimmerman Unavailable Unavailable Patricia Foreman Unavailable Unavailable MainObdulia mcfarland-JUVENALA Unavailable Tomasa vailable Allergies and adverse reactions Code CodeSystem Substance Reaction Severity StartDate Concern Status Thorazine Unknown 10/10/2023 active Haldol Unknown 10/10/2023 active Care Team Name Role Address Phone Organization Dates Demetrius Lawson [address], [address], [place] (Office): : [facility] 01/02/2024 - present Gisell Jovel [address] [place] [address], [address], [place] (Office[place] : [facility] 01/02/2024 - present Demetrius Carbajal [address] [place] [address], [address], [place] (Office[place] : [facility] 01/02/2024 - present Kandis Velez [facility], [place], [address], [place] (Fax): [facility] 01/02/2024 - present Yamila Knutson [address] [facility] [address], [place], [address], [place] (Office): : [facility] 01/02/2024 - present Dori Zimmerman [address] [facility] [address], [address], [place] (Office[place] : [facility] 01/02/2024 - present Patricia Foreman [address] [place] [address], [address], [place] (Office): : [facility] 01/02/2024 - present Obdulia ORELLANA [facility] [address] [place], [place], [phone], [place]Office[place] : [facility] 01/02/2024 - present Encounters EncounterType Code CodeSystem Description Performer ServiceDe liveryLocation Date Ambulatory Encounter CPT Code = [id number] 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 11/06 Ambulatory Encounter CPT Code = [address] Atherosclerosi s of artery of lower limb [id number] [facility] Address: [address] [place] [address], [address], [facility]. 11/06 Ambulatory Encounter CPT Code = [address] Dystrophia unguium [id number] [facility] Address: [address] [place] [address], [address] [place] [address], [facility]. 11/06 Ambulatory Encounter CPT Code = [address] Onychomycosis due to dermatophyte [id number] [facility] Address: [address] [place] [address], [address] [place] [address], [facility]. 11/06 Ambulatory Encounter CPT Code = [address] Abnormal weight loss [id number] [facility] Address: [address] [place] [address], [address] [place] [address], [facility]. 11/06 Ambulatory Encounter CPT Code = [address] Edema [id number] [facility] Address: [address] [place] [address], [address] [place] [address], [facility]. 11/06 Ambulatory Encounter CPT Code = [address] Disease [id number] [facility] Address: [address] [place] [address], [address] [place] [address], [facility]. 11/06 Ambulatory Encounter CPT Code = [address] Body mass index 25-29 - overweight [id number] [facility] Address: [address] [place] [address], [address] [place] [address], [facility]. 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 11/06 Ambulatory Encounter CPT Code = [address] Suicidal thoughts [id number] [facility] Address: [address] [place] [address], [address] [place] [address], [facility]. 11/06 Ambulatory Encounter CPT Code = [address] Finding related to attentiveness [id number] [facility] Address: [address] [place] [address], [address] [place] [address], [facility]. 11/06 Ambulatory Encounter CPT Code = [address] Dementia associated with another disease [id number] [facility] Address: [address] [place] [address], [address] [place] [address], [facility]. 11/06 Ambulatory Encounter CPT Code = [address] Abnormal [id number] [facility] Address: [address] [place] [address], [address] [place] [address], [facility]. 11/06 Ambulatory Encounter CPT Code = [address] Acquired deformity of lower leg [id number] [facility] Address: [address] [place] [address], [address] [place] [address], [facility]. 11/06 Ambulatory Encounter CPT Code = [address] Disorder of teeth AND/OR supporting structures [id number] [facility] Address: [address] [place] [address], [address] [place] [address], [facility]. 11/06 Ambulatory Encounter CPT Code = [address] Epilepsy [id number] [facility] Address: [address] [place] [address], [address], [facility]. 11/06 Ambulatory Encounter CPT Code = [address] Dementia associated with another disease [id number] [facility] Address: [address] [place] [address], [address], [facility]. 11/06 Ambulatory Encounter CPT Code = [address] Dysphagia [id number] [facility] Address: [address] [place] [address], [address], [facility]. 11/06 Ambulatory Encounter CPT Code = [address] Generalized anxiety disorder [id number] [facility] Address: [address] [place] [address], [address], [facility]. 11/06 Ambulatory Encounter CPT Code = [address] Urinary tract infectious disease [id number] [facility] Address: [address] [place] [address], [address] [place] [address]. 11/06 Ambulatory Encounter CPT Code = [address] Dementia associated with another disease [id number] [facility] Address: [address] [place] [address], [address] [place] [address], [facility]. 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 11/06 Ambulatory Encounter CPT Code = [address] Undernutrition [id number] [facility] Address: [address] [place] [address], [address] [place] [address]. 11/06 Ambulatory Encounter CPT Code = [address] Schizoaffectiv e disorder, bipolar type [id number] [facility] Address: [address] [place] [address], [address] [place] [address]. 11/06 Ambulatory Encounter CPT Code = [address] Hypokalemia [id number] [facility] Address: [address] [place] [address], [address] [place] [address], [facility]. 11/06 Ambulatory Encounter CPT Code = [address] Seizure [id number] [facility] Address: [address] [place] [address], [address] [place] [address], [facility]. 11/06 Ambulatory Encounter CPT Code = [address]67 [address] Localization-r elated idiopathic epilepsy [id number] [facility] Address: [address] [place] [address], [address] [place] [address], [facility]. 11/06 Ambulatory Encounter CPT Code = [address] Muscle weakness [id number] [facility] Address: [address] [place] [address], [address] [place] [address]. 11/06 Ambulatory Encounter CPT Code = [address] Noncompliance with treatment [id number] [facility] Address: [address] [place] [address], [address] [place] [address], [facility]. 11/06 Ambulatory Encounter CPT Code = [address] Noncompliance with treatment [id number] [facility] Address: [address] [place] [address], [address] [place] [address], [facility]. 11/06 Ambulatory Encounter CPT Code = [address] Cerebrovascula r disease [id number] [facility] Address: [address] [place] [address], [address] [place] [address], [facility]. 11/06 Ambulatory Encounter CPT Code = [address] Recurrent pneumonia [id number] [facility] Address: [address] [place] [address], [address] [place] [address]. 11/06 Ambulatory Encounter CPT Code = [address] Suicidal behavior [id number] [facility] Address: [address] [place] [address], [address] [place] [address]. 11/06 Ambulatory Encounter CPT Code = [address] Fall [id number] [facility] Address: [address] [place] [address], [address] [place] [address], [facility]. 11/06 Ambulatory Encounter CPT Code = [address] Essential hypertension [id number] [facility] Address: [address] [place] [address], [address] [place] [address], [facility]. 11/06 Ambulatory Encounter CPT Code = [address] Chronic obstructive pulmonary disease [id number] [facility] Address: [address] [place] [address], [address] [place] [address], [facility]. 11/06 Ambulatory Encounter CPT Code = [address] Traumatic brain injury [id number] [facility] Address: [address] [place] [address], [address] [place] [address]. 11/06 Ambulatory Encounter CPT Code = [address] Bipolar disorder [id number] [facility] Address: [address] [place] [address], [address] [place] [address], [facility]. 11/06 Ambulatory Encounter CPT Code = [address]33 [address] Sequelae of cerebral infarction [id number] [facility] Address: [address] [place] [address], [address] [place] [address]. 11/06 Ambulatory Encounter CPT Code = [address] Chronic hepatitis C [id number] [facility] Address: [address] [place] [address], [address] [place] [address], [facility]. 11/06 Ambulatory Encounter CPT Code = [address] Neuroleptic malignant syndrome [id number] [facility] Address: [address] [place] [address], [address] [place] [address], [facility]. 11/06 Ambulatory Encounter CPT Code = [address] Slurred speech [id number] [facility] Address: [address] [place] [address], [address] [place] [address], [facility]. 11/06 Ambulatory Encounter CPT Code = [address] Long-term current use of drug therapy [id number] [facility] Address: [address] [place] [address], [address] [place] [address], [facility]. 11/06 Ambulatory Encounter CPT Code = 23699 6899416 706[address] Bilateral localized swelling of lower limbs [id number] [facility] Address: [address] [place] [address], [address] [place] [address], [facility]. 11/06 Ambulatory Encounter CPT Code = [address] Insomnia [id number] [facility] Address: [address] [place] [address], [address] [place] [address], [facility]. 11/06 Ambulatory Encounter CPT Code = [address] Chronic pain syndrome [id number] [facility] Address: [address] [place] [address], [address] [place] [address]. 11/06 Ambulatory Encounter CPT Code = [address] Constipation [id number] [facility] Address: [address] [place] [address], [address] [place] [address], [facility]. 11/06 Ambulatory Encounter CPT Code = [address] Nonulcer dyspepsia [id number] [facility] Address: [address] [place] [address], [address] [place] [address], [facility]. 11/06 Ambulatory Encounter CPT Code = [address] Nasal congestion [id number] [facility] Address: [address] [place] [address], [address] [place] [address], [facility]. 11/06 Ambulatory Encounter CPT Code = [address] Nicotine dependence [id number] [facility] Address: [address] [place] [address], [address] [place] [address]. 11/06 Ambulatory Encounter CPT Code = [address] Nondependent cocaine abuse in remission [id number] [facility] Address: [address] [place] [address], [address] [place] [address], [facility]. 11/06 Ambulatory Encounter CPT Code = [address] Opioid abuse [id number] [facility] Address: [address] [place] [address], [address] [place] [address], [facility]. 11/06 Ambulatory Encounter CPT Code = 61924 [address] Localized edema [id number] [facility] Address: [address] [place] [address], [address] [place] [address], [facility]. 11/06 Ambulatory Encounter CPT Code = [address] Injury of conjunctiva [id number] [facility] Address: [address] [place] [address], [address] [place] [address], [facility]. 11/06 Ambulatory Encounter CPT Code = [address] Spasm of back muscles [id number] [facility] Address: [address] [place] [address], [address] [place] [address], [facility]. 11/06 Ambulatory Encounter CPT Code = [address] Chest pain [id number] [facility] Address: [address] [place] [address], [address] [place] [address], [facility]. 11/06 Ambulatory Encounter CPT Code = [address] Gastroesophage al reflux disease without esophagitis [id number] [facility] Address: [address] [place] [address], [address] [place] [address], [facility]. 11/06 Ambulatory Encounter CPT Code = [address] Anxiety disorder [id number] [facility] Address: [address] [place] [address], [address] [place] [address], [facility]. 11/06 Ambulatory Encounter CPT Code = [address] Reduced mobility [id number] [facility] Address: [address] [place] [address], [address] [place] [address], [facility]. 11/06 Ambulatory Encounter CPT Code = [address]99[address] Need for personal care assistance [id number] [facility] Address: [address] [place] [address], [address] [place] [address], [facility]. 11/06 Ambulatory Encounter CPT Code = [address] Low back pain [id number] [facility] Address: [address] [place] [address], [address] [place] [address], [facility]. 11/06 Ambulatory Encounter CPT Code = [address] Major depression, single episode [id number] [facility] Address: [address] [place] [address], [address] [place] [address], [facility]. 11/06 Ambulatory Encounter CPT Code = [address] Uncomplicated asthma [id number] [facility] Address: [address] [place] [address], [address] [place] [address], [facility]. 11/06 Ambulatory Encounter CPT Code = [address] Frontotemporal dementia [id number] [facility] Address: [address] [place], [address], [facility]. 11/06 Ambulatory Encounter CPT Code = [address] Restlessness and agitation [id number] [facility] Address: [address] [place], [address], [facility]. 11/06 Ambulatory Encounter CPT Code = [address] Osteoarthritis [id number] [facility] Address: [address] [place] [address], [address], [facility]. 11/06 Goals Section Goals Description Status Target Date I will accept care with no m ore than 3 attempts through the next review. Active 03/10/2025 I will be able to discuss op enly with the facility director social any feelings or coping impairments I may be having related to my chronic medical condition, it's treatments and any impact on my psychosocial wellbeing through my next review. Active 025 I will be able to participat e in my daily life choices and care through next review Active 03/10/2025 I will be clean, well groome d, and will be dressed to maintain my dignity through next review. All my ADLs will be met on a daily bases, with resident doing as much as possible for self within limits of my medical condition. Active 03/10/2025 I will be free from self inf licted injury or harm through the next review. Active 03/10/2025 I will be maintained on the lowest, most effective dose of psychotropic medication through my next review. Active 2024 I will be redirected with mi nimal verbal cues if exhibiting socially inappropriate behavior towards others and will vent feeling in a non-confrontational manner through the next review. Active 03/10/2025 I will drink the fluids I en teresa and have no signs and symptoms of dehydration through next review Active 03/10/2025 I will express my frustratio ns verbally with facility staff and my director social for clarification of things I don't know or remember through the next review. Active 03/10/2025 I will feel safe in my home and enjoy/participate in activities of my choice through next review. Active 03/10/2025 I will have no adverse side effects of psychotropic medication use through my next review. Active 03/10/2025 I will have no ill effects r elated to my choices through my next review. Active 03/10/2025 I will have no injury if I have a seizure throug h next review. Active 03/10/2025 I will have no oral discomfo rt or difficulty eating related to my teeth through my next review. Active 03/10/2025 I will have no reported inju cristin or harm to myself or others as a result of altercations through my next review. Active 025 I will have no signs/symptom s of respiratory distress through my next review. Active 03/10/2025 I will have soft formed stools through the next review Active 03/10/2025 I will not be misidentified. Active 12/2024 I will not harm others when frustrated. I will not grab, punch, or hit staff. I will not harm them in any. Instead I will use copings skills that I have established with that will help me reframe from engaging in his behavior. Active 03/10/2025 I will not harm self or others through the revie w date. Active 03/10/2025 I will not have any falls with major injury thro ugh my next review Active 03/10/2025 I will not have any signific ant cardiac events related to my diagnosis through my next review. Active 03/10/2025 I will not leave my home unsupervised through ne xt review. Active 03/10/2025 I will not say inappropriate things to my peers through the next review. Active 03/10/2025 I will not use alcohol or [place] legal drugs or chemicals through the next review. Active 03/10/2025 I will pursue interests of my choice through nex t review Active 03/10/2025 I will remain safe in my env ironment and free from traumatic reaction (panic attacks, dissociation, withdrawal from daily routines) through the next review. Active 03/10/2025 I will remain safe in my environment through the next review. Active 03/10/2025 I will remain satisfied with my [facility] Active 03/10/2025 I will report effective bertin gement of my pain through the next review Active 03/10/2025 I will verbalize concerns/ i ssues to staff of choice through the next review. Active 03/10/2025 I will verbalize understandi ng of need to control verbally abusive behavior through the review date. Active 03/10/2025 My comfort will be maintained through my next re view. Active 03/10/2025 My concerns will be listened to and explored thr ough next review. Active 03/10/2025 My needs will be met through staff assistance. A ctive 03/10/2025 My skin will remain intact through my next revie w. Active 03/10/2025 My skin will remain intact through my next revie w. Active 03/10/2025 My wishes will be honored and respected through the next review. Active 03/10/2025 Resident Intake of Nutrients Will Meet Metabolic Needs Active 03/10/2025 Resident will consume 50% of at least 3 meals q day x 90 days. Active 03/10/2025 The resident will be free fr om signs/symptoms of aspiration over the next review. Active 03/10/2025 Functional Status Code Name Recorded Time Value Entered By Chair/jng-kn-bgnyr transfer 01/14/2025 Dependent Smajuma Does the resident use a wheelchair and/or scooter? 01/14/2025 Yes (qualifier value) Smajuma Eating 01/14/2025 Supervision or t ouching assistance Smajuma Indicate the type of wheelchair or scooter used 01/14/2025 Manual wheelchair (physical object) Smajuma Indicate the type of wheelchair or scooter used 01/11/2025 Independent rdziuba Lower body dressing 01/14/2025 Dependent Smajuma Lying to sitting on side of bed 01/14/2025 Not assessed Smajuma Oral hygiene 01/14/2025 Setup or clean-up assistance Smajuma Personal hygiene 01/14/2025 Dependent Smajuma Picking up object 01/14/2025 Dependent Smajuma Putting on/taking off footwear 01/14/2025 Dependent Smajuma Roll left and right 01/14/2025 Partial/moderate assi stance Smajuma Shower/bathe self 01/12/2025 Dependent shanteh Sit to lying 01/14/2025 Dependent Smajuma Sit to stand 01/14/2025 Not assessed Smajuma Toilet transfer 01/14/2025 Not assessed Smajuma Toileting hygiene 01/14/2025 Dependent Smajuma Upper body dressing 01/14/2025 Substantial/maximal a ssistance Smajuma Walk 10 feet 01/14/2025 Not assessed Smajuma Walk 150 feet 01/14/2025 Not assessed Smajuma Walking 10 feet on uneven surfaces 01/11/2025 Not assessed rdziuba Wheel 150 feet 01/11/2025 Independent rdziuba Wheel 50 feet with two turns 01/14/2025 Substantial/ maximal assistance Smajuma Immunizations Immunization Status Vaccine Details Vaccine Code CodeSystem Date Notes Influenza completed Influenza, high-dose, split virus, quadrivalent, injectable, preservative free lotNumber: [id number] expiry: 10/29/2024 Mfg: Afluria Given 0.5 ml Left Deltoid intramuscularly 197 CVX created date: 4 consent date: 4 administe red date: 4 Educated by on 12/27/2023 FLU cancelled influenza virus vaccine, unspecified formulation 88 CVX created date: 4 consent date: 3 patient objection FLU completed influenza virus vaccine, unspecified formulation 88 CVX created date: 4 administe red date: 2 FLU completed influenza virus vaccine, unspecified formulation 88 CVX created date: 4 administe red date: 2 TDAP completed tetanus toxoid, reduced diphtheria toxoid, and acellular pertussis vaccine, adsorbed 115 CVX created date: 4 administe red date: 3 PneumoPCV completed Pneumococcal conjugate vaccine 20-valent (PCV20), polysaccharide [id number] conjugate, adjuvant, preservative free 216 CVX created date: 4 administe red date: 4 PneumoPCV cancelled Pneumococcal Conjugate, unspecified formulation 152 CVX created date: 4 consent date: 4 patient objection RSV aborted Respiratory syncytial virus (RSV), mRNA, injectable, preservative free 326 CVX created date: 4 consent date: 4 COVID-19 completed SARS-COV-2 (COVID-19) vaccine, mRNA, spike protein, LNP, preservative free, carmencita-sucrose, 30 mcg/0.3 mL dose lotNumber: [id number] expiry: 07/14/2024 Mfg: Comirnaty Given 0.3 ml Left Deltoid intramuscularly 309 CVX created date: 4 consent date: 4 administe red date: 4 Educated by Lexi Church LPN on 01/17/2024 Resident received Covid Comirnaty vaccination this shift. Lot #[id number] Exp. date 07/14/24 COVID-19 completed SARS-COV-2 (COVID-19) vaccine, mRNA, spike protein, LNP, preservative free, 50 mcg/0.5 mL dose 312 CVX created date: 4 administe red date: 4 COVID-19 completed SARS-COV-2 (COVID-19) vaccine, UNSPECIFIED 213 CVX created date: 4 administe red date: 2 Monovalent Vaccine, Moderna, mRNA COVID-19 completed SARS-COV-2 (COVID-19) vaccine, UNSPECIFIED 213 CVX created date: 4 administe red date: 1 Pfizer, mRNA, Monovalent Influenza new Influenza, adjuvanted, inactivated, trivalent, injectable, preservative free 168 CVX created date: 5 consent date: 5 Educated by on 01/04/2025 COVID completed SARS-COV-2 (COVID-19) vaccine, mRNA, spike protein, LNP, preservative free, carmencita-sucrose, 30 mcg/0.3 mL dose lotNumber: [id number] expiry: 10/22/2025 Mfg: Comirnaty Given 0.3 ml Left Deltoid intramuscularly 309 CVX created date: 5 consent date: 5 administe red date: 5 Educated by Yasmin Church LPN on 01/10/2025 Medications Section Medication Name Status Code CodeSystem Dose Route Frequency Admin Type Sig Text Start Date End Date Indication Guaifenesin Liquid 100 MG/5ML active 48087 4 RXNORM 10 henry liter Oral as needed PRN Give 10 henry liter by mouth every 4 hours as neede d for For cough relat ed to Nasal steve bhupinder (R09. 81) Total dose 200 mg 2023 - For cough Milk of Magnesia Suspension 400 MG/5ML active 71811 7 RXNORM 30 ml Oral as needed PRN Give 30 ml by mouth every 24 hours as neede d for Const ipati on relat ed to CONST IPATI ON, UNSPE CIFIE D (K59. 00) PO DAILY NEEDE D IF NO BM IN 3 DAYS Disco ntinu e if on Dialy sis Route 2023 - Constipatio n Albuterol Sulfate Inhalation Nebulizatio n Solution aborted 1 vial Inhala tion as needed PRN 1 vial inhal e orall y via nebul izer every 4 hours as neede d for Wheez ing relat ed to Chron ic obstr uctiv e pulmo nary disea se, unspe cifie d (J44. 9) 01/09 Wheezing Bisacodyl Suppos 10 MG active 44553 9 RXNORM 1 suppo sitor y Rectal as needed PRN Inser t 1 suppo sitor y recta lly every 24 hours as neede d for Const ipati on relat ed to Const ipati on, unspe cifie d (K59. 00) 2023 - Constipatio n Naloxone HCl Inj 0.4 MG/ML active 61854 29 RXNORM 0.4 mg/ml Intram uscula r as needed PRN Injec t 0.4 mg/ml intra muscu larly as neede d for Proph ylaxi s 0.4 mg/mL injec tion solut ion: injec tion every 2 minut es as neede d . Revie w and recor d admin istra tion site. nalox one 0.4 mg/mL injec tion solut ion /Narc an Admin ister IM in delto id for suspe cted opioi d overd ose -repe at in 2-3 minut es if no rever tin 2023 - Prophylaxis Naloxone HCl Nasal [place] 4 MG/0.1ML active 57857 64 RXNORM 4 mg Nasal as needed PRN 4 mg in each nostr il as neede d for Proph ylaxi s Narca n 4 mg/ac tuati on nasal spray : nasal every 2 minut es as neede d. Narca n 4 mg/ac tuati on nasal spray Admin ister one spray into nostr il for suspe cted opioi d overd ose - repea t withi n 2-3 minut es if no rever tin effec t. 2023 - Prophylaxis Fleet Enema Rectal Enema 7-19 GM/118ML active 1 appli catio n Rectal as needed PRN Inser t 1 appli catio n recta lly every 24 hours as neede d for Const ipati on relat ed to Const ipati on, unspe cifie d (K59. 00) 2023 - Constipatio n Acetaminoph en Oral Tablet active 3 table t Oral as needed PRN Give 3 table t by mouth every 8 hours as neede d for Heada skinny relat ed to Chron ic pain syndr ome (G89. 4) (325m g tab) for TOTAL DOSE of (975 mg) 2023 - Headache Furosemide Oral Tablet 20 MG active 86586 9 RXNORM 20 mg Oral in the morning Routin e Give 20 mg by mouth in the [facility] relat ed to [facility] TIAL (PRIM TAD) HYPER TENSI ON (I10) 2023 - - Aspirin Tab Delayed Release 81 MG active 51131 6 RXNORM 1 table t Oral in the morning Routin e Give 1 table t by mouth in the [facility] relat ed to Hemip lga follo wing cereb ral infrc aff left domin ant side (I69. 352) 2023 - - Lactulose Oral Solution 10 GM/15ML active 52936 7 RXNORM 45 ml Oral three times a day Routin e Give 45 ml by mouth three times a day relat ed to Chron ic viral hepat itis C (B18. 2) Total dose of 30 grams 2023 - - Olanzapine Tab 15 MG active 28582 7 RXNORM 1 table t Oral in the evening Routin e Give 1 table t by mouth in the eveni ng relat ed to Bipol ar disor ana maria, unspe cifie d (F31. 9) 2023 - - Gabapentin Capsule 300 MG active 93612 1 RXNORM 3 capsu le Oral three times a day Routin e Give 3 capsu le by mouth three times a day relat ed to MUSCL E SPASM OF BACK (M62. 830); LOW BACK PAIN, UNSPE CIFIE D (M54. 50);C HRONI C PAIN SYNDR OME (G89. 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 9) 2023 - - OLANZapine Oral Tablet 5 MG active 56359 8 RXNORM 5 mg Oral in the morning Routin e Give 5 mg by mouth in the morni ng [facility]at ed to [facility] DISOR ANA MARIA, UNSPE CIFIE D (F31. 9) (No larson e to night dose) 2023 - - Albuterol Sulfate HFA Inhalation Aerosol Solution 108 (90 Base) MCG/ACT active 22319 2 RXNORM 1 dose Inhala tion as needed PRN 1 dose inhal e orall y every 4 hours as neede d for SOB 2023 - SOB levETIRAcet am Oral Tablet 250 MG active 20086 8 RXNORM 2 table t Oral two times a day Routin e Give 2 table t by mouth two times a day relat ed to UNSPE CIFIE D CONVU LSION S (R56. 9) 2023 - - DULoxetine HCl Oral Capsule Delayed Release Particles 60 MG active 11218 4 RXNORM 60 mg Oral one time a day Routin e Give 60 mg by mouth one time a day relat ed to MAJOR DEPRE SSIVE DISOR ANA MARIA, SINGL E EPISO DE, UNSPE CIFIE D (F32. 9) 2023 - - Potassium Chloride Katelyn ER Oral Tablet Extended Release 20 MEQ active 27331 94 RXNORM 2 table t Oral one time a day Routin e Give 2 table t by mouth one time a day for Hypok alemi a relat ed to HYPOK ALEMI A (E87. 6) 2024 - Hypokalemia clonazePAM Oral Tablet 0.5 MG active 08909 7 RXNORM 1 table t Oral three times a day Routin e Give 1 table t by mouth three times a day relat ed to ANXIE TY DISOR ANA MARIA, UNSPE CIFIE D (F41. 9) 2024 - - Mirtazapine Oral Tablet 15 MG active 79347 5 RXNORM 15 mg Oral at bedtime Routin e Give 15 mg orall y at bedti me for anxie ty relat ed to ANXIE TY DISOR ANA MARIA, UNSPE CIFIE D (F41. 9) 2024 - anxiety Acetaminoph en Oral Tablet 325 MG active 56648 2 RXNORM 975 mg Oral one time a day Routin e Give 975 mg by mouth one time a day relat ed to LOW BACK PAIN, UNSPE CIFIE D (M54. 50) 2024 - - [place] Carbonate Oral Tablet 300 MG active 53593 0 RXNORM 1 table t Oral in the evening Routin e Give [facility] to BIPOL AR DISOR ANA MARIA, UNSPE CIFIE D (F31. 9) 2024 - - Abilify Oral Tablet 10 MG aborted 96282 7 RXNORM 1 table t Oral one time a day Routin e Give 1 table t by mouth one time a day relat ed to BIPOL AR DISOR ANA MARIA, UNSPE CIFIE D (F31. 9) 01/02 - Docusate Sodium Oral Capsule 100 MG active 14759 05 RXNORM 2 capsu le Oral at bedtime Routin e Give 2 capsu le by mouth at bedti me for Const ipati on 2024 - Constipatio n Diclofenac Sodium External Gel 1 % active 82405 3 RXNORM n/a n/a Topica l two times a day Routin e Apply to L. upper extre mity topic ally two times a day for Pain Apply 2 grams AND Apply to L lower extre mity topic ally two times a day for Pain Apply 4 grams 2024 - Pain 10542 3 RXNORM n/a n/a Topica l two times a day Routin e Apply to L. upper extre mity topic ally two times a day for Pain Apply 2 grams AND Apply to L lower extre mity topic ally two times a day for Pain Apply 4 grams 2024 - Pain [place] Carbonate Oral Capsule 150 MG aborted 62080 5 RXNORM 1 capsu le Oral one time a day Routin e Give 1 capsu le by mouth one time a day relat ed to [facility] AR DISOR ANA MARIA, UNSPE CIFIE D (F31. 9) 01/11 - oxyCODONE HCl Oral Tablet 5 MG aborted 04208 21 RXNORM 1 table t Oral as needed PRN Give 1 table t by mouth every 6 hours as neede d for For moder ate to sever e pain AND Give 1 table t by mouth two times a day for Pain 01/10 For moderate to severe pain 92860 21 RXNORM 1 table t Oral two times a day Routin e Give 1 table t by mouth every 6 hours as neede d for For moder ate to sever e pain AND Give 1 table t by mouth two times a day for Pain 01/10 Pain OLANZapine Oral Tablet 2.5 MG aborted 4 RXNORM 1 table t Oral as needed PRN Give 1 table t by mouth every 24 hours as neede d for Agita tion 12/20 Agitation OLANZapine Oral Tablet 2.5 MG complet ed 4 RXNORM 1 table t Oral as needed PRN Give 1 table t by mouth every 24 hours as neede d for Agita tion for 14 Days 01/03 Agitation Abilify Oral Tablet 5 MG active 75121 2 RXNORM 1 table t Oral one time a day Routin e Give 1 table t by mouth one time a day relat ed to MAJOR DEPRE SSIVE DISOR ANA MARIA, SINGL E EPISO DE, UNSPE CIFIE D (F32. 9) 2024 - - SEROquel Oral Tablet 25 MG aborted 17117 8 RXNORM 1 table t Oral one time a day Routin e Give 1 table t by mouth one time a day for Agita tion relat ed to ANXIE TY DISOR ANA MARIA, UNSPE CIFIE D (F41. 9) 01/02 Agitation Sertraline HCl Oral Tablet 25 MG active 01081 0 RXNORM 1 table t Oral one time a day Routin e Give 1 table t by mouth one time a day relat ed to MAJOR DEPRE SSIVE DISOR ANA MARIA, SINGL E EPISO DE, UNSPE CIFIE D (F32. 9) 2024 - - Comirnaty Intramuscul ar Suspension Prefilled Syringe 30 MCG/0.3[place] 47852 41 RXNORM 0.3 ml Intram uscula r one time a day Routin e Injec t 0.3 ml intra muscu larly one time a day for Immun izati on for 1 Day 01/11 Immunizatio n OLANZapine Oral Tablet 2.5 MG active 33851 4 RXNORM 1 table t Oral as needed PRN Give 1 table t by mouth every 8 hours as neede d for Psych osis/ aggre ssion for 14 Days May give 1 hour after sched uled dose 01/21 Psychosis/a ggression Ipratropium -Albuterol Solution 0.5-2.5 (3) MG/3ML active 32098 02 RXNORM 3 ml Inhala tion as needed PRN 3 ml inhal e orall y every 6 hours as neede d for SOB or Wheez ing for 7 Days via nebul izer 01/16 SOB or Wheezing oxyCODONE HCl Oral Tablet 5 MG active 66093 21 RXNORM 1 table t Oral two times a day Routin e Give 1 table t by mouth two times a day relat ed to LOW BACK PAIN, UNSPE CIFIE D (M54. 50) AND Give 1 table t by mouth every 6 hours as neede d for For break throu gh pain 2024 - - 43855 21 RXNORM 1 table t Oral as needed PRN Give 1 table t by mouth two times a day relat ed to LOW BACK PAIN, UNSPE CIFIE D (M54. 50) AND Give 1 table t by mouth every 6 hours as neede d for For break throu gh pain 2024 - For breakthroug h pain [place] Carbonate Oral Capsule 150 MG active 38824 5 RXNORM 2 capsu le Oral one time a day Routin e Give 2 capsu le by mouth one time a day relat ed to JULIO PIERSONOR ANA MARIA, UNSPE ERENDIRAFIE D (F31. 9) 2024 - - Mental Status Section Date Assessment Total Score Description 12/09/2024 BIMS 13 cognitively int act CAM 0 No delirium ind icated PHQ-9 06 mild depression 09/16/2024 BIMS 13 cognitively int act CAM 2 Delirium indica garo PHQ-9 01 minimal depress ion Plan of Treatment Section Interventions Intervention Code Code System Display Name Proposed D ate Problems Problem # Description Date of onset Resolved Date Code CodeSystem Concern Status 1 NAIL DYSTROPHY [address] active 2 TINEA UNGUIUM [address] active 3 UNSPECIFIED ATHEROSCLEROSIS OF [place] ARTERIES OF EXTREMITIES, BILATERAL LEGS [address] active 4 ABNORMAL WEIGHT LOSS [address] active 5 BODY MASS INDEX [BMI] 29.0-29.9, ADULT [address] active 6 EDEMA, UNSPECIFIED [address] active 7 PERSONAL HISTORY OF OTHER SPECIFIED CONDITIONS [address] active 8 HEMIPLEGIA AND HEMIPARESIS FOLLOWING CEREBRAL INFARCTION AFFECTING LEFT NON-DOMINANT SIDE [address] active 9 DEMENTIA IN OTHER DISEASES CLASSIFIED ELSEWHERE, UNSPECIFIED SEVERITY, WITH AGITATION [address] active 10 OTHER SYMPTOMS AND SIGNS INVOLVING COGNITIVE FUNCTIONS AND AWARENESS [address] active 11 SUICIDAL IDEATIONS [address] active 12 OTHER SPECIFIED ABNORMAL FINDINGS OF BLOOD CHEMISTRY [address] active 13 OTHER SPECIFIED DISORDERS OF TEETH AND SUPPORTING STRUCTURES [address] active 14 UNSPECIFIED ACQUIRED DEFORMITY OF LEFT LOWER LEG [address] active 15 DEMENTIA IN OTHER DISEASES CLASSIFIED ELSEWHERE, UNSPECIFIED SEVERITY, WITH MOOD DISTURBANCE [address] active 16 EPILEPSY, UNSPECIFIED, NOT INTRACTABLE, WITHOUT STATUS EPILEPTICUS [address] active 17 DYSPHAGIA, UNSPECIFIED [address] active 18 GENERALIZED ANXIETY DISORDER [address] active 19 PERSONAL HISTORY OF URINARY (TRACT) INFECTIONS [address] active 20 DEMENTIA IN OTHER DISEASES CLASSIFIED ELSEWHERE, UNSPECIFIED SEVERITY, WITH ANXIETY [address] active 21 OTHER SPEECH AND LANGUAGE DEFICITS FOLLOWING CEREBRAL INFARCTION [address] active 22 UNSPECIFIED PROTEIN-CALORIE MALNUTRITION [address] active 23 SCHIZOAFFECTIVE DISORDER, BIPOLAR TYPE 024 01/03/[address] completed 24 HYPOKALEMIA [address] active 25 LOCALIZATION-RELAT ED (FOCAL) (PARTIAL) SYMPTOMATIC EPILEPSY AND EPILEPTIC SYNDROMES WITH COMPLEX PARTIAL SEIZURES, NOT INTRACTABLE, WITHOUT STATUS EPILEPTICUS [address] active 26 UNSPECIFIED CONVULSIONS [address] active 27 MUSCLE WEAKNESS (GENERALIZED) [address] active 28 PATIENT'S NONCOMPLIANCE WITH OTHER MEDICAL TREATMENT AND REGIMEN FOR OTHER REASON [address] active 29 PATIENT'S OTHER NONCOMPLIANCE WITH MEDICATION REGIMEN FOR OTHER REASON [address] active 30 ANXIETY DISORDER, UNSPECIFIED [address] active 31 BIPOLAR DISORDER, UNSPECIFIED [address] active 32 CHRONIC OBSTRUCTIVE PULMONARY DISEASE, UNSPECIFIED [address] active 33 CHRONIC PAIN SYNDROME [address] active 34 CHRONIC VIRAL HEPATITIS C [address] active 35 COCAINE ABUSE, IN REMISSION [address] active 36 CONSTIPATION, UNSPECIFIED [address] active 37 ESSENTIAL (PRIMARY) HYPERTENSION [address] active 38 FUNCTIONAL DYSPEPSIA [address] active 39 GASTRO-ESOPHAGEAL REFLUX DISEASE WITHOUT ESOPHAGITIS 242376861 SNOMED CT active 40 HEMIPLEGIA AND HEMIPARESIS FOLLOWING CEREBRAL INFARCTION AFFECTING LEFT DOMINANT SIDE 823155304837 SNOMED CT active 41 HISTORY OF FALLING [address] active 42 INJURY OF CONJUNCTIVA AND CORNEAL ABRASION WITHOUT FOREIGN BODY, RIGHT EYE, SUBSEQUENT ENCOUNTER [address] active 43 INSOMNIA, UNSPECIFIED 787993919 SNOM[address] CT active 44 LOCALIZED EDEMA 898488185 SNOMED CT active 45 LOCALIZED SWELLING, MASS AND LUMP, LOWER LIMB, BILATERAL 33582181603864117 SNOMED CT active [address]/MEDICAL INTERPRETER (CURRENT) USE OF OPIATE ANALGESIC 570247955 SNOMED CT active 47 LOW BACK PAIN, UNSPECIFIED 486276444 SNOMED CT active 48 MAJOR DEPRESSIVE DISORDER, SINGLE EPISODE, UNSPECIFIED 88627226 SNOMED CT active 49 MALIGNANT NEUROLEPTIC SYNDROME 71797710 SNOMED CT active 50 MUSCLE SPASM OF BACK 727146132 SNOMED CT active 51 NASAL CONGESTION [address] active 52 NEED FOR ASSISTANCE WITH PERSONAL CARE 09576522647704308 SNOMED CT active 53 NICOTINE DEPENDENCE, CIGARETTES, UNCOMPLICATED [address] active 54 OPIOID ABUSE, UNCOMPLICATED [address] active 55 OTHER CHEST PAIN [address] active 56 OTHER FRONTOTEMPORAL NEUROCOGNITIVE DISORDER [address] active 57 OTHER REDUCED MOBILITY [address] active 58 PERSONAL HISTORY OF PNEUMONIA (RECURRENT) [address] active 59 PERSONAL HISTORY OF SUICIDAL BEHAVIOR [address] active 60 PERSONAL HISTORY OF TRANSIENT ISCHEMIC ATTACK (TIA), AND CEREBRAL INFARCTION WITHOUT RESIDUAL DEFICITS [address] active 61 PERSONAL HISTORY OF TRAUMATIC BRAIN INJURY [address] active 62 RESTLESSNESS AND AGITATION [address] active 63 SLURRED SPEECH [address] active 64 UNSPECIFIED ASTHMA, UNCOMPLICATED [address] active 65 UNSPECIFIED OSTEOARTHRITIS, UNSPECIFIED SITE [address] active 66 UNSPECIFIED SEQUELAE OF CEREBRAL INFARCTION [address] active Reason for Referral No Reasons for Referral Entered Social History Social History Observation Description Start Date End Date Code Code System Current Smoking Status Tobacco smoking consumption unknown 459257206 SNOMED CT Sex Assigned At Male 1970 07669-0 [facility] Gender Identity Male [id number] [address] Sexual Orientation Vital Signs Code Code System Vitals Name Values and Units Timing Information 8310-5 [facility] Body Temperature Value=97.6 Units= F 01/14/2025 15893-6 [facility] Pain Level Value=9.0 01/14/2025 9279-1 [facility] Respiratory Rate Value=18.0 Units=/m in 01/14/2025 8462-4 [facility] Blood Pressure-Diastolic Value=69 Un its=mmHg 01/14/2025 8480-6 [facility] Blood Pressure-Systolic Ojpyb=331 Un its=mmHg 01/14/2025 8867-4 [facility] Heart rate Value=96.0 Units=/min 31832-6 [facility] O2 % BldC Oximetry Value=95.0 Units= % 01/14/2025 41636-9 [facility] Weight Imcts=354.8 Units=Lbs 06/2024 8302-2 [facility] Height Value=71.0 Units=Inches 12/09/2024
--- NOTE | 2025-01-14 14:59 | PC.NURSE ---
report called to [facility] RN, report acccepted. Awaiting transportation.
--- NOTE | 2025-01-14 15:04 | PC.NURSE ---
Called guardian and let her know patient is returning to his facility.
[2025-01-14 15:38] VITALS: BP 133/81; PULSE 80; RESP 16; TEMP -17.7; TEMP 0; O2SAT 95
== END 2025-01-14 15:40 ==
PROVIDERS: Emergency Provider Emergency Medicine; PCP Internal Medicine Rheumatology
DX: S00.83XA Contusion of other part of head, initial encounter (principal); I69.354 Hemiplegia and hemiparesis following cerebral infarction affecting left non-dominant side; W01.0XXA Fall on same level from slipping, tripping and stumbling without subsequent striking against object, initial encounter; Y93.89 Activity, other specified; Y92.89 Other specified places as the place of occurrence of the external cause; Y99.8 Other external cause status; Z87.820 Personal history of traumatic brain injury; Z79.899 Other long term (current) drug therapy
CPT/HCPCS: 70450; 72125; 99284

== ENCOUNTER → 2025-01-14 10:03 | Outpatient (BNV) | payer MEDICAID, SELFPAY | PROVIDERS: Emergency Provider Emergency Medicine; PCP Internal Medicine Rheumatology; Visit Provider Radiology Diagnostic Radiology | DX: Z04.3 Encounter for examination and observation following other accident (principal); S00.93XA Contusion of unspecified part of head, initial encounter; R90.82 White matter disease, unspecified; J32.4 Chronic pansinusitis; W19.XXXA Unspecified fall, initial encounter | CPT/HCPCS: 70450; 72125 ==